=== PATIENT | female | born 1965 | race Caucasian/White ===

== ENCOUNTER 2019-06-14 17:39 | Emergency (ER) | payer MEDICARE ==
--- NOTE | 2019-06-14 17:49 | ERPHSYRPT ---
- History of Present Illness Time Seen by Provider: 06/14/19 17:48 Source: patient Exam Limitations: no limitations Physician History: The patient is a 54-year-old female with a past medical history significant for schizophrenia, irritable bowel syndrome, acid reflux/GERD, and a tremor as well as hypomagnesemia presents with a chief complaint of an abnormal lab value, specifically with a serum magnesium level of 1.0. She reportedly follows with Dr. Guerrero, her primary care provider, who has been monitoring her as an outpatient for her hypomagnesemia. She reported has been taking magnesium oxide for some time now. She has stopped her omeprazole which was thought to be contributing to her hypomagnesemia. She also endorsed taking 20 mg of Lasix but has not had an increase in her medication dose. She denies having diarrhea recently although she endorsed having episodes of this in the past but endorsed having constipation. Of note, since stopping her omeprazole she reportedly finished an entire bottle of Tums within less of the week. Otherwise, she denies seizure activity, generalized weakness, headaches palpitations, syncope and had no additional complaints at this time and reportedly is feeling well. Associated Symptoms: heartburn, other (Diarrhea), No nausea, No vomiting, No abdominal pain, No shortness of breath, No chest pain, No headaches, No loss of appetite, No syncope, No seizure, No weakness Allergies/Adverse Reactions: acetaminophen [From Vicodin] Allergy (Intermediate, Verified 06/14/19 17:55) Rash hydrocodone [From Vicodin] Allergy (Intermediate, Verified 06/14/19 17:55) Rash lurasidone [From Latuda] Allergy (Intermediate, Verified 06/14/19 17:55) Rash Home Medications: ARIPiprazole [Aripiprazole] 30 mg PO DAILY 06/14/19 [History] Albuterol Common Canister [Ventolin Common Canister] 1 puff IH DAILY 06/13 [History] Aripiprazole [Abilify] 30 mg PO DAILY 06/14/19 [History] Bupropion HCl 150 mg Sr [Wellbutrin SR 150 MG] 150 mg PO DAILY 06/14/19 [ History] Bupropion HCl [Wellbutrin Xl] 300 mg PO DAILY 06/14/19 [History] Deutetrabenazine [Austedo] 6 mg PO DAILY 06/14/19 [History] Escitalopram Oxalate [Lexapro] 20 mg PO DAILY 06/14/19 [History] Ferrous Sulfate [Iron] 325 mg PO DAILY 06/14/19 [History] Furosemide 20 mg [Lasix 20 mg] 20 mg PO DAILY 06/14/19 [History] Gabapentin 100 mg PO DAILY 06/14/19 [History] Insulin Degludec [Tresiba Flextouch U-200] 200 units IM DAILY 06/14/19 [History] Liraglutide [Victoza 2-Zachary] 1.8 mg SQ DAILY 06/14/19 [History] Magnesium Oxide 400 mg PO DAILY 06/14/19 [History] Omeprazole 20 mg PO DAILY 06/14/19 [History] - Review of Systems Constitutional: No Symptoms Eyes: No Symptoms Ears, Nose, & Throat: No Symptoms Respiratory: No Symptoms, No Cough Cardiac: No Chest Pain Abdominal/Gastrointestinal: Other (heart burn) Genitourinary Symptoms: No Symptoms Musculoskeletal: No Symptoms Skin: No Symptoms Neurological: No Symptoms Psychological: No Symptoms Endocrine: No Symptoms Hematologic/Lymphatic: No Symptoms Immunological/Allergic: No Symptoms All Other Systems: Reviewed and Negative - Nursing Vital Signs Nursing Vital Signs: Initial Vital Signs Temperature 98.0 F 06/14/19 17:46 Pulse Rate 106 H 06/14/19 17:46 Respiratory Rate 20 06/14/19 17:46 Blood Pressure 152/81 06/14/19 17:46 O2 Sat by Pulse Oximetry 98 06/14/19 17:46 Pain Scale Pain Intensity 0 - Physical Exam General Appearance: no apparent distress, alert, obese Eye Exam: PERRL/EOMI, eyes nml inspection, No scleral icterus, No pale conjunctivae, No EOM palsy/anisocoria Ears, Nose, Throat Exam: normal ENT inspection Neck Exam: normal inspection Respiratory Exam: normal breath sounds, lungs clear, airway intact, No chest tenderness, No respiratory distress Cardiovascular Exam: regular rate/rhythm, capillary refill <2 sec, No murmur, No friction rub, No gallop Gastrointestinal/Abdomen Exam: soft, No tenderness, No distention, No mass Pelvic Exam: not done Rectal Exam: deferred Back Exam: normal inspection Extremity Exam: normal inspection Neurologic Exam: alert, oriented x 3, cooperative Skin Exam: normal color, warm, dry, No rash, No petechiae, No jaundice SpO2 Interpretation: normal O2 Delivery: Room Air - Course Nursing assessment & vital signs reviewed: Yes EKG Interpreted by Me: RATE, NORMAL AXIS, NORMAL INTERVALS, NORMAL QRS, Non- specific ST Changes Ordered Tests: Active Orders 24 hr Category Date Time Status EKG-ER Only STAT Care 06/14/19 17:51 Active PHOSPHOROUS Stat Lab 06/14/19 Completed Medication Summary Discontinued Medications Generic Name Dose Route Start Last Admin Trade Name Homero PRN Reason Stop Dose Admin Sodium Chloride 1,000 mls @ 999 mls/hr 06/14/19 18:08 06/14/19 18:23 Sodium Chloride 0.9% 1000 Ml IV 06/14/19 19:08 999 mls/hr .Q1H1M STA Administration Sodium Chloride Confirm 06/14/19 18:22 Sodium Chloride 0.9% 1000 Ml Administered 06/14/19 18:23 Dose 1,000 mls @ ud .ROUTE .STK-MED ONE Magnesium Sulfate 2 gm 06/14/19 18:09 06/14/19 18:24 Magnesium Sulfate 1 Gm/2 Ml Vial IV 06/14/19 18:10 2 gm STAT ONE Administration Magnesium Sulfate Confirm 06/14/19 18:22 Magnesium Sulfate 1 Gm/2 Ml Vial Administered 06/14/19 18:23 Dose 2 gm .ROUTE .STK-MED ONE Lab/Rad Data: Laboratory Results 06/14/19 Range/Units Unknown Phosphorus 5.1 H (2.5-4.5) mg/dL - Progress Progress: unchanged Progress Note: 06/14/19 18:49 2 the patient and inquired about her use of Tums and calcium carbonate. She stated that she has consumed a lot of Tums, specifically over the last week. She states that she consumes Tums frequently but more so after she was taken off of her omeprazole for her acid reflux. 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 06/14/19 21:50 Nontoxic in appearance. The patient is relatively asymptomatic at this time. EKG was reviewed and showed no evidence of prolonged QT or any evidence of preexcitation or arrhythmia. A liter of normal saline in addition to 2g IV magnesium. I spoke to the on-call PCP for Dr. Guerrero and updated her with the patient's suspected diagnosis and need for follow-up ideally later this week. She stated she would have the patient contacted and schedule to be seen later this week. In the meantime, I will order outpatient labs to include BMP, magnesium in addition to serum phosphorus to be checked ideally this Thursday. In the meantime, I instructed the patient to refrain from consuming any additional Tums as this is likely the etiology of her abnormal lab results at this time. She was instructed to continue her low-dose Lasix in addition to magnesium oxide as well. The patient agreed with and verbally understood the discharge plan. Discussed with : Other (On-call physician for Dr. Guerrero) Counseled pt/family regarding: lab results, diagnosis, need for follow-up - Departure Departure Disposition: Home, Extended Care Facility Clinical Impression: Milk alkali syndrome, Hypomagnesemia Condition: Stable Critical Care Time: No Referrals: ROBY GUERRERO, ACCOUNTS RECEIVABLE PROCESSOR [Primary Care Provider] - Instructions: Low Magnesium Level (DC) Additional Instructions: Please continue to take your magnesium oxide as prescribed. You will need to call your primary care provider and schedule an appointment to be seen later this week to have your labs rechecked, ideally 06/17/19. In the meantime, please refrain from consuming Tums as this has contributed to a decrease in your magnesium level and has increased your serum calcium level. Please continue to take your furosemide also known as Lasix as prescribed. Outpatient Orders: BMP Location: LABORATORY MAGNESIUM Location: LABORATORY PHOSPHOROUS Location: LABORATORY
[2019-06-14] MEDS ORDERED: Sodium Chloride 0.9% 1000 ML 1,000 ML IV STA (18:08)
[2019-06-14] MEDS ORDERED: Magnesium Sulfate 1 GM/2 ML VIAL IV ONE (18:09)
[2019-06-14] MEDS ORDERED: Magnesium Sulfate 1 GM/2 ML VIAL ONE (18:22)
[2019-06-14] MEDS ORDERED: Sodium Chloride 0.9% 1000 ML 1,000 ML ONE (18:22)
[2019-06-14 19:09] VITALS: BP 133/68; PULSE 88; O2SAT 99
== END 2019-06-14 19:36 | disposition home or self-care (01) ==
LOC: ED 17:39
DX: E83.52 Hypercalcemia (principal)
CPT/HCPCS: 36000; 36415; 83970; 84100; 93005; 96360; 96374; 99284; J3475

== ENCOUNTER 2020-02-16 06:01 | Day surgery (SDC) | payer MEDICARE ==
--- NOTE | 2020-02-10 10:41 | HP ---
DATE OF SURGERY: 02/16/2020 HISTORY OF PRESENT ILLNESS: The patient presents with complaints of some diarrhea. She had been taking a couple of pills a day for this and it has not helped. She said she ate some taco soup and it gave her pain and diarrhea. She did not have rectal bleeding. She states that both of her grandparents had colon cancer. Last colonoscopy was more than five years ago. She states she was not cleaned out enough and did not get a good enough view. She is just now repeating her colonoscopy for that. Her abdominal pain bilateral and lower. She also states there is some pain in the epigastric area. PAST MEDICAL HISTORY: Arthritis. Acid reflux. Irritable bowel syndrome. Diabetes. Asthma. Schizophrenia. PAST SURGICAL HISTORY: Neck surgery. section. Appendectomy. Cholecystectomy. ALLERGIES: ACETAMINOPHEN. LATUDA. VICODIN. MEDICATIONS: Per chart. FAMILY HISTORY: Chronic obstructive pulmonary disease, congestive heart failure, diabetes, hypertension, liver cancer. SOCIAL HISTORY: None. REVIEW OF SYSTEMS: CONSTITUTIONAL: Denies fever or chills. CHEST: Denies shortness of breath. CVS: Denies chest pain. ABDOMEN: Reports abdominal pain, nausea, vomiting, diarrhea. Denies constipation or rectal bleeding. INTEGUMENTARY: Negative. PHYSICAL EXAMINATION: GENERAL: No acute distress. CHEST: Nonlabored. No shortness of breath. CVS: Regular rate and rhythm. ABDOMEN: Soft, tender in bilateral upper and right lower. EXTREMITIES: No edema. NEUROLOGIC: Alert. PSYCHIATRIC: Appropriate. IMPRESSION: Epigastric pain, abdominal pain and diarrhea. PLAN: EGD and colonoscopy with stool study by Dr. Sumit Varela. As dictated by Breanna Castañeda NP.
[2020-02-16] MEDS ORDERED: Lactated Ringers 1,000 ML IV SCH (06:30)
[2020-02-16] MEDS ORDERED: DIPRIVAN 200 MG/20 ML IV ONE ×2 (08:39→08:40)
[2020-02-16 10:00] VITALS: O2SAT 97
[2020-02-16 10:21] VITALS: BP 127/63; PULSE 93
[2020-02-16 11:26] LABS: 027 TOX PROD PRESUMPTIVE NEGATIVE (NEGATIVE); TOXIGENIC C. DIFF ORG NEGATIVE (NEGATIVE)
--- NOTE | 2020-02-16 11:44 | OP ---
SURGERY DATE/TIME: 02/16/2020 0840 PREOPERATIVE DIAGNOSIS: Screening with diarrhea. POSTOPERATIVE DIAGNOSIS: Two polyps, 1 cm cecal and 5 mm rectal. PROCEDURES: 1) Colonoscopy complete to cecum. 2) Hot polypectomy x2, sample for Clostridium difficile. 3) Stool sample for ova and parasite. SURGEON: Sumit Varela M.D. ANESTHESIA: MAC. COMPLICATIONS: None. CONDITION: Stable. INDICATION: A patient requiring evaluation. DESCRIPTION OF PROCEDURE: Taken to endoscopy. MAC sedation provided. Scope introduced. Anal digital examination satisfactory, tone satisfactory. Scope advanced to the cecum. Ileocecal valve was normal. Base of the cecum normal. Coming back 2 inches a 1 cm polyp was taken with hot biopsy forceps. The rest of withdrawal was normal until the rectum, upper rectum a 5 mm polyp was taken. The sigmoid is fairly redundant and heavy and it was rescoped and again was normal. The patient tolerated the procedure satisfactorily. She will return to the office for pathology report in two weeks. She will return for follow up colonoscopy in three years.
== END 2020-02-16 10:15 | disposition home or self-care (01) ==
LOC: SDC 06:01
PROVIDERS: ATTEND Surgery
DX: Z12.11 Encounter for screening for malignant neoplasm of colon (principal); R19.7 Diarrhea, unspecified; Z80.0 Family history of malignant neoplasm of digestive organs; E11.9 Type 2 diabetes mellitus without complications; R10.30 Lower abdominal pain, unspecified; D12.0 Benign neoplasm of cecum
CPT/HCPCS: 82947; 87045; 87046; 87328; 87329; 87493; J2704

== ENCOUNTER 2020-04-17 22:49 | Observation (INO) | payer MEDICARE ==
[2020-04-17 23:26] LABS: Absolute Neutrophil Ct (ANC) 8.94 (1.4-6.9); BASOPHIL % 0.1 % (0.0-0.4); Basophil (Absolute #) 0.01 (0-0.4); Eosinophil % 2.2 % (0.00-5.0); Eosinophil (Absolute #) 0.31 (0-0.5); Hematocrit 39.4 % (35-47); Hemoglobin 12.4 gm/dl (12.0-16.0); Lymphocyte (Absolute #) 3.62 (1.0-4.6); Lymphocytes % 25.8 % (24.0-44.0); Mean Cell Volume 87.8 fl (78-100); Mean Corpuscular Hemoglobin 27.6 pg (26-32); Mean Corpuscular Hgb Concent. 31.5 g/dl (32-36); Mean Platelet Volume 12.2 fl (7.5-11.0); Monocyte (Absolute #) 1.13 (0.0-1.3); Monocytes % 8.1 % (0.0-12.0); Neutrophil % 63.8 % (36.0-66.0); Platelet Count 254 K/mm3 (150-450); Red Blood Count 4.49 M/mm3 (4.1-5.4); Red Cell Distribution Width 15.1 % (11.5-14.0)
[2020-04-17 23:53] LABS: ALBUMIN 3.9 g/dL (3.5-5.0); ANION GAP 11.7 MEQ/L (5-15); BILIRUBIN,TOTAL 0.5 mg/dL (0.2-1.3); Calcium 9.7 mg/dL (8.4-10.2); Creatinine 1 1.11 mg/dL (0.52-1.04); EST GLOMERULAR FILTRATION RATE 53.8 ML/MIN; Potassium 4.1 mmol/L (3.5-5.1); Total Protein 7.5 g/dL (6.3-8.2)
--- NOTE | 2020-04-18 00:28 | ERPHSYRPT ---
- History of Present Illness Time Seen by Provider: 04/17/20 23:10 Historian: patient Exam Limitations: no limitations Patient Subjective Stated Complaint: Patient states " I was sitting on chair and I started having severe chest pain that went into my left arm. My Left arm started tingling and I got scared". Triage Nursing Assessment: Patient arrived per ambulance. Patient with complaints of chest pain that has been coming and going since [id number] tonight, Patient A/O times 4. Patient able to follow directions without difficulty. Lungs clear bilateral A/P throughout. Patient denies SOB. Patient denies N/V, dizziness, H/A, or diaphoresis. + BS times 4 quads. ABD soft, round, non- distended. + radial and pedal pulses noted bilateral. Cap refill < 3 seconds. No S/S of respiratory distress noted. Skin turgor < 3 seconds. No JVD. Patient st ated that her pain was going into left arm causing a numbness feeling and that her pain was going into her neck. Patient stated her neck pain is probably from where she had neck surgery and had to have plates placed. Physician History: Patient is a 55-year-old female morbidly obese history of hypertension, DM, hyperlipidemia presents to our ED via EMS for evaluation of intermittent chest pain that has been ongoing for the past several hours. Pain described as an ache that radiates into her left arm. No associated nausea vomiting or diaphoresis. Symptoms are mild to moderate in intensity. No specific worsening or improving factors. Patient's last cardiac stress test was "many years ago". Patient has a history of neck surgery. Patient states she has been experiencing neck pain related to her surgery for the past several months. No new acute findings or concerns regarding her neck. Patient voices no other complaints at this time. Timing/Duration: today Activities at Onset: none Quality: aching Location: substernal Chest Pain Radiation: arm Severity of Pain-Max: moderate Severity of Pain-Current: mild Modifying Factors: Improves With: nothing Associated Symptoms: denies symptoms Prior Chest Pain/Cardiac Workup: no prior chest pain Aspirin Treatment Today: 81 mg x 1 Allergies/Adverse Reactions: hydrocodone [From Vicodin] Allergy (Intermediate, Verified 04/17/20 22:56) Rash lurasidone [From Latuda] Allergy (Intermediate, Verified 04/17/20 22:56) Rash Home Medications: Albuterol Common Canister [Ventolin Common Canister] 1 puff IH DAILY 06/14/19 [History] Aripiprazole [Abilify] 30 mg PO DAILY 06/14/19 [History] Bupropion HCl 150 mg Sr [Wellbutrin SR 150 MG] 150 mg PO DAILY 06/14/19 [History] Bupropion HCl [Wellbutrin Xl] 300 mg PO DAILY 06/14/19 [History] Escitalopram Oxalate [Lexapro] 40 mg PO DAILY 06/14/19 [History] Ferrous Sulfate [Iron] 325 mg PO DAILY 06/14/19 [History] Furosemide 20 mg [Lasix 20 mg] 20 mg PO DAILY 06/14/19 [History] Gabapentin 200 mg PO BID 06/14/19 [History] Insulin Degludec [Tresiba Flextouch U-200] 60 units SQ DAILY 06/14/19 [History] Magnesium Oxide 800 mg PO TID 06/14/19 [History] Cetirizine HCl [All Day Allergy] 10 mg PO DAILY 02/08/20 [History] Colestipol HCl [Colestid] 1 gm PO DAILY 02/08/20 [History] Deutetrabenazine [Austedo] 9 mg PO DAILY 02/08/20 [History] Insulin Aspart Prot/Insuln Asp [Novolog Mix 70-30 Flexpen Syrn] 20 unit SQ TID 02/08/20 [History] Metoprolol Succinate 25 mg PO DAILY 02/08/20 [History] Montelukast Sodium 10 mg [Singulair 10 MG] 10 mg PO DAILY 02/08/20 [History] Propylene Glycol/Peg 400/Pf [Systane Ultra 0.4-0.3% Eye Drp] 1 each OP QID 02/08/20 [History] Rosuvastatin Calcium 10 mg PO DAILY 02/08/20 [History] Hx Tetanus, Diphtheria Vaccination/Date Given: No Hx Influenza Vaccination/Date Given: Yes Hx Pneumococcal Vaccination/Date Given: Yes Immunizations Up to Date: Yes Travel Risk - International Travel Have you traveled outside of the country in past 3 weeks: No - Coronavirus Screening Are you exhibiting any of the following symptoms?: No Close contact with a COVID-19 positive Pt in past 14-21 Days: No - Review of Systems Constitutional: No Symptoms, No Fever, No Chills Eyes: No Symptoms Ears, Nose, & Throat: No Symptoms Respiratory: No Symptoms, No Cough, No Dyspnea Cardiac: No Symptoms, No Chest Pain, No Edema, No Syncope Abdominal/Gastrointestinal: No Symptoms, No Abdominal Pain, No Nausea, No Vomi ting, No Diarrhea Genitourinary Symptoms: No Symptoms, No Dysuria Musculoskeletal: No Symptoms, No Back Pain, No Neck Pain Skin: No Symptoms, No Rash Neurological: No Symptoms, No Dizziness, No Focal Weakness, No Sensory Changes Psychological: No Symptoms Endocrine: No Symptoms Hematologic/Lymphatic: No Symptoms Immunological/Allergic: No Symptoms All Other Systems: Reviewed and Negative - Past Medical History Pertinent Past Medical History: Yes Neurological History: Other ENT History: No Pertinent History Cardiac History: Arrhythmia, High Cholesterol Respiratory History: Asthma Endocrine Medical History: Diabetes Type II, Liver Disease Musculoskeletal History: Arthritis GI Medical History: GERD History: Other Psycho-Social History: Anxiety, Depression Female Reproductive Disorders: No Pertinent History Other Medical History: Parkinsonian Disorder (Pt unsure what it is.) - Past Surgical History Past Surgical History: Yes Neuro Surgical History: No Pertinent History Cardiac: Cardiac Catheterization Respiratory: No Pertinent History Gastrointestinal: Appendectomy, Cholecystectomy Genitourinary: No Pertinent History Musculoskeletal: Other Female Surgical History: Section, Tubal Ligation Other Surgical History: NECK SURGERY WITH DISC REPAIR. C- Section x 2 - Social History Smoking Status: Never smoker Exposure to second hand smoke: No Drug Use: none Patient Lives Alone: Yes - Female History Hx Last Menstrual Period: POST - Nursing Vital Signs Nursing Vital Signs: Initial Vital Signs Temperature 98.3 F 04/17/20 23:06 Pulse Rate 100 H 04/17/20 23:06 Respiratory Rate 22 04/17/20 23:06 Blood Pressure 152/77 04/17/20 23:06 O2 Sat by Pulse Oximetry 100 04/17/20 23:06 Pain Scale Pain Intensity 2 - Physical Exam General Appearance: no apparent distress, alert Eye Exam: PERRL/EOMI, eyes nml inspection Ears, Nose, Throat Exam: normal ENT inspection, moist mucous membranes Neck Exam: normal inspection, non-tender, supple, full range of motion Respiratory Exam: normal breath sounds, lungs clear, No respiratory distress Cardiovascular Exam: regular rate/rhythm, normal heart sounds Gastrointestinal/Abdomen Exam: soft, No tenderness, No mass Back Exam: normal inspection, No CVA tenderness, No vertebral tenderness Extremity Exam: normal inspection, normal range of motion Neurologic Exam: alert, oriented x 3, cooperative, solo musician II-XII nml as tested, normal mood/affect, sensation nml, No motor deficits Skin Exam: normal color, warm, dry SpO2 Interpretation: normal SpO2: 96 O2 Delivery: Room Air - Course Nursing assessment & vital signs reviewed: Yes EKG Interpreted by Me: RATE (106), Sinus Tach, NORMAL AXIS, NORMAL INTERVALS - Radiology Exams Chest X-ray Interpretation: Interpreted by me (No infiltrate no consolidation. Normal bony thorax. Normal cardiac silhouette. Intact cervical spine hardware.) Ordered Tests: Active Orders 24 hr Category Date Time Status Rn L And D STAT Care 04/17/20 23:08 Active EKG-ER Only STAT Care 04/17/20 23:07 Active IV Insertion STAT Care 04/17/20 23:07 Active Pulse Oximetry (ED) STAT Care 04/17/20 23:07 Active CHEST 1 VIEW (PORTABLE) Stat Exams 04/17/20 23:08 Taken CBC W DIFF Stat Lab 04/17/20 23:20 Completed CMP Stat Lab 04/17/20 23:20 Completed NT PRO BNP Stat Lab 04/17/20 23:20 Completed TROPONIN Q3H Lab 04/17/20 23:20 Completed TROPONIN Q3H Lab 04/18/20 02:15 Ordered TROPONIN Q3H Lab 04/18/20 05:15 Ordered TROPONIN Q3H Lab 04/18/20 08:15 Ordered TROPONIN Q3H Lab 04/18/20 11:15 Ordered Transfer Order Routine Transfer 04/18/20 Ordered Medication Summary Discontinued Medications Generic Name Dose Route Start Last Admin Trade Name Freq PRN Reason Stop Dose Admin Aspirin 243 mg 04/18/20 01:35 Baby Aspirin 81 Mg Chew PO 04/18/20 01:36 STAT ONE Nitroglycerin 1 gm 04/18/20 01:36 Nitro-Bid 2% Ud Packets TOP 04/18/20 01:37 STAT ONE Lab/Rad Data: Laboratory Result Diagrams 04/17/20 23:20 04/17/20 23:20 Laboratory Results 04/17/20 04/17/20 04/17/20 Range/Units 23:20 23:20 23:20 WBC 14.0 H (4.0-10.5) K/mm3 RBC 4.49 (4.1-5.4) M/mm3 Hgb 12.4 (12.0-16.0) gm/dl Hct 39.4 (35-47) % MCV 87.8 (78-100) fl MCH 27.6 (26-32) pg MCHC 31.5 L (32-36) g/dl RDW 15.1 H (11.5-14.0) % Plt Count 254 (150-450) K/mm3 MPV 12.2 H (7.5-11.0) fl Gran % 63.8 (36.0-66.0) % Eos # (Auto) 0.31 (0-0.5) Absolute Lymphs (auto) 3.62 (1.0-4.6) Absolute Monos (auto) 1.13 (0.0-1.3) Lymphocytes % 25.8 (24.0-44.0) % Monocytes % 8.1 (0.0-12.0) % Eosinophils % 2.2 (0.00-5.0) % Basophils % 0.1 (0.0-0.4) % Absolute Granulocytes 8.94 H (1.4-6.9) Basophils # 0.01 (0-0.4) Sodium 136 L (137-145) mmol/L Potassium 4.1 (3.5-5.1) mmol/L Chloride 100 (98-107) mmol/L Carbon Dioxide 29 (22-30) mmol/L Anion Gap 11.7 (5-15) MEQ/L BUN 25 H (7-17) mg/dL Creatinine 1.11 H (0.52-1.04) mg/dL Estimated GFR 53.8 ML/MIN Glucose 83 (74-106) mg/dL Calcium 9.7 (8.4-10.2) mg/dL Total Bilirubin 0.50 (0.2-1.3) mg/dL AST 26 (14-36) U/L ALT 20 (0-35) U/L Alkaline Phosphatase 113 (38-126) U/L Troponin I < 0.012 (0.000-0.034) ng/mL NT-Pro-B Natriuret Pep 193 (0-900) pg/mL Serum Total Protein 7.5 (6.3-8.2) g/dL Albumin 3.9 (3.5-5.0) g/dL - Progress Progress: improved Progress Note: 04/18/20 01:43 Patient reassessed. No active chest pain. Patient took 1 aspirin. 3 more administered. Nitroglycerin paste applied the chest. Vital stable. Preliminary work-up in our ED negative. Chest x-ray negative. In light of patient's cardiac risk factors and characteristics of chest pain we will admit for cardiac rule out. Case discussed with who accepts admission to observation. Plan of care discussed with patient. She agrees to admission at [facility] for further evaluation and treatment. She voices no other complaints or concerns at this time. Blood Culture(s) Obtained: No Antibiotics given: No Discussed with .: Dash Will see patient in: hospital (observation) Counseled pt/family regarding: lab results, diagnosis, rad results - Departure Departure Disposition: Observation Clinical Impression: ACS (acute coronary syndrome), Chest pain Condition: Stable Critical Care Time: No Referrals: ROBY GUERRERO NP [Primary Care Provider] -
[2020-04-18] MEDS ORDERED: BABY ASPIRIN 81 MG CHEW PO ONE (01:35)
[2020-04-18] MEDS ORDERED: NITRO-BID 2% UD PACKETS TOP ONE (01:36)
[2020-04-18] MEDS ORDERED: NITRO-BID 2% UD PACKETS ONE (02:22)
[2020-04-18] MEDS ORDERED: BABY ASPIRIN 81 MG CHEW ONE (02:22)
[2020-04-18] MEDS ORDERED: Senokot-S Tablet PO PRN (03:02)
[2020-04-18] MEDS ORDERED: MILK OF MAGNESIA 30 ML PO PRN (03:02)
[2020-04-18] MEDS ORDERED: MAALOX ES 30 ML UNIT DOSE PO PRN (03:02)
[2020-04-18] MEDS ORDERED: TYLENOL 325 MG PO PRN (03:02)
[2020-04-18] MEDS ORDERED: VENTOLIN COMMON CANISTER IH PRN (05:58)
--- NOTE | 2020-04-18 09:16 | XRAY ---
Indication: Chest pain. Comparison: None Portable apical lordotic chest demonstrates normal heart and lungs. Bony thorax intact with incidental lower cervical fusion hardware.
[2020-04-18] MEDS ORDERED: Abilify 10 MG PO SCH (12:00)
[2020-04-18] MEDS ORDERED: Toprol-Xl 25MG Tablets PO SCH (12:00)
[2020-04-18] MEDS ORDERED: Novolin 70/30 SQ SCH (12:00)
[2020-04-18] MEDS ORDERED: ZOCOR 20MG PO SCH (12:00)
[2020-04-18] MEDS ORDERED: LASIX 20 MG PO SCH (12:00)
[2020-04-18] MEDS ORDERED: FEOSOL 325 MG PO SCH (12:00)
[2020-04-18] MEDS ORDERED: Lexapro 10 MG PO SCH (12:00)
[2020-04-18] MEDS ORDERED: CLARITIN 10 MG PO SCH (12:00)
[2020-04-18] MEDS ORDERED: Neurontin 100 MG PO SCH (12:00)
[2020-04-18] MEDS ORDERED: Singulair 10 MG PO SCH (12:00)
[2020-04-18] MEDS ORDERED: Protonix 40MG Tablet PO SCH (12:00)
[2020-04-18] MEDS ORDERED: MEDICATION INTERVENTION MC SCH ×4 (12:15→12:30)
[2020-04-18 12:16] VITALS: PULSE 76; O2SAT 94
[2020-04-18 12:17] VITALS: BP 109/56
[2020-04-18] MEDS ORDERED: Wellbutrin XL 150 MG PO SCH (12:30)
[2020-04-18] MEDS ORDERED: Lantus Insulin SQ SCH (12:30)
[2020-04-18] MEDS ORDERED: PROPYLENE GLYCOL OP SCH (13:00)
[2020-04-18] MEDS ORDERED: [UNRECOGNIZED DRUG - OTHER] OP SCH (13:00)
[2020-04-18] MEDS ORDERED: PEG OP SCH (13:00)
[2020-04-18] MEDS ORDERED: MAG-OX 400 PO SCH (15:00)
[2020-04-18] MEDS ORDERED: INSULIN ASPART PROT SQ SCH (15:00)
[2020-04-18] MEDS ORDERED: INSULN ASP SQ SCH (15:00)
--- NOTE | 2020-04-18 20:26 | PCM.SSS ---
History of Present Illness - Chief Complaint Chief Complaint: chest pain for 1 day History of Present Illness: is a 55 year old female. morbidly obese history of hypertension, DM, hyperlipidemia presents to our ED via EMS for evaluation of intermittent chest pain that has been ongoing for the past several hours. Pain described as an ache that radiates into her left arm. No associated nausea vomiting or diaphoresis. Symptoms are mild to moderate in intensity. No specific worsening or improving factors. Patient's last cardiac stress test was "many years ago". Patient has a history of neck surgery. Patient states she has been experiencing neck pain related to her surgery for the past several months. No new acute findings or concerns regarding her neck. Patient voices no other complaints at this time. - Review of Systems Constitutional: No Fever, No Chills Eyes: No Symptoms Ears, Nose, & Throat: No Symptoms Respiratory: No Cough, No Short Of Breath Cardiac: Chest Pain, No Edema, No Syncope Abdominal/Gastrointestinal: No Abdominal Pain, No Nausea, No Vomiting, No Diarrhea Genitourinary Symptoms: No Dysuria Musculoskeletal: No Back Pain, No Neck Pain Skin: No Rash Neurological: No Dizziness, No Focal Weakness, No Sensory Changes Psychological: No Symptoms Endocrine: No Symptoms Hematologic/Lymphatic: No Symptoms Immunological/Allergic: No Symptoms Medications & Allergies Home Medications: Home Medication List Albuterol Common Canister [Ventolin Common Canister] 1 puff IH DAILY 06/14/19 [History Confirmed 04/17/20] Aripiprazole [Abilify] 30 mg PO DAILY 06/14/19 [History Confirmed 04/17/20] Bupropion HCl 150 mg Sr [Wellbutrin SR 150 MG] 150 mg PO DAILY 06/14/19 [History Confirmed 04/17/20] Bupropion HCl [Wellbutrin Xl] 300 mg PO DAILY 06/14/19 [History Confirmed 04/17/20] Escitalopram Oxalate [Lexapro] 40 mg PO DAILY 06/14/19 [History Confirmed 04/17/20] Ferrous Sulfate [Iron] 325 mg PO DAILY 06/14/19 [History Confirmed 04/17/20] Furosemide 20 mg [Lasix 20 mg] 20 mg PO DAILY 06/14/19 [History Confirmed 04/17/20] Gabapentin 200 mg PO BID 06/14/19 [History Confirmed 04/17/20] Insulin Degludec [Tresiba Flextouch U-200] 60 units SQ DAILY 06/14/19 [History Confirmed 04/17/20] Magnesium Oxide 800 mg PO TID 06/14/19 [History Confirmed 04/17/20] Cetirizine HCl [All Day Allergy] 10 mg PO DAILY 02/08/20 [History Confirmed ] Colestipol HCl [Colestid] 1 gm PO DAILY 02/08/20 [History Confirmed 04/17/20] Deutetrabenazine [Austedo] 9 mg PO DAILY 02/08/20 [History Confirmed 04/17/20] Insulin Aspart Prot/Insuln Asp [Novolog Mix 70-30 Flexpen] 20 unit SQ TID 02/08/20 [History Confirmed 04/17/20] Metoprolol Succinate 25 mg PO DAILY 02/08/20 [History Confirmed 04/17/20] Montelukast Sodium 10 mg [Singulair 10 MG] 10 mg PO DAILY 02/08/20 [History Confirmed 04/17/20] Propylene Glycol/Peg 400/Pf [Systane Ultra 0.4-0.3% Eye Drp] 1 each OP QID 02/08/20 [History Confirmed 04/17/20] Rosuvastatin Calcium 10 mg PO DAILY 02/08/20 [History Confirmed 04/17/20] PANTOPRAZOLE 40 mg Tablet [Protonix 40MG Tablet] 40 mg PO DAILY #30 tab 02/16/20 [Rx Confirmed 04/17/20] Allergies/Adverse Reactions: Allergies Allergy/AdvReac Type Severity Reaction Status Date / Time hydrocodone [From Vicodin] Allergy Intermediate Rash Verified 04/17/20 22:56 lurasidone [From Latuda] Allergy Intermediate Rash Verified 04/17/20 22:56 - Past Medical History Past Medical History: Yes Neurological History: Other ENT History: No Pertinent History Cardiac History: Arrhythmia, High Cholesterol Respiratory History: Asthma Endocrine Medical History: Diabetes Type II, Liver Disease Musculoskelatal History: Arthritis GI Medical History: GERD History: Other Pyscho-Social History: Anxiety, Depression Reproductive Disorders: No Pertinent History Comment: Parkinsonian Disorder (Pt unsure what it is.) - Female History Hx Last Menstrual Period: POST - Past Surgical History Past Surgical History: Yes Neuro Surgical History: No Pertinent History Cardiac History: Cardiac Catheterization Respiratory Surgery: No Pertinent History GI Surgical History: Appendectomy, Cholecystectomy Genitourinary Surgical Hx: No Pertinent History Musculskeletal Surgical Hx: Other Female Surgical History: Section, Tubal Ligation Other Surgical History: NECK SURGERY WITH DISC REPAIR. C- Section x 2 - Social History Smoking Status: Never smoker Exposure to second hand smoke: No Alcohol: Occasionally Drug Use: none - Physical Exam Vital Signs: Vital Signs - 24 hr Temp Pulse Pulse Resp BP Pulse Ox 04/18/20 12:00 98.1 F 76 20 109/56 94 L 04/18/20 07:20 97.7 F 78 20 107/58 95 04/18/20 06:53 80 16 96 04/18/20 04:00 77 14 93 L 04/18/20 03:27 97.4 F 68 16 91/54 98 04/18/20 03:01 83 16 90/48 97 04/18/20 02:00 78 18 119/59 98 04/18/20 01:46 96 04/18/20 01:00 82 18 118/59 95 04/18/20 00:00 88 16 135/67 96 04/17/20 23:24 100 04/17/20 23:14 96 H 04/17/20 23:06 98.3 F 100 H 22 152/77 100 General Appearance: no apparent distress, alert Neurologic Exam: alert, oriented x 3, cooperative, normal mood/affect, nml cerebellar function, nml station & gait, sensation nml, No motor deficits Eye Exam: PERRL/EOMI, eyes nml inspection Ears, Nose, Throat Exam: normal ENT inspection, TMs normal, pharynx normal, moist mucous membranes Neck Exam: normal inspection, non-tender, supple, full range of motion Respiratory Exam: normal breath sounds, lungs clear, No respiratory distress Cardiovascular Exam: regular rate/rhythm, normal heart sounds, normal peripheral pulses Gastrointestinal/Abdomen Exam: soft, normal bowel sounds, No tenderness, No mass Back Exam: normal inspection, normal range of motion, No CVA tenderness, No vertebral tenderness Extremity Exam: normal inspection, normal range of motion, pelvis stable Skin Exam: normal color, warm, dry, No rash Lymphatic Exam: No adenopathy Results - Labs Lab/Micro Results: Lab Results-Last 24 Hours 04/17/20 04/17/20 04/17/20 Range/Units 23:20 23:20 23:20 WBC 14.0 H (4.0-10.5) K/mm3 RBC 4.49 (4.1-5.4) M/mm3 Hgb 12.4 (12.0-16.0) gm/dl Hct 39.4 (35-47) % MCV 87.8 (78-100) fl MCH 27.6 (26-32) pg MCHC 31.5 L (32-36) g/dl RDW 15.1 H (11.5-14.0) % Plt Count 254 (150-450) K/mm3 MPV 12.2 H (7.5-11.0) fl Gran % 63.8 (36.0-66.0) % Eos # (Auto) 0.31 (0-0.5) Absolute Lymphs (auto) 3.62 (1.0-4.6) Absolute Monos (auto) 1.13 (0.0-1.3) Lymphocytes % 25.8 (24.0-44.0) % Monocytes % 8.1 (0.0-12.0) % Eosinophils % 2.2 (0.00-5.0) % Basophils % 0.1 (0.0-0.4) % Absolute Granulocytes 8.94 H (1.4-6.9) Basophils # 0.01 (0-0.4) Sodium 136 L (137-145) mmol/L Potassium 4.1 (3.5-5.1) mmol/L Chloride 100 (98-107) mmol/L Carbon Dioxide 29 (22-30) mmol/L Anion Gap 11.7 (5-15) MEQ/L BUN 25 H (7-17) mg/dL Creatinine 1.11 H (0.52-1.04) mg/dL Estimated GFR 53.8 ML/MIN Glucose 83 (74-106) mg/dL POC Glucometer (74 to 106) mg/dL Hemoglobin A1c (4.5-6.0) % Calcium 9.7 (8.4-10.2) mg/dL Total Bilirubin 0.50 (0.2-1.3) mg/dL AST 26 (14-36) U/L ALT 20 (0-35) U/L Alkaline Phosphatase 113 (38-126) U/L Troponin I < 0.012 (0.000-0.034) ng/mL NT-Pro-B Natriuret Pep 193 (0-900) pg/mL Serum Total Protein 7.5 (6.3-8.2) g/dL Albumin 3.9 (3.5-5.0) g/dL Triglycerides (30-150) mg/dL Cholesterol (50-200) mg/dL LDL Cholesterol (30-100) mg/dL HDL Cholesterol (40-60) mg/dL Heart Disease Risk Ratio 04/18/20 04/18/20 04/18/20 Range/Units 02:30 03:03 05:00 WBC (4.0-10.5) K/mm3 RBC (4.1-5.4) M/mm3 Hgb (12.0-16.0) gm/dl Hct (35-47) % MCV (78-100) fl MCH (26-32) pg MCHC (32-36) g/dl RDW (11.5-14.0) % Plt Count (150-450) K/mm3 MPV (7.5-11.0) fl Gran % (36.0-66.0) % Eos # (Auto) (0-0.5) Absolute Lymphs (auto) (1.0-4.6) Absolute Monos (auto) (0.0-1.3) Lymphocytes % (24.0-44.0) % Monocytes % (0.0-12.0) % Eosinophils % (0.00-5.0) % Basophils % (0.0-0.4) % Absolute Granulocytes (1.4-6.9) Basophils # (0-0.4) Sodium (137-145) mmol/L Potassium (3.5-5.1) mmol/L Chloride (98-107) mmol/L Carbon Dioxide (22-30) mmol/L Anion Gap (5-15) MEQ/L BUN (7-17) mg/dL Creatinine (0.52-1.04) mg/dL Estimated GFR ML/MIN Glucose (74-106) mg/dL POC Glucometer 135 H (74 to 106) mg/dL Hemoglobin A1c 8.92 H (4.5-6.0) % Calcium (8.4-10.2) mg/dL Total Bilirubin (0.2-1.3) mg/dL AST (14-36) U/L ALT (0-35) U/L Alkaline Phosphatase (38-126) U/L Troponin I < 0.012 (0.000-0.034) ng/mL NT-Pro-B Natriuret Pep (0-900) pg/mL Serum Total Protein (6.3-8.2) g/dL Albumin (3.5-5.0) g/dL Triglycerides (30-150) mg/dL Cholesterol (50-200) mg/dL LDL Cholesterol (30-100) mg/dL HDL Cholesterol (40-60) mg/dL Heart Disease Risk Ratio 04/18/20 04/18/20 04/18/20 Range/Units 05:10 05:10 06:48 WBC (4.0-10.5) K/mm3 RBC (4.1-5.4) M/mm3 Hgb (12.0-16.0) gm/dl Hct (35-47) % MCV (78-100) fl MCH (26-32) pg MCHC (32-36) g/dl RDW (11.5-14.0) % Plt Count (150-450) K/mm3 MPV (7.5-11.0) fl Gran % (36.0-66.0) % Eos # (Auto) (0-0.5) Absolute Lymphs (auto) (1.0-4.6) Absolute Monos (auto) (0.0-1.3) Lymphocytes % (24.0-44.0) % Monocytes % (0.0-12.0) % Eosinophils % (0.00-5.0) % Basophils % (0.0-0.4) % Absolute Granulocytes (1.4-6.9) Basophils # (0-0.4) Sodium (137-145) mmol/L Potassium (3.5-5.1) mmol/L Chloride (98-107) mmol/L Carbon Dioxide (22-30) mmol/L Anion Gap (5-15) MEQ/L BUN (7-17) mg/dL Creatinine (0.52-1.04) mg/dL Estimated GFR ML/MIN Glucose (74-106) mg/dL POC Glucometer 195 H (74 to 106) mg/dL Hemoglobin A1c (4.5-6.0) % Calcium (8.4-10.2) mg/dL Total Bilirubin (0.2-1.3) mg/dL AST (14-36) U/L ALT (0-35) U/L Alkaline Phosphatase (38-126) U/L Troponin I < 0.012 (0.000-0.034) ng/mL NT-Pro-B Natriuret Pep (0-900) pg/mL Serum Total Protein (6.3-8.2) g/dL Albumin (3.5-5.0) g/dL Triglycerides 138 (30-150) mg/dL Cholesterol 155 (50-200) mg/dL LDL Cholesterol 79 (30-100) mg/dL HDL Cholesterol 52 (40-60) mg/dL Heart Disease Risk Ratio 3.0 04/18/20 04/18/20 04/18/20 Range/Units 08:15 11:10 11:31 WBC (4.0-10.5) K/mm3 RBC (4.1-5.4) M/mm3 Hgb (12.0-16.0) gm/dl Hct (35-47) % MCV (78-100) fl MCH (26-32) pg MCHC (32-36) g/dl RDW (11.5-14.0) % Plt Count (150-450) K/mm3 MPV (7.5-11.0) fl Gran % (36.0-66.0) % Eos # (Auto) (0-0.5) Absolute Lymphs (auto) (1.0-4.6) Absolute Monos (auto) (0.0-1.3) Lymphocytes % (24.0-44.0) % Monocytes % (0.0-12.0) % Eosinophils % (0.00-5.0) % Basophils % (0.0-0.4) % Absolute Granulocytes (1.4-6.9) Basophils # (0-0.4) Sodium (137-145) mmol/L Potassium (3.5-5.1) mmol/L Chloride (98-107) mmol/L Carbon Dioxide (22-30) mmol/L Anion Gap (5-15) MEQ/L BUN (7-17) mg/dL Creatinine (0.52-1.04) mg/dL Estimated GFR ML/MIN Glucose (74-106) mg/dL POC Glucometer 377 H (74 to 106) mg/dL Hemoglobin A1c (4.5-6.0) % Calcium (8.4-10.2) mg/dL Total Bilirubin (0.2-1.3) mg/dL AST (14-36) U/L ALT (0-35) U/L Alkaline Phosphatase (38-126) U/L Troponin I < 0.012 < 0.012 (0.000-0.034) ng/mL NT-Pro-B Natriuret Pep (0-900) pg/mL Serum Total Protein (6.3-8.2) g/dL Albumin (3.5-5.0) g/dL Triglycerides (30-150) mg/dL Cholesterol (50-200) mg/dL LDL Cholesterol (30-100) mg/dL HDL Cholesterol (40-60) mg/dL Heart Disease Risk Ratio Accuchecks Date 04/18/20 Date 04/18/20 Time 11:30 Time 07:00 - Radiology Impressions Radiology Exams & Impressions: Radiology Procedures Category Date Time Status CHEST 1 VIEW (PORTABLE) Stat Exams 04/17/20 23:08 Completed - Other Procedures and Tests Respiratory Therapy 04/18/20 04:00 Respiratory Therapy Assessment DAILY 04/19/20 05:00 EKG DAILY 04/20/20 05:00 EKG DAILY 04/21/20 05:00 EKG DAILY Assessment/Plan (1) Chest pain Status: Acute Qualifiers: Chest pain type: other chest pain Qualified Code(s): R07.89 - Other chest pain; R07.8 - Other chest pain Assessment & Plan: Chief Complaint Diagnosis ACS Allergies Allergy/AdvReac Type Severity Reaction Status Date / Time hydrocodone [From Vicodin] Allergy Intermediate Rash Verified 04/17/20 22:56 lurasidone [From Latuda] Allergy Intermediate Rash Verified 04/17/20 22:56 Vital Signs (Last 24 hours) Temp Pulse Pulse Resp BP Pulse Ox 04/18/20 12:00 98.1 F 76 20 109/56 94 L 04/18/20 07:20 97.7 F 78 20 107/58 95 04/18/20 06:53 80 16 96 04/18/20 04:00 77 14 93 L 04/18/20 03:27 97.4 F 68 16 91/54 98 04/18/20 03:01 83 16 90/48 97 04/18/20 02:00 78 18 119/59 98 04/18/20 01:46 96 04/18/20 01:00 82 18 118/59 95 04/18/20 00:00 88 16 135/67 96 04/17/20 23:24 100 04/17/20 23:14 96 H 04/17/20 23:06 98.3 F 100 H 22 152/77 100 Current Medications Discontinued Medications Generic Name Dose Route Start Last Admin Trade Name Freq PRN Reason Stop Dose Admin Acetaminophen 650 mg 04/18/20 03:02 Tylenol 325 Mg PO 05/18/20 03:01 Q4H PRN PRN PAIN AND/OR FEVER Al Hydrox/Mg Hydrox/Simethicone 30 ml 04/18/20 03:02 Maalox Es 30 Ml Unit Dose PO 05/18/20 03:01 Q4H PRN PRN INDIGESTION Albuterol Sulfate 2 puff 04/18/20 05:58 Ventolin Common Canister IH 05/18/20 05:57 Q4H PRN PRN SHORTNESS OF BREATH/WHEEZING Aripiprazole 30 mg 04/18/20 12:00 04/18/20 13:16 Abilify 10 Mg PO 05/18/20 11:59 Not Given DAILY [facility] Aspirin 243 mg 04/18/20 01:35 04/18/20 02:24 Baby Aspirin 81 Mg Chew PO 04/18/20 01:36 243 mg STAT ONE Administration Aspirin Confirm 04/18/20 02:22 Baby Aspirin 81 Mg Chew Administered 04/18/20 02:23 Dose 243 mg .ROUTE .STK-MED ONE Bupropion HCl 450 mg 04/18/20 12:30 04/18/20 13:18 Wellbutrin Xl 150 Mg PO 05/18/20 12:29 Not Given DAILY [facility] Escitalopram Oxalate 40 mg 04/18/20 12:00 04/18/20 13:17 Lexapro 10 Mg PO 05/18/20 11:59 Not Given DAILY [facility] Ferrous Sulfate 325 mg 04/18/20 12:00 04/18/20 13:17 Feosol 325 Mg PO 05/18/20 11:59 Not Given DAILY PIA Furosemide 20 mg 04/18/20 12:00 04/18/20 13:17 Lasix 20 Mg PO 05/18/20 11:59 Not Given DAILY PIA Gabapentin 200 mg 04/18/20 12:00 04/18/20 13:17 Neurontin 100 Mg PO 05/18/20 11:59 Not Given BID PIA Insulin Glargine 60 unit 04/18/20 12:30 04/18/20 13:20 Lantus Insulin SQ 05/18/20 12:29 60 unit DAILY PIA Administration Insulin Human Isoph/Insulin Regular 20 unit 04/18/20 12:00 04/18/20 13:20 Novolin 70/30 SQ 05/18/20 11:59 20 unit TIDAC PIA Administration Loratadine 10 mg 04/18/20 12:00 04/18/20 13:16 Claritin 10 Mg PO 05/18/20 11:59 Not Given DAILY [facility] Magnesium Hydroxide 30 - 60 ml 04/18/20 03:02 Milk Of Magnesia 30 Ml PO 05/18/20 03:01 QDP PRN CONSTIPATION Magnesium Oxide 800 mg 04/18/20 15:00 Mag-Ox 400 PO 05/18/20 14:59 TID PIA Metoprolol Succinate 25 mg 04/18/20 12:00 04/18/20 13:18 Toprol-Xl 25mg Tablets PO 05/18/20 11:59 Not Given DAILY PIA Miscellaneous Information 1 each 04/18/20 12:15 Medication Intervention 05/18/20 12:14 .RN TO CHECK WITH PT PIA Miscellaneous Information 1 each 04/18/20 12:15 Medication Intervention 05/18/20 12:14 .RN TO CHECK WITH PT PIA Miscellaneous Information 1 each 04/18/20 12:30 Medication Intervention 05/18/20 12:29 .RN TO CHECK WITH PT PIA Miscellaneous Information 1 each 04/18/20 12:30 Medication Intervention 05/18/20 12:29 .RN TO CHECK WITH PT PIA Montelukast Sodium 10 mg 04/18/20 12:00 04/18/20 13:18 Singulair 10 Mg PO 05/18/20 11:59 Not Given DAILY PIA Nitroglycerin 1 gm 04/18/20 01:36 04/18/20 02:24 Nitro-Bid 2% Ud Packets TOP 04/18/20 01:37 1 gm STAT ONE Administration Nitroglycerin Confirm 04/18/20 02:22 Nitro-Bid 2% Ud Packets Administered 04/18/20 02:23 Dose 1 gm .ROUTE .STK-MED ONE Pantoprazole Sodium 40 mg 04/18/20 12:00 04/18/20 13:18 Protonix 40mg Tablet PO 05/18/20 11:59 Not Given DAILY PIA Senna/Docusate Sodium 2 udtab 04/18/20 03:02 Senokot-S Tablet PO 05/18/20 03:01 BID PRN PRN CONSTIPATION Simvastatin 20 mg 04/18/20 12:00 04/18/20 13:18 Zocor 20mg PO 05/18/20 11:59 Not Given DAILY PIA Intake & Output (Last 24 hours) 04/16/20 04/17/20 04/18/20 04/19/20 11:59 11:59 11:59 11:59 Intake Total 400 Balance 400 Weight 148.5 kg Laboratory Results (Last 24 hours) 04/18/20 04/18/20 04/18/20 11:31 11:10 08:15 WBC RBC Hgb Hct MCV MCH MCHC RDW Plt Count MPV Gran % Eos # (Auto) Absolute Lymphs (auto) Absolute Monos (auto) Lymphocytes % Monocytes % Eosinophils % Basophils % Absolute Granulocytes Basophils # Sodium Potassium Chloride Carbon Dioxide Anion Gap BUN Creatinine Estimated GFR Glucose POC Glucometer 377 H Hemoglobin A1c Calcium Total Bilirubin AST ALT Alkaline Phosphatase Troponin I < 0.012 < 0.012 NT-Pro-B Natriuret Pep Serum Total Protein Albumin Triglycerides Cholesterol LDL Cholesterol HDL Cholesterol Heart Disease Risk Ratio 04/18/20 04/18/20 04/18/20 06:48 05:10 05:10 WBC RBC Hgb Hct MCV MCH MCHC RDW Plt Count MPV Gran % Eos # (Auto) Absolute Lymphs (auto) Absolute Monos (auto) Lymphocytes % Monocytes % Eosinophils % Basophils % Absolute Granulocytes Basophils # Sodium Potassium Chloride Carbon Dioxide Anion Gap BUN Creatinine Estimated GFR Glucose POC Glucometer 195 H Hemoglobin A1c Calcium Total Bilirubin AST ALT Alkaline Phosphatase Troponin I < 0.012 NT-Pro-B Natriuret Pep Serum Total Protein Albumin Triglycerides 138 Cholesterol 155 LDL Cholesterol 79 HDL Cholesterol 52 Heart Disease Risk Ratio 3.0 04/18/20 04/18/20 04/18/20 05:00 03:03 02:30 WBC RBC Hgb Hct MCV MCH MCHC RDW Plt Count MPV Gran % Eos # (Auto) Absolute Lymphs (auto) Absolute Monos (auto) Lymphocytes % Monocytes % Eosinophils % Basophils % Absolute Granulocytes Basophils # Sodium Potassium Chloride Carbon Dioxide Anion Gap BUN Creatinine Estimated GFR Glucose POC Glucometer 135 H Hemoglobin A1c 8.92 H Calcium Total Bilirubin AST ALT Alkaline Phosphatase Troponin I < 0.012 NT-Pro-B Natriuret Pep Serum Total Protein Albumin Triglycerides Cholesterol LDL Cholesterol HDL Cholesterol Heart Disease Risk Ratio 04/17/20 04/17/20 04/17/20 23:20 23:20 23:20 WBC 14.0 H RBC 4.49 Hgb 12.4 Hct 39.4 MCV 87.8 MCH 27.6 MCHC 31.5 L RDW 15.1 H Plt Count 254 MPV 12.2 H Gran % 63.8 Eos # (Auto) 0.31 Absolute Lymphs (auto) 3.62 Absolute Monos (auto) 1.13 Lymphocytes % 25.8 Monocytes % 8.1 Eosinophils % 2.2 Basophils % 0.1 Absolute Granulocytes 8.94 H Basophils # 0.01 Sodium 136 L Potassium 4.1 Chloride 100 Carbon Dioxide 29 Anion Gap 11.7 BUN 25 H Creatinine 1.11 H Estimated GFR 53.8 Glucose 83 POC Glucometer Hemoglobin A1c Calcium 9.7 Total Bilirubin 0.50 AST 26 ALT 20 Alkaline Phosphatase 113 Troponin I < 0.012 NT-Pro-B Natriuret Pep 193 Serum Total Protein 7.5 Albumin 3.9 Triglycerides Cholesterol LDL Cholesterol HDL Cholesterol Heart Disease Risk Ratio Orders (Last 24 hours) Category Date Time Status Bedrest with BRP/BSC ROUTINE Activity 04/18/20 03:02 Active Finisher Screwdown STAT Care 04/17/20 23:08 Completed Code Status Order ROUTINE Care 04/18/20 03:02 Active EKG-ER Only STAT Care 04/17/20 23:07 Completed IV Care Q6H Care 04/18/20 03:02 Active IV Insertion STAT Care 04/17/20 23:07 Completed Implement Chest Pain Pathway ROUTINE Care 04/18/20 03:02 Active POCT Glucose Check ACHS Care 04/18/20 05:[address] in Observation ROUTINE Care 04/18/20 03:02 Active Pulse Oximetry (ED) STAT Care 04/17/20 23:07 Completed Ifeanyi Earl ROUTINE Care 04/18/20 03:02 Active Telemetry q6h Care 04/18/20 03:02 Active Weight,Daily 0600 Care 04/18/20 03:02 Active Stack Clerk/Discharge Plan ROUTINE Cons 04/18/20 03:52 Active Consistent Carbohydrate Diet 2000 Calorie Diet 04/18/20 Breakfast Completed Nutritional Admission Screen ONCE Diet 04/18/20 03:52 Active Discharge Routine Discharge 04/18/20 Ordered CHEST 1 VIEW (PORTABLE) Stat Exams 04/17/20 23:08 Completed CBC W DIFF Stat Lab 04/17/20 23:20 Completed CMP Stat Lab 04/17/20 23:20 Completed HEMOGLOBIN A1C Urgent Lab 04/18/20 05:00 Completed LIPID PROFILE AM.LAB Lab 04/18/20 05:10 Completed NT PRO BNP Stat Lab 04/17/20 23:20 Completed POCT GLUCOSE Stat Lab 04/18/20 03:03 Completed POCT GLUCOSE Stat Lab 04/18/20 06:48 Completed POCT GLUCOSE Stat Lab 04/18/20 11:31 Completed TROPONIN Q3H Lab 04/17/20 23:20 Completed TROPONIN Q3H Lab 04/18/20 02:30 Completed TROPONIN Q3H Lab 04/18/20 05:10 Completed TROPONIN Q3H Lab 04/18/20 08:15 Completed TROPONIN Q3H Lab 04/18/20 11:10 Completed Acetaminophen 325 mg [Tylenol 325 mg] Med 04/18/20 03:02 Discontinued 650 mg PO Q4H PRN PRN Albuterol Common Canister [Ventolin Common Canister* Med 04/18/20 05:58 Discontinued ] 2 puff IH Q4H PRN PRN Aripiprazole 10 mg [Abilify 10 MG] Med 04/18/20 12:00 Discontinued 30 mg PO DAILY Aspirin 81 gm Chew [Baby Aspirin 81 mg Chew] Med 04/18/20 02:22 Discontinued 243 mg .ROUTE .STK-MED ONE Aspirin 81 gm Chew [Baby Aspirin 81 mg Chew] Med 04/18/20 01:35 Discontinued 243 mg PO STAT ONE Bupropion HCl Xl 150 mg [Wellbutrin XL 150 MG] Med 04/18/20 12:30 Discontinued 450 mg PO DAILY Escitalopram Oxalate 10 mg [Lexapro 10 MG] Med 04/18/20 12:00 Discontinued 40 mg PO DAILY Ferrous Sulfate 325 mg [Feosol 325 mg] Med 04/18/20 12:00 Discontinued 325 mg PO DAILY Furosemide 20 mg [Lasix 20 mg] Med 04/18/20 12:00 Discontinued 20 mg PO DAILY Gabapentin 100 mg [Neurontin 100 MG] Med 04/18/20 12:00 Discontinued 200 mg PO BID Insulin Glargine [Lantus Insulin] Med 04/18/20 12:30 Discontinued 60 unit SQ DAILY Insulin NPH/Reg 70/30 [Novolin 70/30] Med 04/18/20 12:00 Discontinued 20 unit SQ TIDAC Loratadine 10 mg [Claritin 10 mg] Med 04/18/20 12:00 Discontinued 10 mg PO DAILY Mag Hydrox/Al Hydrox/Simeth [Maalox Es 30 ml Unit Med 04/18/20 03:02 Discontinued Dose] 30 ml PO Q4H PRN PRN Magnesium Hydroxide 30 ml [Milk of Magnesia 30 ml Med 04/18/20 03:02 Discontinued ] 30 - 60 ml PO QDP PRN Magnesium Oxide 400 mg [Mag-Ox 400] Med 04/18/20 15:00 Discontinued 800 mg PO TID Medication Intervention Med 04/18/20 12:15 Discontinued 1 each MC .RN TO CHECK WITH PT Medication Intervention Med 04/18/20 12:15 Discontinued 1 each MC .RN TO CHECK WITH PT Medication Intervention Med 04/18/20 12:30 Discontinued 1 each MC .RN TO CHECK WITH PT Medication Intervention Med 04/18/20 12:30 Discontinued 1 each MC .RN TO CHECK WITH PT Metoprolol Succinate 25 mg Xl* [Toprol-Xl 25MG Tablets* Med 04/18/20 12:00 Discontinued ] 25 mg PO DAILY Montelukast Sodium 10 mg [Singulair 10 MG] Med 04/18/20 12:00 Discontinued 10 mg PO DAILY Nitroglycerin 2 %Ointment [Nitro-Bid 2% Ud Packets Med 04/18/20 02:22 Discontinued *] 1 gm .ROUTE .STK-MED ONE Nitroglycerin 2 %Ointment [Nitro-Bid 2% Ud Packets Med 04/18/20 01:36 Discontinued *] 1 gm TOP STAT ONE PANTOPRAZOLE 40 mg Tablet [Protonix 40MG Tablet] Med 04/18/20 12:00 Discontinued 40 mg PO DAILY Senna/Docusate Sodium Tab [Senokot-S Tablet] Med 04/18/20 03:02 Discontinued 2 udtab PO BID PRN PRN Simvastatin 20Mg [Zocor 20Mg] Med 04/18/20 12:00 Discontinued 20 mg PO DAILY EKG DAILY RT 04/19/20 05:00 Active EKG DAILY RT 04/20/20 05:00 Active EKG DAILY RT 04/21/20 05:00 Active EKG Q8HX2,QAMX3,PRN RT 04/18/20 03:02 Completed EKG ROUTINE RT 04/18/20 07:00 Completed Pulse Oximetry .spot check RT 04/18/20 04:00 Active RT Screen per Nursing Assess ONCE RT 04/18/20 03:52 Completed Respiratory Therapy Assessment DAILY RT 04/18/20 04:00 Active Transfer Order Routine Transfer 04/18/20 Completed Code(s): R07.9 - CHEST PAIN, UNSPECIFIED (2) Morbid obesity with BMI of 40.0-44.9, adult Status: Acute Code(s): E66.01 - MORBID (SEVERE) OBESITY DUE TO EXCESS CALORIES; Z68.41 - BODY MASS INDEX [BMI]40.0-44.9, ADULT Hospital Summary - Hospital Course Hospital Course: Last Vital Signs Temp 98.1 F 04/18/20 12:00 Pulse 76 04/18/20 12:00 Resp 20 04/18/20 12:00 BP 109/56 04/18/20 12:00 Pulse Ox 94 L 04/18/20 12:00 Allergies hydrocodone [From Vicodin] Allergy (Intermediate, Verified 04/17/20 22:56) Rash lurasidone [From Latuda] Allergy (Intermediate, Verified 04/17/20 22:56) Rash Intake & Output 04/18/20 04/19/20 11:59 11:59 Intake Total 400 Balance 400 Weight 148.5 kg Orders 04/18/20 Discharge Routine 04/18/20 03:52 Stack Clerk/Discharge Plan ROUTINE Nutritional Admission Screen ONCE 04/18/20 04:00 Pulse Oximetry .spot check Respiratory Therapy Assessment DAILY 04/18/20 05:38 POCT Glucose Check ACHS 04/19/20 05:00 EKG DAILY 04/20/20 05:00 EKG DAILY 04/21/20 05:00 EKG DAILY Lab Tests 04/17/20 04/17/20 04/17/20 23:20 23:20 23:20 WBC 14.0 H RBC 4.49 Hgb 12.4 Hct 39.4 MCV 87.8 MCH 27.6 MCHC 31.5 L RDW 15.1 H Plt Count 254 MPV 12.2 H Gran % 63.8 Eos # (Auto) 0.31 Absolute Lymphs (auto) 3.62 Absolute Monos (auto) 1.13 Lymphocytes % 25.8 Monocytes % 8.1 Eosinophils % 2.2 Basophils % 0.1 Absolute Granulocytes 8.94 H Basophils # 0.01 Sodium 136 L Potassium 4.1 Chloride 100 Carbon Dioxide 29 Anion Gap 11.7 BUN 25 H Creatinine 1.11 H Estimated GFR 53.8 Glucose 83 POC Glucometer Hemoglobin A1c Calcium 9.7 Total Bilirubin 0.50 AST 26 ALT 20 Alkaline Phosphatase 113 Troponin I < 0.012 NT-Pro-B Natriuret Pep 193 Serum Total Protein 7.5 Albumin 3.9 Triglycerides Cholesterol LDL Cholesterol HDL Cholesterol Heart Disease Risk Ratio 04/18/20 04/18/20 04/18/20 02:30 03:03 05:00 WBC RBC Hgb Hct MCV MCH MCHC RDW Plt Count MPV Gran % Eos # (Auto) Absolute Lymphs (auto) Absolute Monos (auto) Lymphocytes % Monocytes % Eosinophils % Basophils % Absolute Granulocytes Basophils # Sodium Potassium Chloride Carbon Dioxide Anion Gap BUN Creatinine Estimated GFR Glucose POC Glucometer 135 H Hemoglobin A1c 8.92 H Calcium Total Bilirubin AST ALT Alkaline Phosphatase Troponin I < 0.012 NT-Pro-B Natriuret Pep Serum Total Protein Albumin Triglycerides Cholesterol LDL Cholesterol HDL Cholesterol Heart Disease Risk Ratio 04/18/20 04/18/20 04/18/20 05:10 05:10 06:48 WBC RBC Hgb Hct MCV MCH MCHC RDW Plt Count MPV Gran % Eos # (Auto) Absolute Lymphs (auto) Absolute Monos (auto) Lymphocytes % Monocytes % Eosinophils % Basophils % Absolute Granulocytes Basophils # Sodium Potassium Chloride Carbon Dioxide Anion Gap BUN Creatinine Estimated GFR Glucose POC Glucometer 195 H Hemoglobin A1c Calcium Total Bilirubin AST ALT Alkaline Phosphatase Troponin I < 0.012 NT-Pro-B Natriuret Pep Serum Total Protein Albumin Triglycerides 138 Cholesterol 155 LDL Cholesterol 79 HDL Cholesterol 52 Heart Disease Risk Ratio 3.0 04/18/20 04/18/20 04/18/20 08:15 11:10 11:31 WBC RBC Hgb Hct MCV MCH MCHC RDW Plt Count MPV Gran % Eos # (Auto) Absolute Lymphs (auto) Absolute Monos (auto) Lymphocytes % Monocytes % Eosinophils % Basophils % Absolute Granulocytes Basophils # Sodium Potassium Chloride Carbon Dioxide Anion Gap BUN Creatinine Estimated GFR Glucose POC Glucometer 377 H Hemoglobin A1c Calcium Total Bilirubin AST ALT Alkaline Phosphatase Troponin I < 0.012 < 0.012 NT-Pro-B Natriuret Pep Serum Total Protein Albumin Triglycerides Cholesterol LDL Cholesterol HDL Cholesterol Heart Disease Risk Ratio - Vitals & Intake/Output Vital Signs: Vital Signs Temperature 98.1 F 04/18/20 12:00 Pulse Rate 76 04/18/20 12:00 Respiratory Rate 20 04/18/20 12:00 Blood Pressure 109/56 04/18/20 12:00 O2 Sat by Pulse Oximetry 94 L 04/18/20 12:00 Intake & Output: Intake & Output 04/16/20 04/17/20 04/18/20 04/19/20 11:59 11:59 11:59 11:59 Intake Total 400 Balance 400 Weight 148.5 kg - Lab Result Diagrams: 04/17/20 23:20 04/17/20 23:20 Lab Results-Last 24 Hrs: Lab Results-Last 24 Hours 04/17/20 04/17/20 04/17/20 Range/Units 23:20 23:20 23:20 WBC 14.0 H (4.0-10.5) K/mm3 RBC 4.49 (4.1-5.4) M/mm3 Hgb 12.4 (12.0-16.0) gm/dl Hct 39.4 (35-47) % MCV 87.8 (78-100) fl MCH 27.6 (26-32) pg MCHC 31.5 L (32-36) g/dl RDW 15.1 H (11.5-14.0) % Plt Count 254 (150-450) K/mm3 MPV 12.2 H (7.5-11.0) fl Gran % 63.8 (36.0-66.0) % Eos # (Auto) 0.31 (0-0.5) Absolute Lymphs (auto) 3.62 (1.0-4.6) Absolute Monos (auto) 1.13 (0.0-1.3) Lymphocytes % 25.8 (24.0-44.0) % Monocytes % 8.1 (0.0-12.0) % Eosinophils % 2.2 (0.00-5.0) % Basophils % 0.1 (0.0-0.4) % Absolute Granulocytes 8.94 H (1.4-6.9) Basophils # 0.01 (0-0.4) Sodium 136 L (137-145) mmol/L Potassium 4.1 (3.5-5.1) mmol/L Chloride 100 (98-107) mmol/L Carbon Dioxide 29 (22-30) mmol/L Anion Gap 11.7 (5-15) MEQ/L BUN 25 H (7-17) mg/dL Creatinine 1.11 H (0.52-1.04) mg/dL Estimated GFR 53.8 ML/MIN Glucose 83 (74-106) mg/dL POC Glucometer (74 to 106) mg/dL Hemoglobin A1c (4.5-6.0) % Calcium 9.7 (8.4-10.2) mg/dL Total Bilirubin 0.50 (0.2-1.3) mg/dL AST 26 (14-36) U/L ALT 20 (0-35) U/L Alkaline Phosphatase 113 (38-126) U/L Troponin I < 0.012 (0.000-0.034) ng/mL NT-Pro-B Natriuret Pep 193 (0-900) pg/mL Serum Total Protein 7.5 (6.3-8.2) g/dL Albumin 3.9 (3.5-5.0) g/dL Triglycerides (30-150) mg/dL Cholesterol (50-200) mg/dL LDL Cholesterol (30-100) mg/dL HDL Cholesterol (40-60) mg/dL Heart Disease Risk Ratio 04/18/20 04/18/20 04/18/20 Range/Units 02:30 03:03 05:00 WBC (4.0-10.5) K/mm3 RBC (4.1-5.4) M/mm3 Hgb (12.0-16.0) gm/dl Hct (35-47) % MCV (78-100) fl MCH (26-32) pg MCHC (32-36) g/dl RDW (11.5-14.0) % Plt Count (150-450) K/mm3 MPV (7.5-11.0) fl Gran % (36.0-66.0) % Eos # (Auto) (0-0.5) Absolute Lymphs (auto) (1.0-4.6) Absolute Monos (auto) (0.0-1.3) Lymphocytes % (24.0-44.0) % Monocytes % (0.0-12.0) % Eosinophils % (0.00-5.0) % Basophils % (0.0-0.4) % Absolute Granulocytes (1.4-6.9) Basophils # (0-0.4) Sodium (137-145) mmol/L Potassium (3.5-5.1) mmol/L Chloride (98-107) mmol/L Carbon Dioxide (22-30) mmol/L Anion Gap (5-15) MEQ/L BUN (7-17) mg/dL Creatinine (0.52-1.04) mg/dL Estimated GFR ML/MIN Glucose (74-106) mg/dL POC Glucometer 135 H (74 to 106) mg/dL Hemoglobin A1c 8.92 H (4.5-6.0) % Calcium (8.4-10.2) mg/dL Total Bilirubin (0.2-1.3) mg/dL AST (14-36) U/L ALT (0-35) U/L Alkaline Phosphatase (38-126) U/L Troponin I < 0.012 (0.000-0.034) ng/mL NT-Pro-B Natriuret Pep (0-900) pg/mL Serum Total Protein (6.3-8.2) g/dL Albumin (3.5-5.0) g/dL Triglycerides (30-150) mg/dL Cholesterol (50-200) mg/dL LDL Cholesterol (30-100) mg/dL HDL Cholesterol (40-60) mg/dL Heart Disease Risk Ratio 04/18/20 04/18/20 04/18/20 Range/Units 05:10 05:10 06:48 WBC (4.0-10.5) K/mm3 RBC (4.1-5.4) M/mm3 Hgb (12.0-16.0) gm/dl Hct (35-47) % MCV (78-100) fl MCH (26-32) pg MCHC (32-36) g/dl RDW (11.5-14.0) % Plt Count (150-450) K/mm3 MPV (7.5-11.0) fl Gran % (36.0-66.0) % Eos # (Auto) (0-0.5) Absolute Lymphs (auto) (1.0-4.6) Absolute Monos (auto) (0.0-1.3) Lymphocytes % (24.0-44.0) % Monocytes % (0.0-12.0) % Eosinophils % (0.00-5.0) % Basophils % (0.0-0.4) % Absolute Granulocytes (1.4-6.9) Basophils # (0-0.4) Sodium (137-145) mmol/L Potassium (3.5-5.1) mmol/L Chloride (98-107) mmol/L Carbon Dioxide (22-30) mmol/L Anion Gap (5-15) MEQ/L BUN (7-17) mg/dL Creatinine (0.52-1.04) mg/dL Estimated GFR ML/MIN Glucose (74-106) mg/dL POC Glucometer 195 H (74 to 106) mg/dL Hemoglobin A1c (4.5-6.0) % Calcium (8.4-10.2) mg/dL Total Bilirubin (0.2-1.3) mg/dL AST (14-36) U/L ALT (0-35) U/L Alkaline Phosphatase (38-126) U/L Troponin I < 0.012 (0.000-0.034) ng/mL NT-Pro-B Natriuret Pep (0-900) pg/mL Serum Total Protein (6.3-8.2) g/dL Albumin (3.5-5.0) g/dL Triglycerides 138 (30-150) mg/dL Cholesterol 155 (50-200) mg/dL LDL Cholesterol 79 (30-100) mg/dL HDL Cholesterol 52 (40-60) mg/dL Heart Disease Risk Ratio 3.0 04/18/20 04/18/20 04/18/20 Range/Units 08:15 11:10 11:31 WBC (4.0-10.5) K/mm3 RBC (4.1-5.4) M/mm3 Hgb (12.0-16.0) gm/dl Hct (35-47) % MCV (78-100) fl MCH (26-32) pg MCHC (32-36) g/dl RDW (11.5-14.0) % Plt Count (150-450) K/mm3 MPV (7.5-11.0) fl Gran % (36.0-66.0) % Eos # (Auto) (0-0.5) Absolute Lymphs (auto) (1.0-4.6) Absolute Monos (auto) (0.0-1.3) Lymphocytes % (24.0-44.0) % Monocytes % (0.0-12.0) % Eosinophils % (0.00-5.0) % Basophils % (0.0-0.4) % Absolute Granulocytes (1.4-6.9) Basophils # (0-0.4) Sodium (137-145) mmol/L Potassium (3.5-5.1) mmol/L Chloride (98-107) mmol/L Carbon Dioxide (22-30) mmol/L Anion Gap (5-15) MEQ/L BUN (7-17) mg/dL Creatinine (0.52-1.04) mg/dL Estimated GFR ML/MIN Glucose (74-106) mg/dL POC Glucometer 377 H (74 to 106) mg/dL Hemoglobin A1c (4.5-6.0) % Calcium (8.4-10.2) mg/dL Total Bilirubin (0.2-1.3) mg/dL AST (14-36) U/L ALT (0-35) U/L Alkaline Phosphatase (38-126) U/L Troponin I < 0.012 < 0.012 (0.000-0.034) ng/mL NT-Pro-B Natriuret Pep (0-900) pg/mL Serum Total Protein (6.3-8.2) g/dL Albumin (3.5-5.0) g/dL Triglycerides (30-150) mg/dL Cholesterol (50-200) mg/dL LDL Cholesterol (30-100) mg/dL HDL Cholesterol (40-60) mg/dL Heart Disease Risk Ratio Micro Results-Entire Visit: Accuchecks Date 04/18/20 Date 04/18/20 Time 11:30 Time 07:00 - Radiology Exams Ordered Rad Exams-Entire Visit: Radiology Procedures Category Date Time Status CHEST 1 VIEW (PORTABLE) Stat Exams 04/17/20 23:08 Completed - Procedures and Test Procedures and Tests throughout Hospitalization: Therapy Orders & Screens 04/18/20 03:02 EKG [id number],[id number],PRN Comment: 04/18/20 03:52 RT Screen per Nursing Assess ONCE Comment: Protocol Order Physician Instructions: Greater than 3 points order RT Admission Screen Reason For Exam: Triggered on Admission Diagnosis: ACS Diagnosis: ACS Home O2: No Asthma: Yes Home Nebs/MDI: Yes Total Points: 9 04/18/20 04:00 Respiratory Therapy Assessment DAILY Comment: Diagnosis: ACS 04/18/20 07:00 EKG ROUTINE Comment: Diagnosis: ACS 04/19/20 05:00 EKG DAILY Comment: Diagnosis: ACS 04/20/20 05:00 EKG DAILY Comment: Diagnosis: ACS 04/21/20 05:00 EKG DAILY Comment: Diagnosis: ACS - Discharge Discharge Date: 04/18/20 Disposition: Home, Self-Care Condition: Stable Prescriptions: Continue Ferrous Sulfate [Iron] 325 mg PO DAILY Escitalopram Oxalate [Lexapro] 40 mg PO DAILY Bupropion HCl [Wellbutrin Xl] 300 mg PO DAILY Albuterol Common Canister [Ventolin Common Canister] 1 puff IH DAILY Magnesium Oxide 800 mg PO TID Insulin Degludec [Tresiba Flextouch U-200] 60 units SQ DAILY Gabapentin 200 mg PO BID Bupropion HCl 150 mg Sr [Wellbutrin SR 150 MG] 150 mg PO DAILY Furosemide 20 mg [Lasix 20 mg] 20 mg PO DAILY Aripiprazole [Abilify] 30 mg PO DAILY Insulin Aspart Prot/Insuln Asp [Novolog Mix 70-30 Flexpen] 20 unit SQ TID Deutetrabenazine [Austedo] 9 mg PO DAILY Colestipol HCl [Colestid] 1 gm PO DAILY Metoprolol Succinate 25 mg PO DAILY Cetirizine HCl [All Day Allergy] 10 mg PO DAILY Rosuvastatin Calcium 10 mg PO DAILY Montelukast Sodium 10 mg [Singulair 10 MG] 10 mg PO DAILY Propylene Glycol/Peg 400/Pf [Systane Ultra 0.4-0.3% Eye Drp] 1 each OP QID PANTOPRAZOLE 40 mg Tablet [Protonix 40MG Tablet] 40 mg PO DAILY #30 tab Instructions: Chest Pain (DC) Follow up with: AILIN KEMP [Primary Care Provider] - 04/25/20 9:30 am Forms: Discharge Instructions
[2020-04-19] MEDS ORDERED: NON-FORMULARY ITEM (Rosuvastatin Calcium [Rosuvastatin Calcium] 10 MG) PO SCH (10:00)
[2020-04-19] MEDS ORDERED: NON-FORMULARY ITEM (Bupropion Hcl [Wellbutrin Xl] 300 MG) PO SCH (10:00)
[2020-04-19] MEDS ORDERED: ESCITALOPRAM OXALATE 40 MG PO SCH (10:00)
[2020-04-19] MEDS ORDERED: DEUTETRABENAZINE 9 MG PO SCH (10:00)
[2020-04-19] MEDS ORDERED: NON-FORMULARY ITEM (Cetirizine Hcl [All Day Allergy] 10 MG) PO SCH (10:00)
[2020-04-19] MEDS ORDERED: INSULIN DEGLUDEC 60 UNIT SQ SCH (10:00)
[2020-04-19] MEDS ORDERED: NON-FORMULARY ITEM (Colestipol Hcl [Colestid] 1 GM) PO SCH (10:00)
[2020-04-19] MEDS ORDERED: Wellbutrin SR 150 MG PO SCH (10:00)
[2020-04-19] MEDS ORDERED: ARIPIPRAZOLE 30 MG PO SCH (10:00)
== END 2020-04-18 13:31 | disposition home or self-care (01) ==
LOC: ED 22:49 → MED SURG 04-18 02:59
PROVIDERS: ADMIT General Practice; ATTEND General Practice
DX: R07.9 Chest pain, unspecified (principal); M54.2 Cervicalgia; I10 Essential (primary) hypertension; E11.9 Type 2 diabetes mellitus without complications; E78.5 Hyperlipidemia, unspecified; Z79.899 Other long term (current) drug therapy; E78.00 Pure hypercholesterolemia, unspecified; E66.01 Morbid (severe) obesity due to excess calories; Z68.41 Body mass index [BMI] 40.0-44.9, adult
CPT/HCPCS: 36000; 36415; 71045; 80053; 80061; 82947; 83036; 83721; 83880; 84484; 85025; 93005; 93041; 93268; 94760; 99284; G0378; J1815; A9270-GY

== ENCOUNTER 2021-11-22 23:49 | Emergency (ER) | payer MEDICARE ==
--- NOTE | 2021-11-22 23:52 | ERPHSYRPT ---
- History of Present Illness Time Seen by Provider: 11/22/21 23:52 Source: patient Exam Limitations: no limitations Physician History: This is an obese 56-year-old white female who is a patient of Dr. Navarro and presents to the emergency department because she was smelling "gas order" at her home. She says her home is all electric and not gas. She also states that she has some schizophrenia and she only intermittently hears voices but within the last 24 hours she states that the voices are becoming louder and are constant. She states that they are persecuting her telling her that she has bad and that she is doing things wrong and will soon be homeless. They are not telling her to harm herself or others. She is not suicidal and she is not homicidal. Patient has a history of anxiety issues, depression issues, arrhythmia, elevated cholesterol, type 2 diabetes and gastroesophageal reflux disease. Patient denies shortness of breath, denies abdominal pain, and denies chest pain. Severity of Symptoms-Max: moderate Severity of Symptoms-Current: mild (To moderate) Context related to: other (Voices and odors that she is smelling) Associated Symptoms: anxiety, hallucinating Previous symptoms: same symptoms as today (But more constant and more intense) Allergies/Adverse Reactions: hydrocodone [From Vicodin] Allergy (Intermediate, Verified 11/23/21 00:32) Rash lurasidone [From Latuda] Allergy (Intermediate, Verified 11/23/21 00:32) Rash Home Medications: ARIPiprazole [Abilify] 30 mg PO DAILY 06/14/19 [History] Albuterol Common Canister [Ventolin Common Canister] 1 puff IH DAILY 06/14/19 [History] Bupropion HCl 150 mg Sr [Wellbutrin SR 150 MG] 150 mg PO DAILY 06/14/19 [History] Bupropion HCl [Wellbutrin Xl] 300 mg PO DAILY 06/14/19 [History] Escitalopram Oxalate [Lexapro] 40 mg PO DAILY 06/14/19 [History] Ferrous Sulfate [Iron] 325 mg PO DAILY 06/14/19 [History] Furosemide 20 mg [Lasix 20 mg] 20 mg PO DAILY 06/14/19 [History] Gabapentin 200 mg PO BID 06/14/19 [History] Insulin Degludec [Tresiba Flextouch U-200] 60 units SQ DAILY 06/14/19 [History] Magnesium Oxide 800 mg PO TID 06/14/19 [History] Cetirizine HCl [All Day Allergy] 10 mg PO DAILY 02/08/20 [History] Colestipol HCl [Colestid] 1 gm PO DAILY 02/08/20 [History] Deutetrabenazine [Austedo] 9 mg PO DAILY 02/08/20 [History] Insulin Aspart Prot/Insuln Asp [Novolog Mix 70-30 Flexpen] 20 unit SQ TID 02/08/20 [History] Metoprolol Succinate 25 mg PO DAILY 02/08/20 [History] Montelukast Sodium 10 mg [Singulair 10 MG] 10 mg PO DAILY 02/08/20 [History] Propylene Glycol/Peg 400/Pf [Systane Ultra 0.4-0.3% Eye Drp] 1 each OP QID 02/08/20 [History] Rosuvastatin Calcium 10 mg PO DAILY 02/08/20 [History] Hx Tetanus, Diphtheria Vaccination/Date Given: No Hx Influenza Vaccination/Date Given: Yes Hx Pneumococcal Vaccination/Date Given: Yes Travel Risk - International Travel Have you traveled outside of the country in past 3 weeks: No - Coronavirus Screening Are you exhibiting any of the following symptoms?: No Close contact with a COVID-19 positive Pt in past 14-21 Days: No - Past Medical History Pertinent Past Medical History: Yes Neurological History: Other ENT History: No Pertinent History Cardiac History: Arrhythmia, High Cholesterol Respiratory History: Asthma Endocrine Medical History: Diabetes Type II, Liver Disease Musculoskeletal History: Arthritis GI Medical History: GERD History: Other Psycho-Social History: Anxiety, Depression Female Reproductive Disorders: No Pertinent History Other Medical History: Parkinsonian Disorder (Pt unsure what it is.) - Past Surgical History Past Surgical History: Yes Neuro Surgical History: No Pertinent History Cardiac: Cardiac Catheterization Respiratory: No Pertinent History Gastrointestinal: Appendectomy, Cholecystectomy Genitourinary: No Pertinent History Musculoskeletal: Other Female Surgical History: Section, Tubal Ligation Other Surgical History: NECK SURGERY WITH DISC REPAIR. C- Section x 2 - Social History Smoking Status: Never smoker Exposure to second hand smoke: No Drug Use: none Patient Lives Alone: Yes - Review of Systems Constitutional: No Symptoms Eyes: No Symptoms Ears, Nose, & Throat: No Symptoms Respiratory: No Symptoms Cardiac: No Symptoms Abdominal/Gastrointestinal: No Symptoms Genitourinary Symptoms: No Symptoms Musculoskeletal: No Symptoms Skin: No Symptoms Neurological: No Symptoms Psychological: Anxiety, Depression, Hallucinations (Auditory and olfactory) Endocrine: No Symptoms Hematologic/Lymphatic: No Symptoms Immunological/Allergic: No Symptoms All Other Systems: Reviewed and Negative - Nursing Vital Signs Nursing Vital Signs: Initial Vital Signs Temperature 97.4 F 11/23/21 00:12 Pulse Rate 104 H 11/23/21 00:12 Respiratory Rate 18 11/23/21 00:12 Blood Pressure 115/60 11/23/21 00:12 O2 Sat by Pulse Oximetry 95 11/23/21 00:12 Pain Scale Pain Intensity 5 - Physical Exam General Appearance: no apparent distress, alert, anxiety Eyes, Ears, Nose, Throat Exam: normal ENT inspection, moist mucous membranes Neck Exam: normal inspection, non-tender, supple, full range of motion Respiratory Exam: normal breath sounds, lungs clear, airway intact, No chest te nderness, No respiratory distress Cardiovascular Exam: regular rate/rhythm, normal heart sounds, normal peripheral pulses Gastrointestinal/Abdominal Exam: soft, normal bowel sounds, No tenderness Extremities Exam: normal inspection, normal range of motion, No evidence of injury Current Suicidality: denies suicide plan Neurological Exam: alert, calm, new media strategist II-XII nml as tested, anxious, depressed affect, flat Appearance: appropriate appearance, impaired insight Behavior/Eye Contact/Speech: alert & cooperative, good eye contact Thoughts/Hallucinations: auditory hallucinations, persecution Skin Exam: normal color, warm, dry SpO2 Interpretation: normal O2 Delivery: Room Air - Course Nursing assessment & vital signs reviewed: Yes EKG Interpreted by Me: RATE (101), Sinus Rhythm, NORMAL AXIS, NORMAL INTERVALS, NORMAL QRS, NORMAL ST-T, Other (No acute ischemic changes on today's EKG.) Ordered Tests: Active Orders 24 hr Category Date Time Status Shank Faker STAT Care 11/23/21 00:34 Active Clean Catch Urine Specimen STAT Care 11/23/21 00:34 Active EKG-ER Only STAT Care 11/23/21 00:34 Active ACETAMINOPHEN Stat Lab 11/23/21 01:03 Completed CBC W DIFF Stat Lab 11/23/21 01:03 Completed CMP Stat Lab 11/23/21 01:03 Completed ETHYL ALCOHOL Stat Lab 11/23/21 01:03 Completed POCT GLUCOSE Stat Lab 11/23/21 03:44 Completed POCT GLUCOSE Stat Lab 11/23/21 04:51 Completed UA W/RFX CULTURE Stat Lab 11/23/21 01:38 Completed Urine Triage Profile Stat Lab 11/23/21 01:25 Completed Lab/Rad Data: Laboratory Result Diagrams 11/23/21 01:03 11/23/21 01:03 Laboratory Results 11/23/21 11/23/21 11/23/21 Range/Units 04:51 03:44 01:38 WBC (4.0-10.5) x10^3/uL RBC (4.1-5.4) x10^6/uL Hgb (12.0-16.0) g/dL Hct (35-47) % MCV (78-100) fL MCH (26-32) pg MCHC (32-36) g/dL RDW (11.5-14.0) % Plt Count (150-450) x10^3/uL MPV (7.5-11.0) fL Gran % (36.0-66.0) % Immature Gran % (Auto) (0.00-0.4) % Nucleat RBC Rel Count (0.00-0.1) % Eos # (Auto) (0-0.5) x10^3/uL Immature Gran # (Auto) (0.00-0.03) x10^3u/L Absolute Lymphs (auto) (1.0-4.6) x10^3/uL Absolute Monos (auto) (0.0-1.3) x10^3/uL Absolute Nucleated RBC (0.00-0.01) x10^3u/L Lymphocytes % (24.0-44.0) % Monocytes % (0.0-12.0) % Eosinophils % (0.00-5.0) % Basophils % (0.0-0.4) % Absolute Granulocytes (1.4-6.9) x10^3/uL Basophils # (0-0.4) x10^3/uL Sodium (137-145) mmol/L Potassium (3.5-5.1) mmol/L Chloride (98-107) mmol/L Carbon Dioxide (22-30) mmol/L Anion Gap (5-15) MEQ/L BUN (7-17) mg/dL Creatinine (0.52-1.04) mg/dL Estimated GFR ML/MIN Glucose (74-106) mg/dL POC Glucometer 136 H 58 L (74 to 106) mg/dL Calcium (8.4-10.2) mg/dL Total Bilirubin (0.2-1.3) mg/dL AST (14-36) U/L ALT (0-35) U/L Alkaline Phosphatase (38-126) U/L Serum Total Protein (6.3-8.2) g/dL Albumin (3.5-5.0) g/dL Urinalys Dipstick Clnc MAIN LAB Urine Color YELLOW (YELLOW) Urine Appearance CLEAR (CLEAR) Urine pH 6.0 (5-6) Ur Specific Clio 1.015 (1.005-1.025) POC Urine Protein Conf NEGATIVE (Negative) Urine Ketones NEGATIVE (NEGATIVE) Urine Nitrite NEGATIVE (NEGATIVE) Urine Bilirubin NEGATIVE (NEGATIVE) Urine Urobilinogen 0.2 (0-1) mg/dL Urine Leukocytes NEGATIVE (NEGATIVE) Urine WBC (Auto) 0-2 (0-5) /HPF Urine RBC (Auto) NONE (0-2) /HPF U Hyaline Cast (Auto) 3-5 (0-2) /LPF U Epithel Cells (Auto) NONE (FEW) /HPF Urine Bacteria (Auto) NONE (NEGATIVE) /HPF Urine RBC NEGATIVE (0-5) Kamaljit/ul Ur Culture Indicated? NO Urine Glucose NEGATIVE (NEGATIVE) mg/dL Urine Opiates Level (NEGATIVE) Ur Methadone (NEGATIVE) Acetaminophen (10-30) ug/ml Urine Barbiturates (NEGATIVE) Ur Phencyclidine (PCP) (NEGATIVE) Urine Amphetamine (NEGATIVE) U Benzodiazepine Level (NEGATIVE) Urine Cocaine (NEGATIVE) Urine Marijuana (THC) (NEGATIVE) Ethyl Alcohol (0-10) mg/dL Influenza Type A Ag (NEGATIVE) Influenza Type B Ag (NEGATIVE) RSV (PCR) (Negative) SARS-CoV-2 (PCR) (NEGATIVE) 11/23/21 11/23/21 11/23/21 Range/Units 01:25 01:03 01:03 WBC (4.0-10.5) x10^3/uL RBC (4.1-5.4) x10^6/uL Hgb (12.0-16.0) g/dL Hct (35-47) % MCV (78-100) fL MCH (26-32) pg MCHC (32-36) g/dL RDW (11.5-14.0) % Plt Count (150-450) x10^3/uL MPV (7.5-11.0) fL Gran % (36.0-66.0) % Immature Gran % (Auto) (0.00-0.4) % Nucleat RBC Rel Count (0.00-0.1) % Eos # (Auto) (0-0.5) x10^3/uL Immature Gran # (Auto) (0.00-0.03) x10^3u/L Absolute Lymphs (auto) (1.0-4.6) x10^3/uL Absolute Monos (auto) (0.0-1.3) x10^3/uL Absolute Nucleated RBC (0.00-0.01) x10^3u/L Lymphocytes % (24.0-44.0) % Monocytes % (0.0-12.0) % Eosinophils % (0.00-5.0) % Basophils % (0.0-0.4) % Absolute Granulocytes (1.4-6.9) x10^3/uL Basophils # (0-0.4) x10^3/uL Sodium 135 L (137-145) mmol/L Potassium 4.1 (3.5-5.1) mmol/L Chloride 94 L (98-107) mmol/L Carbon Dioxide 39 H (22-30) mmol/L Anion Gap 6.9 (5-15) MEQ/L BUN 37 H (7-17) mg/dL Creatinine 1.97 H (0.52-1.04) mg/dL Estimated GFR 27.7 ML/MIN Glucose 46 L* (74-106) mg/dL POC Glucometer (74 to 106) mg/dL Calcium 9.5 (8.4-10.2) mg/dL Total Bilirubin 0.60 (0.2-1.3) mg/dL AST 36 (14-36) U/L ALT 21 (0-35) U/L Alkaline Phosphatase 117 (38-126) U/L Serum Total Protein 7.6 (6.3-8.2) g/dL Albumin 4.2 (3.5-5.0) g/dL Urinalys Dipstick Clnc Urine Color (YELLOW) Urine Appearance (CLEAR) Urine pH (5-6) Ur Specific Clio (1.005-1.025) POC Urine Protein Conf (Negative) Urine Ketones (NEGATIVE) Urine Nitrite (NEGATIVE) Urine Bilirubin (NEGATIVE) Urine Urobilinogen (0-1) mg/dL Urine Leukocytes (NEGATIVE) Urine WBC (Auto) (0-5) /HPF Urine RBC (Auto) (0-2) /HPF U Hyaline Cast (Auto) (0-2) /LPF U Epithel Cells (Auto) (FEW) /HPF Urine Bacteria (Auto) (NEGATIVE) /HPF Urine RBC (0-5) Kamaljit/ul Ur Culture Indicated? Urine Glucose (NEGATIVE) mg/dL Urine Opiates Level NEGATIVE (NEGATIVE) Ur Methadone NEGATIVE (NEGATIVE) Acetaminophen < 10 L (10-30) ug/ml Urine Barbiturates NEGATIVE (NEGATIVE) Ur Phencyclidine (PCP) NEGATIVE (NEGATIVE) Urine Amphetamine NEGATIVE (NEGATIVE) U Benzodiazepine Level NEGATIVE (NEGATIVE) Urine Cocaine NEGATIVE (NEGATIVE) Urine Marijuana (THC) NEGATIVE (NEGATIVE) Ethyl Alcohol < 10 (0-10) mg/dL Influenza Type A Ag NEGATIVE (NEGATIVE) Influenza Type B Ag NEGATIVE (NEGATIVE) RSV (PCR) NEGATIVE (Negative) SARS-CoV-2 (PCR) NEGATIVE (NEGATIVE) 11/23/21 Range/Units 01:03 WBC 14.2 H (4.0-10.5) x10^3/uL RBC 3.48 L (4.1-5.4) x10^6/uL Hgb 9.9 L (12.0-16.0) g/dL Hct 30.8 L (35-47) % MCV 88.5 (78-100) fL MCH 28.4 (26-32) pg MCHC 32.1 (32-36) g/dL RDW 15.9 H (11.5-14.0) % Plt Count 224 (150-450) x10^3/uL MPV 11.0 (7.5-11.0) fL Gran % 76.7 H (36.0-66.0) % Immature Gran % (Auto) 0.4 (0.00-0.4) % Nucleat RBC Rel Count 0.0 (0.00-0.1) % Eos # (Auto) 0.12 (0-0.5) x10^3/uL Immature Gran # (Auto) 0.05 H (0.00-0.03) x10^3u/L Absolute Lymphs (auto) 2.11 (1.0-4.6) x10^3/uL Absolute Monos (auto) 0.99 (0.0-1.3) x10^3/uL Absolute Nucleated RBC 0.00 (0.00-0.01) x10^3u/L Lymphocytes % 14.8 L (24.0-44.0) % Monocytes % 7.0 (0.0-12.0) % Eosinophils % 0.8 (0.00-5.0) % Basophils % 0.3 (0.0-0.4) % Absolute Granulocytes 10.91 H (1.4-6.9) x10^3/uL Basophils # 0.04 (0-0.4) x10^3/uL Sodium (137-145) mmol/L Potassium (3.5-5.1) mmol/L Chloride (98-107) mmol/L Carbon Dioxide (22-30) mmol/L Anion Gap (5-15) MEQ/L BUN (7-17) mg/dL Creatinine (0.52-1.04) mg/dL Estimated GFR ML/MIN Glucose (74-106) mg/dL POC Glucometer (74 to 106) mg/dL Calcium (8.4-10.2) mg/dL Total Bilirubin (0.2-1.3) mg/dL AST (14-36) U/L ALT (0-35) U/L Alkaline Phosphatase (38-126) U/L Serum Total Protein (6.3-8.2) g/dL Albumin (3.5-5.0) g/dL Urinalys Dipstick Clnc Urine Color (YELLOW) Urine Appearance (CLEAR) Urine pH (5-6) Ur Specific Clio (1.005-1.025) POC Urine Protein Conf (Negative) Urine Ketones (NEGATIVE) Urine Nitrite (NEGATIVE) Urine Bilirubin (NEGATIVE) Urine Urobilinogen (0-1) mg/dL Urine Leukocytes (NEGATIVE) Urine WBC (Auto) (0-5) /HPF Urine RBC (Auto) (0-2) /HPF U Hyaline Cast (Auto) (0-2) /LPF U Epithel Cells (Auto) (FEW) /HPF Urine Bacteria (Auto) (NEGATIVE) /HPF Urine RBC (0-5) Kamaljit/ul Ur Culture Indicated? Urine Glucose (NEGATIVE) mg/dL Urine Opiates Level (NEGATIVE) Ur Methadone (NEGATIVE) Acetaminophen (10-30) ug/ml Urine Barbiturates (NEGATIVE) Ur Phencyclidine (PCP) (NEGATIVE) Urine Amphetamine (NEGATIVE) U Benzodiazepine Level (NEGATIVE) Urine Cocaine (NEGATIVE) Urine Marijuana (THC) (NEGATIVE) Ethyl Alcohol (0-10) mg/dL Influenza Type A Ag (NEGATIVE) Influenza Type B Ag (NEGATIVE) RSV (PCR) (Negative) SARS-CoV-2 (PCR) (NEGATIVE) - Progress Progress: improved, re-examined Progress Note: 11/23/21 06:08 Patient was evaluated by [facility]. Patient is medically cleared for transfer or discharge to home. [facility] is nurse practitioner Pushpa Luis Fernando is providing a diagnosis of schizophrenia and recommends from the psychiatric standpoint that she can be evaluated and managed as an outpatient. Patient's blood sugar is now corrected and she does not need admission into the hospital. Counseled pt/family regarding: lab results, diagnosis, need for follow-up - Departure Departure Disposition: Home Clinical Impression: Hypoglycemia, Schizophrenia Condition: Stable Critical Care Time: No Referrals: RODOLFO NAVARRO MD [Primary Care Provider] - Follow up/PCP as directed Additional Instructions: Continue medication as prescribed. Monitor your blood sugar closely. Follow-up with your primary care physician for further evaluation management.
[2021-11-23 01:05] LABS: Absolute Neutrophil Ct (ANC) 10.91 x10^3/uL (1.4-6.9); Basophil (Absolute #) 0.04 x10^3/uL (0-0.4); Eosinophil % 0.8 % (0.00-5.0); Eosinophil (Absolute #) 0.12 x10^3/uL (0-0.5); Hematocrit 30.8 % (35-47); Hemoglobin 9.9 g/dL (12.0-16.0); Lymphocyte (Absolute #) 2.11 x10^3/uL (1.0-4.6); Lymphocytes % 14.8 % (24.0-44.0); Mean Cell Volume 88.5 fL (78-100); Mean Corpuscular Hemoglobin 28.4 pg (26-32); Mean Corpuscular Hgb Concent. 32.1 g/dL (32-36); Monocyte (Absolute #) 0.99 x10^3/uL (0.0-1.3); Neutrophil % 76.7 % (36.0-66.0); Platelet Count 224 x10^3/uL (150-450); Red Blood Count 3.48 x10^6/uL (4.1-5.4); Red Cell Distribution Width 15.9 % (11.5-14.0); White Blood Count 14.2 x10^3/uL (4.0-10.5)
[2021-11-23 01:24] LABS: ACETAMINOPHEN < 10 ug/ml (10-30); ALBUMIN 4.2 g/dL (3.5-5.0); ALKALINE PHOSPHATASE 117 U/L (38-126); ANION GAP 6.9 MEQ/L (5-15); BLOOD UREA NITROGEN 37 mg/dL (7-17); CHLORIDE 94 mmol/L (98-107); Calcium 9.5 mg/dL (8.4-10.2); Carbon Dioxide 39 mmol/L (22-30); Creatinine 1 1.97 mg/dL (0.52-1.04); EST GLOMERULAR FILTRATION RATE 27.7 ML/MIN; ETHYL ALCOHOL < 10 mg/dL (0-10); Potassium 4.1 mmol/L (3.5-5.1); SGOT/AST 36 U/L (14-36); SGPT/ALT 21 U/L (0-35); SODIUM 135 mmol/L (137-145); Total Protein 7.6 g/dL (6.3-8.2)
[2021-11-23 01:44] LABS: INFLUENZA A NEGATIVE (NEGATIVE); INFLUENZA B NEGATIVE (NEGATIVE); RESPIRATORY SYNCTIAL VIRUS NEGATIVE (Negative); SARS-CoV-2 Xpert Express NEGATIVE (NEGATIVE)
[2021-11-23 01:47] LABS: Appearance CLEAR (CLEAR); Bilirubin NEGATIVE (NEGATIVE); Dipstick done @ ? MAIN LAB; Glucose NEGATIVE (NEGATIVE); Ketones NEGATIVE (NEGATIVE); Nitrite NEGATIVE (NEGATIVE); Protein,Urine Dip NEGATIVE (Negative); RBC NEGATIVE Ery/ul (0-5); Specific Gravity 1.015 (1.005-1.025); Urobilinogen 0.2 mg/dL (0-1)
[2021-11-23 01:48] LABS: WBC 0-2 /HPF (0-5)
[2021-11-23 01:50] LABS: Glucose 46 mg/dL (74-106)
[2021-11-23 01:50] LABS: Urine Cultured Indicated? NO
[2021-11-23 01:58] LABS: Amphetamine,Urine NEGATIVE (NEGATIVE); Barbiturate,Urine NEGATIVE (NEGATIVE); Benzodiazepine,Urine NEGATIVE (NEGATIVE); Cocaine,Urine NEGATIVE (NEGATIVE); Methadone,Urine NEGATIVE (NEGATIVE); Opiate,Urine NEGATIVE (NEGATIVE); PCP,Urine NEGATIVE (NEGATIVE); THC,Urine NEGATIVE (NEGATIVE)
[2021-11-23 06:03] VITALS: BP 100/82; PULSE 73; O2SAT 96
== END 2021-11-23 06:45 | disposition home or self-care (01) ==
LOC: ED 23:49
DX: E11.649 Type 2 diabetes mellitus with hypoglycemia without coma (principal); F20.9 Schizophrenia, unspecified; R44.2 Other hallucinations; E78.5 Hyperlipidemia, unspecified; Z79.4 Long term (current) use of insulin; Z79.899 Other long term (current) drug therapy; Z20.828 Contact with and (suspected) exposure to other viral communicable diseases
CPT/HCPCS: 0241U; 36415; 80053; 80307; 81015; 82947; 85025; 93005; 93041; 99284; G0480; 90791; Q3014

== ENCOUNTER 2021-11-25 14:09 | Emergency (ER) | payer MEDICARE ==
--- NOTE | 2021-11-25 14:13 | ERPHSYRPT ---
- History of Present Illness Time Seen by Provider: 11/25/21 14:13 Source: patient Exam Limitations: no limitations Physician History: This is a 56-year-old white female has schizophrenia and is in this emergency department approximately 48 hours ago. Patient states that she has new onset numbness and tingling in both her hands and feet that this started within the last 24 hours. She has not had any injury present. From 48 hours ago, the patient's electrolytes are within normal limits. She has not had any fevers. She has no chest pain. She has no nausea vomiting or diarrhea symptoms. There is been no change in her medications. Patient is very anxious. Timing/Duration: today Severity: mild Modifying Factors: Improves With: nothing Associated Symptoms: denies symptoms Allergies/Adverse Reactions: hydrocodone [From Vicodin] Allergy (Intermediate, Verified 11/25/21 14:34) Rash lurasidone [From Latuda] Allergy (Intermediate, Verified 11/25/21 14:34) Rash Home Medications: ARIPiprazole [Abilify] 30 mg PO DAILY 06/14/19 [History] Albuterol Common Canister [Ventolin Common Canister] 1 puff IH DAILY 06/14/19 [History] Bupropion HCl 150 mg Sr [Wellbutrin SR 150 MG] 150 mg PO DAILY 06/14/19 [History] Bupropion HCl [Wellbutrin Xl] 300 mg PO DAILY 06/14/19 [History] Escitalopram Oxalate [Lexapro] 40 mg PO DAILY 06/14/19 [History] Ferrous Sulfate [Iron] 325 mg PO DAILY 06/14/19 [History] Furosemide 20 mg [Lasix 20 mg] 20 mg PO DAILY 06/14/19 [History] Gabapentin 200 mg PO BID 06/14/19 [History] Insulin Degludec [Tresiba Flextouch U-200] 60 units SQ DAILY 06/14/19 [History] Magnesium Oxide 800 mg PO TID 06/14/19 [History] Cetirizine HCl [All Day Allergy] 10 mg PO DAILY 02/08/20 [History] Colestipol HCl [Colestid] 1 gm PO DAILY 02/08/20 [History] Deutetrabenazine [Austedo] 9 mg PO DAILY 02/08/20 [History] Insulin Aspart Prot/Insuln Asp [Novolog Mix 70-30 Flexpen] 20 unit SQ TID 02/08/20 [History] Metoprolol Succinate 25 mg PO DAILY 02/08/20 [History] Montelukast Sodium 10 mg [Singulair 10 MG] 10 mg PO DAILY 02/08/20 [History] Propylene Glycol/Peg 400/Pf [Systane Ultra 0.4-0.3% Eye Drp] 1 each OP QID 02/08/20 [History] Rosuvastatin Calcium 10 mg PO DAILY 02/08/20 [History] Hx Tetanus, Diphtheria Vaccination/Date Given: No (unsure) Hx Influenza Vaccination/Date Given: Yes Hx Pneumococcal Vaccination/Date Given: Yes Travel Risk - International Travel Have you traveled outside of the country in past 3 weeks: No - Coronavirus Screening Are you exhibiting any of the following symptoms?: No Close contact with a COVID-19 positive Pt in past 14-21 Days: No - Vaccine Status Have you recieved a Covid-19 vaccination: Yes 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: [employer] - Vaccination Dates Date of 2cond Vaccination (if applicable): unsure - Review of Systems Constitutional: No Symptoms Eyes: No Symptoms Ears, Nose, & Throat: No Symptoms Respiratory: No Symptoms Cardiac: No Symptoms Abdominal/Gastrointestinal: No Symptoms Genitourinary Symptoms: No Symptoms Musculoskeletal: No Symptoms Skin: No Symptoms Neurological: Other (Mild numbness to both hands and feet) Psychological: No Symptoms Endocrine: No Symptoms Hematologic/Lymphatic: No Symptoms Immunological/Allergic: No Symptoms All Other Systems: Reviewed and Negative - Past Medical History Pertinent Past Medical History: Yes Neurological History: Other ENT History: No Pertinent History Cardiac History: Arrhythmia, High Cholesterol Respiratory History: Asthma Endocrine Medical History: Diabetes Type II, Liver Disease Musculoskeletal History: Arthritis GI Medical History: GERD History: Other Psycho-Social History: Anxiety, Depression Female Reproductive Disorders: No Pertinent History Other Medical History: Parkinsonian Disorder (Pt unsure what it is.) - Past Surgical History Past Surgical History: Yes Neuro Surgical History: No Pertinent History Cardiac: Cardiac Catheterization Respiratory: No Pertinent History Gastrointestinal: Appendectomy, Cholecystectomy Genitourinary: No Pertinent History Musculoskeletal: Other Female Surgical History: Section, Tubal Ligation Other Surgical History: NECK SURGERY WITH DISC REPAIR. C- Section x 2 - Social History Smoking Status: Never smoker Exposure to second hand smoke: No Drug Use: none Patient Lives Alone: Yes - Nursing Vital Signs Nursing Vital Signs: Initial Vital Signs Temperature 98.6 F 11/25/21 14:10 Pulse Rate 91 H 11/25/21 14:10 Respiratory Rate 18 11/25/21 14:10 Blood Pressure 105/53 11/25/21 14:10 O2 Sat by Pulse Oximetry 97 11/25/21 14:10 Pain Scale Pain Intensity 0 - Physical Exam General Appearance: no apparent distress, alert, anxiety, obese Eye Exam: PERRL/EOMI, eyes nml inspection Ears, Nose, Throat Exam: normal ENT inspection, moist mucous membranes Neck Exam: normal inspection, non-tender, supple, full range of motion Respiratory Exam: normal breath sounds, lungs clear, airway intact, No chest tenderness, No respiratory distress Cardiovascular Exam: regular rate/rhythm, normal heart sounds, normal peripheral pulses Gastrointestinal/Abdomen Exam: soft, normal bowel sounds, No tenderness Pelvic Exam: not done Rectal Exam: not done Back Exam: normal inspection, normal range of motion, No CVA tenderness, No vertebral tenderness Extremity Exam: normal inspection, normal range of motion, pelvis stable Neurologic Exam: alert, oriented x 3, cooperative, 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 Approximately 48 hours ago patient was seen in this emergency department and her electrolyte panel is within normal limits. She is diabetic and I will check a blood sugar. She has strong palpable radial and pedal pulses. There is no evidence of any infection of the skin. There is no history of any injury to the extremities. I do not feel that this patient needs an emergency room work-up. Her symptoms can be dealt with as an outpatient. I will have her keep her legs elevated when not ambulating and use warm compresses to both her hands and both her feet on an as-needed basis. She will follow-up with her primary care physician for further evaluation and management. 11/25/21 15:22 Counseled pt/family regarding: lab results, diagnosis, need for follow-up - Departure Departure Disposition: Home Clinical Impression: Numbness and tingling Condition: Stable Critical Care Time: No Referrals: RODOLFO NAVARRO MD [Primary Care Provider] - Follow up/PCP as directed Additional Instructions: Take your medication as prescribed. Follow-up with your primary care provider for further evaluation and management. Call them today to make an appointment.
[2021-11-25 14:34] VITALS: PULSE 91; O2SAT 97
[2021-11-25 15:45] VITALS: BP 125/66
== END 2021-11-25 15:45 | disposition home or self-care (01) ==
LOC: ED 14:09
DX: R20.2 Paresthesia of skin (principal); E78.5 Hyperlipidemia, unspecified; E11.9 Type 2 diabetes mellitus without complications; Z79.4 Long term (current) use of insulin; Z79.899 Other long term (current) drug therapy
CPT/HCPCS: 99281

== ENCOUNTER 2021-12-19 15:04 | Emergency (ER) | payer MEDICARE ==
--- NOTE | 2021-12-19 15:45 | ERPHSYRPT ---
- History of Present Illness Time Seen by Provider: 12/19/21 15:25 Source: patient Exam Limitations: no limitations Patient Subjective Stated Complaint: PT states "I was standing up and my right knee popped and now it really hurts and I can barely put weight on it." Triage Nursing Assessment: Pt presented alert and oriented X3, skin wpd Pt ambulates with an upright steady gait, able to speak in clear full sentences pt in no apparent respiratory Physician History: This is a morbidly obese 56-year-old white female patient of Dr. Navarro. Patient has multiple medical issues including insulin-dependent diabetes, peripheral neuropathy, hyperlipidemia, hypertension, arthritis, gastroesophageal reflux disease and parkinsonian disorder. Earlier today, the patient stood up from a sitting position and felt a pop in her right knee. After this pop sensation the patient states that she has had pain in the right knee and can barely walk because of the pain. Patient has just been using Tylenol. She does have medication that she uses for peripheral neuropathy symptoms. Method of Injury: other (Patient stood up from a sitting position) Occurred: this afternoon Quality: constant, aching Severity of Pain-Max: moderate Severity of Pain-Current: moderate Lower Extremities Pain: knee: right Modifying Factors: Improves With: movement Associated Symptoms: popping sensation, other (Can bear weight but it hurts to do so.) Allergies/Adverse Reactions: hydrocodone [From Vicodin] Allergy (Intermediate, Verified 11/25/21 14:34) Rash lurasidone [From Latuda] Allergy (Intermediate, Verified 11/25/21 14:34) Rash Home Medications: ARIPiprazole [Abilify] 30 mg PO DAILY 06/14/19 [History] Albuterol Common Canister [Ventolin Common Canister] 1 puff IH DAILY 0 06/14/19 [History] Bupropion HCl 150 mg Sr [Wellbutrin SR 150 MG] 150 mg PO DAILY 06/14/19 [History] Bupropion HCl [Wellbutrin Xl] 300 mg PO DAILY 06/14/19 [History] Escitalopram Oxalate [Lexapro] 40 mg PO DAILY 06/14/19 [History] Ferrous Sulfate [Iron] 325 mg PO DAILY 06/14/19 [History] Furosemide 20 mg [Lasix 20 mg] 20 mg PO DAILY 06/14/19 [History] Gabapentin 200 mg PO BID 06/14/19 [History] Insulin Degludec [Tresiba Flextouch U-200] 60 units SQ DAILY 06/14/19 [History] Magnesium Oxide 800 mg PO TID 06/14/19 [History] Cetirizine HCl [All Day Allergy] 10 mg PO DAILY 02/08/20 [History] Colestipol HCl [Colestid] 1 gm PO DAILY 02/08/20 [History] Deutetrabenazine [Austedo] 9 mg PO DAILY 02/08/20 [History] Insulin Aspart Prot/Insuln Asp [Novolog Mix 70-30 Flexpen] 20 unit SQ TID [History] Metoprolol Succinate 25 mg PO DAILY 02/08/20 [History] Montelukast Sodium 10 mg [Singulair 10 MG] 10 mg PO DAILY 02/08/20 [History] Propylene Glycol/Peg 400/Pf [Systane Ultra 0.4-0.3% Eye Drp] 1 each OP QID 02/08/20 [History] Rosuvastatin Calcium 10 mg PO DAILY 02/08/20 [History] Hx Tetanus, Diphtheria Vaccination/Date Given: No (unsure) Hx Influenza Vaccination/Date Given: Yes Hx Pneumococcal Vaccination/Date Given: Yes Travel Risk - International Travel Have you traveled outside of the country in past 3 weeks: No - Coronavirus Screening Are you exhibiting any of the following symptoms?: No Close contact with a COVID-19 positive Pt in past 14-21 Days: No - Vaccine Status Have you recieved a Covid-19 vaccination: Yes On Awake 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: Moderna - Vaccination Dates Date of 2cond Vaccination (if applicable): unsure - Review of Systems Constitutional: No Symptoms Eyes: No Symptoms Ears, Nose, & Throat: No Symptoms Respiratory: No Symptoms Cardiac: No Symptoms Abdominal/Gastrointestinal: No Symptoms Genitourinary Symptoms: No Symptoms Musculoskeletal: Injury (Right knee), No Fall Skin: No Symptoms Neurological: No Symptoms Psychological: No Symptoms Endocrine: No Symptoms Hematologic/Lymphatic: No Symptoms Immunological/Allergic: No Symptoms All Other Systems: Reviewed and Negative - Past Medical History Pertinent Past Medical History: Yes Neurological History: Other ENT History: No Pertinent History Cardiac History: Arrhythmia, High Cholesterol Respiratory History: Asthma Endocrine Medical History: Diabetes Type II, Liver Disease Musculoskeletal History: Arthritis GI Medical History: GERD History: Other Psycho-Social History: Anxiety, Depression Female Reproductive Disorders: No Pertinent History Other Medical History: Parkinsonian Disorder (Pt unsure what it is.) - Past Surgical History Past Surgical History: Yes Neuro Surgical History: No Pertinent History Cardiac: Cardiac Catheterization Respiratory: No Pertinent History Gastrointestinal: Appendectomy, Cholecystectomy Genitourinary: No Pertinent History Musculoskeletal: Other Female Surgical History: Section, Tubal Ligation Other Surgical History: NECK SURGERY WITH DISC REPAIR. C- Section x 2 - Social History Smoking Status: Never smoker Exposure to second hand smoke: No Drug Use: none Patient Lives Alone: Yes - Nursing Vital Signs Nursing Vital Signs: Initial Vital Signs Temperature 97.3 F 12/19/21 15:05 Pulse Rate 86 12/19/21 15:05 Respiratory Rate 20 12/19/21 15:05 Blood Pressure 149/50 12/19/21 15:05 O2 Sat by Pulse Oximetry 94 L 12/19/21 15:05 Pain Scale Pain Intensity 8 - Physical Exam General Appearance: no apparent distress, alert, anxiety, obese Eyes, Ears, Nose, Throat Exam: normal ENT inspection, moist mucous membranes Neck Exam: normal inspection, non-tender, supple, full range of motion Cardiovascular/Respiratory Exam: chest non-tender, no respiratory distress Gastrointestinal/Abdominal Exam: non-tender Back Exam: normal inspection, normal range of motion, No CVA tenderness, No vertebral tenderness Hips Exam: bilateral: non-tender, normal inspection, normal range of motion, no evidence of injury Legs Exam: bilateral leg: non-tender, normal inspection, normal range of motion, no evidence of injury Knees Exam: right knee: pain (With movement of right knee), soft tissue tenderness, left knee: non-tender, bilateral knee: normal inspection, normal range of motion, no evidence of injury Ankle Exam: bilateral ankle: non-tender, normal inspection, normal range of motion, no evidence of injury Foot Exam: bilateral foot: non-tender, normal inspection, normal range of motion, no evidence of injury Neuro/Tendon Exam: normal sensation, normal motor functions, normal tendon functions, responds to pain, no evidence tendon injury Mental Status Exam: alert, oriented x 3, cooperative Skin Exam: normal color, warm, dry SpO2 Interpretation: borderline oxygenation SpO2: 94 O2 Delivery: Room Air - Course Nursing assessment & vital signs reviewed: Yes Ordered Tests: Active Orders 24 hr Category Date Time Status KNEE (3 VIEWS) Stat Exams 12/19/21 15:27 Completed - Progress Progress: pain not gone completely Progress Note: 12/19/21 17:04 X-ray of right knee shows no acute fracture or dislocation. 12/19/21 17:10 Patient was asked which oral narcotic pain medication can she take, the patient stated anything other than hydrocodone. Counseled pt/family regarding: diagnosis, need for follow-up, rad results - Departure Departure Disposition: Home Clinical Impression: Right anterior knee pain Condition: Stable Critical Care Time: No Referrals: RODOLFO NAVARRO MD [Primary Care Provider] - Follow up/PCP as directed Additional Instructions: Ice pack to right knee 3 times a day for the next 48 hours. Follow-up in the [facility] orthopedic clinic Thursday through Thursday 8 AM to 10 AM. It is a walk-in clinic. You do not need an appointment. Prescriptions: Oxycodone HCl/Acetaminophen [Percocet 5-325 mg Tablet] 1 each PO Q8H PRN PRN #6 tablet MDD 3 PRN Reason: Moderate To Severe Pain
[2021-12-19 16:22] VITALS: PULSE 80
--- NOTE | 2021-12-19 16:49 | XRAY ---
Indication: Pain and "popping." No known injury. Comparison: None 3 portable views right knee demonstrates osteopenia, moderate/advanced tricompartmental degenerative changes greatest patellofemoral compartment, lower leg vascular calcifications, and small posterior fabella. No other bony, articular, or soft tissue abnormalities.
[2021-12-19] MEDS ORDERED: PERCOCET TABLET 5/325MG PO STA (17:09)
[2021-12-19] MEDS ORDERED: PERCOCET TABLET 5/325MG ONE (17:21)
[2021-12-19 18:01] VITALS: BP 124/66; O2SAT 97
== END 2021-12-19 18:02 | disposition home or self-care (01) ==
LOC: ED 15:04
DX: M25.561 Pain in right knee (principal); E11.42 Type 2 diabetes mellitus with diabetic polyneuropathy; E78.5 Hyperlipidemia, unspecified; I10 Essential (primary) hypertension; Z79.4 Long term (current) use of insulin; Z79.891 Long term (current) use of opiate analgesic; Z79.899 Other long term (current) drug therapy
CPT/HCPCS: 73562; 99283; A9270-GY

== ENCOUNTER 2022-11-06 11:21 | Observation (INO) | payer MEDICARE ==
--- NOTE | 2022-11-06 11:26 | ERPHSYRPT ---
- History of Present Illness Time Seen by Provider: 11/06/22 11:26 Source: patient, EMS Exam Limitations: no limitations Physician History: This is a morbidly obese 57-year-old white female patient who was brought to the emergency department by ambulance service. She is a patient of Dr. Bearden. This patient has been seen by the ambulance service several times this week for falls and lift assist. Today, the patient states that she was weak and she fell and again, there was no injuries but could not get up on her own. Patient was brought by the ambulance to the emergency department because of weakness. Patient also states that she is being evicted from her home and wants to be placed in a snf if possible. Patient states that she did hit her head earlier in the week and has pain and bruising of her left shoulder. She is an insulin-dependent diabetic with history of hypertension, hyperlipidemia, gastroesophageal reflux disease, anxiety, schizophrenia, asthma and irritable bowel syndrome. She also has a history of a left buttock decubitus ulcer. Patient denies chest pain. Patient denies shortness of breath. Patient denies abdominal pain. Occurred: just prior to arrival Injuries/Pain Location: head (Headache from an earlier fall this week), upper extremity (Left shoulder bruising with full range of motion) Loss of Consciousness: no loss of consciousness Quality: aching Severity of Pain-Max: mild Severity of Pain-Current: mild Modifying Factors: Improves With: movement Associated Symptoms (Fall): extremity injury (Left shoulder discomfort with movement), headache (Mild), other (Weakness) Allergies/Adverse Reactions: hydrocodone [From Vicodin] Allergy (Intermediate, Verified 11/06/22 11:31) Rash lurasidone [From Latuda] Allergy (Intermediate, Verified 11/06/22 11:31) Rash Home Medications: ARIPiprazole [Abilify] 30 mg PO DAILY 06/14/19 [History] Albuterol Common Canister [Ventolin Common Canister] 1 puff IH DAILY 06/14/19 [History] Bupropion HCl 150 mg Sr [Wellbutrin SR 150 MG] 150 mg PO DAILY 06/14/19 [History] Escitalopram Oxalate [Lexapro] 40 mg PO DAILY 06/14/19 [History] Ferrous Sulfate [Iron] 325 mg PO DAILY 06/14/19 [History] Furosemide 20 mg [Lasix 20 mg] 20 mg PO DAILY 06/14/19 [History] Gabapentin 200 mg PO BID 06/14/19 [History] Insulin Degludec [Tresiba Flextouch U-200] 60 units SQ DAILY 06/14/19 [History] Magnesium Oxide 800 mg PO TID 06/14/19 [History] buPROPion HCL [Wellbutrin Xl] 300 mg PO DAILY 06/14/19 [History] Cetirizine HCl [All Day Allergy] 10 mg PO DAILY 02/08/20 [History] Colestipol HCl [Colestid] 1 gm PO DAILY 02/08/20 [History] Deutetrabenazine [Austedo] 9 mg PO DAILY 02/08/20 [History] Insulin Aspart Prot/Insuln Asp [Novolog Mix 70-30 Flexpen] 20 unit SQ TID 02/08/20 [History] Metoprolol Succinate 25 mg PO DAILY 02/08/20 [History] Montelukast Sodium 10 mg [Singulair 10 MG] 10 mg PO DAILY 02/08/20 [History] Propylene Glycol/Peg 400/Pf [Systane Ultra 0.4-0.3% Eye Drp] 1 each OP QID 02/08/20 [History] Rosuvastatin Calcium 10 mg PO DAILY 02/08/20 [History] Hx Tetanus, Diphtheria Vaccination/Date Given: Yes Hx Influenza Vaccination/Date Given: Yes Hx Pneumococcal Vaccination/Date Given: Yes Travel Risk - International Travel Have you traveled outside of the country in past 3 weeks: No - Coronavirus Screening Are you exhibiting any of the following symptoms?: No Close contact with a COVID-19 positive Pt in past 14-21 Days: No - Vaccine Status Have you recieved a Covid-19 vaccination: Yes Coroner/Medical Examiner: Moderna - Vaccination Dates Date of 2cond Vaccination (if applicable): unsure - Review of Systems Constitutional: Weakness Eyes: No Symptoms Ears, Nose, & Throat: No Symptoms Respiratory: No Symptoms Cardiac: Orthopnea Abdominal/Gastrointestinal: No Symptoms Genitourinary Symptoms: No Symptoms Musculoskeletal: No Symptoms Skin: Other (Left buttock) Neurological: No Symptoms Psychological: No Symptoms Endocrine: No Symptoms Hematologic/Lymphatic: No Symptoms Immunological/Allergic: No Symptoms All Other Systems: Reviewed and Negative - Past Medical History Pertinent Past Medical History: Yes Neurological History: Other ENT History: No Pertinent History Cardiac History: High Cholesterol, Hypertension, Other Respiratory History: Asthma Endocrine Medical History: Diabetes Type II Musculoskeletal History: Arthritis GI Medical History: GERD History: Other Psycho-Social History: Anxiety, Depression Female Reproductive Disorders: No Pertinent History Other Medical History: SCHIZOPHRENIA, MITRAL VALVE REGURGITATION, TACHYCARDIA, OBESITY, HYPOMAGNESIUM, ACID REFLUX, IRRITABLE BOWEL SYNDROME, RESTING TREMORS (PER PATIENT RELATED TO PSYCHIATRIC MEDS - -CHANGED MEDS BUT NO CHANGE IN TREMORS). SX HX: CERVICAL FUSION 2 LEVELS, CHOLECYSTECTOMY, APPENDECTOMY, C- SECTION - Past Surgical History Past Surgical History: Yes Neuro Surgical History: No Pertinent History Cardiac: Cardiac Catheterization Respiratory: No Pertinent History Gastrointestinal: Appendectomy, Cholecystectomy Genitourinary: No Pertinent History Musculoskeletal: Other Female Surgical History: Section, Tubal Ligation Other Surgical History: NECK SURGERY WITH DISC REPAIR. C- Section x 2 - Social History Smoking Status: Never smoker Exposure to second hand smoke: No Drug Use: none Patient Lives Alone: Yes - Nursing Vital Signs Nursing Vital Signs: Initial Vital Signs Temperature 97.6 F 11/06/22 11:23 Pulse Rate 78 11/06/22 11:23 Respiratory Rate 22 11/06/22 11:23 Blood Pressure 123/58 11/06/22 11:23 O2 Sat by Pulse Oximetry 98 11/06/22 11:23 Pain Scale Pain Intensity 7 - Stanley Coma Score Best Eye Response (Leida): (4) open spontaneously Best Verbal Response (Leida): (4) confused conversation Best Motor Response (Leida): (6) obeys commands Stanley Total: 14 - Physical Exam General Appearance: no apparent distress, alert, anxiety, obese Head Injury: no evidence of injury Eye Exam: PERRL/EOMI, eyes nml inspection ENT Exam: airway nml, nml ext.inspection, No evidence of ENT injury Neck Exam: supple, trachea midline, full range of motion, normal alignment Respiratory/Chest Exam: normal breath sounds, No chest tenderness, No respiratory distress, No ecchymosis, No crepitus Cardiovascular Exam: normal heart sounds, regular rate/rhythm Gastrointestinal Exam: soft, normal bowel sounds, No tenderness Rectal Exam: not done Back Exam: normal inspection, normal range of motion, No CVA tenderness, No ve rtebral tenderness Extremity Exam: normal inspection, normal range of motion, pelvis stable Neurologic Exam: alert, oriented x 3, cooperative, news operations manager II-XII nml as tested, other (Tearful) Skin Exam: other (Left buttock decubitus ulcer) SpO2 Interpretation: normal O2 Delivery: Room Air - Course Nursing assessment & vital signs reviewed: Yes EKG Interpreted by Me: RATE (73), Sinus Rhythm, NORMAL AXIS, NORMAL INTERVALS, NORMAL QRS, NORMAL ST-T, Other (No acute ischemic changes on today's twelve-lead EKG.) Ordered Tests: Active Orders 24 hr Category Date Time Status Catheter-[place] Espinoza STAT Care 11/06/22 11:52 Active EKG-ER Only STAT Care 11/06/22 11:52 Active IV Insertion STAT Care 11/06/22 11:52 Active Nursing [Miscellaneous Nursing Order] ROUTINE Care 11/06/22 15:15 Ordered HEAD WITHOUT CONTRAST [CT] Stat Exams 11/06/22 11:54 Completed SHOULDER Stat Exams 11/06/22 11:55 Completed CBC W DIFF Stat Lab 11/06/22 12:05 Completed CMP Stat Lab 11/06/22 12:05 Completed CULTURE,URINE Stat Lab 11/06/22 12:38 Ordered UA W/RFX UR CULTURE Stat Lab 11/06/22 12:38 Completed Transfer Order Routine Transfer 11/06/22 Ordered Medication Summary Generic Name Dose Route Start Last Admin Trade Name Freq PRN Reason Stop Dose Admin Sodium Chloride 1,000 mls @ 50 mls/hr 11/06/22 12:00 11/06/22 12:02 Sodium Chloride 0.9% 1000 Ml IV 12/06/22 11:59 50 mls/hr .Q20H PIA Administration Discontinued Medications Generic Name Dose Route Start Last Admin Trade Name Freq PRN Reason Stop Dose Admin Morphine Sulfate 4 mg 11/06/22 12:51 11/06/22 12:57 Morphine Sulfate 4 Mg/Ml Injection IV 11/06/22 12:52 4 mg STAT ONE Administration Morphine Sulfate Confirm 11/06/22 12:56 Morphine Sulfate 4 Mg/Ml Injection Administered 11/06/22 12:57 Dose 4 mg .ROUTE .STK-MED ONE Ondansetron HCl 4 mg 11/06/22 11:52 11/06/22 12:03 Ondansetron Hcl 4 Mg/2 Ml Vial IV 11/06/22 11:53 4 mg STAT ONE Administration Ondansetron HCl Confirm 11/06/22 12:00 Ondansetron Hcl 4 Mg/2 Ml Vial Administered 11/06/22 12:01 Dose 4 mg .ROUTE .STK-MED ONE Lab/Rad Data: Laboratory Result Diagrams 11/06/22 12:05 11/06/22 12:05 Laboratory Results 11/06/22 11/06/22 11/06/22 Range/Units 12:38 12:05 12:05 WBC 10.3 (4.0-10.5) x10^3/uL RBC 3.87 L (4.1-5.4) x10^6/uL Hgb 11.1 L (12.0-16.0) g/dL Hct 35.1 (35-47) % MCV 90.7 (78-100) fL MCH 28.7 (26-32) pg MCHC 31.6 L (32-36) g/dL RDW 15.3 H (11.5-14.0) % Plt Count 262 (150-450) x10^3/uL MPV 12.1 H (7.5-11.0) fL Gran % 73.9 H (36.0-66.0) % Immature Gran % (Auto) 0.5 H (0.00-0.4) % Nucleat RBC Rel Count 0.0 (0.00-0.1) % Eos # (Auto) 0.44 (0-0.5) x10^3/uL Immature Gran # (Auto) 0.05 H (0.00-0.03) x10^3u/L Absolute Lymphs (auto) 1.40 (1.0-4.6) x10^3/uL Absolute Monos (auto) 0.76 (0.0-1.3) x10^3/uL Absolute Nucleated RBC 0.00 (0.00-0.01) x10^3u/L Lymphocytes % 13.6 L (24.0-44.0) % Monocytes % 7.4 (0.0-12.0) % Eosinophils % 4.3 (0.00-5.0) % Basophils % 0.3 (0.0-0.4) % Absolute Granulocytes 7.59 H (1.4-6.9) x10^3/uL Basophils # 0.03 (0-0.4) x10^3/uL Sodium 132 L (137-145) mmol/L Potassium 4.0 (3.5-5.1) mmol/L Chloride 92 L (98-107) mmol/L Carbon Dioxide 31 H (22-30) mmol/L Anion Gap 12.7 (5-15) MEQ/L BUN 23 H (7-17) mg/dL Creatinine 1.64 H (0.52-1.04) mg/dL Estimated GFR 34.1 ML/MIN Glucose 253 H (74-106) mg/dL Calcium 8.8 (8.4-10.2) mg/dL Total Bilirubin 0.50 (0.2-1.3) mg/dL AST 29 (14-36) U/L ALT 22 (0-35) U/L Alkaline Phosphatase 122 (38-126) U/L Serum Total Protein 6.7 (6.3-8.2) g/dL Albumin 3.5 (3.5-5.0) g/dL Urine Color Yellow (Yellow) Urine Appearance Clear (Clear) Urine pH 5.5 (4.6-8.0) Ur Specific [place] 1.010 (1.005-1.030) Urine Protein Trace A (Negative) Urine Glucose (UA) Negative (Negative) mg/dL Urine Ketones Trace A (Negative) Urine Blood Negative (Negative) Urine Nitrite Negative (Negative) Urine Bilirubin Negative (Negative) Urine Urobilinogen 0.2 (0.2) mg/dL Ur Leukocyte Esterase Negative (Negative) U Hyaline Cast (Auto) 3-5 A (0-2) /LPF Urine Microscopic RBC 0-2 (0-5) /HPF Urine Microscopic WBC 0-2 (0-5) /HPF Ur Epithelial Cells None Seen (None Seen) /HPF Urine Bacteria None Seen (None Seen) /HPF Urine Culture Reflexed NO (NO) - Progress Progress: improved, re-examined Progress Note: 11/06/22 15:17 This patient's medical issue is 1 of high complexity. Level complexity in the workup performed is based on review of the patient's past medical history, r eview the patient's medication list, review the patient's drug allergy list, history of present illness and physical findings on examination. This patient's workup includes twelve-lead EKG, CT scan of the head, urinalysis, placement of Espinoza catheter, intravenous line and intravenous fluid normal saline infusion, CBC, CMP, x-ray of the left shoulder. I reviewed the results. The patient is also being evicted from her home. She has been falling frequently having syncopal episodes. She is weak. We will place her in observation and obtain snf placement consultation as well as physical therapy evaluation and management. I discussed this patient, the history, physical findings and workup results with Dr. Howe our telehospitalist. He agrees. We will place this patient in observation. Counseled pt/family regarding: lab results, diagnosis, need for follow-up, rad results Medical Desision Making - Independent Historian Additional History obtained from: Night Baker/EMT - Discussion of managment Care discussed with:: hospitalist () Reviewed:: Test results, Need for additional workup Agreed on:: place in obs - Social Determinants of Health Pt's dx & treatment plan are significantly limited by SDOH: Unemployed, financial hardships, housing insecurity Limited access to: transportation - Diagnostic Testing Diagnostic test were ordered, analyzed, and reviewed by me: Yes Radiological Interpretation: Reviewed by me, Teleradiologist Report - Risk of complications The pt has a high risk of morbidity or mortality based on: Decision regarding hospitilization or escalation of hosp level of care - Departure Departure Disposition: Observation Clinical Impression: Syncope, Weakness, Frequent falls, Hyperglycemia Condition: Stable Critical Care Time: No Referrals: DAVIAN PETERSON DO [Primary Care Provider] - Follow up/PCP as directed
[2022-11-06] MEDS ORDERED: Zofran 4 MG/2 ML VIAL IV ONE (11:52)
[2022-11-06] MEDS ORDERED: Sodium Chloride 0.9% 1000 ML 1,000 ML ONE (12:00)
[2022-11-06] MEDS ORDERED: Sodium Chloride 0.9% 1000 ML 1,000 ML IV SCH (12:00)
[2022-11-06] MEDS ORDERED: Zofran 4 MG/2 ML VIAL ONE (12:00)
[2022-11-06 12:11] LABS: Absolute Neutrophil Ct (ANC) 7.59 x10^3/uL (1.4-6.9); BASOPHIL % 0.3 % (0.0-0.4); Basophil (Absolute #) 0.03 x10^3/uL (0-0.4); Eosinophil % 4.3 % (0.00-5.0); Eosinophil (Absolute #) 0.44 x10^3/uL (0-0.5); Hematocrit 35.1 % (35-47); Hemoglobin 11.1 g/dL (12.0-16.0); IMMATURE GRAN # 0.05 x10^3u/L (0.00-0.03); IMMATURE GRAN % 0.5 % (0.00-0.4); Lymphocytes % 13.6 % (24.0-44.0); Mean Cell Volume 90.7 fL (78-100); Mean Corpuscular Hemoglobin 28.7 pg (26-32); Mean Corpuscular Hgb Concent. 31.6 g/dL (32-36); Mean Platelet Volume 12.1 fL (7.5-11.0); Monocyte (Absolute #) 0.76 x10^3/uL (0.0-1.3); Monocytes % 7.4 % (0.0-12.0); Neutrophil % 73.9 % (36.0-66.0); Platelet Count 262 x10^3/uL (150-450); Red Blood Count 3.87 x10^6/uL (4.1-5.4); Red Cell Distribution Width 15.3 % (11.5-14.0); White Blood Count 10.3 x10^3/uL (4.0-10.5)
[2022-11-06 12:24] LABS: ALBUMIN 3.5 g/dL (3.5-5.0); ANION GAP 12.7 MEQ/L (5-15); BILIRUBIN,TOTAL 0.5 mg/dL (0.2-1.3); Calcium 8.8 mg/dL (8.4-10.2); Creatinine 1 1.64 mg/dL (0.52-1.04); EST GLOMERULAR FILTRATION RATE 34.1 ML/MIN; Total Protein 6.7 g/dL (6.3-8.2)
--- NOTE | 2022-11-06 12:37 | XRAY ---
Indication: Head injury following fall. Multiple contiguous axial images obtained through the head without contrast. Comparison: None Normal appearing brain parenchyma, ventricles, and bony calvarium for patient's age. Visualized paranasal sinuses and mastoid air cells are clear. Impression: Normal CT head without contrast exam.
[2022-11-06] MEDS ORDERED: MORPHINE SULFATE 4 MG INJ IV ONE (12:51)
[2022-11-06] MEDS ORDERED: MORPHINE SULFATE 4 MG INJ ONE (12:56)
[2022-11-06 12:58] LABS: Appearance Clear (Clear); Bacteria None Seen /HPF (None Seen); Bilirubin Negative (Negative); Blood Negative (Negative); Epithelial Cells None Seen /HPF (None Seen); Glucose, Urine Negative (Negative); Ketones Trace (Negative); Leukocyte Esterase Negative (Negative); Nitrite Negative (Negative); Ph 5.5 (4.6-8.0); Protein,Urine Dip Trace (Negative); RBC 0-2 /HPF (0-5); Urobilinogen 0.2 mg/dL (0.2); WBC 0-2 /HPF (0-5)
[2022-11-06 12:59] LABS: ADD URINE CULTURE? NO (NO)
--- NOTE | 2022-11-06 13:33 | XRAY ---
Indication: Injury following fall. Comparison: None 3 view left shoulder demonstrates osteopenia, moderate AC degenerative arthropathy, and incompletely visualized lower cervical fusion hardware. No other bony, articular, or soft tissue abnormalities.
[2022-11-06 15:04] LABS: 027 TOX PROD PRESUMPTIVE NEGATIVE (NEGATIVE); TOXIGENIC C. DIFF ORG NEGATIVE (NEGATIVE)
[2022-11-06] MEDS ORDERED: Zofran 4 MG/2 ML VIAL IV PRN (16:46)
[2022-11-06] MEDS ORDERED: MORPHINE SULFATE 4 MG INJ IV PRN (16:46)
[2022-11-06] MEDS: TYLENOL 325 MG PO PRN (17:57)
--- NOTE | 2022-11-06 19:33 | PCM.HP ---
History of Present Illness - Chief Complaint Chief Complaint: Frequent falls Date: 11/06/22 History of Present Illness: is a 57 year old female with pmhx of HLD, HTN, Asthma, DM type II, anxiety, depression, IBS, GERD, and schizophrenia that presented to ER 11/06/22 via EMS following a ground level fall at home during which she hit her head, no LOC. Patient reports that for some time now she has been having great difficulty with ambulation due to bilateral knee pain and weakness. She uses a rollator to get around for the most part but fell when she tried ambulate across the room to get to it. Patient states that she was supposed to have knee surgery but was told she is not a candidate due to her obesity. She further reports that she has become incontinent of bladder and bowel because she is unable to reach the bathroom in time and may have to be soiled for hours. She feels she has a UTI due to vaginal discomfort. Patient has been evicted from her home. In ER vitals were unremarkable. Laboratory findings showed hgb of 11.1, hyponatremia with sodium levels at 132, hyperglycemia at 253, BUN 23, and creat level at 1.64 (baseline around 1.2). U/A unremarkable. CT imaging head and shoulder xray negative for acute etiology. Patient was given Morphine for pain in the ER and started on IVF. - Review of Systems Constitutional: Fatigue, Weakness Eyes: No Symptoms Ears, Nose, & Throat: No Symptoms Respiratory: No Symptoms Cardiac: No Symptoms Abdominal/Gastrointestinal: No Symptoms Genitourinary Symptoms: Dysuria Musculoskeletal: Joint Pain (Bilateral knees) Skin: Skin Lesions (skin tear to right elbow) Neurological: No Symptoms Psychological: Depression (h/o schizophrenia, very tearful during interview) Endocrine: No Symptoms Hematologic/Lymphatic: No Symptoms Medications & Allergies Home Medications: Home Medication List Escitalopram Oxalate [Lexapro] 40 mg PO BID 06/14/19 [History Confirmed 11/06/22] Ferrous Sulfate [Iron] 325 mg PO DAILY 06/14/19 [History Confirmed 11/06/22] Gabapentin 300 mg PO TID 06/14/19 [History Confirmed 11/06/22] Insulin Degludec [Tresiba Flextouch U-200] 50 units SQ DAILY 06/14/19 [History Confirmed 11/06/22] Magnesium Oxide 800 mg PO TID 06/14/19 [History Confirmed 11/06/22] Cetirizine HCl [All Day Allergy] 10 mg PO DAILY 02/08/20 [History Confirmed 11/06/22] Metoprolol Succinate 25 mg PO DAILY 02/08/20 [History Confirmed 11/06/22] Montelukast Sodium 10 mg [Singulair 10 MG] 10 mg PO DAILY 02/08/20 [History Confirmed 11/06/22] Rosuvastatin Calcium 10 mg PO DAILY 02/08/20 [History Confirmed 11/06/22] PANTOPRAZOLE 40 mg Tablet [Protonix 40MG Tablet] 40 mg PO DAILY #30 tab 02/16/20 [Rx Confirmed 11/06/22] Bumetanide 2 mg PO DAILY 11/06/22 [History Confirmed 11/06/22] Colestipol HCl [Colestid] 1 gm PO BID 11/06/22 [History Confirmed 11/06/22] Divalproex Sodium [Divalproex Sodium ER] 500 mg PO DAILY 11/06/22 [History Confirmed 11/06/22] Ergocalciferol (Vitamin D2) [Vitamin D2] 50,000 unit PO WEEKLY 11/06/22 [History Confirmed 11/06/22] Famotidine 40 mg PO DAILY 11/06/22 [History Confirmed 11/06/22] Insulin Aspart [Novolog] 24 unit SQ TIDWMEALS 11/06/22 [History Confirmed 11/06/22] Levothyroxine Sodium 25 Mcg [Synthroid 25 Mcg] 25 mcg PO DAILY 11/06/22 [History Confirmed 11/06/22] Lumateperone Tosylate [Caplyta] 42 mg PO DAILY 11/06/22 [History Confirmed 11/06/22] Oxybutynin Chloride [Oxybutynin Chloride ER] 15 mg PO DAILY 11/06/22 [History Confirmed 11/06/22] Primidone [Mysoline] 250 mg PO TID 11/06/22 [History Confirmed 11/06/22] Propranolol HCl [Propranolol HCl ER] 60 mg PO BID 11/06/22 [History Confirmed 11/06/22] Semaglutide [Ozempic] 2 mg SQ WEEKLY 11/06/22 [History Confirmed 11/06/22] Venlafaxine HCl ER 75 mg [Effexor XR 75 MG] 75 mg PO DAILY 11/06/22 [History Confirmed 11/06/22] Vibegron [Gemtesa] 75 mg PO DAILY 11/06/22 [History Confirmed 11/06/22] hydrOXYzine HCL [Hydroxyzine HCl] 10 mg PO TID 11/06/22 [History Confirmed 11/06/22] Allergies/Adverse Reactions: Allergies Allergy/AdvReac Type Severity Reaction Status Date / Time hydrocodone [From Vicodin] Allergy Intermediate Rash Verified 11/06/22 11:31 lurasidone [From Latuda] Allergy Intermediate Rash Verified 11/06/22 11:31 - Past Medical History Past Medical History: Yes Neurological History: Other ENT History: No Pertinent History Cardiac History: High Cholesterol, Hypertension, Other Respiratory History: Asthma Endocrine Medical History: Diabetes Type II Musculoskelatal History: Arthritis GI Medical History: GERD History: Other Pyscho-Social History: Anxiety, Depression Reproductive Disorders: No Pertinent History Comment: SCHIZOPHRENIA, MITRAL VALVE REGURGITATION, TACHYCARDIA, OBESITY, HYPOMAGNESIUM, ACID REFLUX, IRRITABLE BOWEL SYNDROME, RESTING TREMORS (PER PATIENT RELATED TO PSYCHIATRIC MEDS - -CHANGED MEDS BUT NO CHANGE IN TREMORS). SX HX: CERVICAL FUSION 2 LEVELS, CHOLECYSTECTOMY, APPENDECTOMY, - Female History Are you now?: No - Past Surgical History Past Surgical History: Yes Neuro Surgical History: No Pertinent History Cardiac History: Cardiac Catheterization Respiratory Surgery: No Pertinent History GI Surgical History: Appendectomy, Cholecystectomy Genitourinary Surgical Hx: No Pertinent History Musculskeletal Surgical Hx: Other Female Surgical History: Section, Tubal Ligation Other Surgical History: NECK SURGERY WITH DISC REPAIR. C- Section x 2 - Social History Smoking Status: Never smoker Exposure to second hand smoke: No Alcohol: None Drug Use: none - Physical Exam Vital Signs: Vital Signs - 24 hr Temp Pulse Resp BP BP Pulse Ox 11/06/22 16:46 97.8 F 67 17 106/51 91 L 11/06/22 16:01 72 103/66 94 L 11/06/22 15:30 128/77 91 L 11/06/22 15:00 70 109/82 94 L 11/06/22 14:33 70 124/56 96 11/06/22 14:31 86/66 92 L 11/06/22 14:00 110/68 95 11/06/22 13:30 80 L 11/06/22 13:01 76 97/62 96 11/06/22 12:38 97 11/06/22 12:00 93/72 11/06/22 11:46 116/67 97 11/06/22 11:30 123/58 98 11/06/22 11:23 97.6 F 78 22 123/58 98 General Appearance: moderate distress, anxiety Neurologic Exam: alert, oriented x 3, depressed mood/affect Eye Exam: other (glasses) Ears, Nose, Throat Exam: normal ENT inspection Respiratory Exam: normal breath sounds Cardiovascular Exam: regular rate/rhythm, normal heart sounds Gastrointestinal/Abdomen Exam: soft, normal bowel sounds Pelvic Exam: not done Rectal Exam: not done Extremity Exam: other (skin tear to right elbow) Skin Exam: normal color Results - Labs Lab/Micro Results: Lab Results-Last 24 Hours 11/06/22 11/06/22 11/06/22 Range/Units 12:05 12:05 12:38 WBC 10.3 (4.0-10.5) x10^3/uL RBC 3.87 L (4.1-5.4) x10^6/uL Hgb 11.1 L (12.0-16.0) g/dL Hct 35.1 (35-47) % MCV 90.7 (78-100) fL MCH 28.7 (26-32) pg MCHC 31.6 L (32-36) g/dL RDW 15.3 H (11.5-14.0) % Plt Count 262 (150-450) x10^3/uL MPV 12.1 H (7.5-11.0) fL Gran % 73.9 H (36.0-66.0) % Immature Gran % (Auto) 0.5 H (0.00-0.4) % Nucleat RBC Rel Count 0.0 (0.00-0.1) % Eos # (Auto) 0.44 (0-0.5) x10^3/uL Immature Gran # (Auto) 0.05 H (0.00-0.03) x10^3u/L Absolute Lymphs (auto) 1.40 (1.0-4.6) x10^3/uL Absolute Monos (auto) 0.76 (0.0-1.3) x10^3/uL Absolute Nucleated RBC 0.00 (0.00-0.01) x10^3u/L Lymphocytes % 13.6 L (24.0-44.0) % Monocytes % 7.4 (0.0-12.0) % Eosinophils % 4.3 (0.00-5.0) % Basophils % 0.3 (0.0-0.4) % Absolute Granulocytes 7.59 H (1.4-6.9) x10^3/uL Basophils # 0.03 (0-0.4) x10^3/uL Sodium 132 L (137-145) mmol/L Potassium 4.0 (3.5-5.1) mmol/L Chloride 92 L (98-107) mmol/L Carbon Dioxide 31 H (22-30) mmol/L Anion Gap 12.7 (5-15) MEQ/L BUN 23 H (7-17) mg/dL Creatinine 1.64 H (0.52-1.04) mg/dL Estimated GFR 34.1 ML/MIN Glucose 253 H (74-106) mg/dL Calcium 8.8 (8.4-10.2) mg/dL Total Bilirubin 0.50 (0.2-1.3) mg/dL AST 29 (14-36) U/L ALT 22 (0-35) U/L Alkaline Phosphatase 122 (38-126) U/L Serum Total Protein 6.7 (6.3-8.2) g/dL Albumin 3.5 (3.5-5.0) g/dL Urine Color Yellow (Yellow) Urine Appearance Clear (Clear) Urine pH 5.5 (4.6-8.0) Ur Specific [place] 1.010 (1.005-1.030) Urine Protein Trace A (Negative) Urine Glucose (UA) Negative (Negative) mg/dL Urine Ketones Trace A (Negative) Urine Blood Negative (Negative) Urine Nitrite Negative (Negative) Urine Bilirubin Negative (Negative) Urine Urobilinogen 0.2 (0.2) mg/dL Ur Leukocyte Esterase Negative (Negative) U Hyaline Cast (Auto) 3-5 A (0-2) /LPF Urine Microscopic RBC 0-2 (0-5) /HPF Urine Microscopic WBC 0-2 (0-5) /HPF Ur Epithelial Cells None Seen (None Seen) /HPF Urine Bacteria None Seen (None Seen) /HPF Urine Culture Reflexed NO (NO) C. difficile Screen (NEGATIVE) C.difficile [id number] (NEGATIVE) 11/06/22 Range/Units 13:30 WBC (4.0-10.5) x10^3/uL RBC (4.1-5.4) x10^6/uL Hgb (12.0-16.0) g/dL Hct (35-47) % MCV (78-100) fL MCH (26-32) pg MCHC (32-36) g/dL RDW (11.5-14.0) % Plt Count (150-450) x10^3/uL MPV (7.5-11.0) fL Gran % (36.0-66.0) % Immature Gran % (Auto) (0.00-0.4) % Nucleat RBC Rel Count (0.00-0.1) % Eos # (Auto) (0-0.5) x10^3/uL Immature Gran # (Auto) (0.00-0.03) x10^3u/L Absolute Lymphs (auto) (1.0-4.6) x10^3/uL Absolute Monos (auto) (0.0-1.3) x10^3/uL Absolute Nucleated RBC (0.00-0.01) x10^3u/L Lymphocytes % (24.0-44.0) % Monocytes % (0.0-12.0) % Eosinophils % (0.00-5.0) % Basophils % (0.0-0.4) % Absolute Granulocytes (1.4-6.9) x10^3/uL Basophils # (0-0.4) x10^3/uL Sodium (137-145) mmol/L Potassium (3.5-5.1) mmol/L Chloride (98-107) mmol/L Carbon Dioxide (22-30) mmol/L Anion Gap (5-15) MEQ/L BUN (7-17) mg/dL Creatinine (0.52-1.04) mg/dL Estimated GFR ML/MIN Glucose (74-106) mg/dL Calcium (8.4-10.2) mg/dL Total Bilirubin (0.2-1.3) mg/dL AST (14-36) U/L ALT (0-35) U/L Alkaline Phosphatase (38-126) U/L Serum Total Protein (6.3-8.2) g/dL Albumin (3.5-5.0) g/dL Urine Color (Yellow) Urine Appearance (Clear) Urine pH (4.6-8.0) Ur Specific [place] (1.005-1.030) Urine Protein (Negative) Urine Glucose (UA) (Negative) mg/dL Urine Ketones (Negative) Urine Blood (Negative) Urine Nitrite (Negative) Urine Bilirubin (Negative) Urine Urobilinogen (0.2) mg/dL Ur Leukocyte Esterase (Negative) U Hyaline Cast (Auto) (0-2) /LPF Urine Microscopic RBC (0-5) /HPF Urine Microscopic WBC (0-5) /HPF Ur Epithelial Cells (None Seen) /HPF Urine Bacteria (None Seen) /HPF Urine Culture Reflexed (NO) C. difficile Screen NEGATIVE (NEGATIVE) C.difficile [id number] PRESUMPTIVE NEGATIVE (NEGATIVE) - Radiology Impressions Radiology Exams & Impressions: Radiology Procedures Category Date Time Status HEAD WITHOUT CONTRAST [CT] Stat Exams 11/06/22 11:54 Completed SHOULDER Stat Exams 11/06/22 11:55 Completed Assessment/Plan (1) Frequent falls Current Visit: Yes Status: Acute Assessment & Plan: Patient with frequent falls and limited mobility due to bilateral knee pain and weakness. PT/OT evaluation and treat during LOS, CM to discuss facility options with patient for discharge as she has been unable to care for herself -CT head negative -XR shoulder negative Code(s): R29.6 - REPEATED FALLS (2) Hyperglycemia Current Visit: Yes Status: Acute Assessment & Plan: -Most recent a1c in July at 6.2 indicating good glycemic control -Moderate dose SSI/ Accuchecks -Low carb diet Code(s): R73.9 - HYPERGLYCEMIA, UNSPECIFIED (3) Weakness Current Visit: Yes Status: Acute Assessment & Plan: -see frequent falls Code(s): R53.1 - WEAKNESS (4) Acute adjustment disorder with depressed mood Current Visit: No Status: Acute Assessment & Plan: -Continue home meds Code(s): F43.21 - ADJUSTMENT DISORDER WITH DEPRESSED MOOD Telemedicine Encounter - Telemedicine Encounter Telemedicine Encounter: The entirety of this encounter was performed via Telemedicine"
[2022-11-06] MEDS ORDERED: VITAMIN D2 PO PRN (19:45)
[2022-11-06] MEDS ORDERED: NEURONTIN ONE (20:05)
[2022-11-06] MEDS ORDERED: Inderal ONE (20:05)
[2022-11-06] MEDS ORDERED: Lexapro ONE (20:06)
[2022-11-06] MEDS ORDERED: ATARAX 25 MG ONE (20:10)
[2022-11-06] MEDS ORDERED: MYSOLINE 50MG ONE (21:56)
[2022-11-06] MEDS ORDERED: NON-FORMULARY ITEM (Hydroxyzine Hcl [Hydroxyzine Hcl] 10 MG Tablet) PO SCH (22:00)
[2022-11-06] MEDS ORDERED: NON-FORMULARY ITEM (Escitalopram Oxalate [Lexapro] 20 MG Tablet) PO SCH (22:00)
[2022-11-06] MEDS ORDERED: NON-FORMULARY ITEM (Propranolol Hcl [Propranolol Hcl Er] 60 MG Cap.Sa.24h) PO SCH (22:00)
[2022-11-06] MEDS ORDERED: Neurontin PO SCH (22:00)
[2022-11-06] MEDS ORDERED: NON-FORMULARY ITEM (Colestipol Hcl [Colestid] 1 GM Tablet) PO SCH (22:00)
[2022-11-06] MEDS ORDERED: NON-FORMULARY ITEM (Primidone [Mysoline] 250 MG Tablet) PO SCH (22:00)
[2022-11-06] MEDS: MAG-OX 400 PO SCH (22:17)
[2022-11-07 05:26] LABS: ALBUMIN 3.1 g/dL (3.5-5.0); ANION GAP 10.1 MEQ/L (5-15); BILIRUBIN,TOTAL 0.4 mg/dL (0.2-1.3); Calcium 8.2 mg/dL (8.4-10.2); Creatinine 1 1.18 mg/dL (0.52-1.04); EST GLOMERULAR FILTRATION RATE 49.8 ML/MIN; Potassium 3.5 mmol/L (3.5-5.1); Total Protein 6.1 g/dL (6.3-8.2)
[2022-11-07 05:45] LABS: Absolute Neutrophil Ct (ANC) 3.41 x10^3/uL (1.4-6.9); BASOPHIL % 0.7 % (0.0-0.4); Basophil (Absolute #) 0.04 x10^3/uL (0-0.4); Eosinophil % 7.4 % (0.00-5.0); Eosinophil (Absolute #) 0.45 x10^3/uL (0-0.5); Hematocrit 32.6 % (35-47); Hemoglobin 10.6 g/dL (12.0-16.0); IMMATURE GRAN # 0.03 x10^3u/L (0.00-0.03); IMMATURE GRAN % 0.5 % (0.00-0.4); Lymphocyte (Absolute #) 1.63 x10^3/uL (1.0-4.6); Lymphocytes % 26.7 % (24.0-44.0); Mean Cell Volume 91.3 fL (78-100); Mean Corpuscular Hemoglobin 29.7 pg (26-32); Mean Corpuscular Hgb Concent. 32.5 g/dL (32-36); Mean Platelet Volume 12.7 fL (7.5-11.0); Monocyte (Absolute #) 0.55 x10^3/uL (0.0-1.3); Neutrophil % 55.7 % (36.0-66.0); Platelet Count 257 x10^3/uL (150-450); Red Blood Count 3.57 x10^6/uL (4.1-5.4); Red Cell Distribution Width 15.5 % (11.5-14.0); White Blood Count 6.1 x10^3/uL (4.0-10.5)
[2022-11-07] MEDS: Sodium Chloride 0.9% 1000 ML 1,000 ML IV SCH (05:52)
[2022-11-07] MEDS ORDERED: MEDICATION INTERVENTION MC SCH ×4 (07:45)
[2022-11-07] MEDS ORDERED: NON-FORMULARY ITEM (Divalproex Sodium [Divalproex Sodium Er] 500 MG Tab.Er.24h) PO SCH (10:00)
[2022-11-07] MEDS ORDERED: NON-FORMULARY ITEM (Vibegron [Gemtesa] 75 MG Tablet) PO SCH (10:00)
[2022-11-07] MEDS ORDERED: Lexapro PO SCH (10:00)
[2022-11-07] MEDS ORDERED: NON-FORMULARY ITEM (Famotidine [Famotidine] 40 MG Tablet) PO SCH (10:00)
[2022-11-07] MEDS ORDERED: Toprol-Xl 25MG Tablets PO SCH (10:00)
[2022-11-07] MEDS ORDERED: NON-FORMULARY ITEM (Lumateperone Tosylate [Caplyta] 42 MG Capsule) PO SCH (10:00)
[2022-11-07] MEDS ORDERED: NON-FORMULARY ITEM (Rosuvastatin Calcium [Rosuvastatin Calcium] 10 MG Tablet) PO SCH (10:00)
[2022-11-07] MEDS ORDERED: NON-FORMULARY ITEM (Bumetanide [Bumetanide] 2 MG Tablet) PO SCH (10:00)
[2022-11-07] MEDS ORDERED: [UNRECOGNIZED DRUG - REMARK] PO SCH (10:00)
[2022-11-07] MEDS: MYSOLINE 50MG PO SCH ×3 (11:42→22:15)
[2022-11-07] MEDS: Protonix 40MG Tablet PO SCH (11:43)
[2022-11-07] MEDS: MAG-OX 400 PO SCH ×3 (11:44→22:14)
[2022-11-07] MEDS: Lexapro PO SCH (11:44)
[2022-11-07] MEDS: ATARAX 25 MG PO SCH ×3 (11:45→22:16)
[2022-11-07] MEDS: Toprol-Xl 25MG Tablets PO SCH (11:45)
[2022-11-07] MEDS: BUMEX 1 MG PO SCH (11:46)
[2022-11-07] MEDS: FEOSOL 325 MG PO SCH (11:47)
[2022-11-07] MEDS: ZOCOR 20MG PO SCH (11:47)
[2022-11-07] MEDS: Effexor XR 75 MG PO SCH (11:47)
[2022-11-07] MEDS: Singulair 10 MG PO SCH (11:48)
[2022-11-07] MEDS: Pepcid 20 MG PO SCH (11:48)
[2022-11-07] MEDS: NEURONTIN PO SCH ×3 (11:48→22:16)
[2022-11-07] MEDS: Depakote EXTENDED RELEASE 250 MG PO SCH (11:49)
[2022-11-07] MEDS: SYNTHROID 25 MCG PO SCH (11:49)
[2022-11-07] MEDS: CLARITIN 10 MG PO SCH (11:49)
--- NOTE | 2022-11-07 15:45 | PCM.NOTE ---
Date and Time: 11/07/22 1533 Subjective Assessment: MS. Dixon is a 57-year-old woman with a history of CKD and schizophrenia, who presents with frequent falls, diffuse weakness, and acute kidney injury. Creatinine up to 1.6. Blood sugar poorly controlled as well. Labs with noted improvement overnight, creat now at 1.18, blood sugar level at 158. It is unkn own if patient has been taking medications properly at home as it has been reported that multiple pills and pill packs were noted unopened During today's interview patient less tearful and now agreeable to SNF placement due to her inability to care for herself because of limited mobility. She endorses that she tolerated PT well and was able to ambulate with assistance. Additionally she mentions vaginal irritation and itching which could be due to incontinence dermatitis, but will treat with diflucan. Patient states incontinence is mostly due to difficulty ambulating to the bathroom. Patient also noted to be 84% on RA at rest, she was placed on 2L and now at 94%, will have RT evaluate patient. Discharge is pending SNF placement. - Review of Systems Constitutional: No Symptoms Eyes: No Symptoms Ears, Nose, & Throat: No Symptoms Respiratory: Short Of Breath Cardiac: No Symptoms Abdominal/Gastrointestinal: No Symptoms Genitourinary Symptoms: Vaginal Itching, Other (vaginal irritation) Musculoskeletal: No Symptoms Skin: Other (skin tear to right elbow) Endocrine: No Symptoms Hematologic/Lymphatic: No Symptoms Immunological/Allergic: No Symptoms Objective Exam General Appearance: mild distress Neurologic Exam: alert, oriented x 3 Skin Exam: other (right elbow skin tear) Wound Assessment: Skin/Wound Assessment Wound/Incision Assessment Start: 11/06/22 17:20 Text: Status: Active Freq: Q6H Protocol: Document 11/07/22 14:00 (Rec: 11/07/22 14:31 [id number]) Wound Photo Comment: photo taken prev shift Eye Exam: PERRL, other (glasses) Respiratory Exam: normal breath sounds, lungs clear Cardiovascular Exam: regular rate/rhythm, normal heart sounds Gastrointestinal/Abdomen Exam: soft, normal bowel sounds Extremity Exam: normal inspection, other (right elbow skin tear) OBJECTIVE DATA Vital Signs: Vital Signs - 24 hr Temp Pulse Resp BP BP Pulse Ox 11/07/22 11:56 97.9 F 82 18 93/70 96 11/07/22 08:00 17 11/07/22 07:23 97.8 F 82 17 102/50 88 L 11/07/22 03:54 98.8 F 76 17 99/48 94 L 11/07/22 00:00 20 11/06/22 23:55 97.8 F 73 20 90/50 97 11/06/22 20:00 97.9 F 67 18 111/51 100 11/06/22 16:46 97.8 F 67 17 106/51 91 L 11/06/22 16:01 72 103/66 94 L Pain Assessment - Last Documented Pain Intensity 10 Pain Scale Used 0-10 Pain Scale Intake and Output: Intake & Output 11/05/22 11/06/22 11/07/22 11/08/22 11:59 11:59 11:59 11:59 Intake Total 1459 240 Output Total 700 Balance 759 240 Weight 128.9 kg 128 kg Lab Results: Lab Results-Last 24 Hours 11/06/22 11/07/22 11/07/22 Range/Units 21:03 04:38 04:38 WBC 6.1 (4.0-10.5) x10^3/uL RBC 3.57 L (4.1-5.4) x10^6/uL Hgb 10.6 L (12.0-16.0) g/dL Hct 32.6 L (35-47) % MCV 91.3 (78-100) fL MCH 29.7 (26-32) pg MCHC 32.5 (32-36) g/dL RDW 15.5 H (11.5-14.0) % Plt Count 257 (150-450) x10^3/uL MPV 12.7 H (7.5-11.0) fL Gran % 55.7 (36.0-66.0) % Immature Gran % (Auto) 0.5 H (0.00-0.4) % Nucleat RBC Rel Count 0.0 (0.00-0.1) % Eos # (Auto) 0.45 (0-0.5) x10^3/uL Immature Gran # (Auto) 0.03 (0.00-0.03) x10^3u/L Absolute Lymphs (auto) 1.63 (1.0-4.6) x10^3/uL Absolute Monos (auto) 0.55 (0.0-1.3) x10^3/uL Absolute Nucleated RBC 0.00 (0.00-0.01) x10^3u/L Lymphocytes % 26.7 (24.0-44.0) % Monocytes % 9.0 (0.0-12.0) % Eosinophils % 7.4 H (0.00-5.0) % Basophils % 0.7 (0.0-0.4) % Absolute Granulocytes 3.41 (1.4-6.9) x10^3/uL Basophils # 0.04 (0-0.4) x10^3/uL Sodium 132 L (137-145) mmol/L Potassium 3.5 (3.5-5.1) mmol/L Chloride 95 L (98-107) mmol/L Carbon Dioxide 30 (22-30) mmol/L Anion Gap 10.1 (5-15) MEQ/L BUN 19 H (7-17) mg/dL Creatinine 1.18 H (0.52-1.04) mg/dL Estimated GFR 49.8 ML/MIN Glucose 158 H (74-106) mg/dL POC Glucometer 180 H (74 to 106) mg/dL Calcium 8.2 L (8.4-10.2) mg/dL Total Bilirubin 0.40 (0.2-1.3) mg/dL AST 33 (14-36) U/L ALT 25 (0-35) U/L Alkaline Phosphatase 109 (38-126) U/L Serum Total Protein 6.1 L (6.3-8.2) g/dL Albumin 3.1 L (3.5-5.0) g/dL 11/07/22 11/07/22 Range/Units 07:18 11:51 WBC (4.0-10.5) x10^3/uL RBC (4.1-5.4) x10^6/uL Hgb (12.0-16.0) g/dL Hct (35-47) % MCV (78-100) fL MCH (26-32) pg MCHC (32-36) g/dL RDW (11.5-14.0) % Plt Count (150-450) x10^3/uL MPV (7.5-11.0) fL Gran % (36.0-66.0) % Immature Gran % (Auto) (0.00-0.4) % Nucleat RBC Rel Count (0.00-0.1) % Eos # (Auto) (0-0.5) x10^3/uL Immature Gran # (Auto) (0.00-0.03) x10^3u/L Absolute Lymphs (auto) (1.0-4.6) x10^3/uL Absolute Monos (auto) (0.0-1.3) x10^3/uL Absolute Nucleated RBC (0.00-0.01) x10^3u/L Lymphocytes % (24.0-44.0) % Monocytes % (0.0-12.0) % Eosinophils % (0.00-5.0) % Basophils % (0.0-0.4) % Absolute Granulocytes (1.4-6.9) x10^3/uL Basophils # (0-0.4) x10^3/uL Sodium (137-145) mmol/L Potassium (3.5-5.1) mmol/L Chloride (98-107) mmol/L Carbon Dioxide (22-30) mmol/L Anion Gap (5-15) MEQ/L BUN (7-17) mg/dL Creatinine (0.52-1.04) mg/dL Estimated GFR ML/MIN Glucose (74-106) mg/dL POC Glucometer 161 H 195 H (74 to 106) mg/dL Calcium (8.4-10.2) mg/dL Total Bilirubin (0.2-1.3) mg/dL AST (14-36) U/L ALT (0-35) U/L Alkaline Phosphatase (38-126) U/L Serum Total Protein (6.3-8.2) g/dL Albumin (3.5-5.0) g/dL Radiology Exams: Radiology Procedures Category Date Time Status CHEST 1 VIEW (PORTABLE) Routine Exams 11/08/22 07:00 Ordered HEAD WITHOUT CONTRAST [CT] Stat Exams 11/06/22 11:54 Completed SHOULDER Stat Exams 11/06/22 11:55 Completed Multi-Disciplinary Progress Notes: Multi-Disciplinary Progress Notes 11/07/22 14:32 Case Management Note by Mary Galaviz FROM [facility] CAME AND SEEN PATIENT AND GIVEN CURRENT AND HOME MEDS LIST FOR REVIEW Initialized on 11/07/22 14:32 - END OF NOTE 11/07/22 14:30 Case Management Note by Mary Galaviz S/W DR. ROPER ABOUT POSSIBILITY OF PATIENT NOT HAVING HER [facility] HERE. HE SAID HE COULD CONSIDER SWITCHING THAT MED BUT WOULD LIKE TO KNOW WHY [facility] WAS CHOSE FOR HER OVER A MORE COST EFFECTIVE MED. HE WOULD LIKE HER RECORDS FROM [facility] THIS IS WHERE THIS MEDICATION WAS STARTED. WARDCLERK NOTIFIED OF REQUEST Initialized on 11/07/22 14:30 - END OF NOTE 11/07/22 14:21 Case Management Note by Mary Galaviz FROM [facility] HERE- THEY WILL ACCEPT PATIENT WHEN INSURANCE APPROVES AND LEVEL II IS COMPLETE. [facility] AND [facility] HAS TRIGGERED LEVEL II-THIS WILL REQUIRE ONSITE REVIEW-PATIENT WILL NEED TO STAY THRU THE WEEKEND UNTIL THIS EVAL CAN BE COMPLETE NEXT WEEK Initialized on 11/07/22 14:21 - END OF NOTE 11/07/22 13:47 Case Management Note by Mary Galaviz DR. AND NET TRAINER PRADEEP ROUNDED- NO NEED FOR INPT PSYCH STAY OR TELEMENTAL ASSESSMENT. CASE MANAGEMENT TO PROCEED WITH FINDING [facility] PLACEMENT FOR PATIENT. Initialized on 11/07/22 13:47 - END OF NOTE 11/07/22 13:42 Case Management Note by Mary Galaviz PATIENT NOTIFIED WE NEED SOME OF HER MEDICATIONS FROM HOME. SHE STATED SHE HAS A FRIEND THAT CAN GET THEM FOR HER. SHE TRIED TO CALL FRIEND NATHALIA- NO ANSWER BUT LEFT MESSAGE. PHARMACY NOTIFIED OF THE ABOVE AND THAT PATIENT COULD BE WAITING FOR PLACEMENT FOR SEVERAL DAYS AND THERE IS CONCERN OF HER NOT GETTING HER PSYCH MEDS IF THEY ARE UNABLE TO BE BROUGHT IN. HE STATED HE WOULD CHECK WITH [facility] ON ORDERING HER MEDS BUT THIS WAS UNLIKELY. Initialized on 11/07/22 13:42 - END OF NOTE 11/07/22 13:40 Case Management Note by Mary Galaviz LOVELL ALSO DECLINED PATIENT Initialized on 11/07/22 13:40 - END OF NOTE 11/07/22 13:20 Case Management Note by Mary Galaviz ASSURANCE HAS DECLINED D/T HIGH MEDICAL NEEDS Initialized on 11/07/22 13:20 - END OF NOTE 11/07/22 12:55 Case Management Note by Mary Galaviz THIS MANAGER R D WENT TO SEE PATIENT THIS AM FOR CASE MANAGEMENT/DC ASSESSMENT TO IDENTIFY NEEDS AND WISHES. PATIENT'S MANAGER R D GABE SANCHEZ, TUCKER, PRESENT AT BEDSIDE ON ARRIVAL. PATIENT LIVES ALONE IN AN APARTMENT. PATIENT REPORTS SHE HAS BEEN USING A COMPUTER CHAIR TO GET AROUND HER APARTMENT [facility]. SHE HAS A WALKER AND TRANSFERS HERSELF TO AND FROM THAT CHAIR PRIOR TO ARRIVAL. PER REPORTS- SHE IS GETTING EVICTED AND HAS TO BE OUT OF HER APARTMENT BY 11/27. PATIENT REPORTS SHE IS GETTING EVICTED D/T SPILLING RED HAIR DYE AND IT STAINING THE AREA. SHE REPORTS SHE SPILLED IT BY ACCIDENT AND DIDN'T FEEL LIKE CLEANING IT AT THIS TIME. PATIENT VERY TEARFUL ABOUT THIS. PATIENT RELIES ON [facility] FOR TRANSPORTATION TO DOCTOR VISITS. SHE REPORTS SHE HAS COMFORT KEEPERS FOR HOUSEKEEPING BUT THAT HAVE NOT BEEN THERE RECENTLY. SHE REPORTS THEY SOMETIMES DO HER SHOPPING FOR HER. PATIENT VERY TEARFUL THROUGHOUT CONVERSATION. PATIENT REPORTS HER FATHER INDICATED TO HER THAT SHE NEEDS TO LOSE WEIGHT SO PATIENT HAS LOST WEIGHT RECENTLY BUT WHEN LUNCH WAS MENTIONED SHE DID NOT WANT TO EAT D/T IT MAKING HER "FAT". PATIENT ENCOURAGED THAT GETTING TO HEALTHY WEIGHT IS GREAT BUT THAT IT NEEDS TO BE DONE PROPERLY, NOT BY STARVING HERSELF. PATIENT INITIALLY VERY ADAMENT AGAINST GOING TO A NURSING FACILITY FOR CARE. SHE REPORTS HER WAS IN ONE AND HE WAS TREATED VERY BADLY. PATIENT ALSO STATED " I DONT' WANT TO ". PATIENT ENCOURAGED [facility] PLACEMENT WOULD BE IN ORDER TO HELP HER. THEY COULD CARE FOR HER AND DO THERAPY TO HOPEFULLY TRANSITION TO ASSISTED LIVING SHE WISHES. WITH MUCH ENCOURAGEMENT PATIENT THEN STATED- SHE WANTS TO GO TO [place] AND "STAY THERE". PATIENT NOTIFIED SIMÓN HAS A NEW NAME- DAVID (PATIENT DID NOT SEEM TO UNDERSTAND THIS THO). CALLED AND S/W PRADEEP AT [facility] NOTIFIED OF POSSIBLE REFERRAL. PER FLORENCIO- PATIENT HAS FULL MEDICAID ALREADY. PRADEEP AWARE PATIENT WILL LIKELY TRIGGER A LEVEL 2 D/T PSYCH DIAGNOSIS AND MEDS. PRADEEP STATED THIS WAS FINE. H&P AND FACESHEET SENT TO [facility] SO THEY CAN CHECK BENEFITS. [facility] PAPERWORK STARTED AT THIS TIME- PENDING REVIEW. Initialized on 11/07/22 12:55 - END OF NOTE 11/07/22 11:00 (created 11/07/22 14:01) Case Management Note by Mary Galaviz PATIENT WAS NOTED TO BE 84-87% ON ROOM AIR AT REST- PLACED ON 2L- SATS UP TO 94% Initialized on 11/07/22 14:01 - END OF NOTE 11/07/22 10:27 Case Management Note by Mary Galaviz REFERRALS SENT TO [facility] AND [facility] CALLED BACK- PATIENT DOES NOT MEET REQUIREMENTS Initialized on 11/07/22 10:27 - END OF NOTE 11/07/22 09:26 Case Management Note by Mary Galaviz S/W KEMI- DR. PETERSON'S NURSE REPORTS PATIENT HAS BEEN EVICTED FROM HER APARTMENT AND MUST BE OUT BY 11/27. SHE REPORTS THEY HAVE CONTACTED [facility] TO SEE IF THEY CAN HELP ASSIST PATIENT BY MEDICAID WAIVER PATIENT IS INTERESTED IN ASSISTED LIVING. SHE REPORTS [facility] CASE MANAGE , SIMONE, WENT TO HOME AND STATED SHE WAS NOT SURE IF PATIENT IS TAKING HERE MEDS OR NOT. THEY ARE PREPACKAGED AND MANAGER R D STATED THERE WERE MEDS PACKETS THERE STILL FROM SEPTEMBER AND THERE WERE PILLS ALL OVER THE FLOOR. NURSE PRACTIONER, PRADEEP, REPORTS PATIENT VERY DIFFICULT TO TALK TO D/T CRYING CONSTANTLY. PER NET TRAINER- WILL SEND REFERRAL INPT PSYCH D/T THESE CONCERNS Initialized on 11/07/22 09:26 - END OF NOTE Assessment/Plan (1) Frequent falls Current Visit: Yes Status: Acute Assessment & Plan: Patient with frequent falls and limited mobility due to bilateral knee pain and weakness. PT/OT evaluation and treat during LOS, CM to discuss facility options with patient for discharge as she has been unable to care for herself -CT head negative -XR shoulder negative Code(s): R29.6 - REPEATED FALLS (2) Vaginal pruritus Current Visit: Yes Status: Acute Assessment & Plan: -Diflucan 150mg x 1 dose Code(s): N89.8 - OTHER SPECIFIED NONINFLAMMATORY DISORDERS OF VAGINA (3) Shortness of breath Current Visit: Yes Status: Acute Assessment & Plan: -RT evaluation -CXR Code(s): R06.02 - SHORTNESS OF BREATH (4) Hyperglycemia Current Visit: Yes Status: Acute Assessment & Plan: -Most recent a1c in July at 6.2 indicating good glycemic control -Moderate dose SSI/ Accuchecks -Low carb diet Code(s): R73.9 - HYPERGLYCEMIA, UNSPECIFIED (5) Weakness Current Visit: No Status: Acute Assessment & Plan: -see frequent falls Code(s): R53.1 - WEAKNESS (6) Acute adjustment disorder with depressed mood Current Visit: No Status: Acute Assessment & Plan: -Continue home meds Code(s): F43.21 - ADJUSTMENT DISORDER WITH DEPRESSED MOOD Telemedicine Encounter - Telemedicine Encounter Telemedicine Encounter: The entirety of this encounter was performed via Telemedicine"
[2022-11-07] MEDS ORDERED: DIFLUCAN PO ONE (16:00)
[2022-11-08] MEDS: Sodium Chloride 0.9% 1000 ML 1,000 ML IV SCH (04:55)
--- NOTE | 2022-11-08 05:48 | PCM.NOTE ---
Date and Time: 11/08/22 0544 Subjective Assessment: MS. Dixon is a 57-year-old woman with a history of CKD and schizophrenia, who presents with frequent falls, diffuse weakness, and acute kidney injury. Creat and glucose levels improving during hospital course. She was recently started on Caplyta, which is unavailable. However, it appears she is never actually taking this medication. We are pending records from her outside provider, and may be able to change to a different second-generation antipsychotic such as Abilify. customer engagement manager is working on skilled facilities for continued rehabilitation. - Review of Systems Constitutional: No Symptoms Eyes: No Symptoms Respiratory: Short Of Breath Cardiac: No Symptoms Abdominal/Gastrointestinal: No Symptoms Genitourinary Symptoms: Vaginal Itching, Other (hays cath) Skin: Skin Lesions (stage 2 to right upper buttoxk, left upper buttock with abrasion, non open) Neurological: No Symptoms Psychological: Anxiety, Depression, Other (Tearful) Objective Exam General Appearance: mild distress Neurologic Exam: alert, oriented x 3 Skin Exam: normal color, other (stage 2 to right upper buttoxk, left upper buttock with abrasion, non open) Wound Assessment: Skin/Wound Assessment Wound/Incision Assessment Start: 11/06/22 17:20 Text: Status: Active Freq: Q6H Protocol: Document 11/08/22 02:00 (Rec: 11/08/22 02:14 [id number]) Wound Photo Comment: photo taken prev shift Eye Exam: PERRL Respiratory Exam: normal breath sounds, lungs clear Cardiovascular Exam: regular rate/rhythm, normal heart sounds Gastrointestinal/Abdomen Exam: soft, normal bowel sounds Extremity Exam: normal inspection OBJECTIVE DATA Vital Signs: Vital Signs - 24 hr Temp Pulse Resp BP Pulse Ox 11/08/22 04:00 20 11/08/22 03:46 98.7 F 83 20 116/56 94 L 11/07/22 23:45 98.9 F 80 16 110/56 93 L 11/07/22 20:00 98.7 F 80 18 105/50 93 L 11/07/22 16:12 77 10 L 91 L 11/07/22 16:00 97.7 F 77 17 109/55 89 L 11/07/22 11:56 97.9 F 82 18 93/70 96 11/07/22 08:00 17 11/07/22 07:23 97.8 F 82 17 102/50 88 L Pain Assessment - Last Documented Pain Intensity 5 Pain Scale Used 0-10 Pain Scale Intake and Output: Intake & Output 11/05/22 11/06/22 11/07/22 11/08/22 11:59 11:59 11:59 11:59 Intake Total 1459 1435 Output Total 700 2000 Balance 759 -565 Weight 128.9 kg 128 kg Lab Results: Lab Results-Last 24 Hours 11/07/22 11/07/22 11/07/22 Range/Units 04:38 07:18 11:51 WBC 6.1 (4.0-10.5) x10^3/uL RBC 3.57 L (4.1-5.4) x10^6/uL Hgb 10.6 L (12.0-16.0) g/dL Hct 32.6 L (35-47) % MCV 91.3 (78-100) fL MCH 29.7 (26-32) pg MCHC 32.5 (32-36) g/dL RDW 15.5 H (11.5-14.0) % Plt Count 257 (150-450) x10^3/uL MPV 12.7 H (7.5-11.0) fL Gran % 55.7 (36.0-66.0) % Immature Gran % (Auto) 0.5 H (0.00-0.4) % Nucleat RBC Rel Count 0.0 (0.00-0.1) % Eos # (Auto) 0.45 (0-0.5) x10^3/uL Immature Gran # (Auto) 0.03 (0.00-0.03) x10^3u/L Absolute Lymphs (auto) 1.63 (1.0-4.6) x10^3/uL Absolute Monos (auto) 0.55 (0.0-1.3) x10^3/uL Absolute Nucleated RBC 0.00 (0.00-0.01) x10^3u/L Lymphocytes % 26.7 (24.0-44.0) % Monocytes % 9.0 (0.0-12.0) % Eosinophils % 7.4 H (0.00-5.0) % Basophils % 0.7 (0.0-0.4) % Absolute Granulocytes 3.41 (1.4-6.9) x10^3/uL Basophils # 0.04 (0-0.4) x10^3/uL POC Glucometer 161 H 195 H (74 to 106) mg/dL 11/07/22 11/07/22 Range/Units 16:28 21:13 WBC (4.0-10.5) x10^3/uL RBC (4.1-5.4) x10^6/uL Hgb (12.0-16.0) g/dL Hct (35-47) % MCV (78-100) fL MCH (26-32) pg MCHC (32-36) g/dL RDW (11.5-14.0) % Plt Count (150-450) x10^3/uL MPV (7.5-11.0) fL Gran % (36.0-66.0) % Immature Gran % (Auto) (0.00-0.4) % Nucleat RBC Rel Count (0.00-0.1) % Eos # (Auto) (0-0.5) x10^3/uL Immature Gran # (Auto) (0.00-0.03) x10^3u/L Absolute Lymphs (auto) (1.0-4.6) x10^3/uL Absolute Monos (auto) (0.0-1.3) x10^3/uL Absolute Nucleated RBC (0.00-0.01) x10^3u/L Lymphocytes % (24.0-44.0) % Monocytes % (0.0-12.0) % Eosinophils % (0.00-5.0) % Basophils % (0.0-0.4) % Absolute Granulocytes (1.4-6.9) x10^3/uL Basophils # (0-0.4) x10^3/uL POC Glucometer 205 H 156 H (74 to 106) mg/dL Radiology Exams: Radiology Procedures Category Date Time Status CHEST 1 VIEW (PORTABLE) Routine Exams 11/08/22 07:00 Ordered HEAD WITHOUT CONTRAST [CT] Stat Exams 11/06/22 11:54 Completed SHOULDER Stat Exams 11/06/22 11:55 Completed Multi-Disciplinary Progress Notes: Multi-Disciplinary Progress Notes 11/07/22 16:17 Respiratory Note by Maine Russell pt very sleepy and hard to answer any questions. no sob noted. b/s clear and diminished. The best I could get her to answer is she doesn't take any resp meds at home Initialized on 11/07/22 16:17 - END OF NOTE 11/07/22 14:32 Case Management Note by Mary Galaviz FROM [facility] CAME AND SEEN PATIENT AND GIVEN CURRENT AND HOME MEDS LIST FOR REVIEW Initialized on 11/07/22 14:32 - END OF NOTE 11/07/22 14:30 Case Management Note by Mary Galaviz S/W DR. ROPER ABOUT POSSIBILITY OF PATIENT NOT HAVING HER CAPLYTA HERE. HE SAID HE COULD CONSIDER SWITCHING THAT MED BUT WOULD LIKE TO KNOW WHY CAPLYTA WAS CHOSE FOR HER OVER A MORE COST EFFECTIVE MED. HE WOULD LIKE HER RECORDS FROM [facility] THIS IS WHERE THIS MEDICATION WAS STARTED. WARDCLERK NOTIFIED OF REQUEST Initialized on 11/07/22 14:30 - END OF NOTE 11/07/22 14:21 Case Management Note by Mary Galaviz FROM [facility] HERE- THEY WILL ACCEPT PATIENT WHEN INSURANCE APPROVES AND LEVEL II IS COMPLETE. PAS HAS TRIGGERED LEVEL II-THIS WILL REQUIRE ONSITE REVIEW-PATIENT WILL NEED TO STAY THRU THE WEEKEND UNTIL THIS EVAL CAN BE COMPLETE NEXT WEEK Initialized on 11/07/22 14:21 - END OF NOTE 11/07/22 13:47 Case Management Note by Mary Galaviz DR. AND DIAMOND BROKER PRADEEP ROUNDED- NO NEED FOR INPT PSYCH STAY OR TELEMENTAL ASSESSMENT. CASE MANAGEMENT TO PROCEED WITH FINDING [facility] PLACEMENT FOR PATIENT. Initialized on 11/07/22 13:47 - END OF NOTE 11/07/22 13:42 Case Management Note by Mary Galaviz PATIENT NOTIFIED WE NEED SOME OF HER MEDICATIONS FROM HOME. SHE STATED SHE HAS A FRIEND THAT CAN GET THEM FOR HER. SHE TRIED TO CALL FRIEND NATHALIA- NO ANSWER BUT LEFT MESSAGE. PHARMACY NOTIFIED OF THE ABOVE AND THAT PATIENT COULD BE WAITING FOR PLACEMENT FOR SEVERAL DAYS AND THERE IS CONCERN OF HER NOT GETTING HER PSYCH MEDS IF THEY ARE UNABLE TO BE BROUGHT IN. HE STATED HE WOULD CHECK WITH [facility] ON ORDERING HER MEDS BUT THIS WAS UNLIKELY. Initialized on 11/07/22 13:42 - END OF NOTE 11/07/22 13:40 Case Management Note by Mary Galaviz LOVELL ALSO DECLINED PATIENT Initialized on 11/07/22 13:40 - END OF NOTE 11/07/22 13:20 Case Management Note by Mary Galaviz ASSURANCE HAS DECLINED D/T HIGH MEDICAL NEEDS Initialized on 11/07/22 13:20 - END OF NOTE 11/07/22 12:55 Case Management Note by Mary Galaviz THIS MEDICAID SPECIALIST WENT TO SEE PATIENT THIS AM FOR CASE MANAGEMENT/DC ASSESSMENT TO IDENTIFY NEEDS AND WISHES. PATIENT'S MEDICAID SPECIALIST THRTUCKER NAVARRO, PRESENT AT BEDSIDE ON ARRIVAL. PATIENT LIVES ALONE IN AN APARTMENT. PATIENT REPORTS SHE HAS BEEN USING A COMPUTER CHAIR TO GET AROUND HER APARTMENT RECENTLY. SHE HAS A WALKER AND TRANSFERS HERSELF TO AND FROM THAT CHAIR PRIOR TO ARRIVAL. PER REPORTS- SHE IS GETTING EVICTED AND HAS TO BE OUT OF HER APARTMENT BY 11/27. PATIENT REPORTS SHE IS GETTING EVICTED D/T SPILLING RED HAIR DYE AND IT STAINING THE AREA. SHE REPORTS SHE SPILLED IT BY ACCIDENT AND DIDN'T FEEL LIKE CLEANING IT AT THIS TIME. PATIENT VERY TEARFUL ABOUT THIS. PATIENT RELIES ON [facility] FOR TRANSPORTATION TO DOCTOR VISITS. SHE REPORTS SHE HAS COMFORT KEEPERS FOR HOUSEKEEPING BUT THAT HAVE NOT BEEN THERE RECENTLY. SHE REPORTS THEY SOMETIMES DO HER SHOPPING FOR HER. PATIENT VERY TEARFUL THROUGHOUT CONVERSATION. PATIENT REPORTS HER FATHER INDICATED TO HER THAT SHE NEEDS TO LOSE WEIGHT SO PATIENT HAS LOST WEIGHT RECENTLY BUT WHEN LUNCH WAS MENTIONED SHE DID NOT WANT TO EAT D/T IT MAKING HER "FAT". PATIENT ENCOURAGED THAT GETTING TO HEALTHY WEIGHT IS GREAT BUT THAT IT NEEDS TO BE DONE PROPERLY, NOT BY STARVING HERSELF. PATIENT INITIALLY VERY ADAMENT AGAINST GOING TO A NURSING FACILITY FOR CARE. SHE REPORTS HER WAS IN ONE AND HE WAS TREATED VERY BADLY. PATIENT ALSO STATED " I DONT' WANT TO ". PATIENT ENCOURAGED [facility] PLACEMENT WOULD BE IN ORDER TO HELP HER. THEY COULD CARE FOR HER AND DO THERAPY TO HOPEFULLY TRANSITION TO ASSISTED LIVING SHE WISHES. WITH MUCH ENCOURAGEMENT PATIENT THEN STATED- SHE WANTS TO GO TO [place] AND "STAY THERE". PATIENT NOTIFIED [facility] HAS A NEW NAME- [facility] (PATIENT DID NOT SEEM TO UNDERSTAND THIS THO). CALLED AND S/W PRADEEP AT [facility] NOTIFIED OF POSSIBLE REFERRAL. PER FLORENCIO- PATIENT HAS FULL MEDICAID ALREADY. PRADEEP AWARE PATIENT WILL LIKELY TRIGGER A LEVEL 2 D/T PSYCH DIAGNOSIS AND MEDS. PRADEEP STATED THIS WAS FINE. H&P AND FACESHEET SENT TO [facility] SO THEY CAN CHECK BENEFITS. [facility] PAPERWORK STARTED AT THIS TIME- PENDING REVIEW. Initialized on 11/07/22 12:55 - END OF NOTE 11/07/22 11:00 (created 11/07/22 14:01) Case Management Note by Mary Galaviz PATIENT WAS NOTED TO BE 84-87% ON ROOM AIR AT REST- PLACED ON 2L- SATS UP TO 94% Initialized on 11/07/22 14:01 - END OF NOTE 11/07/22 10:27 Case Management Note by Mary Galaviz REFERRALS SENT TO [facility], AND [facility] CALLED BACK- PATIENT DOES NOT MEET REQUIREMENTS Initialized on 11/07/22 10:27 - END OF NOTE 11/07/22 09:26 Case Management Note by Mary Galaviz S/W KEMI- DR. PETERSON'S NURSE REPORTS PATIENT HAS BEEN EVICTED FROM HER APARTMENT AND MUST BE OUT BY 11/27. SHE REPORTS THEY HAVE CONTACTED [facility] TO SEE IF THEY CAN HELP ASSIST PATIENT BY MEDICAID WAIVER PATIENT IS INTERESTED IN ASSISTED LIVING. SHE REPORTS [facility] CASE MANAGE , SIMONE, WENT TO HOME AND STATED SHE WAS NOT SURE IF PATIENT IS TAKING HERE MEDS OR NOT. THEY ARE PREPACKAGED AND MEDICAID SPECIALIST STATED THERE WERE MEDS PACKETS THERE STILL FROM SEPTEMBER AND THERE WERE PILLS ALL OVER THE FLOOR. NURSE PRACTIONER, PRADEEP, REPORTS PATIENT VERY DIFFICULT TO TALK TO D/T CRYING CONSTANTLY. PER DIAMOND BROKER- WILL SEND REFERRAL INPT PSYCH D/T THESE CONCERNS Initialized on 11/07/22 09:26 - END OF NOTE Assessment/Plan (1) Frequent falls Current Visit: Yes Status: Acute Assessment & Plan: Patient with frequent falls and limited mobility due to bilateral knee pain and weakness. PT/OT evaluation and treat during LOS, CM to discuss facility options with patient for discharge as she has been unable to care for herself -CT head negative -XR shoulder negative Code(s): R29.6 - REPEATED FALLS (2) Vaginal pruritus Current Visit: Yes Status: Acute Assessment & Plan: -Diflucan 150mg x 1 dose 11/07/22 Code(s): N89.8 - OTHER SPECIFIED NONINFLAMMATORY DISORDERS OF VAGINA (3) Shortness of breath Current Visit: Yes Status: Acute Assessment & Plan: -RT evaluation -CXR pending Code(s): R06.02 - SHORTNESS OF BREATH (4) Hyperglycemia Current Visit: Yes Status: Acute Assessment & Plan: -Most recent a1c in July at 6.2 indicating good glycemic control -Moderate dose SSI/ Accuchecks -Low carb diet Code(s): R73.9 - HYPERGLYCEMIA, UNSPECIFIED (5) Weakness Current Visit: No Status: Acute Assessment & Plan: -see frequent falls Code(s): R53.1 - WEAKNESS (6) Acute adjustment disorder with depressed mood Current Visit: No Status: Acute Assessment & Plan: -Continue home meds. Of note she was recently started on Caplyta, which is unavailable. However, it appears she is never actually taking this medication. We are pending records from her outside provider, and may be able to change to a different second-generation antipsychotic such as Abilify. Code(s): F43.21 - ADJUSTMENT DISORDER WITH DEPRESSED MOOD Telemedicine Encounter - Telemedicine Encounter Telemedicine Encounter: The entirety of this encounter was performed via Telemedicine"
[2022-11-08 06:28] LABS: Absolute Neutrophil Ct (ANC) 4.97 x10^3/uL (1.4-6.9); BASOPHIL % 0.4 % (0.0-0.4); Basophil (Absolute #) 0.03 x10^3/uL (0-0.4); Eosinophil % 4.2 % (0.00-5.0); Eosinophil (Absolute #) 0.35 x10^3/uL (0-0.5); Hemoglobin 10.8 g/dL (12.0-16.0); IMMATURE GRAN # 0.03 x10^3u/L (0.00-0.03); IMMATURE GRAN % 0.4 % (0.00-0.4); Lymphocytes % 26.3 % (24.0-44.0); Mean Cell Volume 88.9 fL (78-100); Mean Corpuscular Hemoglobin 29.1 pg (26-32); Mean Corpuscular Hgb Concent. 32.7 g/dL (32-36); Mean Platelet Volume 12.7 fL (7.5-11.0); Monocytes % 9.5 % (0.0-12.0); Neutrophil % 59.2 % (36.0-66.0); Platelet Count 258 x10^3/uL (150-450); Red Blood Count 3.71 x10^6/uL (4.1-5.4); White Blood Count 8.4 x10^3/uL (4.0-10.5)
[2022-11-08] MEDS: Pepcid 20 MG PO SCH (10:50)
[2022-11-08] MEDS: ZOCOR 20MG PO SCH (10:50)
[2022-11-08] MEDS: BUMEX 1 MG PO SCH (10:51)
[2022-11-08] MEDS: MYSOLINE 50MG PO SCH ×3 (10:51→21:36)
[2022-11-08] MEDS: Effexor XR 75 MG PO SCH (10:51)
[2022-11-08] MEDS: NEURONTIN PO SCH ×3 (10:51→21:36)
[2022-11-08] MEDS: MAG-OX 400 PO SCH ×3 (10:51→21:36)
[2022-11-08] MEDS: Lexapro PO SCH (10:51)
[2022-11-08] MEDS: FEOSOL 325 MG PO SCH (10:51)
[2022-11-08] MEDS: Toprol-Xl 25MG Tablets PO SCH (10:52)
[2022-11-08] MEDS: ATARAX 25 MG PO SCH ×3 (10:52→21:36)
[2022-11-08] MEDS: SYNTHROID 25 MCG PO SCH (10:53)
[2022-11-08] MEDS: Protonix 40MG Tablet PO SCH (10:53)
[2022-11-08] MEDS: Singulair 10 MG PO SCH (10:53)
[2022-11-08] MEDS: CLARITIN 10 MG PO SCH (10:53)
[2022-11-08] MEDS: Depakote EXTENDED RELEASE 250 MG PO SCH (10:54)
[2022-11-08 12:31] LABS: ALBUMIN 3.1 g/dL (3.5-5.0); ANION GAP 8.3 MEQ/L (5-15); BILIRUBIN,TOTAL 0.4 mg/dL (0.2-1.3); Calcium 8.1 mg/dL (8.4-10.2); Creatinine 1 1.04 mg/dL (0.52-1.04); EST GLOMERULAR FILTRATION RATE 57.6 ML/MIN; Potassium 3.5 mmol/L (3.5-5.1); Total Protein 6.3 g/dL (6.3-8.2)
[2022-11-08] MEDS: PATIENT OWN MEDICATION PO SCH (12:50)
[2022-11-08] MEDS: HUMULIN R SQ PRN ×2 (12:51→18:36)
[2022-11-08] MEDS: Ditropan XL 5 MG PO SCH (15:12)
--- NOTE | 2022-11-08 20:27 | XRAY ---
Indication: MCFP placement. Comparison: April 04, 2021 Portable apical lordotic chest less inflated and remains clear. Heart is now borderline enlarged. Bony thorax intact again with mild degenerative changes in lower cervical fusion hardware. Impression: Borderline cardiomegaly. No acute cardiopulmonary abnormalities.
[2022-11-09] MEDS: Sodium Chloride 0.9% 1000 ML 1,000 ML IV SCH (00:47)
[2022-11-09 06:32] LABS: ANION GAP 9.3 MEQ/L (5-15); BILIRUBIN,TOTAL 0.3 mg/dL (0.2-1.3); Calcium 8.1 mg/dL (8.4-10.2); Creatinine 1 1.01 mg/dL (0.52-1.04); EST GLOMERULAR FILTRATION RATE 59.6 ML/MIN; Potassium 3.6 mmol/L (3.5-5.1); Total Protein 6.1 g/dL (6.3-8.2)
[2022-11-09 06:38] LABS: Adenovirus F40/41 Not Detected (Not Detected); Astrovirus Not Detected (Not Detected); Campylobacter Not Detected (Not Detected); Cryptosporidium Not Detected (Not Detected); Cyclospora cayetanensis Not Detected (Not Detected); Entamoeba histolytica Not Detected (Not Detected); Enteroaggregative E coli Not Detected (Not Detected); Enterpathogenic E coli Not Detected (Not Detected); Entertoxigenic E coli Not Detected (Not Detected); Giardia lamblia Not Detected (Not Detected); Norovirus GI/GII Not Detected (Not Detected); Plesiomonas shigelloides Not Detected (Not Detected); Rotavirus A Not Detected (Not Detected); Salmonella Not Detected (Not Detected); Shig-toxin-producing E coli Not Detected (Not Detected); Shigella/Enterinvasive E coli Not Detected (Not Detected); Vibrio Not Detected (Not Detected); Vibrio cholerae Not Detected (Not Detected); Yersinia enterocolitica Not Detected (Not Detected)
[2022-11-09] MEDS: HUMULIN R SQ PRN ×3 (08:57→17:46)
[2022-11-09] MEDS ORDERED: ATARAX 25 MG PO PRN (09:10)
[2022-11-09] MEDS ORDERED: NON-FORMULARY ITEM (Oxybutynin Chloride [Oxybutynin Chloride Er] 15 MG Tab.Er.24) PO SCH (10:00)
[2022-11-09] MEDS: Singulair 10 MG PO SCH (10:25)
[2022-11-09] MEDS: Protonix 40MG Tablet PO SCH (10:25)
[2022-11-09] MEDS: BUMEX 1 MG PO SCH (10:25)
[2022-11-09] MEDS: ZOCOR 20MG PO SCH (10:25)
[2022-11-09] MEDS: Pepcid 20 MG PO SCH (10:25)
[2022-11-09] MEDS: Lexapro PO SCH (10:25)
[2022-11-09] MEDS: FEOSOL 325 MG PO SCH (10:25)
[2022-11-09] MEDS: MYSOLINE 50MG PO SCH ×4 (10:25→23:00)
[2022-11-09] MEDS: SYNTHROID 25 MCG PO SCH (10:25)
[2022-11-09] MEDS: MAG-OX 400 PO SCH ×3 (10:25→22:35)
[2022-11-09] MEDS: CLARITIN 10 MG PO SCH (10:26)
[2022-11-09] MEDS: Ditropan XL 5 MG PO SCH (10:26)
[2022-11-09] MEDS: Toprol-Xl 25MG Tablets PO SCH (10:26)
[2022-11-09] MEDS: TORAdol 30 mg Injection IV PRN ×2 (10:26→17:49)
[2022-11-09] MEDS: NEURONTIN PO SCH ×3 (10:26→22:30)
[2022-11-09] MEDS: Effexor XR 75 MG PO SCH (10:26)
[2022-11-09] MEDS: Depakote EXTENDED RELEASE 250 MG PO SCH (10:27)
[2022-11-09] MEDS: PATIENT OWN MEDICATION PO SCH (10:27)
--- NOTE | 2022-11-09 12:00 | PCM.NOTE ---
Date and Time: 11/09/22 1154 Subjective Assessment: MS. Dixon is a 57-year-old woman with a history of CKD and schizophrenia, who presents with frequent falls, diffuse weakness, and acute kidney injury. Creat and glucose levels improving during hospital course. There is concern that she had not been taking her medications as prescribed when at home. She was recently started on Caplyta, which was restarted 11/08/22. entry level manager is working on skilled facilities for continued rehabilitation. Patient endorses that she is feeling much improved today although she does rate her bilateral knee pain 03/08. Of note per RN report she has been experiencing lethargy, most likely secondary to restarting her home meds, will try Toradol for pain relief to reduce sedative effects. She also mentions some recent visual issues including dry eyes and difficulty seeing small writing. - Review of Systems Constitutional: No Symptoms Eyes: Itchy, Vision Changes (difficulty reading small writing), Other (dry) Ears, Nose, & Throat: No Symptoms Respiratory: Short Of Breath Cardiac: No Symptoms Abdominal/Gastrointestinal: No Symptoms Genitourinary Symptoms: Vaginal Itching Musculoskeletal: Joint Pain Skin: Skin Lesions (to right and left buttocks) Neurological: Lethargy Psychological: Anxiety, Depression, Mood Changes Endocrine: No Symptoms Hematologic/Lymphatic: No Symptoms Immunological/Allergic: No Symptoms Objective Exam General Appearance: no apparent distress Neurologic Exam: alert, oriented x 3, cooperative, depressed mood/affect (less tearful on today's interview) Skin Exam: normal color, other (stage 2 to right upper buttoxk, left upper buttock with abrasion, non open) Wound Assessment: Skin/Wound Assessment Wound/Incision Assessment Start: 11/06/22 17:20 Text: Status: Active Freq: Q6H Protocol: Document 11/09/22 07:55 CHARISSE (Rec: 11/09/22 07:57 RDNE [id number]) Wound/Incision Assessment coccyx Wound Assessment Shift Assessment Wound Type Pressure Ulcer Wound Stage Stage II Comment right upper buttock stage 2; left upper buttock has scratch that is not open; barrier cream applied to both sites; see photos in chart--remains true, continue to apply barrier cream prn Wound Photo Photo Taken Yes Comment: photo taken prev shift Eye Exam: PERRL, other (glasses) Respiratory Exam: normal breath sounds, lungs clear Cardiovascular Exam: regular rate/rhythm, normal heart sounds Gastrointestinal/Abdomen Exam: soft, normal bowel sounds Extremity Exam: other (right elbow skin tear) OBJECTIVE DATA Vital Signs: Vital Signs - 24 hr Temp Pulse Resp BP Pulse Ox 11/09/22 07:43 98 F 84 19 121/58 93 L 11/09/22 05:00 92 L 11/09/22 04:20 92 L 11/09/22 04:15 99.5 F 81 22 94/44 85 L 11/08/22 23:34 97.1 F 72 20 94/46 92 L 11/08/22 19:40 98.2 F 77 20 113/54 92 L 11/08/22 16:00 97.8 F 79 16 109/55 91 L 11/08/22 12:00 98.0 F 78 16 120/57 93 L Pain Assessment - Last Documented Pain Intensity 10 Pain Scale Used 0-10 Pain Scale Intake and Output: Intake & Output 11/06/22 11/07/22 11/08/22 11/09/22 11:59 11:59 11:59 11:59 Intake Total 1459 1675 2598 Output Total 700 1999 2024 Balance 759 -325 573 Weight 128.9 kg 128 kg Lab Results: Lab Results-Last 24 Hours 11/08/22 11/08/22 11/08/22 Range/Units 05:00 15:13 21:34 Sodium 136 L (137-145) mmol/L Potassium 3.5 (3.5-5.1) mmol/L Chloride 97 L (98-107) mmol/L Carbon Dioxide 34 H (22-30) mmol/L Anion Gap 8.3 (5-15) MEQ/L BUN 18 H (7-17) mg/dL Creatinine 1.04 (0.52-1.04) mg/dL Estimated GFR 57.6 ML/MIN Glucose 170 H (74-106) mg/dL POC Glucometer 227 H 150 H (74 to 106) mg/dL Calcium 8.1 L (8.4-10.2) mg/dL Total Bilirubin 0.40 (0.2-1.3) mg/dL AST 82 H (14-36) U/L ALT 26 (0-35) U/L Alkaline Phosphatase 103 (38-126) U/L Serum Total Protein 6.3 (6.3-8.2) g/dL Albumin 3.1 L (3.5-5.0) g/dL 11/09/22 11/09/22 Range/Units 05:33 07:25 Sodium 136 L (137-145) mmol/L Potassium 3.6 (3.5-5.1) mmol/L Chloride 96 L (98-107) mmol/L Carbon Dioxide 34 H (22-30) mmol/L Anion Gap 9.3 (5-15) MEQ/L BUN 15 (7-17) mg/dL Creatinine 1.01 (0.52-1.04) mg/dL Estimated GFR 59.6 ML/MIN Glucose 147 H (74-106) mg/dL POC Glucometer 183 H (74 to 106) mg/dL Calcium 8.1 L (8.4-10.2) mg/dL Total Bilirubin 0.30 (0.2-1.3) mg/dL AST 29 (14-36) U/L ALT 22 (0-35) U/L Alkaline Phosphatase 102 (38-126) U/L Serum Total Protein 6.1 L (6.3-8.2) g/dL Albumin 3.0 L (3.5-5.0) g/dL Radiology Exams: Radiology Procedures Category Date Time Status CHEST 1 VIEW (PORTABLE) Routine Exams 11/08/22 07:00 Completed Assessment/Plan (1) Frequent falls Current Visit: Yes Status: Acute Assessment & Plan: Patient with frequent falls and limited mobility due to bilateral knee pain and weakness. PT/OT evaluation and treat during LOS, CM to discuss facility options with patient for discharge as she has been unable to care for herself. -CT head negative -XR shoulder negative Code(s): R29.6 - REPEATED FALLS (2) Vaginal pruritus Current Visit: Yes Status: Acute Assessment & Plan: -Diflucan 150mg x 1 dose 11/07/22 Code(s): N89.8 - OTHER SPECIFIED NONINFLAMMATORY DISORDERS OF VAGINA (3) Shortness of breath Current Visit: Yes Status: Acute Assessment & Plan: CXR negative for acute cardiopulmonary processes Code(s): R06.02 - SHORTNESS OF BREATH (4) Hyperglycemia Current Visit: Yes Status: Acute Assessment & Plan: -Most recent a1c in July at 6.2 indicating good glycemic control -Moderate dose SSI/ Accuchecks -Low carb diet Code(s): R73.9 - HYPERGLYCEMIA, UNSPECIFIED (5) Weakness Current Visit: No Status: Acute Assessment & Plan: see frequent falls Code(s): R53.1 - WEAKNESS (6) Acute adjustment disorder with depressed mood Current Visit: No Status: Acute Assessment & Plan: -Continue home meds, of note Caplyta has now been resumed, will change scheduled atarax to prn Code(s): F43.21 - ADJUSTMENT DISORDER WITH DEPRESSED MOOD Telemedicine Encounter - Telemedicine Encounter Telemedicine Encounter: The entirety of this encounter was performed via Telemedicine"
[2022-11-10] MEDS: Sodium Chloride 0.9% 1000 ML 1,000 ML IV SCH ×3 (03:15→23:34)
[2022-11-10 05:15] LABS: Hematocrit 31.3 % (35-47); Hemoglobin 10.1 g/dL (12.0-16.0); Mean Cell Volume 91.3 fL (78-100); Mean Corpuscular Hemoglobin 29.4 pg (26-32); Mean Corpuscular Hgb Concent. 32.3 g/dL (32-36); Mean Platelet Volume 12.5 fL (7.5-11.0); Platelet Count 228 x10^3/uL (150-450); Red Blood Count 3.43 x10^6/uL (4.1-5.4)
[2022-11-10 05:51] LABS: Sapovirus Not Detected (Not Detected)
[2022-11-10 06:16] LABS: ANION GAP 8.1 MEQ/L (5-15); BILIRUBIN,TOTAL 0.3 mg/dL (0.2-1.3); Calcium 8.1 mg/dL (8.4-10.2); Creatinine 1 1.15 mg/dL (0.52-1.04); EST GLOMERULAR FILTRATION RATE 51.3 ML/MIN; Potassium 3.6 mmol/L (3.5-5.1); Total Protein 6.1 g/dL (6.3-8.2)
[2022-11-10] MEDS: MAG-OX 400 PO SCH ×3 (10:30→15:24)
[2022-11-10] MEDS: CLARITIN 10 MG PO SCH (11:01)
[2022-11-10] MEDS: BUMEX 1 MG PO SCH (11:01)
[2022-11-10] MEDS: Depakote EXTENDED RELEASE 250 MG PO SCH (11:02)
[2022-11-10] MEDS: Effexor XR 75 MG PO SCH (11:04)
[2022-11-10] MEDS: Ditropan XL 5 MG PO SCH (11:04)
[2022-11-10] MEDS: FEOSOL 325 MG PO SCH (11:05)
[2022-11-10] MEDS: MYSOLINE 50MG PO SCH ×3 (11:05→22:32)
[2022-11-10] MEDS: Lexapro PO SCH (11:05)
[2022-11-10] MEDS: Protonix 40MG Tablet PO SCH (11:06)
[2022-11-10] MEDS: Toprol-Xl 25MG Tablets PO SCH (11:06)
[2022-11-10] MEDS: SYNTHROID 25 MCG PO SCH (11:06)
[2022-11-10] MEDS: ZOCOR 20MG PO SCH (11:06)
[2022-11-10] MEDS: Singulair 10 MG PO SCH (11:06)
[2022-11-10] MEDS: NEURONTIN PO SCH ×3 (11:06→22:32)
[2022-11-10] MEDS: Pepcid 20 MG PO SCH (11:06)
[2022-11-10] MEDS: PATIENT OWN MEDICATION PO SCH (13:29)
[2022-11-10] MEDS: HUMULIN R SQ PRN ×2 (14:05→18:00)
--- NOTE | 2022-11-10 14:50 | PCM.NOTE ---
Date and Time: 11/10/22 1445 Subjective Assessment: Ms. Dixon is a 57-year-old woman with a history of CKD and schizophrenia, who was admitted with frequent falls, diffuse weakness, and acute kidney injury. Labs are improving daily. There is concern that she had not been taking her medications as prescribed when at home. She was recently started on Caplyta, which was restarted 11/08/22. manager [facility]vn is working on skilled facilities for continued rehabilitation. Patient explained her coccyx pain is bothering her the most and requesting frequent turning. She is tearful today and explains she has does this often and wanting something for it. Explained her medications were restarted but it does take time to work properly. She did have a fall today out of her chair and reports no new injury at this time. She denies any further concerns at this time. - Review of Systems Constitutional: No Fever, No Chills Eyes: No Symptoms Ears, Nose, & Throat: No Symptoms Respiratory: No Cough, No Short Of Breath Cardiac: No Chest Pain, No Edema, No Syncope Abdominal/Gastrointestinal: No Abdominal Pain, No Nausea, No Vomiting, No Diarrhea Genitourinary Symptoms: No Dysuria Musculoskeletal: No Back Pain, No Neck Pain Skin: Decubiti (ulcer of coccyx), No Rash Neurological: No Dizziness, No Focal Weakness, No Sensory Changes Psychological: No Symptoms, Emotional Lability, Mood Changes, Other (tearful) Endocrine: No Symptoms Hematologic/Lymphatic: No Symptoms Immunological/Allergic: No Symptoms Objective Exam General Appearance: no apparent distress, alert, obese Neurologic Exam: alert, oriented x 3, cooperative, normal mood/affect, nml cerebellar function, sensation nml, No motor deficits Skin Exam: normal color, warm, dry, decubitus (Stage 3 ulcer coccyx) Wound Assessment: Skin/Wound Assessment Wound/Incision Assessment Start: 11/06/22 17:20 Text: Status: Active Freq: Q6H Protocol: Document 11/10/22 08:00 AW (Rec: 11/10/22 09:31 AW [id number]) Wound/Incision Assessment coccyx Wound Assessment Shift Assessment Wound Type Pressure Ulcer Wound Stage Stage II Comment right upper buttock stage 2; left upper buttock has scratch that is not open; barrier cream applied to both sites; see photos in chart--remains true, continue to apply barrier cream prn Wound Photo Photo Taken Yes Eye Exam: PERRL, EOMI, eyes nml inspection Ears, Nose, Throat Exam: normal ENT inspection, pharynx normal, moist mucous membranes Neck Exam: normal inspection, non-tender, supple, full range of motion Respiratory Exam: normal breath sounds, lungs clear, No respiratory distress Cardiovascular Exam: regular rate/rhythm, normal heart sounds Gastrointestinal/Abdomen Exam: soft, No tenderness, No mass Extremity Exam: normal inspection, normal range of motion Back Exam: normal inspection, normal range of motion, No CVA tenderness, No vertebral tenderness Pelvic Exam: deferred Rectal Exam: deferred Comments: 11/10/22 14:52 tearful, liable mood OBJECTIVE DATA Vital Signs: Vital Signs - 24 hr Temp Pulse Resp BP Pulse Ox 11/10/22 11:59 97.6 F 76 16 125/73 94 L 11/10/22 08:19 94 L 11/10/22 08:00 16 11/10/22 07:38 97.5 F 76 16 112/52 94 L 11/10/22 04:00 97.9 F 71 20 99/48 92 L 11/10/22 00:00 97.9 F 71 20 99/48 92 L 11/09/22 20:00 97.7 F 73 20 91/48 92 L 11/09/22 19:34 94 L 11/09/22 16:57 94 L 11/09/22 16:00 97.3 F 76 19 118/58 93 L Pain Assessment - Last Documented Pain Intensity 0 Pain Scale Used 0-10 Pain Scale Intake and Output: Intake & Output 11/08/22 11/09/22 11/10/22 11/11/22 11:59 11:59 11:59 11:59 Intake Total 9365 6588 1620 120 Output Total 1999 2024 Balance -935 322 2757 120 Lab Results: Lab Results-Last 24 Hours 11/06/22 11/09/22 11/09/22 Range/Units 13:30 17:39 20:51 WBC (4.0-10.5) x10^3/uL RBC (4.1-5.4) x10^6/uL Hgb (12.0-16.0) g/dL Hct (35-47) % MCV (78-100) fL MCH (26-32) pg MCHC (32-36) g/dL RDW (11.5-14.0) % Plt Count (150-450) x10^3/uL MPV (7.5-11.0) fL Sodium (137-145) mmol/L Potassium (3.5-5.1) mmol/L Chloride (98-107) mmol/L Carbon Dioxide (22-30) mmol/L Anion Gap (5-15) MEQ/L BUN (7-17) mg/dL Creatinine (0.52-1.04) mg/dL Estimated GFR ML/MIN Glucose (74-106) mg/dL POC Glucometer 166 H TNP (74 to 106) mg/dL Calcium (8.4-10.2) mg/dL Total Bilirubin (0.2-1.3) mg/dL AST (14-36) U/L ALT (0-35) U/L Alkaline Phosphatase (38-126) U/L Serum Total Protein (6.3-8.2) g/dL Albumin (3.5-5.0) g/dL Stl C. cayetanensis PCR Not Detected (Not Detected) Stool Rotavirus (PCR) Not Detected (Not Detected) Stl Adenov F 40/41 PCR Not Detected (Not Detected) Stool Astrovirus (PCR) Not Detected (Not Detected) Stool Campylobacter PCR Not Detected (Not Detected) C. difficile (TARAS) Not Detected (Not Detected) Stool Cryptosporidium PCR Not Detected (Not Detected) Stl E.coli Shiga Tox PCR Not Detected (Not Detected) St Sh/Enteroin Ecoli PCR Not Detected (Not Detected) Stool E coli O157 PCR Not applicable (Not Detected) Stl Enterotoxigenic E PCR Not Detected (Not Detected) Stool EPEC (PCR) Not Detected (Not Detected) Stl E. histolytica PCR Not Detected (Not Detected) Stool Giardia Lamblia PCR Not Detected (Not Detected) Stool Salmonella PCR Not Detected (Not Detected) Stool Sapovirus (PCR) Not Detected (Not Detected) Stl P. shigelloides PCR Not Detected (Not Detected) St Y.enterocolitica PCR Not Detected (Not Detected) Stool Vibrio (PCR) Not Detected (Not Detected) Stl Vibrio cholerae PCR Not Detected (Not Detected) Stl Enteroaggr Ecoli PCR Not Detected (Not Detected) Stl Norovirus GI/GII PCR Not Detected (Not Detected) 11/10/22 11/10/22 11/10/22 Range/Units 04:52 04:52 07:31 WBC 6.0 (4.0-10.5) x10^3/uL RBC 3.43 L (4.1-5.4) x10^6/uL Hgb 10.1 L (12.0-16.0) g/dL Hct 31.3 L (35-47) % MCV 91.3 (78-100) fL MCH 29.4 (26-32) pg MCHC 32.3 (32-36) g/dL RDW 16.0 H (11.5-14.0) % Plt Count 228 (150-450) x10^3/uL MPV 12.5 H (7.5-11.0) fL Sodium 133 L (137-145) mmol/L Potassium 3.6 (3.5-5.1) mmol/L Chloride 93 L (98-107) mmol/L Carbon Dioxide 35 H (22-30) mmol/L Anion Gap 8.1 (5-15) MEQ/L BUN 15 (7-17) mg/dL Creatinine 1.15 H (0.52-1.04) mg/dL Estimated GFR 51.3 ML/MIN Glucose 141 H (74-106) mg/dL POC Glucometer 138 H (74 to 106) mg/dL Calcium 8.1 L (8.4-10.2) mg/dL Total Bilirubin 0.30 (0.2-1.3) mg/dL AST 25 (14-36) U/L ALT 19 (0-35) U/L Alkaline Phosphatase 98 (38-126) U/L Serum Total Protein 6.1 L (6.3-8.2) g/dL Albumin 3.0 L (3.5-5.0) g/dL Stl C. cayetanensis PCR (Not Detected) Stool Rotavirus (PCR) (Not Detected) Stl Adenov F 40/41 PCR (Not Detected) Stool Astrovirus (PCR) (Not Detected) Stool Campylobacter PCR (Not Detected) C. difficile (TARAS) (Not Detected) Stool Cryptosporidium PCR (Not Detected) Stl E.coli Shiga Tox PCR (Not Detected) St Sh/Enteroin Ecoli PCR (Not Detected) Stool E coli O157 PCR (Not Detected) Stl Enterotoxigenic E PCR (Not Detected) Stool EPEC (PCR) (Not Detected) Stl E. histolytica PCR (Not Detected) Stool Giardia Lamblia PCR (Not Detected) Stool Salmonella PCR (Not Detected) Stool Sapovirus (PCR) (Not Detected) Stl P. shigelloides PCR (Not Detected) St Y.enterocolitica PCR (Not Detected) Stool Vibrio (PCR) (Not Detected) Stl Vibrio cholerae PCR (Not Detected) Stl Enteroaggr Ecoli PCR (Not Detected) Stl Norovirus GI/GII PCR (Not Detected) 11/10/22 Range/Units 11:29 WBC (4.0-10.5) x10^3/uL RBC (4.1-5.4) x10^6/uL Hgb (12.0-16.0) g/dL Hct (35-47) % MCV (78-100) fL MCH (26-32) pg MCHC (32-36) g/dL RDW (11.5-14.0) % Plt Count (150-450) x10^3/uL MPV (7.5-11.0) fL Sodium (137-145) mmol/L Potassium (3.5-5.1) mmol/L Chloride (98-107) mmol/L Carbon Dioxide (22-30) mmol/L Anion Gap (5-15) MEQ/L BUN (7-17) mg/dL Creatinine (0.52-1.04) mg/dL Estimated GFR ML/MIN Glucose (74-106) mg/dL POC Glucometer 219 H (74 to 106) mg/dL Calcium (8.4-10.2) mg/dL Total Bilirubin (0.2-1.3) mg/dL AST (14-36) U/L ALT (0-35) U/L Alkaline Phosphatase (38-126) U/L Serum Total Protein (6.3-8.2) g/dL Albumin (3.5-5.0) g/dL Stl C. cayetanensis PCR (Not Detected) Stool Rotavirus (PCR) (Not Detected) Stl Adenov F 40/41 PCR (Not Detected) Stool Astrovirus (PCR) (Not Detected) Stool Campylobacter PCR (Not Detected) C. difficile (TARAS) (Not Detected) Stool Cryptosporidium PCR (Not Detected) Stl E.coli Shiga Tox PCR (Not Detected) St Sh/Enteroin Ecoli PCR (Not Detected) Stool E coli O157 PCR (Not Detected) Stl Enterotoxigenic E PCR (Not Detected) Stool EPEC (PCR) (Not Detected) Stl E. histolytica PCR (Not Detected) Stool Giardia Lamblia PCR (Not Detected) Stool Salmonella PCR (Not Detected) Stool Sapovirus (PCR) (Not Detected) Stl P. shigelloides PCR (Not Detected) St Y.enterocolitica PCR (Not Detected) Stool Vibrio (PCR) (Not Detected) Stl Vibrio cholerae PCR (Not Detected) Stl Enteroaggr Ecoli PCR (Not Detected) Stl Norovirus GI/GII PCR (Not Detected) Multi-Disciplinary Progress Notes: Multi-Disciplinary Progress Notes 11/10/22 12:55 Case Management Note by Mary Galaviz ( [facility]) WOULD LIKE UPDATED AT TIME OF DC AT [phone] EXT 241 Initialized on 11/10/22 12:55 - END OF NOTE 11/10/22 11:30 (created 11/10/22 12:54) Case Management Note by Mary Galaviz S/W PATIENT- SHE CONTINUES TO WANT TO GO TO [facility] FOR REHAB AT TIME OF DC. UPDATED CLINICAL TO START PA SENT TO [facility] AT THIS TIME Initialized on 11/10/22 12:54 - END OF NOTE 11/10/22 10:43 Physical Therapy Note by Ahsan(L#[id number])Jacey PT. WAS SEEN BY P.T. THIS A.M. C/O BILATERAL KNEE PN AND HEEL PN. PT. AGREEABLE TO P.T. O2 SATS 98% AT REST ON RA. PT. ALERT AND ORIENTED. TEARFUL AT TIMES WHEN SHE TALKS ABOUT FAMILY. IN BEDSIDE RECLINER UPON P.T. ARRIVAL TO ROOM. PERFORMED SIT TO STAND W/ CGA-MIN ASSIST W/ RW IN FRONT OF HER. AMBULATED ~ 60' W/ BARIATRIC RW AND CGA. NOTED SLOW PACE AND NEEDED V.C. TO IMPROVE TRUNK POSTURE. SHORT STRIDE LENGTH WELL DECREASED FOOT CLEARANCE AND MINIMAL KNEE MOBILITY NOTED W/ GAIT. PT. C/O INCREASED KNEE PN W/ NEGOTIATING TURN TO CHANGE DIRECTION. PT. WALKED TO BATHROOM AND PERFORMED TOILET TRANSFER W/ MIN ASSIST W/ USE OF GRAB BARS. PT. ABLE TO PERFORM HYGIENE AFTER TOILETING W/ CGA. SIT TO STAND FROM TOILET PERFORMED W/ MIN ASSIST. PT. RETURNED BACK TO RECLINER AFTER WALK. O2 SATS 90-91% AFTER ACTIVITY. PT. PERFORMED SEATED LE EX'S OF ANKLE PUMPS, QUAD SETS, HEEL SLIDES, AND ABD SLIDES X 5-10 REPS. PT. NOTED DECREASED KNEE PN AFTER WALKING. PT. HAS MADE PROGRESS W/ FUNCTIONAL MOBILITY AND FOLLOWING CUES TO ASSIST W/ SAFETY SINCE SOC. PT. REDIRECTED WELL WHEN BECOMING EMOTIONAL. WILL CONT. P.T. 5X/WK TO ADDRESS WEAKNESS AND DECREASED ACTIVITY TOLERANCE TO PREP FOR REHAB STAY. AWAITING PA FOR SNF STAY FOR REHAB. Initialized on 11/10/22 10:43 - END OF NOTE 11/10/22 09:37 Case Management Note by Mary Galaviz PAPERWORK STILL PENDING LEVEL II ASSESSMENT ON SITE Initialized on 11/10/22 09:37 - END OF NOTE Assessment/Plan (1) Frequent falls Current Visit: Yes Status: Acute Code(s): R29.6 - REPEATED FALLS (2) Hyperglycemia Current Visit: Yes Status: Acute Code(s): R73.9 - HYPERGLYCEMIA, UNSPECIFIED (3) Shortness of breath Current Visit: Yes Status: Acute Code(s): R06.02 - SHORTNESS OF BREATH (4) Syncope Current Visit: Yes Status: Acute Code(s): R55 - SYNCOPE AND COLLAPSE (5) Acute adjustment disorder with depressed mood Current Visit: No Status: Chronic Code(s): F43.21 - ADJUSTMENT DISORDER WITH DEPRESSED MOOD Telemedicine Encounter - Telemedicine Encounter Telemedicine Encounter: Assessment/Plan (1) Frequent falls Current Visit: Yes Status: Acute Assessment & Plan: Patient with frequent falls and limited mobility due to bilateral knee pain and weakness. PT/OT evaluation and treat during LOS, CM to discuss facility options with patient for discharge as she has been unable to care for herself. -CT head negative -XR shoulder negative 11/10 - fall today- no injury or c/o pain. Code(s): R29.6 - REPEATED FALLS (2) Vaginal pruritus Current Visit: Yes Status: Acute Assessment & Plan: -Diflucan 150mg x 1 dose 11/07/22- completed Code(s): N89.8 - OTHER SPECIFIED NONINFLAMMATORY DISORDERS OF VAGINA (3) Shortness of breath Current Visit: Yes Status: Acute Assessment & Plan: CXR negative for acute cardiopulmonary processes Code(s): R06.02 - SHORTNESS OF BREATH (4) Hyperglycemia Current Visit: Yes Status: Acute Assessment & Plan: -Most recent a1c in July at 6.2 indicating good glycemic control -Moderate dose SSI/ Accuchecks -Low carb diet Code(s): R73.9 - HYPERGLYCEMIA, UNSPECIFIED (5) Weakness Current Visit: No Status: Acute Assessment & Plan: see frequent falls Code(s): R53.1 - WEAKNESS (6) Acute adjustment disorder with depressed mood Current Visit: No Status: Acute Assessment & Plan: -Continue home meds, of note Caplyta has now been resumed, will change scheduled atarax to prn Code(s): F43.21 - ADJUSTMENT DISORDER WITH DEPRESSED MOOD D/C plan- pending placement 1-2 days Code status: Full PPI: Protonix Next of kin: Eliana Snyder [phone]
--- NOTE | 2022-11-11 07:37 | PCM.NOTE ---
Date and Time: 11/11/22 0733 Subjective Assessment: Ms. Dixon is a 57-year-old woman with a history of CKD and schizophrenia, who was admitted with frequent falls, diffuse weakness, and acute kidney injury. Labs are improving daily. There is concern that she had not been taking her medications as prescribed when at home. She was recently started on Caplyta, which was restarted 11/08/22. 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 Plan is for pt to d/c to [facility] tomorrow if possible. She has no further complaints at this time. - Review of Systems Constitutional: No Fever, No Chills Eyes: No Symptoms Ears, Nose, & Throat: No Symptoms Respiratory: No Cough, No Short Of Breath Cardiac: No Chest Pain, No Edema, No Syncope Abdominal/Gastrointestinal: No Abdominal Pain, No Nausea, No Vomiting, No Diarrhea Genitourinary Symptoms: No Dysuria Musculoskeletal: No Back Pain, No Neck Pain Skin: No Rash Neurological: No Dizziness, No Focal Weakness, No Sensory Changes Psychological: No Symptoms Endocrine: No Symptoms Hematologic/Lymphatic: No Symptoms Immunological/Allergic: No Symptoms Objective Exam General Appearance: no apparent distress, alert Neurologic Exam: alert, oriented x 3, cooperative, normal mood/affect, nml cerebellar function, sensation nml, No motor deficits Skin Exam: normal color, warm, dry Wound Assessment: Skin/Wound Assessment Wound/Incision Assessment Start: 11/06/22 17:20 Text: Status: Active Freq: Q6H Protocol: Document 11/11/22 02:00 RS (Rec: 11/11/22 02:43 [id number]) Wound/Incision Assessment coccyx Wound Assessment Shift Assessment Wound Type Pressure Ulcer Wound Stage Stage II Dressing Status Dry & Intact Drainage Odor None/Absent Wound Bed Greatest Portion Pale [place] Surrounding Tissue [place] Comment right upper buttock stage 2; left upper buttock has scratch that is not open; barrier cream applied to both sites; see photos in chart--remains true, continue to apply barrier cream prn Eye Exam: PERRL, EOMI, eyes nml inspection Ears, Nose, Throat Exam: normal ENT inspection, pharynx normal, moist mucous membranes Neck Exam: normal inspection, non-tender, supple, full range of motion Respiratory Exam: normal breath sounds, lungs clear, No respiratory distress Cardiovascular Exam: regular rate/rhythm, normal heart sounds Gastrointestinal/Abdomen Exam: soft, No tenderness, No mass Extremity Exam: normal inspection, normal range of motion Back Exam: normal inspection, normal range of motion, No CVA tenderness, No vertebral tenderness Pelvic Exam: deferred Rectal Exam: deferred OBJECTIVE DATA Vital Signs: Vital Signs - 24 hr Temp Pulse Resp BP Pulse Ox 11/11/22 07:20 93 L 11/11/22 06:57 98.7 F 70 18 106/55 93 L 11/11/22 05:00 97.3 F 71 16 98/63 92 L 11/10/22 23:55 16 11/10/22 23:23 97.1 F 69 16 105/53 98 11/10/22 21:39 98 11/10/22 19:17 97.5 F 70 17 104/53 99 11/10/22 16:23 97.6 F 72 16 98/47 96 11/10/22 16:00 16 11/10/22 13:00 78 16 127/66 11/10/22 12:00 16 11/10/22 11:59 97.6 F 76 16 125/73 94 L 11/10/22 08:19 94 L 11/10/22 08:00 16 11/10/22 07:38 97.5 F 76 16 112/52 94 L Pain Assessment - Last Documented Pain Intensity 0 Pain Scale Used 0-10 Pain Scale Intake and Output: Intake & Output 11/08/22 11/09/22 11/10/22 11/11/22 11:59 11:59 11:59 11:59 Intake Total 1675 2598 1620 1241 Output Total 1999 2024 Balance -170 489 4187 1241 Lab Results: Lab Results-Last 24 Hours 11/10/22 11/10/22 11/10/22 Range/Units 11:29 16:20 21:35 POC Glucometer 219 H 173 H 124 H (74 to 106) mg/dL 11/11/22 Range/Units 06:19 POC Glucometer 138 H (74 to 106) mg/dL Multi-Disciplinary Progress Notes: Multi-Disciplinary Progress Notes 11/10/22 15:11 Case Management Note by Mary Galaviz HAS RECEIVED AUTH FOR PATIENT TO COME WHEN LEVEL II IS COMPLETE. PATIENT HAS UNTIL 11/13/22 TO ADMIT OR PRECERT WILL NEED UPDATED Initialized on 11/10/22 15:11 - END OF NOTE 11/10/22 12:55 Case Management Note by Mary Galaviz ( [facility] CARDIOLOGY TECHNICIAN) WOULD LIKE UPDATED AT TIME OF DC AT [phone] EXT 241 Initialized on 11/10/22 12:55 - END OF NOTE 11/10/22 11:30 (created 11/10/22 12:54) Case Management Note by Mary Galaviz S/W PATIENT- SHE CONTINUES TO WANT TO GO TO [facility] FOR REHAB AT TIME OF DC. UPDATED CLINICAL TO START PA SENT TO [facility] AT THIS TIME Initialized on 11/10/22 12:54 - END OF NOTE 11/10/22 10:43 Physical Therapy Note by Ahsan(L#[id number])Jacey PT. WAS SEEN BY P.T. THIS A.M. C/O BILATERAL KNEE PN AND HEEL PN. PT. AGREEABLE TO P.T. O2 SATS 98% AT REST ON RA. PT. ALERT AND ORIENTED. TEARFUL AT TIMES WHEN SHE TALKS ABOUT FAMILY. IN BEDSIDE RECLINER UPON P.T. ARRIVAL TO ROOM. PERFORMED SIT TO STAND W/ CGA-MIN ASSIST W/ RW IN FRONT OF HER. AMBULATED ~ 60' W/ BARIATRIC RW AND CGA. NOTED SLOW PACE AND NEEDED V.C. TO IMPROVE TRUNK POSTURE. SHORT STRIDE LENGTH WELL DECREASED FOOT CLEARANCE AND MINIMAL KNEE MOBILITY NOTED W/ GAIT. PT. C/O INCREASED KNEE PN W/ NEGOTIATING TURN TO CHANGE DIRECTION. PT. WALKED TO BATHROOM AND PERFORMED TOILET TRANSFER W/ MIN ASSIST W/ USE OF GRAB BARS. PT. ABLE TO PERFORM HYGIENE AFTER TOILETING W/ CGA. SIT TO STAND FROM TOILET PERFORMED W/ MIN ASSIST. PT. RETURNED BACK TO RECLINER AFTER WALK. O2 SATS 90-91% AFTER ACTIVITY. PT. PERFORMED SEATED LE EX'S OF ANKLE PUMPS, QUAD SETS, HEEL SLIDES, AND ABD SLIDES X 5-10 REPS. PT. NOTED DECREASED KNEE PN AFTER WALKING. PT. HAS MADE PROGRESS W/ FUNCTIONAL MOBILITY AND FOLLOWING CUES TO ASSIST W/ SAFETY SINCE SOC. PT. REDIRECTED WELL WHEN BECOMING EMOTIONAL. WILL CONT. P.T. 5X/WK TO ADDRESS WEAKNESS AND DECREASED ACTIVITY TOLERANCE TO PREP FOR REHAB STAY. AWAITING PA FOR SNF STAY FOR REHAB. Initialized on 11/10/22 10:43 - END OF NOTE 11/10/22 09:37 Case Management Note by Mary Galaviz PAPERWORK STILL PENDING LEVEL II ASSESSMENT ON SITE Initialized on 11/10/22 09:37 - END OF NOTE Assessment/Plan (1) Frequent falls Current Visit: Yes Status: Acute Code(s): R29.6 - REPEATED FALLS (2) Hyperglycemia Current Visit: Yes Status: Acute Code(s): R73.9 - HYPERGLYCEMIA, UNSPECIFIED (3) Shortness of breath Current Visit: Yes Status: Acute Code(s): R06.02 - SHORTNESS OF BREATH (4) Syncope Current Visit: Yes Status: Acute Code(s): R55 - SYNCOPE AND COLLAPSE (5) Acute adjustment disorder with depressed mood Current Visit: No Status: Chronic Code(s): F43.21 - ADJUSTMENT DISORDER WITH DEPRESSED MOOD Telemedicine Encounter - Telemedicine Encounter Telemedicine Encounter: (1) Frequent falls Current Visit: Yes Status: Acute Assessment & Plan: Patient with frequent falls and limited mobility due to bilateral knee pain and weakness. PT/OT evaluation and treat during LOS, CM to discuss facility options with patient for discharge as she has been unable to care for herself. -CT head negative -XR shoulder negative 11/10 - fall - no injury or c/o pain. - bed alarm/ chair alarm Code(s): R29.6 - REPEATED FALLS (2) Vaginal pruritus Current Visit: Yes Status: Acute Assessment & Plan: -Diflucan 150mg x 1 dose 11/07/22- completed Code(s): N89.8 - OTHER SPECIFIED NONINFLAMMATORY DISORDERS OF VAGINA (3) Shortness of breath Current Visit: Yes Status: Acute Assessment & Plan: -CXR negative for acute cardiopulmonary processes Code(s): R06.02 - SHORTNESS OF BREATH (4) Hyperglycemia Current Visit: Yes Status: Acute Assessment & Plan: -Most recent a1c in July at 6.2 indicating good glycemic control -Moderate dose SSI/ Accuchecks -Low carb diet Code(s): R73.9 - HYPERGLYCEMIA, UNSPECIFIED (5) Weakness Current Visit: No Status: Acute Assessment & Plan: see frequent falls Code(s): R53.1 - WEAKNESS (6) Acute adjustment disorder with depressed mood Current Visit: No Status: Acute Assessment & Plan: -Continue home meds, of note Caplyta has now been resumed, will change scheduled atarax to prn Code(s): F43.21 - ADJUSTMENT DISORDER WITH DEPRESSED MOOD D/C plan- pending placement possibly tomorrow Code status: Full PPI: Protonix Next of kin: Eliana Snyder [phone]
[2022-11-11 09:14] LABS: Hematocrit 32.9 % (35-47); Hemoglobin 10.7 g/dL (12.0-16.0); Mean Cell Volume 89.9 fL (78-100); Mean Corpuscular Hemoglobin 29.2 pg (26-32); Mean Corpuscular Hgb Concent. 32.5 g/dL (32-36); Mean Platelet Volume 12.1 fL (7.5-11.0); Platelet Count 244 x10^3/uL (150-450); Red Blood Count 3.66 x10^6/uL (4.1-5.4); Red Cell Distribution Width 16.2 % (11.5-14.0)
[2022-11-11 09:44] LABS: ALBUMIN 3.6 g/dL (3.5-5.0); ANION GAP 12.1 MEQ/L (5-15); BILIRUBIN,TOTAL 0.4 mg/dL (0.2-1.3); Calcium 8.5 mg/dL (8.4-10.2); Creatinine 1 1.03 mg/dL (0.52-1.04); EST GLOMERULAR FILTRATION RATE 58.3 ML/MIN; Potassium 3.9 mmol/L (3.5-5.1); Total Protein 6.7 g/dL (6.3-8.2)
[2022-11-11] MEDS: TYLENOL 325 MG PO PRN (11:23)
[2022-11-11] MEDS: MAG-OX 400 PO SCH ×3 (11:24→22:15)
[2022-11-11] MEDS: BUMEX 1 MG PO SCH (11:24)
[2022-11-11] MEDS: Pepcid 20 MG PO SCH (11:24)
[2022-11-11] MEDS: NEURONTIN PO SCH ×3 (11:24→22:15)
[2022-11-11] MEDS: Ditropan XL 5 MG PO SCH (11:24)
[2022-11-11] MEDS: CLARITIN 10 MG PO SCH (11:25)
[2022-11-11] MEDS: Effexor XR 75 MG PO SCH (11:25)
[2022-11-11] MEDS: SYNTHROID 25 MCG PO SCH (11:25)
[2022-11-11] MEDS: Protonix 40MG Tablet PO SCH (11:25)
[2022-11-11] MEDS: FEOSOL 325 MG PO SCH (11:25)
[2022-11-11] MEDS: ZOCOR 20MG PO SCH (11:25)
[2022-11-11] MEDS: MYSOLINE 50MG PO SCH ×3 (11:25→22:15)
[2022-11-11] MEDS: Toprol-Xl 25MG Tablets PO SCH (11:25)
[2022-11-11] MEDS: Lexapro PO SCH (11:26)
[2022-11-11] MEDS: Depakote EXTENDED RELEASE 250 MG PO SCH (11:26)
[2022-11-11] MEDS: Singulair 10 MG PO SCH (11:26)
[2022-11-11] MEDS: PATIENT OWN MEDICATION PO SCH (11:27)
[2022-11-12 05:21] LABS: Hematocrit 29.7 % (35-47); Hemoglobin 9.8 g/dL (12.0-16.0); Mean Cell Volume 88.4 fL (78-100); Mean Corpuscular Hemoglobin 29.2 pg (26-32); Mean Platelet Volume 13.1 fL (7.5-11.0); Platelet Count 226 x10^3/uL (150-450); Red Blood Count 3.36 x10^6/uL (4.1-5.4); White Blood Count 6.1 x10^3/uL (4.0-10.5)
[2022-11-12 05:28] LABS: ALKALINE PHOSPHATASE 94 U/L (38-126); ANION GAP 7.8 MEQ/L (5-15); BLOOD UREA NITROGEN 13 mg/dL (7-17); CHLORIDE 88 mmol/L (98-107); Calcium 8.1 mg/dL (8.4-10.2); Carbon Dioxide 35 mmol/L (22-30); EST GLOMERULAR FILTRATION RATE > 60.0 ML/MIN; Glucose 175 mg/dL (74-106); Potassium 3.9 mmol/L (3.5-5.1); SGOT/AST 31 U/L (14-36); SGPT/ALT 20 U/L (0-35); SODIUM 127 mmol/L (137-145); Total Protein 5.8 g/dL (6.3-8.2)
[2022-11-12] MEDS: HUMULIN R SQ PRN ×3 (08:21→17:19)
[2022-11-12] MEDS ORDERED: Dextrose 5%-NS IV Solution 1000 ML 1,000 ML IV SCH (08:30)
[2022-11-12] MEDS: BUMEX 1 MG PO SCH (09:28)
[2022-11-12] MEDS: FEOSOL 325 MG PO SCH (09:29)
[2022-11-12] MEDS: Singulair 10 MG PO SCH (09:29)
[2022-11-12] MEDS: Pepcid 20 MG PO SCH (09:29)
[2022-11-12] MEDS: Ditropan XL 5 MG PO SCH (09:29)
[2022-11-12] MEDS: SYNTHROID 25 MCG PO SCH (09:29)
[2022-11-12] MEDS: MYSOLINE 50MG PO SCH ×2 (09:29→16:34)
[2022-11-12] MEDS: ZOCOR 20MG PO SCH (09:29)
[2022-11-12] MEDS: Effexor XR 75 MG PO SCH (09:29)
[2022-11-12] MEDS: CLARITIN 10 MG PO SCH (09:29)
[2022-11-12] MEDS: Depakote EXTENDED RELEASE 250 MG PO SCH (09:30)
[2022-11-12] MEDS: Lexapro PO SCH (09:30)
[2022-11-12] MEDS: MAG-OX 400 PO SCH ×3 (09:30→21:38)
[2022-11-12] MEDS: NEURONTIN PO SCH ×3 (09:30→21:38)
[2022-11-12] MEDS: Toprol-Xl 25MG Tablets PO SCH (09:30)
[2022-11-12] MEDS: Protonix 40MG Tablet PO SCH (09:30)
[2022-11-12] MEDS: PATIENT OWN MEDICATION PO SCH (09:31)
[2022-11-12] MEDS: TORAdol 30 mg Injection IV PRN (10:39)
--- NOTE | 2022-11-12 16:38 | PCM.NOTE ---
Date and Time: 11/12/22 1632 Subjective Assessment: Ms. Dixon is a 57-year-old woman with a history of CKD and schizophrenia, who was admitted with frequent falls, diffuse weakness, and acute kidney injury. Labs are improving daily. There is concern that she had not been taking her medications as prescribed when at home. She was recently started on Caplyta, which was restarted 11/08/22. 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 Plan is for pt to d/c to [facility] when accepted. She has been rather sleepy today and explains she is just ready to leave. She has no further complaints at this time. - Review of Systems Constitutional: Weakness, No Fever, No Chills Eyes: No Symptoms Ears, Nose, & Throat: No Symptoms Respiratory: No Cough, No Short Of Breath Cardiac: No Chest Pain, No Edema, No Syncope Abdominal/Gastrointestinal: No Abdominal Pain, No Nausea, No Vomiting, No Diarrhea Genitourinary Symptoms: No Dysuria Musculoskeletal: No Back Pain, No Neck Pain Skin: Decubiti (coccyx), No Rash Neurological: No Dizziness, No Focal Weakness, No Sensory Changes Psychological: No Symptoms, Emotional Lability Endocrine: No Symptoms Hematologic/Lymphatic: No Symptoms Immunological/Allergic: No Symptoms Objective Exam General Appearance: obese Neurologic Exam: alert, oriented x 3, cooperative, normal mood/affect, nml cerebellar function, sensation nml, No motor deficits Skin Exam: normal color, warm, dry, decubitus (coccyx see nurse charting) Wound Assessment: Skin/Wound Assessment Wound/Incision Assessment Start: 11/06/22 17:20 Text: Status: Active Freq: Q6H Protocol: Document 11/12/22 14:00 ESSIE (Rec: 11/12/22 14:10 ESSIE [id number]) Wound/Incision Assessment coccyx Wound Assessment Shift Assessment Wound Type DECUBITUS ULCER Wound Stage Non Pressure Wound Drainage Amount None Wound Bed Greatest Portion Red (Granulation) Wound Bed Lesser Portion Red (Granulation) Surrounding Tissue [place] Comment BARRIER CREAM APPLIED Eye Exam: PERRL, EOMI, eyes nml inspection Ears, Nose, Throat Exam: normal ENT inspection, pharynx normal, moist mucous membranes Neck Exam: normal inspection, non-tender, supple, full range of motion Respiratory Exam: normal breath sounds, lungs clear, No respiratory distress Cardiovascular Exam: regular rate/rhythm, normal heart sounds Gastrointestinal/Abdomen Exam: soft, No tenderness, No mass Extremity Exam: normal inspection, normal range of motion Back Exam: normal inspection, normal range of motion, No CVA tenderness, No vertebral tenderness Pelvic Exam: deferred Rectal Exam: deferred OBJECTIVE DATA Vital Signs: Vital Signs - 24 hr Temp Pulse Resp BP Pulse Ox 11/12/22 15:00 97.1 F 62 16 130/53 96 11/12/22 11:31 97.3 F 67 16 92/52 95 11/12/22 07:55 93 L 11/12/22 07:38 97.1 F 72 16 113/53 92 L 11/12/22 04:00 97.5 F 73 20 110/52 92 L 11/11/22 23:48 97.3 F 68 22 111/62 92 L 11/11/22 19:52 97.1 F 69 20 127/61 92 L 11/11/22 18:51 93 L Pain Assessment - Last Documented Pain Intensity 0 Pain Scale Used 0-10 Pain Scale Intake and Output: Intake & Output 11/10/22 11/11/22 11/12/22 11/13/22 11:59 11:59 11:59 11:59 Intake Total 1620 1481 1140 120 Balance 1620 1481 1140 120 Lab Results: Lab Results-Last 24 Hours 11/11/22 11/12/22 11/12/22 Range/Units 21:34 04:47 04:47 WBC 6.1 (4.0-10.5) x10^3/uL RBC 3.36 L (4.1-5.4) x10^6/uL Hgb 9.8 L (12.0-16.0) g/dL Hct 29.7 L (35-47) % MCV 88.4 (78-100) fL MCH 29.2 (26-32) pg MCHC 33.0 (32-36) g/dL RDW 16.0 H (11.5-14.0) % Plt Count 226 (150-450) x10^3/uL MPV 13.1 H (7.5-11.0) fL Sodium 127 L (137-145) mmol/L Potassium 3.9 (3.5-5.1) mmol/L Chloride 88 L (98-107) mmol/L Carbon Dioxide 35 H (22-30) mmol/L Anion Gap 7.8 (5-15) MEQ/L BUN 13 (7-17) mg/dL Creatinine 1.00 (0.52-1.04) mg/dL Estimated GFR > 60.0 ML/MIN Glucose 175 H (74-106) mg/dL POC Glucometer 177 H (74 to 106) mg/dL Calcium 8.1 L (8.4-10.2) mg/dL Total Bilirubin 0.30 (0.2-1.3) mg/dL AST 31 (14-36) U/L ALT 20 (0-35) U/L Alkaline Phosphatase 94 (38-126) U/L Serum Total Protein 5.8 L (6.3-8.2) g/dL Albumin 3.0 L (3.5-5.0) g/dL 11/12/22 11/12/22 Range/Units 07:34 11:28 WBC (4.0-10.5) x10^3/uL RBC (4.1-5.4) x10^6/uL Hgb (12.0-16.0) g/dL Hct (35-47) % MCV (78-100) fL MCH (26-32) pg MCHC (32-36) g/dL RDW (11.5-14.0) % Plt Count (150-450) x10^3/uL MPV (7.5-11.0) fL Sodium (137-145) mmol/L Potassium (3.5-5.1) mmol/L Chloride (98-107) mmol/L Carbon Dioxide (22-30) mmol/L Anion Gap (5-15) MEQ/L BUN (7-17) mg/dL Creatinine (0.52-1.04) mg/dL Estimated GFR ML/MIN Glucose (74-106) mg/dL POC Glucometer 170 H 212 H (74 to 106) mg/dL Calcium (8.4-10.2) mg/dL Total Bilirubin (0.2-1.3) mg/dL AST (14-36) U/L ALT (0-35) U/L Alkaline Phosphatase (38-126) U/L Serum Total Protein (6.3-8.2) g/dL Albumin (3.5-5.0) g/dL Multi-Disciplinary Progress Notes: Multi-Disciplinary Progress Notes 11/12/22 09:49 Case Management Note by Mary Galaviz LEVEL II STILL PENDING FOR REVIEW AT THIS TIME Initialized on 11/12/22 09:49 - END OF NOTE Assessment/Plan (1) Frequent falls Current Visit: Yes Status: Acute Code(s): R29.6 - REPEATED FALLS (2) Hyperglycemia Current Visit: Yes Status: Acute Code(s): R73.9 - HYPERGLYCEMIA, UNSPECIFIED (3) Shortness of breath Current Visit: Yes Status: Acute Code(s): R06.02 - SHORTNESS OF BREATH (4) Syncope Current Visit: Yes Status: Acute Code(s): R55 - SYNCOPE AND COLLAPSE (5) Acute adjustment disorder with depressed mood Current Visit: No Status: Chronic Assessment & Plan: (1) Frequent falls Current Visit: Yes Status: Acute Assessment & Plan: Patient with frequent falls and limited mobility due to bilateral knee pain and weakness. PT/OT evaluation and treat during LOS, CM to discuss facility options with patient for discharge as she has been unable to care for herself. -CT head negative -XR shoulder negative 11/10 - fall - no injury or c/o pain. - bed alarm/ chair alarm Code(s): R29.6 - REPEATED FALLS (2) Vaginal pruritus Current Visit: Yes Status: Acute Assessment & Plan: -Diflucan 150mg x 1 dose 11/07/22- completed Code(s): N89.8 - OTHER SPECIFIED NONINFLAMMATORY DISORDERS OF VAGINA (3) Shortness of breath Current Visit: Yes Status: Acute Assessment & Plan: -CXR negative for acute cardiopulmonary processes Code(s): R06.02 - SHORTNESS OF BREATH (4) Hyperglycemia Current Visit: Yes Status: Acute Assessment & Plan: -Most recent a1c in July at 6.2 indicating good glycemic control -Moderate dose SSI/ Accuchecks -Low carb diet Code(s): R73.9 - HYPERGLYCEMIA, UNSPECIFIED (5) Weakness Current Visit: No Status: Acute Assessment & Plan: see frequent falls Code(s): R53.1 - WEAKNESS (6) Acute adjustment disorder with depressed mood Current Visit: No Status: Acute Assessment & Plan: -Continue home meds, of note Caplyta has now been resumed, will change scheduled atarax to prn Code(s): F43.21 - ADJUSTMENT DISORDER WITH DEPRESSED MOOD Code(s): F43.21 - ADJUSTMENT DISORDER WITH DEPRESSED MOOD (6) Hyponatremia Current Visit: Yes Status: Acute Assessment & Plan: -oral Fluid restriction - pt was drinking excessive amount of fluids - D5NS @ 125 ml/hr - 11/12/22 Na+ 127 - trend D/C plan- pending placement possibly tomorrow Code status: Full PPI: Protonix Next of kin: Eliana Snyder [phone] Code(s): E87.1 - HYPO-OSMOLALITY AND HYPONATREMIA
[2022-11-13] MEDS: MYSOLINE 50MG PO SCH ×2 (07:46→09:49)
[2022-11-13 08:03] VITALS: RESP 18
[2022-11-13] MEDS: BUMEX 1 MG PO SCH (09:44)
[2022-11-13] MEDS: CLARITIN 10 MG PO SCH (09:45)
[2022-11-13] MEDS: Ditropan XL 5 MG PO SCH (09:46)
[2022-11-13] MEDS: Depakote EXTENDED RELEASE 250 MG PO SCH (09:46)
[2022-11-13] MEDS: Effexor XR 75 MG PO SCH (09:47)
[2022-11-13] MEDS: Lexapro PO SCH (09:47)
[2022-11-13] MEDS: FEOSOL 325 MG PO SCH (09:47)
[2022-11-13 09:48] LABS: Hematocrit 33.4 % (35-47); Hemoglobin 10.7 g/dL (12.0-16.0); Mean Corpuscular Hemoglobin 28.8 pg (26-32); Mean Platelet Volume 13.1 fL (7.5-11.0); Platelet Count 247 x10^3/uL (150-450); Red Blood Count 3.71 x10^6/uL (4.1-5.4); Red Cell Distribution Width 16.3 % (11.5-14.0); White Blood Count 9.7 x10^3/uL (4.0-10.5)
[2022-11-13] MEDS: MAG-OX 400 PO SCH (09:48)
[2022-11-13] MEDS: NEURONTIN PO SCH (09:49)
[2022-11-13] MEDS: Pepcid 20 MG PO SCH (09:50)
[2022-11-13] MEDS: Protonix 40MG Tablet PO SCH (09:50)
[2022-11-13] MEDS: Singulair 10 MG PO SCH (09:50)
[2022-11-13] MEDS: PATIENT OWN MEDICATION PO SCH (09:50)
[2022-11-13] MEDS: SYNTHROID 25 MCG PO SCH (09:51)
[2022-11-13] MEDS: ZOCOR 20MG PO SCH (09:51)
[2022-11-13] MEDS: Toprol-Xl 25MG Tablets PO SCH (09:51)
[2022-11-13] MEDS: TYLENOL 325 MG PO PRN (10:00)
[2022-11-13 10:25] LABS: Slide Review YES
[2022-11-13 10:28] LABS: ALBUMIN 3.5 g/dL (3.5-5.0); ANION GAP 11.3 MEQ/L (5-15); BILIRUBIN,TOTAL 0.4 mg/dL (0.2-1.3); Calcium 8.5 mg/dL (8.4-10.2); Creatinine 1 1.19 mg/dL (0.52-1.04); EST GLOMERULAR FILTRATION RATE 49.3 ML/MIN; Total Protein 6.7 g/dL (6.3-8.2)
[2022-11-13 12:00] VITALS: BP 113/50; PULSE 73; TEMP 97.5; O2SAT 93
--- NOTE | 2022-11-13 12:01 | PCM.DS ---
Discharge Summary Date of Admission: 11/06/22 16:36 Date of Discharge: 11/13/22 Admitting Physician: MOHAN ROPER MD Primary Care Provider: DAVIAN PETERSON DO Allergies Allergies hydrocodone [From Vicodin] Allergy (Intermediate, Verified 11/06/22 11:31) Rash lurasidone [From Latuda] Allergy (Intermediate, Verified 11/06/22 11:31) Rash Hospital Summary - Hospital Course Hospital Course: Ms. Dixon is a 57-year-old woman with a history of CKD and schizophrenia, who was admitted with frequent falls, diffuse weakness, and acute kidney injury. Labs are improving daily. There is concern that she had not been taking her medications as prescribed when at home. She was recently started on Caplyta, which was restarted 11/08/22. 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 She has been accepted today to [facility] with plan to go this afternoon. She has no further complaints at this time. - Vitals & Intake/Output Vital Signs: Vital Signs Temperature 98.1 F 11/13/22 07:58 Pulse Rate 78 11/13/22 07:58 Respiratory Rate 18 11/13/22 10:00 Blood Pressure 107/53 11/13/22 07:58 O2 Sat by Pulse Oximetry 95 11/13/22 07:58 Intake & Output: Intake & Output 11/10/22 11/11/22 11/12/22 11/13/22 11:59 11:59 11:59 11:59 Intake Total 1620 1481 1140 780 Balance 1620 1481 1140 780 - Lab Result Diagrams: 11/13/22 09:38 11/13/22 09:38 Lab Results-Last 24 Hrs: Lab Results-Last 24 Hours 11/12/22 11/12/22 11/13/22 Range/Units 16:36 21:40 07:21 WBC (4.0-10.5) x10^3/uL RBC (4.1-5.4) x10^6/uL Hgb (12.0-16.0) g/dL Hct (35-47) % MCV (78-100) fL MCH (26-32) pg MCHC (32-36) g/dL RDW (11.5-14.0) % Plt Count (150-450) x10^3/uL MPV (7.5-11.0) fL Sodium (137-145) mmol/L Potassium (3.5-5.1) mmol/L Chloride (98-107) mmol/L Carbon Dioxide (22-30) mmol/L Anion Gap (5-15) MEQ/L BUN (7-17) mg/dL Creatinine (0.52-1.04) mg/dL Estimated GFR ML/MIN Glucose (74-106) mg/dL POC Glucometer 192 H 143 H 141 H (74 to 106) mg/dL Calcium (8.4-10.2) mg/dL Total Bilirubin (0.2-1.3) mg/dL AST (14-36) U/L ALT (0-35) U/L Alkaline Phosphatase (38-126) U/L Serum Total Protein (6.3-8.2) g/dL Albumin (3.5-5.0) g/dL Slides for Path Review 11/13/22 11/13/22 11/13/22 Range/Units 09:38 09:38 11:51 WBC 9.7 (4.0-10.5) x10^3/uL RBC 3.71 L (4.1-5.4) x10^6/uL Hgb 10.7 L (12.0-16.0) g/dL Hct 33.4 L (35-47) % MCV 90.0 (78-100) fL MCH 28.8 (26-32) pg MCHC 32.0 (32-36) g/dL RDW 16.3 H (11.5-14.0) % Plt Count 247 (150-450) x10^3/uL MPV 13.1 H (7.5-11.0) fL Sodium 130 L (137-145) mmol/L Potassium 4.0 (3.5-5.1) mmol/L Chloride 90 L (98-107) mmol/L Carbon Dioxide 33 H (22-30) mmol/L Anion Gap 11.3 (5-15) MEQ/L BUN 12 (7-17) mg/dL Creatinine 1.19 H (0.52-1.04) mg/dL Estimated GFR 49.3 ML/MIN Glucose 179 H (74-106) mg/dL POC Glucometer 166 H (74 to 106) mg/dL Calcium 8.5 (8.4-10.2) mg/dL Total Bilirubin 0.40 (0.2-1.3) mg/dL AST 38 H (14-36) U/L ALT 22 (0-35) U/L Alkaline Phosphatase 109 (38-126) U/L Serum Total Protein 6.7 (6.3-8.2) g/dL Albumin 3.5 (3.5-5.0) g/dL Slides for Path Review YES Micro Results-Entire Visit: Microbiology 11/06/22 12:38 Urine Culture - Final Catherized NO GROWTH Accuchecks Date 11/13/22 Date 11/12/22 Time 07:57 - Procedures and Test Procedures and Tests throughout Hospitalization: Therapy Orders & Screens 11/06/22 16:46 PT Eval & Treat ( Order) ONCE Reason for Eval:: Strengthening, range of motion, balance Diagnosis: Frequent falls 11/07/22 15:49 Respiratory Therapy Assessment DAILY Comment: Diagnosis: Frequent falls 11/09/22 05:04 Oxygen Nasal Cannula 2 lpm Comment: Diagnosis: Frequent falls Discharge Exam General Appearance: no apparent distress, alert Neurologic Exam: alert, oriented x 3, cooperative, normal mood/affect, nml cerebellar function, sensation nml, No motor deficits Eye Exam: PERRL, EOMI, eyes nml inspection Ears, Nose, Throat Exam: normal ENT inspection, pharynx normal, moist mucous membranes Neck Exam: normal inspection, non-tender, supple, full range of motion Respiratory Exam: normal breath sounds, lungs clear, No respiratory distress Cardiovascular Exam: regular rate/rhythm, normal heart sounds Gastrointestinal/Abdomen Exam: soft, No tenderness, No mass Pelvic Exam: deferred Rectal Exam: deferred Back Exam: normal inspection, normal range of motion, No CVA tenderness, No vertebral tenderness Extremity Exam: normal inspection, normal range of motion Skin Exam: normal color, warm, dry, decubitus (coccyx) Wound Assessment: Skin/Wound Assessment Wound/Incision Assessment Start: 11/06/22 17:20 Text: Status: Active Freq: Q6H Protocol: Document 11/13/22 10:00 YANETH (Rec: 11/13/22 10:56 YANETH [id number]) Wound/Incision Assessment coccyx Wound Assessment Shift Assessment Wound Type DECUBITUS ULCER Wound Stage Non Pressure Wound Drainage Amount None Drainage Odor None/Absent Wound Bed Greatest Portion Red (Granulation) Wound Bed Lesser Portion Red (Granulation) Surrounding Tissue [place] Comment BARRIER CREAM APPLIED Wound Photo Photo Taken Yes Date: 11/06/22 Final Diagnosis/Problem List - Final Discharge Diagnosis/Problem (1) Frequent falls Current Visit: Yes Status: Acute Assessment & Plan: Patient with frequent falls and limited mobility due to bilateral knee pain and weakness. PT/OT evaluation and treat during LOS, CM to discuss facility options with patient for discharge as she has been unable to care for herself. -CT head negative -XR shoulder negative 11/10 - fall - no injury or c/o pain. - bed alarm/ chair alarm - Pt eval and tx Code(s): R29.6 - REPEATED FALLS (2) Hyperglycemia Current Visit: Yes Status: Acute Assessment & Plan: -Most recent a1c in July at 6.2 indicating good glycemic control -Moderate dose SSI/ Accuchecks -Low carb diet Code(s): R73.9 - HYPERGLYCEMIA, UNSPECIFIED (3) Shortness of breath Current Visit: Yes Status: Acute Assessment & Plan: -CXR negative for acute cardiopulmonary processes Code(s): R06.02 - SHORTNESS OF BREATH (4) Syncope Current Visit: Yes Status: Acute Assessment & Plan: - resolved Code(s): R55 - SYNCOPE AND COLLAPSE (5) Acute adjustment disorder with depressed mood Current Visit: No Status: Chronic Assessment & Plan: -Continue home meds, of note Caplyta has now been resumed, will change scheduled atarax to prn Code(s): F43.21 - ADJUSTMENT DISORDER WITH DEPRESSED MOOD (6) Hyponatremia Current Visit: Yes Status: Acute Assessment & Plan: -oral Fluid restriction - pt was drinking excessive amount of fluids - D5NS @ 125 ml/hr - 11/12/22 Na+ 127 - trend Code(s): E87.1 - HYPO-OSMOLALITY AND HYPONATREMIA (7) Vaginal pruritus Current Visit: Yes Status: Acute Assessment & Plan: -Diflucan 150mg x 1 dose 11/07/22- completed Code(s): N89.8 - OTHER SPECIFIED NONINFLAMMATORY DISORDERS OF VAGINA (8) Weakness Current Visit: Yes Status: Acute Assessment & Plan: -see frequent falls Code(s): R53.1 - WEAKNESS (9) Coccyx pain Current Visit: Yes Status: Acute Assessment & Plan: - chronic wound with pain - nursing turning often - pain medication - wound care Code(s): M53.3 - SACROCOCCYGEAL DISORDERS, NOT ELSEWHERE CLASSIFIED - Discharge Discharge Date: 11/13/22 Disposition: XFER OTHER Condition: Stable Prescriptions: Continue Ferrous Sulfate [Iron] 325 mg PO BID Escitalopram Oxalate [Lexapro] 40 mg PO DAILY Magnesium Oxide 800 mg PO TID Insulin Degludec [Tresiba Flextouch U-200] 50 units SQ DAILY Gabapentin 300 mg PO TID Metoprolol Succinate 12.5 mg PO DAILY Cetirizine HCl [All Day Allergy] 10 mg PO DAILY Rosuvastatin Calcium 10 mg PO DAILY Montelukast Sodium 10 mg [Singulair 10 MG] 10 mg PO DAILY PANTOPRAZOLE 40 mg Tablet [Protonix 40MG Tablet] 40 mg PO DAILY #30 tab Bumetanide 2 mg PO DAILY Colestipol HCl [Colestid] 1 gm PO BID Divalproex Sodium [Divalproex Sodium ER] 500 mg PO DAILY Ergocalciferol (Vitamin D2) [Vitamin D2] 50,000 unit PO WEEKLY Famotidine 40 mg PO DAILY hydrOXYzine HCL [Hydroxyzine HCl] 10 mg PO TID Insulin Aspart [Novolog] 24 unit SQ TIDWMEALS Levothyroxine Sodium 25 Mcg [Synthroid 25 Mcg] 25 mcg PO DAILY Lumateperone Tosylate [Caplyta] 42 mg PO DAILY Oxybutynin Chloride [Oxybutynin Chloride ER] 15 mg PO DAILY Primidone [Mysoline] 250 mg PO TID Propranolol HCl [Propranolol HCl ER] 60 mg PO BID Semaglutide [Ozempic] 2 mg SQ WEEKLY Venlafaxine HCl ER 75 mg [Effexor XR 75 MG] 75 mg PO DAILY Vibegron [Gemtesa] 75 mg PO DAILY Additional Instructions: SENIOR CARE ORDERS: ADMIT TO [facility] [address]S ACCU CHECKS PT/OT EVAL AND TREAT SEE LEARNING TECHNOLOGIST MED LIST Follow up with: DAVIAN PETERSON DO [Primary Care Provider] -
[2022-11-13] MEDS ORDERED: Klor Con PO ONE (12:15)
[2022-11-14] MEDS ORDERED: VITAMIN D2 PO SCH (10:00)
== END 2022-11-13 13:13 ==
LOC: ED 11:21 → EEVIPCON 16:36 → MED SURG 16:36
PROVIDERS: ADMIT Internal Medicine; ATTEND Internal Medicine
DX: R29.6 Repeated falls (principal); E11.65 Type 2 diabetes mellitus with hyperglycemia; R06.02 Shortness of breath; R55 Syncope and collapse; F43.21 Adjustment disorder with depressed mood; E87.1 Hypo-osmolality and hyponatremia; N89.8 Other specified noninflammatory disorders of vagina; R53.1 Weakness; M53.3 Sacrococcygeal disorders, not elsewhere classified; F20.9 Schizophrenia, unspecified; E78.5 Hyperlipidemia, unspecified; I10 Essential (primary) hypertension; M25.562 Pain in left knee; M25.561 Pain in right knee; E66.9 Obesity, unspecified; N17.9 Acute kidney failure, unspecified; L89.152 Pressure ulcer of sacral region, stage 2; Z59.9 Problem related to housing and economic circumstances, unspecified; Z79.899 Other long term (current) drug therapy; Z20.828 Contact with and (suspected) exposure to other viral communicable diseases
CPT/HCPCS: 36000; 36415; 51702; 70450; 71045; 73030; 80053; 81001; 82947; 85025; 85027; 87086; 87493; 87507; 93005; 94760; 96374; 96375; 97110; 97161; 97530; 99285; G0378; Q3014; J1815; J1885; J2270; J2405; A9270-GY

== ENCOUNTER 2023-01-03 08:36 | Inpatient (IN) | payer MEDICARE ==
[2023-01-03] MEDS ORDERED: Merrem 1 GM in Sodium Chloride 100ML MINI-BAG PLUS 100 ML IV ONE (08:55)
[2023-01-03] MEDS ORDERED: Sodium Chloride 0.9% 1000 ML 2,000 ML ONE (08:55)
[2023-01-03] MEDS: Sodium Chloride 0.9% 1000 ML 1,000 ML IV SCH ×3 (08:56→10:40)
[2023-01-03] MEDS ORDERED: Merrem IV ONE (09:06)
[2023-01-03] MEDS ORDERED: Sodium Chloride 100ML MINI-BAG PLUS 100 ML IV ONE (09:07)
[2023-01-03 09:20] LABS: Absolute Neutrophil Ct (ANC) 15.91 x10^3/uL (1.4-6.9); BASOPHIL % 0.2 % (0.0-0.4); Basophil (Absolute #) 0.04 x10^3/uL (0-0.4); Eosinophil % 2.1 % (0.00-5.0); Eosinophil (Absolute #) 0.41 x10^3/uL (0-0.5); Hematocrit 33.4 % (35-47); Hemoglobin 10.9 g/dL (12.0-16.0); IMMATURE GRAN # 0.15 x10^3u/L (0.00-0.03); IMMATURE GRAN % 0.8 % (0.00-0.4); Lymphocyte (Absolute #) 2.13 x10^3/uL (1.0-4.6); Mean Cell Volume 91.5 fL (78-100); Mean Corpuscular Hemoglobin 29.9 pg (26-32); Mean Corpuscular Hgb Concent. 32.6 g/dL (32-36); Mean Platelet Volume 11.5 fL (7.5-11.0); Monocyte (Absolute #) 0.72 x10^3/uL (0.0-1.3); Monocytes % 3.7 % (0.0-12.0); Neutrophil % 82.2 % (36.0-66.0); Platelet Count 152 x10^3/uL (150-450); Red Blood Count 3.65 x10^6/uL (4.1-5.4); Red Cell Distribution Width 18.6 % (11.5-14.0); White Blood Count 19.4 x10^3/uL (4.0-10.5)
[2023-01-03 09:22] LABS: Appearance Turbid (Clear); Bilirubin Negative (Negative); Blood Moderate (Negative); Glucose, Urine Negative (Negative); Ketones Trace (Negative); Leukocyte Esterase Large (Negative); Nitrite Positive (Negative); Ph 5.5 (4.6-8.0); Protein,Urine Dip 100 (Negative); Specific Gravity 1.015 (1.005-1.030); Urobilinogen 0.2 mg/dL (0.2)
[2023-01-03 09:26] LABS: ALBUMIN 3.5 g/dL (3.5-5.0); ANION GAP 19.4 MEQ/L (5-15); BILIRUBIN,TOTAL 0.5 mg/dL (0.2-1.3); Calcium 9.3 mg/dL (8.4-10.2); Creatinine 1 3.36 mg/dL (0.52-1.04); EST GLOMERULAR FILTRATION RATE 14.9 ML/MIN; Potassium 4.2 mmol/L (3.5-5.1); Total Protein 7.3 g/dL (6.3-8.2)
--- NOTE | 2023-01-03 09:34 | ERPHSYRPT ---
- History of Present Illness Time Seen by Provider: 01/03/23 09:29 Source: EMS, half-way records Exam Limitations: clinical condition Patient Subjective Stated Complaint: Altered LOC Triage Nursing Assessment: Patient brought into ED per EMS and transferred to bed with assist of 4. Patient resides at [facility] and has had increased confusion over the past week. Patient Alert to self only. Patient moans when touched. Poor Historian. Mid line noted to left AC placed prior at [facility] this am. Physician History: Patient resides at [facility] and has had increased confusion over the past week. Patient Alert to self only. Patient moans when touched. Poor Historian. Timing/Duration: day(s) Severity: severe Associated Symptoms: other (confusion, moaning) Allergies/Adverse Reactions: hydrocodone [From Vicodin] Allergy (Intermediate, Verified 01/03/23 09:42) Rash lurasidone [From Latuda] Allergy (Intermediate, Verified 01/03/23 09:42) Rash Home Medications: Gabapentin 300 mg PO TID 06/14/19 [History] Metoprolol Succinate 12.5 mg PO DAILY 02/08/20 [History] Divalproex Sodium [Divalproex Sodium ER] 500 mg PO DAILY 11/06/22 [History] Ergocalciferol (Vitamin D2) [Vitamin D2] 50,000 unit PO WEEKLY 11/06/22 [History] Famotidine 40 mg PO DAILY 11/06/22 [History] Levothyroxine Sodium 25 Mcg [Synthroid 25 Mcg] 25 mcg PO DAILY 11/06/22 [History] Oxybutynin Chloride [Oxybutynin Chloride ER] 15 mg PO DAILY 11/06/22 [History] Primidone [Mysoline] 250 mg PO TID 11/06/22 [History] Venlafaxine HCl ER 75 mg [Effexor XR 75 MG] 75 mg PO DAILY 11/06/22 [History] Alogliptin Benzoate [Alogliptin] 25 mg PO DAILY 01/03/23 [History] Atorvastatin Calcium 20 mg PO HS 01/03/23 [History] Cholecalciferol (Vitamin D3) [Vitamin D] 1,000 unit PO DAILY 01/03/23 [History] Escitalopram Oxalate [Lexapro] 10 mg PO DAILY 01/03/23 [History] Ibuprofen [IBUPROFEN 400 MG TABLET] 400 mg PO TID 01/03/23 [History] Montelukast Sodium 10 mg [Singulair 10 MG] 10 mg PO DAILY 01/03/23 [History] Paliperidone Palmitate [Invega Sustenna] 117 mg IM UD 01/03/23 [History] risperiDONE [Risperdal] 0.5 mg PO BID 01/03/23 [History] Hx Tetanus, Diphtheria Vaccination/Date Given: Yes Hx Influenza Vaccination/Date Given: No Hx Pneumococcal Vaccination/Date Given: No Immunizations Up to Date: Yes Travel Risk - International Travel Have you traveled outside of the country in past 3 weeks: No - Coronavirus Screening Are you exhibiting any of the following symptoms?: No Close contact with a COVID-19 positive Pt in past 14-21 Days: No - Vaccine Status Have you recieved a Covid-19 vaccination: Yes 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: [employer] - Vaccination Dates Date of 2cond Vaccination (if applicable): unsure - Review of Systems Constitutional: Lethargy All Other Systems: Unable due to condition - Past Medical History Pertinent Past Medical History: Yes Neurological History: Other ENT History: No Pertinent History Cardiac History: High Cholesterol, Hypertension, Other Respiratory History: Asthma Endocrine Medical History: Diabetes Type II Musculoskeletal History: Arthritis GI Medical History: GERD History: Other Psycho-Social History: Anxiety, Depression Female Reproductive Disorders: No Pertinent History Other Medical History: SCHIZOPHRENIA, MITRAL VALVE REGURGITATION, TACHYCARDIA, OBESITY, HYPOMAGNESIUM, ACID REFLUX, IRRITABLE BOWEL SYNDROME, RESTING TREMORS (PER PATIENT RELATED TO PSYCHIATRIC MEDS - -CHANGED MEDS BUT NO CHANGE IN TREMORS). SX HX: CERVICAL FUSION 2 LEVELS, CHOLECYSTECTOMY, APPENDECTOMY, C- SECTION - Past Surgical History Past Surgical History: Yes Neuro Surgical History: No Pertinent History Cardiac: Cardiac Catheterization Respiratory: No Pertinent History Gastrointestinal: Appendectomy, Cholecystectomy Genitourinary: No Pertinent History Musculoskeletal: Other Female Surgical History: Section, Tubal Ligation Other Surgical History: NECK SURGERY WITH DISC REPAIR. C- Section x 2 - Social History Smoking Status: Never smoker Exposure to second hand smoke: No Drug Use: none Patient Lives Alone: No (ECF) - Nursing Vital Signs Nursing Vital Signs: Initial Vital Signs Pulse Rate 91 H 01/03/23 08:45 Respiratory Rate 18 01/03/23 08:45 Blood Pressure 136/67 01/03/23 08:45 Pain Scale Pain Intensity 0 - Physical Exam General Appearance: severe distress, lethargy Eye Exam: scleral icterus, pale conjunctivae Ears, Nose, Throat Exam: dry mucous membranes Neck Exam: non-tender Respiratory Exam: diminished breath sounds Cardiovascular Exam: regular rate/rhythm Gastrointestinal/Abdomen Exam: soft, normal bowel sounds Pelvic Exam: not done Rectal Exam: deferred Back Exam: normal inspection Extremity Exam: normal inspection Neurologic Exam: other (confused) Skin Exam: dry SpO2 Interpretation: normal SpO2: 94 O2 Delivery: Room Air - Course Nursing assessment & vital signs reviewed: Yes EKG Interpreted by Me: Sinus Rhythm - Radiology Exams Chest X-ray Interpretation: Reviewed by me Ordered Tests: Active Orders 24 hr Category Date Time Status EKG-ER Only STAT Care 01/03/23 08:48 Active ABDOMEN AND PELVIS W/0 CONTRAS [CT] Stat Exams 01/03/23 10:27 Completed AMYLASE Stat Lab 01/03/23 08:52 Completed BLOOD CULTURE Stat Lab 01/03/23 09:07 Received CBC W DIFF Stat Lab 01/03/23 09:00 Completed CMP Stat Lab 01/03/23 08:52 Completed CULTURE,URINE Stat Lab 01/03/23 08:52 Received LIPASE Stat Lab 01/03/23 08:52 Completed Lactic Acid Urgent Lab 01/03/23 09:15 Completed MAGNESIUM Stat Lab 01/03/23 08:52 Completed UA W/RFX UR CULTURE Stat Lab 01/03/23 08:52 Completed Urine Triage Profile Stat Lab 01/03/23 08:52 Completed Transfer Order Routine Transfer 01/03/23 Ordered Medication Summary Generic Name Dose Route Start Last Admin Trade Name Freq PRN Reason Stop Dose Admin Sodium Chloride 1,000 mls @ 999 mls/hr 01/03/23 08:45 01/03/23 10:40 Sodium Chloride 0.9% 1000 Ml IV 01/03/23 11:45 0 mls/hr .Q1H1M PIA Infusion Discontinued Medications Generic Name Dose Route Start Last Admin Trade Name Freq PRN Reason Stop Dose Admin Meropenem 1 gm/ Sodium 100 mls @ 200 mls/hr 01/03/23 08:55 01/03/23 09:15 Chloride IV 01/03/23 09:24 200 mls/hr STAT ONE Administration Sodium Chloride Confirm 01/03/23 09:07 Sodium Chloride 100ml Mini-Bag Plus Administered 01/03/23 09:08 Dose 100 mls @ ud IV .STK-MED ONE Meropenem Confirm 01/03/23 09:06 Meropenem 1 Gm Vial Administered 01/03/23 09:07 Dose 1 gm IV .STK-MED ONE Lab/Rad Data: Laboratory Result Diagrams 01/03/23 09:00 01/03/23 08:52 Laboratory Results 01/03/23 01/03/23 01/03/23 Range/Units 09:15 09:00 08:52 WBC 19.4 H (4.0-10.5) x10^3/uL RBC 3.65 L (4.1-5.4) x10^6/uL Hgb 10.9 L (12.0-16.0) g/dL Hct 33.4 L (35-47) % MCV 91.5 (78-100) fL MCH 29.9 (26-32) pg MCHC 32.6 (32-36) g/dL RDW 18.6 H (11.5-14.0) % Plt Count 152 (150-450) x10^3/uL MPV 11.5 H (7.5-11.0) fL Gran % 82.2 H (36.0-66.0) % Immature Gran % (Auto) 0.8 H (0.00-0.4) % Nucleat RBC Rel Count 0.0 (0.00-0.1) % Eos # (Auto) 0.41 (0-0.5) x10^3/uL Immature Gran # (Auto) 0.15 H (0.00-0.03) x10^3u/L Absolute Lymphs (auto) 2.13 (1.0-4.6) x10^3/uL Absolute Monos (auto) 0.72 (0.0-1.3) x10^3/uL Absolute Nucleated RBC 0.00 (0.00-0.01) x10^3u/L Lymphocytes % 11.0 L (24.0-44.0) % Monocytes % 3.7 (0.0-12.0) % Eosinophils % 2.1 (0.00-5.0) % Basophils % 0.2 (0.0-0.4) % Absolute Granulocytes 15.91 H (1.4-6.9) x10^3/uL Basophils # 0.04 (0-0.4) x10^3/uL Sodium 141 (137-145) mmol/L Potassium 4.2 (3.5-5.1) mmol/L Chloride 101 (98-107) mmol/L Carbon Dioxide 25 (22-30) mmol/L Anion Gap 19.4 H (5-15) MEQ/L BUN 92 H (7-17) mg/dL Creatinine 3.36 H (0.52-1.04) mg/dL Estimated GFR 14.9 ML/MIN Glucose 205 H (74-106) mg/dL Lactic Acid 1.4 (0.4-2.0) Calcium 9.3 (8.4-10.2) mg/dL Magnesium 2.0 (1.6-2.3) mg/dL Total Bilirubin 0.50 (0.2-1.3) mg/dL AST 25 (14-36) U/L ALT 15 (0-35) U/L Alkaline Phosphatase 126 (38-126) U/L Serum Total Protein 7.3 (6.3-8.2) g/dL Albumin 3.5 (3.5-5.0) g/dL Amylase 42 (30-110) U/L Lipase 42 (23-300) U/L Urine Color (Yellow) Urine Appearance (Clear) Urine pH (4.6-8.0) Ur Specific [place] (1.005-1.030) Urine Protein (Negative) Urine Glucose (UA) (Negative) mg/dL Urine Ketones (Negative) Urine Blood (Negative) Urine Nitrite (Negative) Urine Bilirubin (Negative) Urine Urobilinogen (0.2) mg/dL Ur Leukocyte Esterase (Negative) Urine Microscopic RBC (0-5) /HPF Urine Microscopic WBC (0-5) /HPF Ur Epithelial Cells (None Seen) /HPF Urine Bacteria (None Seen) /HPF Urine Culture Reflexed (NO) Urine Opiates Level (NEGATIVE) Ur Methadone (NEGATIVE) Urine Barbiturates (NEGATIVE) Ur Phencyclidine (PCP) (NEGATIVE) Urine Amphetamine (NEGATIVE) U Benzodiazepine Level (NEGATIVE) Urine Cocaine (NEGATIVE) Urine Marijuana (THC) (NEGATIVE) 01/03/23 01/03/23 Range/Units 08:52 08:52 WBC (4.0-10.5) x10^3/uL RBC (4.1-5.4) x10^6/uL Hgb (12.0-16.0) g/dL Hct (35-47) % MCV (78-100) fL MCH (26-32) pg MCHC (32-36) g/dL RDW (11.5-14.0) % Plt Count (150-450) x10^3/uL MPV (7.5-11.0) fL Gran % (36.0-66.0) % Immature Gran % (Auto) (0.00-0.4) % Nucleat RBC Rel Count (0.00-0.1) % Eos # (Auto) (0-0.5) x10^3/uL Immature Gran # (Auto) (0.00-0.03) x10^3u/L Absolute Lymphs (auto) (1.0-4.6) x10^3/uL Absolute Monos (auto) (0.0-1.3) x10^3/uL Absolute Nucleated RBC (0.00-0.01) x10^3u/L Lymphocytes % (24.0-44.0) % Monocytes % (0.0-12.0) % Eosinophils % (0.00-5.0) % Basophils % (0.0-0.4) % Absolute Granulocytes (1.4-6.9) x10^3/uL Basophils # (0-0.4) x10^3/uL Sodium (137-145) mmol/L Potassium (3.5-5.1) mmol/L Chloride (98-107) mmol/L Carbon Dioxide (22-30) mmol/L Anion Gap (5-15) MEQ/L BUN (7-17) mg/dL Creatinine (0.52-1.04) mg/dL Estimated GFR ML/MIN Glucose (74-106) mg/dL Lactic Acid (0.4-2.0) Calcium (8.4-10.2) mg/dL Magnesium (1.6-2.3) mg/dL Total Bilirubin (0.2-1.3) mg/dL AST (14-36) U/L ALT (0-35) U/L Alkaline Phosphatase (38-126) U/L Serum Total Protein (6.3-8.2) g/dL Albumin (3.5-5.0) g/dL Amylase (30-110) U/L Lipase (23-300) U/L Urine Color Other A (Yellow) Urine Appearance Turbid A (Clear) Urine pH 5.5 (4.6-8.0) Ur Specific [place] 1.015 (1.005-1.030) Urine Protein 100 A (Negative) Urine Glucose (UA) Negative (Negative) mg/dL Urine Ketones Trace A (Negative) Urine Blood Moderate A (Negative) Urine Nitrite Positive A (Negative) Urine Bilirubin Negative (Negative) Urine Urobilinogen 0.2 (0.2) mg/dL Ur Leukocyte Esterase Large A (Negative) Urine Microscopic RBC 6-10 A (0-5) /HPF Urine Microscopic WBC >100 A (0-5) /HPF Ur Epithelial Cells Moderate A (None Seen) /HPF Urine Bacteria Many A (None Seen) /HPF Urine Culture Reflexed ORDERED SEPARATELY (NO) Urine Opiates Level NEGATIVE (NEGATIVE) Ur Methadone NEGATIVE (NEGATIVE) Urine Barbiturates POSITIVE (NEGATIVE) Ur Phencyclidine (PCP) NEGATIVE (NEGATIVE) Urine Amphetamine NEGATIVE (NEGATIVE) U Benzodiazepine Level NEGATIVE (NEGATIVE) Urine Cocaine NEGATIVE (NEGATIVE) Urine Marijuana (THC) NEGATIVE (NEGATIVE) CT/ABDOMEN AND PELVIS W/0 CONTRAS CLINICAL HISTORY:pyurea, abdominal pain COMPARISON:CT dated 01/25/2019. TECHNIQUE:CT scan of the abdomen and pelvis without intravenous contrast administration was performed. Coronal and sagittal reconstructions were also obtained. FINDINGS: Mild enlarged liver measuring about 18.3 cm in craniocaudal axis, shows regular contour and homogeneous texture with no focal lesion could be detected on non-contrast basis. No intra hepatic biliary radical dilatation. The GB is surgically removed. The spleen is of average size and shape with homogeneous parenchyma and no focal lesion could be noted on non-contrast basis. Both kidneys are of normal size, shape and parenchymal thickness with no stones, back pressure changes on non-contrast basis. There is a focal bulge at the lower pole of the left kidney which measures 4.2 x 3.5 cm and average density of 30 HU. There is a cyst superior to this lesion measuring 1.5 cm in diameter. A smaller focal bulge at the medial aspect of the right kidney measuring 1.5 x 1 cm. Mild perinephric fat stranding around both kidneys probably physiological changes. The other retroperitoneal structures including the pancreas and adrenal glands are grossly within normal limits. No significant lymph lisa enlargement or ascitic fluid collection. The uterus, both adnexa and ischiorectal fossae show normal CT appearance. Inadequate filling of the urinary bladder with no stones, masses, or diverticula. A hays catheter is seen inside. Intraluminal air locules likely post intervention. A calcified lesion is noted within the pelvic cavity could be calcified lymph node. Small fat-containing umbilical hernia Bone window settings showed no evidence of fractures or destructive lesions. Degenerative changes seen in the visualized spine. Lung window settings showed mild right pleural effusion/thickening and peribronchial thickening. IMPRESSION: 1. Limited organ parenchymal evaluation within the limitations of non-contrast study. 2. No evidence of renal stones or hydronephrosis. 3. Right renal focal bulge which could be a cyst. A new finding. 4. Left renal focal bulge which has increased since the last study could be complex cyst versus mass and requires further evaluation by post contrast CT. 5. Left renal cyst. 6. The previously seen right hepatic focal lesion is not visualized in this study likely due to lack of intravenous contrast administration. - Progress Progress: unchanged Discussed with DrFlorian: Sharita Counseled pt/family regarding: lab results, diagnosis, need for follow-up, rad results Medical Desision Making - Discussion of managment Care discussed with:: hospitalist Reviewed:: Test results, Need for additional workup Agreed on:: Treatment plan, decision to admit, place in obs - Diagnostic Testing Diagnostic test were ordered, analyzed, and reviewed by me: Yes Radiological Interpretation: Teleradiologist Report - Risk of complications The pt has a high risk of morbidity or mortality based on: Drug therapy requiring intensive monitoring for toxicity, Decision regarding hospitilization or escalation of hosp level of care - Departure Departure Disposition: Observation Clinical Impression: Pyelonephritis Condition: Fair Critical Care Time: Yes Critical Care Time(excluding separately billable procedures): Critical 30-74 mins Referrals: CARRIE ALVARADO [Primary Care Provider] - Follow up/PCP as directed Additional Instructions: Discharge/Care Plan CHRIS BOONE was seen on 01/03/23 in the Emergency Room. The patient was counseled regarding Diagnosis,Lab results, Imaging studies, need for follow up and when to return to the Emergency Room. Prescriptions given: Discharge Note I have spoken with the patient and/or caregivers. I have explained the patient's condition, diagnosis and treatment plan based on the information available to me at this time. I have answered the patient's and/or caregiver's questions and addressed any concerns. The patient and/or caregivers have as good understanding of the patient's diagnosis, condition and treatment plan as can be expected at this point. The vital signs have been stable. The patient's condition is stable and appropriate for discharge from the emergency department. The patient will pursue further outpatient evaluation with the primary care physician or other designated or consulting physician as outlined in the discharge instructions. The patient and/or caregivers are agreeable to this plan of care and follow-up instructions have been explained in detail. The patient and/or caregivers have received these instruction. The patient/and or caregivers are aware that any significant change in condition or worsening of symptoms should prompt an immediate return to this or the closest emergency department or call 911. CHRIS BOONE was seen on 01/03/23 n the Emergency Room. At that time you were treated for an emergent condition, during your visit Laboratory, Radiology and/or other procedures may have been ordered. It is very important that you follow-up with your Primary Care Physician DILLON within the next 24-48 hours to review your Emergency Room visit and the final results of testing that was ordered. Some test results such as Urine Cultures, Blood Cultures, and other cultures if ordered will not be finalized for 24-48 hours. If you do not have a Primary Care Provider please call the medical records department at [phone] ext [phone] to obtain a copy of your results or you may sign into our patient portal to obtain these results by visiting us @ [email or web address] and completing the following steps: 1. Click on the Patient Portal link 2. Click the Patient Self Enrollment Link to complete the enrollment form and entering your 3. Once the enrollment form is completed you will receive an email with a temporary ID and password at the email address you provided. 4. Next choose a user name and password. Your user name must be at least 4 characters long and your password must be at least 4 characters long. 5. Choose a security question from the list and provide your answer to the qu estion. If you already have signed into the Health Portal you may access your Health C are Information 20/10 by the following steps: 1. Login to our website @ [email or web address] 2. Enter your original user name and password. FAQS The [facility] Health Portal is an online tool that contains your Lab Results, Radiology Reports, Visit History, Discharge Instructions and Health Summary Lab and Radiology Results will not be available for 72 hours on the portal. The Portal is a secure site, passwords are encryted and URLs are re-written so they cannot be copied and pasted. You and authorized family members are the only ones who can access your Portal. Also there is a timeout feature that protects your information if you leave the Portal page open. If you have technical difficulty please use the Contact Us link on the page this will allow you to submit any questions you have regarding the Portal or you may contact the Medical Record Department at [phone] ext [phone].
[2023-01-03] MEDS ORDERED: Sodium Chloride 0.9% 1000 ML 1,000 ML ONE (09:36)
[2023-01-03 09:54] LABS: WBC >100 /HPF (0-5)
[2023-01-03 09:55] LABS: ADD URINE CULTURE? ORDERED SEPARATELY (NO); Bacteria Many /HPF (None Seen); Epithelial Cells Moderate /HPF (None Seen)
[2023-01-03 10:15] LABS: Amphetamine,Urine NEGATIVE (NEGATIVE); Barbiturate,Urine POSITIVE (NEGATIVE); Benzodiazepine,Urine NEGATIVE (NEGATIVE); Cocaine,Urine NEGATIVE (NEGATIVE); Methadone,Urine NEGATIVE (NEGATIVE); Opiate,Urine NEGATIVE (NEGATIVE); PCP,Urine NEGATIVE (NEGATIVE); THC,Urine NEGATIVE (NEGATIVE)
--- NOTE | 2023-01-03 12:08 | XRAY ---
CLINICAL HISTORY:pyurea, abdominal pain COMPARISON:CT dated 01/25/2019. TECHNIQUE:CT scan of the abdomen and pelvis without intravenous contrast administration was performed. Coronal and sagittal reconstructions were also obtained. FINDINGS: Mild enlarged liver measuring about 18.3 cm in craniocaudal axis, shows regular contour and homogeneous texture with no focal lesion could be detected on non-contrast basis. No intra hepatic biliary radical dilatation. The GB is surgically removed. The spleen is of average size and shape with homogeneous parenchyma and no focal lesion could be noted on non-contrast basis. Both kidneys are of normal size, shape and parenchymal thickness with no stones, back pressure changes on non-contrast basis. There is a focal bulge at the lower pole of the left kidney which measures 4.2 x 3.5 cm and average density of 30 HU. There is a cyst superior to this lesion measuring 1.5 cm in diameter. A smaller focal bulge at the medial aspect of the right kidney measuring 1.5 x 1 cm. Mild perinephric fat stranding around both kidneys probably physiological changes. The other retroperitoneal structures including the pancreas and adrenal glands are grossly within normal limits. No significant lymph lisa enlargement or ascitic fluid collection. The uterus, both adnexa and ischiorectal fossae show normal CT appearance. Inadequate filling of the urinary bladder with no stones, masses, or diverticula. A hays catheter is seen inside. Intraluminal air locules likely post intervention. A calcified lesion is noted within the pelvic cavity could be calcified lymph node. Small fat-containing umbilical hernia Bone window settings showed no evidence of fractures or destructive lesions. Degenerative changes seen in the visualized spine. Lung window settings showed mild right pleural effusion/thickening and peribronchial thickening. IMPRESSION: 1. Limited organ parenchymal evaluation within the limitations of non-contrast study. 2. No evidence of renal stones or hydronephrosis. 3. Right renal focal bulge which could be a cyst. A new finding. 4. Left renal focal bulge which has increased since the last study could be complex cyst versus mass and requires further evaluation by post contrast CT. 5. Left renal cyst. 6. The previously seen right hepatic focal lesion is not visualized in this study likely due to lack of intravenous contrast administration. Electronically Signed by: Pepper Humphrey MD. (01/03/2023 11:06:08 COMMODITY DIRECTOR)
[2023-01-03] MEDS ORDERED: VANCOMYCIN 1 GRAM/200 ML BAG 1 GM/200 ML PIGGYBACK IV SCH (12:14)
--- NOTE | 2023-01-03 12:23 | PCM.HP ---
History of Present Illness - Chief Complaint Chief Complaint: pyelonephritis Date: 01/03/23 History of Present Illness: is a 57 year old female with pmhx of HLD, HTN, Asthma, DM type II, anxiety, depression, IBS, GERD, and schizophrenia that presented to ER 01/03/23 via EMS from the [facility] with altered mentation for the past week. Poor historian. Patient is able to state her name and where she is. She also endorses back pain but unable to elaborate. Being admitted for sepsis secondary to pyeolonephrilitis, and acute on chronic kidney failure. In ER, patient mildly tachycardic, abfebrile, normotensive, and spo2 @ 93% on RA. CT findings limited due to non-contrast imaging in the setting of JEFFREY, noting no evidence of renal stones or hydronephrosis, right renal focal bulge which could be a cyst. A new finding.Left renal focal bulge which has increased since the last study could be complex cyst versus mass and requires further evaluation by post contrast CT. Left renal cyst. The previously seen right hepatic focal lesion is not visualized in this study likely due to lack of intravenous contrast administration Lab findings notable for leukocytosis with WBC at 19.4, Hgb at 10.9 (near baseline of 11.0), GAP at 19.4, JEFFREY with creat of 3.36 (baseline around 1.1-1.2), urinalysis suspicious for infection. Respiratory panel negative. Lactic acid WNL. Patient given Merropenem/vanc and fluid bolus of 2.8L. - Review of Systems Musculoskeletal: Back Pain All Other Systems: Unable due to condition Medications & Allergies Home Medications: Home Medication List Gabapentin 300 mg PO TID 06/14/19 [History Confirmed 01/03/23] Metoprolol Succinate 12.5 mg PO DAILY 02/08/20 [History Confirmed 01/03/23] Divalproex Sodium [Divalproex Sodium ER] 500 mg PO DAILY 11/06/22 [History Confirmed 01/03/23] Ergocalciferol (Vitamin D2) [Vitamin D2] 50,000 unit PO WEEKLY 11/06/22 [History Confirmed 01/03/23] Famotidine 40 mg PO DAILY 11/06/22 [History Confirmed 01/03/23] Levothyroxine Sodium 25 Mcg [Synthroid 25 Mcg] 25 mcg PO DAILY 11/06/22 [History Confirmed 01/03/23] Oxybutynin Chloride [Oxybutynin Chloride ER] 15 mg PO DAILY 11/06/22 [History Confirmed 01/03/23] Primidone [Mysoline] 250 mg PO TID 11/06/22 [History Confirmed 01/03/23] Venlafaxine HCl ER 75 mg [Effexor XR 75 MG] 75 mg PO DAILY 11/06/22 [History Confirmed 01/03/23] Alogliptin Benzoate [Alogliptin] 25 mg PO DAILY 01/03/23 [History Confirmed 01/03/23] Atorvastatin Calcium 20 mg PO HS 01/03/23 [History Confirmed 01/03/23] Carboxymethylcellulose Sodium [Refresh Plus] 1 each OP TID 01/03/23 [History Confirmed 01/03/23] Cholecalciferol (Vitamin D3) [Vitamin D] 1,000 unit PO DAILY 01/03/23 [History Confirmed 01/03/23] Escitalopram Oxalate [Lexapro] 10 mg PO DAILY 01/03/23 [History Confirmed 01/03/23] Ibuprofen [IBUPROFEN 400 MG TABLET] 400 mg PO TID 01/03/23 [History Confirmed 01/03/23] Montelukast Sodium 10 mg [Singulair 10 MG] 10 mg PO DAILY 01/03/23 [History Confirmed 01/03/23] Paliperidone Palmitate [Invega Sustenna] 117 mg IM UD 01/03/23 [History Confirmed 01/03/23] Petrolatum,White [Aquaphor] 1 applic TOP DAILY 01/03/23 [History Confirmed 01/03/23] risperiDONE [Risperdal] 0.5 mg PO BID 01/03/23 [History Confirmed 01/03/23] Allergies/Adverse Reactions: Allergies Allergy/AdvReac Type Severity Reaction Status Date / Time hydrocodone [From Vicodin] Allergy Intermediate Rash Verified 01/03/23 09:42 lurasidone [From Latuda] Allergy Intermediate Rash Verified 01/03/23 09:42 - Past Medical History Past Medical History: Yes Neurological History: Other ENT History: No Pertinent History Cardiac History: High Cholesterol, Hypertension, Other Respiratory History: Asthma Endocrine Medical History: Diabetes Type II Musculoskelatal History: Arthritis GI Medical History: GERD History: Other Pyscho-Social History: Anxiety, Depression Reproductive Disorders: No Pertinent History Comment: SCHIZOPHRENIA, MITRAL VALVE REGURGITATION, TACHYCARDIA, OBESITY, HYPOMAGNESIUM, ACID REFLUX, IRRITABLE BOWEL SYNDROME, RESTING TREMORS (PER PATIENT RELATED TO PSYCHIATRIC MEDS - -CHANGED MEDS BUT NO CHANGE IN TREMORS). SX HX: CERVICAL FUSION 2 LEVELS, CHOLECYSTECTOMY, APPENDECTOMY, - Past Surgical History Past Surgical History: Yes Neuro Surgical History: No Pertinent History Cardiac History: Cardiac Catheterization Respiratory Surgery: No Pertinent History GI Surgical History: Appendectomy, Cholecystectomy Genitourinary Surgical Hx: No Pertinent History Musculskeletal Surgical Hx: Other Female Surgical History: Section, Tubal Ligation Other Surgical History: NECK SURGERY WITH DISC REPAIR. C- Section x 2 - Social History Smoking Status: Never smoker Exposure to second hand smoke: No Alcohol: None Drug Use: none - Physical Exam Vital Signs: Vital Signs - 24 hr Temp Pulse Resp BP BP Pulse Ox 01/03/23 12:13 94 L 01/03/23 11:30 88 12 124/88 96 01/03/23 11:14 88 15 128/97 94 L 01/03/23 10:30 85 14 96/77 93 L 01/03/23 10:00 83 21 111/55 93 L 01/03/23 09:36 97.0 F 85 14 99/70 99/7 91 L 01/03/23 09:35 88 16 01/03/23 09:32 91 H 15 01/03/23 08:53 94 H 16 136/67 94 L 01/03/23 08:45 91 H 18 136/67 General Appearance: mild distress Neurologic Exam: confusion, other (Orientated to Self and place. Slow to respond.) Eye Exam: PERRL/EOMI Ears, Nose, Throat Exam: normal ENT inspection Neck Exam: normal inspection Respiratory Exam: crackles/rales Cardiovascular Exam: regular rate/rhythm, normal heart sounds Gastrointestinal/Abdomen Exam: soft, normal bowel sounds Back Exam: normal inspection Extremity Exam: normal inspection Skin Exam: pale Additional Findings: 01/03/23 12:31 Patient with F/C with milky-brown urine noted in bag Results - Labs Lab/Micro Results: Lab Results-Last 24 Hours 01/03/23 01/03/2301/03/23 Range/Units 08:52 08:52 08:52 WBC (4.0-10.5) x10^3/uL RBC (4.1-5.4) x10^6/uL Hgb (12.0-16.0) g/dL Hct (35-47) % MCV (78-100) fL MCH (26-32) pg MCHC (32-36) g/dL RDW (11.5-14.0) % Plt Count (150-450) x10^3/uL MPV (7.5-11.0) fL Gran % (36.0-66.0) % Immature Gran % (Auto) (0.00-0.4) % Nucleat RBC Rel Count (0.00-0.1) % Eos # (Auto) (0-0.5) x10^3/uL Immature Gran # (Auto) (0.00-0.03) x10^3u/L Absolute Lymphs (auto) (1.0-4.6) x10^3/uL Absolute Monos (auto) (0.0-1.3) x10^3/uL Absolute Nucleated RBC (0.00-0.01) x10^3u/L Lymphocytes % (24.0-44.0) % Monocytes % (0.0-12.0) % Eosinophils % (0.00-5.0) % Basophils % (0.0-0.4) % Absolute Granulocytes (1.4-6.9) x10^3/uL Basophils # (0-0.4) x10^3/uL Sodium 141 (137-145) mmol/L Potassium 4.2 (3.5-5.1) mmol/L Chloride 101 (98-107) mmol/L Carbon Dioxide 25 (22-30) mmol/L Anion Gap 19.4 H (5-15) MEQ/L BUN 92 H (7-17) mg/dL Creatinine 3.36 H (0.52-1.04) mg/dL Estimated GFR 14.9 ML/MIN Glucose 205 H (74-106) mg/dL Lactic Acid (0.4-2.0) Calcium 9.3 (8.4-10.2) mg/dL Magnesium 2.0 (1.6-2.3) mg/dL Total Bilirubin 0.50 (0.2-1.3) mg/dL AST 25 (14-36) U/L ALT 15 (0-35) U/L Alkaline Phosphatase 126 (38-126) U/L Serum Total Protein 7.3 (6.3-8.2) g/dL Albumin 3.5 (3.5-5.0) g/dL Amylase 42 (30-110) U/L Lipase 42 (23-300) U/L Urine Color Other A (Yellow) Urine Appearance Turbid A (Clear) Urine pH 5.5 (4.6-8.0) Ur Specific [place] 1.015 (1.005-1.030) Urine Protein 100 A (Negative) Urine Glucose (UA) Negative (Negative) mg/dL Urine Ketones Trace A (Negative) Urine Blood Moderate A (Negative) Urine Nitrite Positive A (Negative) Urine Bilirubin Negative (Negative) Urine Urobilinogen 0.2 (0.2) mg/dL Ur Leukocyte Esterase Large A (Negative) Urine Microscopic RBC 6-10 A (0-5) /HPF Urine Microscopic WBC >100 A (0-5) /HPF Ur Epithelial Cells Moderate A (None Seen) /HPF Urine Bacteria Many A (None Seen) /HPF Urine Culture Reflexed ORDERED SEPARATELY (NO) Urine Opiates Level NEGATIVE (NEGATIVE) Ur Methadone NEGATIVE (NEGATIVE) Urine Barbiturates POSITIVE (NEGATIVE) Ur Phencyclidine (PCP) NEGATIVE (NEGATIVE) Urine Amphetamine NEGATIVE (NEGATIVE) U Benzodiazepine Level NEGATIVE (NEGATIVE) Urine Cocaine NEGATIVE (NEGATIVE) Urine Marijuana (THC) NEGATIVE (NEGATIVE) 01/03/23 01/03/23 Range/Units 09:00 09:15 WBC 19.4 H (4.0-10.5) x10^3/uL RBC 3.65 L (4.1-5.4) x10^6/uL Hgb 10.9 L (12.0-16.0) g/dL Hct 33.4 L (35-47) % MCV 91.5 (78-100) fL MCH 29.9 (26-32) pg MCHC 32.6 (32-36) g/dL RDW 18.6 H (11.5-14.0) % Plt Count 152 (150-450) x10^3/uL MPV 11.5 H (7.5-11.0) fL Gran % 82.2 H (36.0-66.0) % Immature Gran % (Auto) 0.8 H (0.00-0.4) % Nucleat RBC Rel Count 0.0 (0.00-0.1) % Eos # (Auto) 0.41 (0-0.5) x10^3/uL Immature Gran # (Auto) 0.15 H (0.00-0.03) x10^3u/L Absolute Lymphs (auto) 2.13 (1.0-4.6) x10^3/uL Absolute Monos (auto) 0.72 (0.0-1.3) x10^3/uL Absolute Nucleated RBC 0.00 (0.00-0.01) x10^3u/L Lymphocytes % 11.0 L (24.0-44.0) % Monocytes % 3.7 (0.0-12.0) % Eosinophils % 2.1 (0.00-5.0) % Basophils % 0.2 (0.0-0.4) % Absolute Granulocytes 15.91 H (1.4-6.9) x10^3/uL Basophils # 0.04 (0-0.4) x10^3/uL Sodium (137-145) mmol/L Potassium (3.5-5.1) mmol/L Chloride (98-107) mmol/L Carbon Dioxide (22-30) mmol/L Anion Gap (5-15) MEQ/L BUN (7-17) mg/dL Creatinine (0.52-1.04) mg/dL Estimated GFR ML/MIN Glucose (74-106) mg/dL Lactic Acid 1.4 (0.4-2.0) Calcium (8.4-10.2) mg/dL Magnesium (1.6-2.3) mg/dL Total Bilirubin (0.2-1.3) mg/dL AST (14-36) U/L ALT (0-35) U/L Alkaline Phosphatase (38-126) U/L Serum Total Protein (6.3-8.2) g/dL Albumin (3.5-5.0) g/dL Amylase (30-110) U/L Lipase (23-300) U/L Urine Color (Yellow) Urine Appearance (Clear) Urine pH (4.6-8.0) Ur Specific [place] (1.005-1.030) Urine Protein (Negative) Urine Glucose (UA) (Negative) mg/dL Urine Ketones (Negative) Urine Blood (Negative) Urine Nitrite (Negative) Urine Bilirubin (Negative) Urine Urobilinogen (0.2) mg/dL Ur Leukocyte Esterase (Negative) Urine Microscopic RBC (0-5) /HPF Urine Microscopic WBC (0-5) /HPF Ur Epithelial Cells (None Seen) /HPF Urine Bacteria (None Seen) /HPF Urine Culture Reflexed (NO) Urine Opiates Level (NEGATIVE) Ur Methadone (NEGATIVE) Urine Barbiturates (NEGATIVE) Ur Phencyclidine (PCP) (NEGATIVE) Urine Amphetamine (NEGATIVE) U Benzodiazepine Level (NEGATIVE) Urine Cocaine (NEGATIVE) Urine Marijuana (THC) (NEGATIVE) - Radiology Impressions Radiology Exams & Impressions: Radiology Procedures Category Date Time Status ABDOMEN AND PELVIS W/0 CONTRAS [CT] Stat Exams 01/03/23 10:27 Completed Assessment/Plan (1) Sepsis Current Visit: Yes Status: Acute Assessment & Plan: -Most likely secondary to UTI vs pyelonephritis -Sepsis criteria identified 01/03/23 -Patient has received 3L for fluid resuscitation -IVF at 100ml/hr, monitor for fluid overload -Blood cultures x2 ordered -CXR -Procal -Antibiotics started: Merrem/vanc in ER, will continue with merrem/zosyn -Lactate drawn and wnl -Will admin vasopressors is hypotensive after IV admin (MAP <65 or SBP <90). -Supplemental oxyen as needed to maintain SpO2 -Consider CT head if AMS does not improve -CT ab/pelvis as stated in HPI (2) UTI (urinary tract infection) Current Visit: Yes Status: Acute Assessment & Plan: -NS at 100ml/hr -Continue Merrem/zosyn -Blood and urine cultures pending, will follow and adjust abx as appropriate Code(s): N39.0 - URINARY TRACT INFECTION, SITE NOT SPECIFIED (3) Acute on chronic renal failure Current Visit: Yes Status: Acute Assessment & Plan: - Cr: compared to baseline 3.3; BUN 92, baseline creat at 1.1-1.2 - Pre-renal most likely secondary to hypovolemia - IVF -D/c nephrotoxic agents ACEI's/ARBs/NSAIDS/Diurectics -Monitor renal/lytes daily with strict I&O, renal dosing medications Code(s): N17.9 - ACUTE KIDNEY FAILURE, UNSPECIFIED; N18.9 - CHRONIC KIDNEY DISEASE, UNSPECIFIED (4) Diabetes mellitus type 2 in obese Current Visit: Yes Status: Acute Assessment & Plan: -Most recent a1c on 12/17 at 7.16 -Moderate dose SSI/ Accuchecks -Low carb diet Code(s): E11.69 - TYPE 2 DIABETES MELLITUS WITH OTHER SPECIFIED COMPLICATION; E66.9 - OBESITY, UNSPECIFIED (5) Pyelonephritis Current Visit: Yes Status: Acute Assessment & Plan: -see uti/sepsis Code(s): N12 - TUBULO-INTERSTITIAL NEPHRITIS, NOT SPCF ACUTE OR CHRONIC (6) Schizophrenia Current Visit: No Status: Acute Qualifiers: Schizophrenia type: unspecified Qualified Code(s): F20.9 - Schizophrenia, unspecified Assessment & Plan: -Continue home meds, pharm consult for renal dosing Code(s): F20.9 - SCHIZOPHRENIA, UNSPECIFIED (7) Weakness Current Visit: No Status: Acute Assessment & Plan: -PT/OT eval Code(s): R53.1 - WEAKNESS (8) Acute adjustment disorder with depressed mood Current Visit: No Status: Chronic Assessment & Plan: -Continue home meds, pharm consulted for renal dosing all medications Code(s): F43.21 - ADJUSTMENT DISORDER WITH DEPRESSED MOOD
[2023-01-03] MEDS ORDERED: Zofran 4 MG/2 ML VIAL IV PRN (12:42)
[2023-01-03] MEDS ORDERED: TYLENOL 325 MG PO PRN (12:42)
[2023-01-03] MEDS ORDERED: DUONEB 0.5-3 MG/3 ml Neb IH PRN (12:42)
[2023-01-03] MEDS ORDERED: PALIPERIDONE PALMITATE 117 MG/0.75 ML IM SCH (13:00)
[2023-01-03] MEDS: Lactated Ringers 1,000 ML IV SCH (13:08)
[2023-01-03] MEDS: VANCOCIN 500 MG VIAL*** 500 MG in Sodium Chloride 100ML MINI-BAG PLUS 100 ML IV SCH (13:08)
[2023-01-03] MEDS ORDERED: PHARMACY RENAL DOSING MC ONE (13:30)
--- NOTE | 2023-01-03 13:38 | XRAY ---
CLINICAL HISTORY:sob COMPARISON:X-ray dated 11/08/2022. TECHNIQUE:X-ray of the chest showing 1 view: AP upright view. FINDINGS: Probable infiltrates in the right lower lobe. Faint nodular opacity is seen in right mid zone. Right costophrenic angle is not clearly delineated. Normal configuration of the mediastinum. The glendy are normal in size and position. The cardiac size is normal. Bony thorax is unremarkable. Metallic densities are seen projected over the lower cervical spine likely due to prior intervention. Degenerative changes seen in both shoulder joints. IMPRESSION: 1. Probable infiltrates in the right lower lobe. Clinical correlation and follow-up are suggested. 2. Blurred right costophrenic angle probably representing mild pleural effusion. 3. Faint nodular opacity in the right mid zone. CT chest may be recommended for further evaluation. Electronically Signed by: Pepper Humphrey MD. (01/03/2023 12:36:31 [employer])
[2023-01-03] MEDS: Neurontin PO SCH ×2 (13:53→21:40)
[2023-01-03] MEDS ORDERED: MEDICATION INTERVENTION MC SCH ×2 (14:00)
[2023-01-03] MEDS ORDERED: CARBOXYMETHYLCELLULOSE SODIUM OP SCH (15:00)
[2023-01-03] MEDS ORDERED: DROPERETTE OP SCH (15:00)
[2023-01-03] MEDS ORDERED: NON-FORMULARY ITEM (Primidone [Mysoline] 250 MG Tablet) PO SCH (15:00)
[2023-01-03 16:15] LABS: ANION GAP 12.3 MEQ/L (5-15); Calcium 8.6 mg/dL (8.4-10.2); Creatinine 1 2.5 mg/dL (0.52-1.04); Potassium 3.9 mmol/L (3.5-5.1)
[2023-01-03] MEDS: ZOCOR 20MG PO SCH (21:40)
[2023-01-03] MEDS: Risperdal 1 MG PO SCH (21:40)
[2023-01-03] MEDS: MYSOLINE 50MG PO SCH (21:40)
[2023-01-03] MEDS: Merrem 1 GM in Sodium Chloride 100ML MINI-BAG PLUS 100 ML IV SCH (21:40)
[2023-01-03] MEDS ORDERED: NON-FORMULARY ITEM (Risperidone [Risperdal] 0.5 MG Tablet) PO SCH (22:00)
[2023-01-03] MEDS ORDERED: NON-FORMULARY ITEM (Atorvastatin Calcium [Atorvastatin Calcium] 20 MG Tablet) PO SCH (22:00)
[2023-01-04] MEDS: Lactated Ringers 1,000 ML IV SCH (03:19)
[2023-01-04] MEDS ORDERED: Hydromorphone 1 mg/ml Injection IV ONE (03:25)
[2023-01-04 05:18] LABS: Hematocrit 31.7 % (35-47); Hemoglobin 10.1 g/dL (12.0-16.0); Mean Cell Volume 92.7 fL (78-100); Mean Corpuscular Hemoglobin 29.5 pg (26-32); Mean Corpuscular Hgb Concent. 31.9 g/dL (32-36); Mean Platelet Volume 10.4 fL (7.5-11.0); Platelet Count 122 x10^3/uL (150-450); Red Blood Count 3.42 x10^6/uL (4.1-5.4); Red Cell Distribution Width 19.1 % (11.5-14.0); White Blood Count 11.8 x10^3/uL (4.0-10.5)
[2023-01-04 05:49] LABS: ALBUMIN 3.1 g/dL (3.5-5.0); ANION GAP 17.9 MEQ/L (5-15); BILIRUBIN,TOTAL 0.4 mg/dL (0.2-1.3); Calcium 8.9 mg/dL (8.4-10.2); Creatinine 1 1.84 mg/dL (0.52-1.04); EST GLOMERULAR FILTRATION RATE 29.8 ML/MIN; Potassium 4.2 mmol/L (3.5-5.1); Total Protein 6.5 g/dL (6.3-8.2)
[2023-01-04] MEDS: VANCOCIN 500 MG VIAL*** 500 MG in Sodium Chloride 100ML MINI-BAG PLUS 100 ML IV SCH ×2 (06:11→23:51)
--- NOTE | 2023-01-04 08:13 | PCM.NOTE ---
Date and Time: 01/04/23804 Subjective Assessment: is a 57 year old female with pmhx of HLD, HTN, Asthma, DM type II, anxiety, depression, IBS, GERD, and schizophrenia that presented to ER 01/03/23 via EMS from the [facility] with altered mentation for the past week. Poor historian. On admission patient was very lethargic and only able state her name and where she is. She also endorsed back pain but unable to elaborate.CT findings limited due to non-contrast imaging in the setting of JEFFREY, noting no evidence of renal stones or hydronephrosis, right renal focal bulge which could be a cyst. A new finding.Left renal focal bulge which has increased since the last study could be complex cyst versus mass and requires further evaluation by post contrast CT. Left renal cyst. The previously seen right hepatic focal lesion is not visualized in this study likely due to lack of intravenous contrast administration. Viral respiratory panel negative. Admitted for sepsis secondary to pyeolonephrilitis, and acute on chronic kidney failure. Currently being treated with vancomycin/merrem. Ucult with gram negative organism. No overnight events noted. patient still lethargic but more alert this morning. She does endorse all over pain this morning. Lab with noted improvement, wbc 11.8<19.8, creat 1.84<3.36. This is concern of aspiration with CXR findings with infiltrates to right middle/lower lobe.On auscultation there are exp crackles to bilateral bases. Patient is currently NPO with swallow eval pending. F/C is placed and urine is noted to be raymond and clear in bag. No longer with milky consistency. - Review of Systems All Other Systems: Unable due to condition Objective Exam General Appearance: no apparent distress, lethargy Neurologic Exam: alert, confusion Skin Exam: pale Eye Exam: PERRL Respiratory Exam: crackles/rales Cardiovascular Exam: normal heart sounds, tachycardia, capillary refill 2-3 sec, edema (BUE) Gastrointestinal/Abdomen Exam: soft, other (hypoactive BS x 4 quads) Extremity Exam: swelling (BUE) Pelvic Exam: deferred OBJECTIVE DATA Vital Signs: Vital Signs - 24 hr Temp Pulse Resp BP BP Pulse Ox 01/04/23 08:00 99.6 F 91 H 18 118/55 94 L 01/04/23 04:00 99.7 F 97 H 16 109/55 93 L 01/03/23 23:45 99.5 F 93 H 17 116/54 95 01/03/23 19:35 93 H 20 91 L 01/03/23 19:25 98.6 F 95 H 21 131/62 92 L 01/03/23 17:21 92 L 01/03/23 16:00 97.7 F 89 16 118/59 92 L 01/03/23 13:24 97.3 F 89 16 133/63 98 01/03/23 12:42 91 H 18 92 L 01/03/23 12:13 94 L 01/03/23 11:30 88 12 124/88 96 01/03/23 11:14 88 15 128/97 94 L 01/03/23 10:30 85 14 96/77 93 L 01/03/23 10:00 83 21 111/55 93 L 01/03/23 09:36 97.0 F 85 14 99/70 99/7 91 L 01/03/23 09:35 88 16 01/03/23 09:32 91 H 15 01/03/23 08:53 94 H 16 136/67 94 L 01/03/23 08:45 91 H 18 136/67 Pain Assessment - Last Documented Pain Intensity 7 Pain Scale Used [facility] Intake and Output: Intake & Output 01/01/23 01/02/23 01/03/23 01/04/23 11:59 11:59 11:59 11:59 Intake Total 815 Output Total 100 1250 Balance -100 -435 Weight 117.5 kg 116.9 kg Lab Results: Lab Results-Last 24 Hours 01/03/23 01/03/23 01/03/23 Range/Units 08:52 08:52 08:52 WBC (4.0-10.5) x10^3/uL RBC (4.1-5.4) x10^6/uL Hgb (12.0-16.0) g/dL Hct (35-47) % MCV (78-100) fL MCH (26-32) pg MCHC (32-36) g/dL RDW (11.5-14.0) % Plt Count (150-450) x10^3/uL MPV (7.5-11.0) fL Gran % (36.0-66.0) % Immature Gran % (Auto) (0.00-0.4) % Nucleat RBC Rel Count (0.00-0.1) % Eos # (Auto) (0-0.5) x10^3/uL Immature Gran # (Auto) (0.00-0.03) x10^3u/L Absolute Lymphs (auto) (1.0-4.6) x10^3/uL Absolute Monos (auto) (0.0-1.3) x10^3/uL Absolute Nucleated RBC (0.00-0.01) x10^3u/L Lymphocytes % (24.0-44.0) % Monocytes % (0.0-12.0) % Eosinophils % (0.00-5.0) % Basophils % (0.0-0.4) % Absolute Granulocytes (1.4-6.9) x10^3/uL Basophils # (0-0.4) x10^3/uL Sodium 141 (137-145) mmol/L Potassium 4.2 (3.5-5.1) mmol/L Chloride 101 (98-107) mmol/L Carbon Dioxide 25 (22-30) mmol/L Anion Gap 19.4 H (5-15) MEQ/L BUN 92 H (7-17) mg/dL Creatinine 3.36 H (0.52-1.04) mg/dL Estimated GFR 14.9 ML/MIN Glucose 205 H (74-106) mg/dL POC Glucometer (74 to 106) mg/dL Lactic Acid (0.4-2.0) Calcium 9.3 (8.4-10.2) mg/dL Magnesium 2.0 (1.6-2.3) mg/dL Total Bilirubin 0.50 (0.2-1.3) mg/dL AST 25 (14-36) U/L ALT 15 (0-35) U/L Alkaline Phosphatase 126 (38-126) U/L Serum Total Protein 7.3 (6.3-8.2) g/dL Albumin 3.5 (3.5-5.0) g/dL Prealbumin (17.6-36.0) mg/dL Amylase 42 (30-110) U/L Lipase 42 (23-300) U/L Urine Color Other A (Yellow) Urine Appearance Turbid A (Clear) Urine pH 5.5 (4.6-8.0) Ur Specific [place] 1.015 (1.005-1.030) Urine Protein 100 A (Negative) Urine Glucose (UA) Negative (Negative) mg/dL Urine Ketones Trace A (Negative) Urine Blood Moderate A (Negative) Urine Nitrite Positive A (Negative) Urine Bilirubin Negative (Negative) Urine Urobilinogen 0.2 (0.2) mg/dL Ur Leukocyte Esterase Large A (Negative) Urine Microscopic RBC 6-10 A (0-5) /HPF Urine Microscopic WBC >100 A (0-5) /HPF Ur Epithelial Cells Moderate A (None Seen) /HPF Urine Bacteria Many A (None Seen) /HPF Urine Culture Reflexed ORDERED SEPARATELY (NO) Urine Opiates Level NEGATIVE (NEGATIVE) Ur Methadone NEGATIVE (NEGATIVE) Urine Barbiturates POSITIVE (NEGATIVE) Ur Phencyclidine (PCP) NEGATIVE (NEGATIVE) Urine Amphetamine NEGATIVE (NEGATIVE) U Benzodiazepine Level NEGATIVE (NEGATIVE) Urine Cocaine NEGATIVE (NEGATIVE) Urine Marijuana (THC) NEGATIVE (NEGATIVE) 01/03/23 01/03/23 01/03/23 Range/Units 09:00 09:15 15:57 WBC 19.4 H (4.0-10.5) x10^3/uL RBC 3.65 L (4.1-5.4) x10^6/uL Hgb 10.9 L (12.0-16.0) g/dL Hct 33.4 L (35-47) % MCV 91.5 (78-100) fL MCH 29.9 (26-32) pg MCHC 32.6 (32-36) g/dL RDW 18.6 H (11.5-14.0) % Plt Count 152 (150-450) x10^3/uL MPV 11.5 H (7.5-11.0) fL Gran % 82.2 H (36.0-66.0) % Immature Gran % (Auto) 0.8 H (0.00-0.4) % Nucleat RBC Rel Count 0.0 (0.00-0.1) % Eos # (Auto) 0.41 (0-0.5) x10^3/uL Immature Gran # (Auto) 0.15 H (0.00-0.03) x10^3u/L Absolute Lymphs (auto) 2.13 (1.0-4.6) x10^3/uL Absolute Monos (auto) 0.72 (0.0-1.3) x10^3/uL Absolute Nucleated RBC 0.00 (0.00-0.01) x10^3u/L Lymphocytes % 11.0 L (24.0-44.0) % Monocytes % 3.7 (0.0-12.0) % Eosinophils % 2.1 (0.00-5.0) % Basophils % 0.2 (0.0-0.4) % Absolute Granulocytes 15.91 H (1.4-6.9) x10^3/uL Basophils # 0.04 (0-0.4) x10^3/uL Sodium 142 (137-145) mmol/L Potassium 3.9 (3.5-5.1) mmol/L Chloride 107 (98-107) mmol/L Carbon Dioxide 27 (22-30) mmol/L Anion Gap 12.3 (5-15) MEQ/L BUN 83 H (7-17) mg/dL Creatinine 2.50 H (0.52-1.04) mg/dL Estimated GFR 21.0 ML/MIN Glucose 175 H (74-106) mg/dL POC Glucometer (74 to 106) mg/dL Lactic Acid 1.4 (0.4-2.0) Calcium 8.6 (8.4-10.2) mg/dL Magnesium (1.6-2.3) mg/dL Total Bilirubin (0.2-1.3) mg/dL AST (14-36) U/L ALT (0-35) U/L Alkaline Phosphatase (38-126) U/L Serum Total Protein (6.3-8.2) g/dL Albumin (3.5-5.0) g/dL Prealbumin (17.6-36.0) mg/dL Amylase (30-110) U/L Lipase (23-300) U/L Urine Color (Yellow) Urine Appearance (Clear) Urine pH (4.6-8.0) Ur Specific [place] (1.005-1.030) Urine Protein (Negative) Urine Glucose (UA) (Negative) mg/dL Urine Ketones (Negative) Urine Blood (Negative) Urine Nitrite (Negative) Urine Bilirubin (Negative) Urine Urobilinogen (0.2) mg/dL Ur Leukocyte Esterase (Negative) Urine Microscopic RBC (0-5) /HPF Urine Microscopic WBC (0-5) /HPF Ur Epithelial Cells (None Seen) /HPF Urine Bacteria (None Seen) /HPF Urine Culture Reflexed (NO) Urine Opiates Level (NEGATIVE) Ur Methadone (NEGATIVE) Urine Barbiturates (NEGATIVE) Ur Phencyclidine (PCP) (NEGATIVE) Urine Amphetamine (NEGATIVE) U Benzodiazepine Level (NEGATIVE) Urine Cocaine (NEGATIVE) Urine Marijuana (THC) (NEGATIVE) 01/03/23 01/03/23 01/03/23 Range/Units 15:57 17:40 21:35 WBC (4.0-10.5) x10^3/uL RBC (4.1-5.4) x10^6/uL Hgb (12.0-16.0) g/dL Hct (35-47) % MCV (78-100) fL MCH (26-32) pg MCHC (32-36) g/dL RDW (11.5-14.0) % Plt Count (150-450) x10^3/uL MPV (7.5-11.0) fL Gran % (36.0-66.0) % Immature Gran % (Auto) (0.00-0.4) % Nucleat RBC Rel Count (0.00-0.1) % Eos # (Auto) (0-0.5) x10^3/uL Immature Gran # (Auto) (0.00-0.03) x10^3u/L Absolute Lymphs (auto) (1.0-4.6) x10^3/uL Absolute Monos (auto) (0.0-1.3) x10^3/uL Absolute Nucleated RBC (0.00-0.01) x10^3u/L Lymphocytes % (24.0-44.0) % Monocytes % (0.0-12.0) % Eosinophils % (0.00-5.0) % Basophils % (0.0-0.4) % Absolute Granulocytes (1.4-6.9) x10^3/uL Basophils # (0-0.4) x10^3/uL Sodium (137-145) mmol/L Potassium (3.5-5.1) mmol/L Chloride (98-107) mmol/L Carbon Dioxide (22-30) mmol/L Anion Gap (5-15) MEQ/L BUN (7-17) mg/dL Creatinine (0.52-1.04) mg/dL Estimated GFR ML/MIN Glucose (74-106) mg/dL POC Glucometer 161 H 159 H (74 to 106) mg/dL Lactic Acid (0.4-2.0) Calcium (8.4-10.2) mg/dL Magnesium (1.6-2.3) mg/dL Total Bilirubin (0.2-1.3) mg/dL AST (14-36) U/L ALT (0-35) U/L Alkaline Phosphatase (38-126) U/L Serum Total Protein (6.3-8.2) g/dL Albumin (3.5-5.0) g/dL Prealbumin 14.02 L (17.6-36.0) mg/dL Amylase (30-110) U/L Lipase (23-300) U/L Urine Color (Yellow) Urine Appearance (Clear) Urine pH (4.6-8.0) Ur Specific [place] (1.005-1.030) Urine Protein (Negative) Urine Glucose (UA) (Negative) mg/dL Urine Ketones (Negative) Urine Blood (Negative) Urine Nitrite (Negative) Urine Bilirubin (Negative) Urine Urobilinogen (0.2) mg/dL Ur Leukocyte Esterase (Negative) Urine Microscopic RBC (0-5) /HPF Urine Microscopic WBC (0-5) /HPF Ur Epithelial Cells (None Seen) /HPF Urine Bacteria (None Seen) /HPF Urine Culture Reflexed (NO) Urine Opiates Level (NEGATIVE) Ur Methadone (NEGATIVE) Urine Barbiturates (NEGATIVE) Ur Phencyclidine (PCP) (NEGATIVE) Urine Amphetamine (NEGATIVE) U Benzodiazepine Level (NEGATIVE) Urine Cocaine (NEGATIVE) Urine Marijuana (THC) (NEGATIVE) 01/04/23 01/04/23 01/04/23 Range/Units 05:02 05:02 07:56 WBC 11.8 H (4.0-10.5) x10^3/uL RBC 3.42 L (4.1-5.4) x10^6/uL Hgb 10.1 L (12.0-16.0) g/dL Hct 31.7 L (35-47) % MCV 92.7 (78-100) fL MCH 29.5 (26-32) pg MCHC 31.9 L (32-36) g/dL RDW 19.1 H (11.5-14.0) % Plt Count 122 L (150-450) x10^3/uL MPV 10.4 (7.5-11.0) fL Gran % (36.0-66.0) % Immature Gran % (Auto) (0.00-0.4) % Nucleat RBC Rel Count (0.00-0.1) % Eos # (Auto) (0-0.5) x10^3/uL Immature Gran # (Auto) (0.00-0.03) x10^3u/L Absolute Lymphs (auto) (1.0-4.6) x10^3/uL Absolute Monos (auto) (0.0-1.3) x10^3/uL Absolute Nucleated RBC (0.00-0.01) x10^3u/L Lymphocytes % (24.0-44.0) % Monocytes % (0.0-12.0) % Eosinophils % (0.00-5.0) % Basophils % (0.0-0.4) % Absolute Granulocytes (1.4-6.9) x10^3/uL Basophils # (0-0.4) x10^3/uL Sodium 145 (137-145) mmol/L Potassium 4.2 (3.5-5.1) mmol/L Chloride 109 H (98-107) mmol/L Carbon Dioxide 22 (22-30) mmol/L Anion Gap 17.9 H (5-15) MEQ/L BUN 76 H (7-17) mg/dL Creatinine 1.84 H (0.52-1.04) mg/dL Estimated GFR 29.8 ML/MIN Glucose 188 H (74-106) mg/dL POC Glucometer 188 H (74 to 106) mg/dL Lactic Acid (0.4-2.0) Calcium 8.9 (8.4-10.2) mg/dL Magnesium (1.6-2.3) mg/dL Total Bilirubin 0.40 (0.2-1.3) mg/dL AST 24 (14-36) U/L ALT 13 (0-35) U/L Alkaline Phosphatase 103 (38-126) U/L Serum Total Protein 6.5 (6.3-8.2) g/dL Albumin 3.1 L (3.5-5.0) g/dL Prealbumin (17.6-36.0) mg/dL Amylase (30-110) U/L Lipase (23-300) U/L Urine Color (Yellow) Urine Appearance (Clear) Urine pH (4.6-8.0) Ur Specific [place] (1.005-1.030) Urine Protein (Negative) Urine Glucose (UA) (Negative) mg/dL Urine Ketones (Negative) Urine Blood (Negative) Urine Nitrite (Negative) Urine Bilirubin (Negative) Urine Urobilinogen (0.2) mg/dL Ur Leukocyte Esterase (Negative) Urine Microscopic RBC (0-5) /HPF Urine Microscopic WBC (0-5) /HPF Ur Epithelial Cells (None Seen) /HPF Urine Bacteria (None Seen) /HPF Urine Culture Reflexed (NO) Urine Opiates Level (NEGATIVE) Ur Methadone (NEGATIVE) Urine Barbiturates (NEGATIVE) Ur Phencyclidine (PCP) (NEGATIVE) Urine Amphetamine (NEGATIVE) U Benzodiazepine Level (NEGATIVE) Urine Cocaine (NEGATIVE) Urine Marijuana (THC) (NEGATIVE) Radiology Exams: Radiology Procedures Category Date Time Status ABDOMEN AND PELVIS W/0 CONTRAS [CT] Stat Exams 01/03/23 10:27 Completed CHEST 1 VIEW (PORTABLE) Stat Exams 01/03/23 12:42 Completed Assessment/Plan (1) Sepsis Current Visit: Yes Status: Acute Assessment & Plan: -Most likely secondary to UTI vs pyelonephritis -Sepsis criteria identified 01/03/23 -Patient has received 3L for fluid resuscitation -IVF at 100ml/hr, monitor for fluid overload -Blood cultures x2 ordered -CXR -Procal -Antibiotics started: Merrem/vanc in ER, will continue with merrem/zosyn -Lactate drawn and wnl -Will admin vasopressors is hypotensive after IV admin (MAP <65 or SBP <90). -Supplemental oxyen as needed to maintain SpO2 -Consider CT head if AMS does not improve -CT ab/pelvis as stated in HPI 01/04: -may be multifocal secondary to UTI vs pyelonephritis/ pneumonia -on 2L oxygen -Continue Merrem and Vanc for now, U-cult with gram - rods, follow culture -AMS improving, patient still lethargic but is more alert today (2) UTI (urinary tract infection) Current Visit: Yes Status: Acute Assessment & Plan: -NS at 100ml/hr -Continue Merrem/zosyn -Blood and urine cultures pending, will follow and adjust abx as appropriate 04/06/22: -IVF at 50ml/hr -Bcult pending, u-cult with gram - rods will follow and adjust abx as appro priate Code(s): N39.0 - URINARY TRACT INFECTION, SITE NOT SPECIFIED (3) Acute on chronic renal failure Current Visit: Yes Status: Acute Assessment & Plan: - Cr: compared to baseline 3.3; BUN 92, baseline creat at 1.1-1.2 - Pre-renal most likely secondary to hypovolemia - IVF -D/c nephrotoxic agents ACEI's/ARBs/NSAIDS/Diurectics -Monitor renal/lytes daily with strict I&O, renal dosing medications 01/04/23: -Creat improving 1.84<2.5<3.36, will continue gentle hydration Code(s): N17.9 - ACUTE KIDNEY FAILURE, UNSPECIFIED; N18.9 - CHRONIC KIDNEY DISEASE, UNSPECIFIED (4) Diabetes mellitus type 2 in obese Current Visit: Yes Status: Acute Assessment & Plan: -Most recent a1c on 12/17 at 7.16 -Moderate dose SSI/ Accuchecks -Low carb diet Code(s): E11.69 - TYPE 2 DIABETES MELLITUS WITH OTHER SPECIFIED COMPLICATION; E66.9 - OBESITY, UNSPECIFIED (5) Pyelonephritis Current Visit: Yes Status: Acute Assessment & Plan: -see uti/sepsis Code(s): N12 - TUBULO-INTERSTITIAL NEPHRITIS, NOT SPCF ACUTE OR CHRONIC (6) AMS (altered mental status) Current Visit: Yes Status: Acute Assessment & Plan: -most likely metabolic encephalopathy secondary to infection, will continue to monitor, mentation has improved overnight, will consider CT head if improvement does not continue Code(s): R41.82 - ALTERED MENTAL STATUS, UNSPECIFIED (7) Schizophrenia Current Visit: No Status: Acute Qualifiers: Schizophrenia type: unspecified Qualified Code(s): F20.9 - Schizophrenia, unspecified Assessment & Plan: -Continue home meds, pharm consult for renal dosing 01/04: -Pharmacy has renal dosed all medications, however patient currently NPO due to concern for aspiration, swallow eval pending Code(s): F20.9 - SCHIZOPHRENIA, UNSPECIFIED (8) Weakness Current Visit: No Status: Acute Assessment & Plan: -PT/OT, patient resides at the [facility] Code(s): R53.1 - WEAKNESS (9) Acute adjustment disorder with depressed mood Current Visit: No Status: Chronic Assessment & Plan: Pharmacy has renal dosed all medications, however patient currently NPO due to concern for aspiration, swallow eval pending Code(s): F43.21 - ADJUSTMENT DISORDER WITH DEPRESSED MOOD
[2023-01-04] MEDS: Effexor XR 75 MG PO SCH (09:33)
[2023-01-04] MEDS: Depakote EXTENDED RELEASE 250 MG PO SCH (09:33)
[2023-01-04] MEDS: Ditropan XL 5 MG PO SCH (09:33)
[2023-01-04] MEDS: Lexapro PO SCH (09:33)
[2023-01-04] MEDS: Toprol-Xl 25MG Tablets PO SCH (09:34)
[2023-01-04] MEDS: Singulair 10 MG PO SCH (09:34)
[2023-01-04] MEDS: Risperdal 1 MG PO SCH ×2 (09:34→23:48)
[2023-01-04] MEDS: SYNTHROID 25 MCG PO SCH (09:34)
[2023-01-04] MEDS: Neurontin PO SCH ×2 (09:34→23:48)
[2023-01-04] MEDS: MYSOLINE 50MG PO SCH ×2 (09:34→23:47)
[2023-01-04] MEDS: VITAMIN D PO SCH (09:35)
[2023-01-04] MEDS: Dextrose 5%/Water IV Soln. 1000 ML 1,000 ML IV SCH (09:50)
[2023-01-04] MEDS: Merrem 1 GM in Sodium Chloride 100ML MINI-BAG PLUS 100 ML IV SCH ×2 (09:55→21:53)
[2023-01-04] MEDS ORDERED: NON-FORMULARY ITEM (Oxybutynin Chloride [Oxybutynin Chloride Er] 15 MG Tab.Er.24) PO SCH (10:00)
[2023-01-04] MEDS ORDERED: NON-FORMULARY ITEM (Divalproex Sodium [Divalproex Sodium Er] 500 MG Tab.Er.24h) PO SCH (10:00)
[2023-01-04] MEDS ORDERED: NON-FORMULARY ITEM (Famotidine [Famotidine] 40 MG Tablet) PO SCH (10:00)
[2023-01-04] MEDS ORDERED: Pepcid 20 MG PO SCH (10:00)
[2023-01-04] MEDS: HUMALOG SQ PRN ×2 (17:35→21:54)
[2023-01-04] MEDS: ZOCOR 20MG PO SCH (23:48)
[2023-01-05 04:14] LABS: Hemoglobin 10.1 g/dL (12.0-16.0); Mean Cell Volume 92.3 fL (78-100); Mean Corpuscular Hemoglobin 30.1 pg (26-32); Mean Corpuscular Hgb Concent. 32.6 g/dL (32-36); Platelet Count 123 x10^3/uL (150-450); Red Blood Count 3.36 x10^6/uL (4.1-5.4); Red Cell Distribution Width 19.2 % (11.5-14.0); White Blood Count 8.6 x10^3/uL (4.0-10.5)
[2023-01-05 04:27] LABS: ANION GAP 13.8 MEQ/L (5-15); BILIRUBIN,TOTAL 0.3 mg/dL (0.2-1.3); Calcium 9.2 mg/dL (8.4-10.2); Creatinine 1 1.12 mg/dL (0.52-1.04); EST GLOMERULAR FILTRATION RATE 52.9 ML/MIN; Potassium 3.9 mmol/L (3.5-5.1); Total Protein 6.4 g/dL (6.3-8.2)
[2023-01-05] MEDS: Dextrose 5%/Water IV Soln. 1000 ML 1,000 ML IV SCH ×2 (07:55→17:54)
[2023-01-05] MEDS: Merrem 1 GM in Sodium Chloride 100ML MINI-BAG PLUS 100 ML IV SCH ×3 (07:58→21:00)
[2023-01-05] MEDS: HUMALOG SQ PRN ×4 (08:10→22:01)
[2023-01-05] MEDS: Toprol-Xl 25MG Tablets PO SCH (08:49)
[2023-01-05] MEDS: Ditropan XL 5 MG PO SCH ×2 (08:54→11:33)
[2023-01-05] MEDS: Effexor XR 75 MG PO SCH ×2 (08:55→11:34)
[2023-01-05] MEDS: Risperdal 1 MG PO SCH ×2 (08:55→21:00)
[2023-01-05] MEDS: Singulair 10 MG PO SCH ×2 (08:56→11:34)
[2023-01-05] MEDS: MYSOLINE 50MG PO SCH ×3 (08:56→21:00)
[2023-01-05] MEDS: SYNTHROID 25 MCG PO SCH ×2 (08:57→11:35)
[2023-01-05] MEDS: Neurontin PO SCH ×3 (08:57→21:00)
[2023-01-05] MEDS: VITAMIN D PO SCH ×2 (08:57→11:35)
[2023-01-05] MEDS: Depakote EXTENDED RELEASE 250 MG PO SCH ×2 (08:58→11:33)
[2023-01-05] MEDS: Lexapro PO SCH ×2 (08:58→11:34)
[2023-01-05] MEDS ORDERED: CARDIZEM DRIP 100 MG/100 ML D5W 100 ML IV PRN (09:01)
[2023-01-05] MEDS ORDERED: Cardizem IV 50 MG/10 ML IV ONE (09:01)
[2023-01-05] MEDS: Pepcid 20 MG PO SCH ×2 (09:02→11:34)
--- NOTE | 2023-01-05 10:11 | PCM.NOTE ---
Date and Time: 01/05/23 1002 Subjective Assessment: is a 57 year old female with pmhx of HLD, HTN, Asthma, DM type II, anxiety, depression, IBS, GERD, and schizophrenia that presented to ER 01/03/23 via EMS from the [facility] with altered mentation for the past week. Poor historian. On admission patient was very lethargic and only able state her name and where she is. She also endorsed back pain but unable to elaborate.CT findings limited due to non-contrast imaging in the setting of JEFFREY, noting no evidence of renal stones or hydronephrosis, right renal focal bulge which could be a cyst. A new finding.Left renal focal bulge which has increased since the last study could be complex cyst versus mass and requires further evaluation by post contrast CT. Left renal cyst. The previously seen right hepatic focal lesion is not visualized in this study likely due to lack of intravenous contrast administration. Viral respiratory panel negative. Admitted for sepsis secondary to pyeolonephrilitis, and acute on chronic kidney failure. Currently being treated with vancomycin/merrem. Ucult with gram negative organism, + for e-coli. Sensitive to Merrem. There is concern of aspiration with CXR findings with infiltrates to right middle/lower lobe. Lungs are clear today until she tried to take her meds. Asked nurse to hold remainder of meds. Patient is currently NPO with swallow eval pending. ST wants Barium swallow completed prior to their evaluation. Pt does have a temp of 102 today. F/C in place, urine clear now. WBC WNL. BC x2 negative. This morning HR elevated, EKG completed. Pt in new a-fib RVR. Cardizem bolus and gtt started. Cardiology consulted. Pt is emotionally liable. This is normal for her as seen on previous visits. OBJECTIVE DATA Vital Signs: Vital Signs - 24 hr Temp Pulse Resp BP BP Pulse Ox 01/05/23 09:46 139 H 14 106/49 01/05/23 08:14 92 H 18 95 01/05/23 07:19 98.6 F 92 H 11 L 132/62 96 01/05/23 03:58 98.4 F 91 H 18 114/51 94 L 01/04/23 23:31 97.8 F 91 H 16 100/53 98 01/04/23 19:46 98.0 F 85 18 119/57 95 10/08/23 19:10 86 20 97 01/04/23 17:53 91 H 18 94 L 01/04/23 16:00 98.7 F 90 18 119/65 98 01/04/23 12:00 98.7 F 94 H 18 118/57 93 L Pain Assessment - Last Documented Pain Intensity 0 Pain Scale Used [facility] Intake and Output: Intake & Output 01/02/23 01/03/23 01/04/23 01/05/23 11:59 11:59 11:59 11:59 Intake Total 815 1468 Output Total 100 1725 1725 Balance -100 -500 -257 Weight 117.5 kg 116.9 kg Lab Results: Lab Results-Last 24 Hours 01/03/23 01/04/23 01/04/23 Range/Units 08:52 12:01 16:25 WBC (4.0-10.5) x10^3/uL RBC (4.1-5.4) x10^6/uL Hgb (12.0-16.0) g/dL Hct (35-47) % MCV (78-100) fL MCH (26-32) pg MCHC (32-36) g/dL RDW (11.5-14.0) % Plt Count (150-450) x10^3/uL MPV (7.5-11.0) fL Sodium (137-145) mmol/L Potassium (3.5-5.1) mmol/L Chloride (98-107) mmol/L Carbon Dioxide (22-30) mmol/L Anion Gap (5-15) MEQ/L BUN (7-17) mg/dL Creatinine (0.52-1.04) mg/dL Estimated GFR ML/MIN Glucose (74-106) mg/dL POC Glucometer 198 H 219 H (74 to 106) mg/dL Calcium (8.4-10.2) mg/dL Total Bilirubin (0.2-1.3) mg/dL AST (14-36) U/L ALT (0-35) U/L Alkaline Phosphatase (38-126) U/L Serum Total Protein (6.3-8.2) g/dL Albumin (3.5-5.0) g/dL Urine Opiates Level NEGATIVE (NEGATIVE) Ur Methadone NEGATIVE (NEGATIVE) Urine Barbiturates POSITIVE (NEGATIVE) Ur Phencyclidine (PCP) NEGATIVE (NEGATIVE) Urine Amphetamine NEGATIVE (NEGATIVE) U Benzodiazepine Level NEGATIVE (NEGATIVE) Urine Cocaine NEGATIVE (NEGATIVE) Urine Marijuana (THC) NEGATIVE (NEGATIVE) 01/04/23 01/05/23 01/05/23 Range/Units 21:42 04:03 04:03 WBC 8.6 (4.0-10.5) x10^3/uL RBC 3.36 L (4.1-5.4) x10^6/uL Hgb 10.1 L (12.0-16.0) g/dL Hct 31.0 L (35-47) % MCV 92.3 (78-100) fL MCH 30.1 (26-32) pg MCHC 32.6 (32-36) g/dL RDW 19.2 H (11.5-14.0) % Plt Count 123 L (150-450) x10^3/uL MPV 11.0 (7.5-11.0) fL Sodium 147 H (137-145) mmol/L Potassium 3.9 (3.5-5.1) mmol/L Chloride 111 H (98-107) mmol/L Carbon Dioxide 26 (22-30) mmol/L Anion Gap 13.8 (5-15) MEQ/L BUN 59 H (7-17) mg/dL Creatinine 1.12 H (0.52-1.04) mg/dL Estimated GFR 52.9 ML/MIN Glucose 235 H (74-106) mg/dL POC Glucometer 222 H (74 to 106) mg/dL Calcium 9.2 (8.4-10.2) mg/dL Total Bilirubin 0.30 (0.2-1.3) mg/dL AST 23 (14-36) U/L ALT 13 (0-35) U/L Alkaline Phosphatase 99 (38-126) U/L Serum Total Protein 6.4 (6.3-8.2) g/dL Albumin 3.0 L (3.5-5.0) g/dL Urine Opiates Level (NEGATIVE) Ur Methadone (NEGATIVE) Urine Barbiturates (NEGATIVE) Ur Phencyclidine (PCP) (NEGATIVE) Urine Amphetamine (NEGATIVE) U Benzodiazepine Level (NEGATIVE) Urine Cocaine (NEGATIVE) Urine Marijuana (THC) (NEGATIVE) 01/05/23 Range/Units 07:08 WBC (4.0-10.5) x10^3/uL RBC (4.1-5.4) x10^6/uL Hgb (12.0-16.0) g/dL Hct (35-47) % MCV (78-100) fL MCH (26-32) pg MCHC (32-36) g/dL RDW (11.5-14.0) % Plt Count (150-450) x10^3/uL MPV (7.5-11.0) fL Sodium (137-145) mmol/L Potassium (3.5-5.1) mmol/L Chloride (98-107) mmol/L Carbon Dioxide (22-30) mmol/L Anion Gap (5-15) MEQ/L BUN (7-17) mg/dL Creatinine (0.52-1.04) mg/dL Estimated GFR ML/MIN Glucose (74-106) mg/dL POC Glucometer 246 H (74 to 106) mg/dL Calcium (8.4-10.2) mg/dL Total Bilirubin (0.2-1.3) mg/dL AST (14-36) U/L ALT (0-35) U/L Alkaline Phosphatase (38-126) U/L Serum Total Protein (6.3-8.2) g/dL Albumin (3.5-5.0) g/dL Urine Opiates Level (NEGATIVE) Ur Methadone (NEGATIVE) Urine Barbiturates (NEGATIVE) Ur Phencyclidine (PCP) (NEGATIVE) Urine Amphetamine (NEGATIVE) U Benzodiazepine Level (NEGATIVE) Urine Cocaine (NEGATIVE) Urine Marijuana (THC) (NEGATIVE) Radiology Exams: Radiology Procedures Category Date Time Status ABDOMEN AND PELVIS W/0 CONTRAS [CT] Stat Exams 01/03/23 10:27 Completed BARIUM SWALLOW ESOPHOGRAM Routine Exams 01/05/23 09:58 Ordered CHEST 1 VIEW (PORTABLE) Stat Exams 01/03/23 12:42 Completed ECHO W/2D AND DOPPLER [US] Routine Exams 01/05/23 09:40 Ordered
--- NOTE | 2023-01-05 10:18 | PCM.NOTE ---
Date and Time: 01/05/23 1017 Subjective Assessment: is a 57 year old female with pmhx of HLD, HTN, Asthma, DM type II, anxiety, depression, IBS, GERD, and schizophrenia that presented to ER 01/03/23 via EMS from the [facility] with altered mentation for the past week. Poor historian. On admission patient was very lethargic and only able state her name and where she is. She also endorsed back pain but unable to elaborate.CT findings limited due to non-contrast imaging in the setting of JEFFREY, noting no evidence of renal stones or hydronephrosis, right renal focal bulge which could be a cyst. A new finding.Left renal focal bulge which has increased since the last study could be complex cyst versus mass and requires further evaluation by post contrast CT. Left renal cyst. The previously seen right hepatic focal lesion is not visualized in this study likely due to lack of intravenous contrast administration. Viral respiratory panel negative. Admitted for sepsis secondary to pyeolonephrilitis, and acute on chronic kidney failure. Currently being treated with vancomycin/merrem. Urine culture positive for e-coli. Sensitive to Merrem. BC x2 negative. This is concern of aspiration with CXR findings with infiltrates to right middle/lower lobe. Patient is currently NPO with swallow eval and barium swallow pending. F/C is placed and urine is clear. This morning pt's HR became elevated, EKG obtained and pt in new on set A-fib RVR. Cardiology consulted, additional labs and echo ordered. Cardizem bolus gave then gtt started. Pt has a temp of 102 today. She is emotionally liable, this is her norm per previous visits. She denies CP or SOB. - Review of Systems Constitutional: No Fever, No Chills Eyes: No Symptoms Ears, Nose, & Throat: No Symptoms Respiratory: No Cough, No Short Of Breath Cardiac: No Chest Pain, No Edema, No Syncope Abdominal/Gastrointestinal: Abdominal Pain, No Nausea, No Vomiting, No Diarrhea Genitourinary Symptoms: No Dysuria Musculoskeletal: No Back Pain, No Neck Pain Skin: No Rash Neurological: No Dizziness, No Focal Weakness, No Sensory Changes Psychological: No Symptoms, Emotional Lability, Mood Changes Endocrine: No Symptoms Hematologic/Lymphatic: No Symptoms Immunological/Allergic: No Symptoms Objective Exam General Appearance: no apparent distress, alert Neurologic Exam: alert, oriented x 3, cooperative, normal mood/affect, nml cerebellar function, sensation nml, depressed mood/affect, No motor deficits Skin Exam: normal color, warm, dry Eye Exam: PERRL, EOMI, eyes nml inspection Ears, Nose, Throat Exam: normal ENT inspection, pharynx normal, moist mucous membranes Neck Exam: normal inspection, non-tender, supple, full range of motion Respiratory Exam: normal breath sounds, lungs clear, No respiratory distress Cardiovascular Exam: normal heart sounds, irregular (new on set a-fib RVR) Gastrointestinal/Abdomen Exam: soft, No tenderness, No mass Extremity Exam: normal inspection, normal range of motion Back Exam: normal inspection, normal range of motion, No CVA tenderness, No vertebral tenderness Pelvic Exam: deferred Rectal Exam: deferred OBJECTIVE DATA Vital Signs: Vital Signs - 24 hr Temp Pulse Resp BP BP Pulse Ox 01/05/23 09:46 139 H 14 106/49 01/05/23 08:14 92 H 18 95 01/05/23 07:19 98.6 F 92 H 11 L 132/62 96 01/05/23 03:58 98.4 F 91 H 18 114/51 94 L 01/04/23 23:31 97.8 F 91 H 16 100/53 98 01/04/23 19:46 98.0 F 85 18 119/57 95 01/04/23 19:10 86 20 97 01/04/23 17:53 91 H 18 94 L 01/04/23 16:00 98.7 F 90 18 119/65 98 01/04/23 12:00 98.7 F 94 H 18 118/57 93 L Pain Assessment - Last Documented Pain Intensity 0 Pain Scale Used [facility] Intake and Output: Intake & Output 01/02/23 01/03/23 01/04/23 01/05/23 11:59 11:59 11:59 11:59 Intake Total 815 1468 Output Total 100 9515 1725 Balance -100 -680 -180 Weight 117.5 kg 116.9 kg Lab Results: Lab Results-Last 24 Hours 01/03/23 01/04/23 01/04/23 Range/Units 08:52 12:01 16:25 WBC (4.0-10.5) x10^3/uL RBC (4.1-5.4) x10^6/uL Hgb (12.0-16.0) g/dL Hct (35-47) % MCV (78-100) fL MCH (26-32) pg MCHC (32-36) g/dL RDW (11.5-14.0) % Plt Count (150-450) x10^3/uL MPV (7.5-11.0) fL Sodium (137-145) mmol/L Potassium (3.5-5.1) mmol/L Chloride (98-107) mmol/L Carbon Dioxide (22-30) mmol/L Anion Gap (5-15) MEQ/L BUN (7-17) mg/dL Creatinine (0.52-1.04) mg/dL Estimated GFR ML/MIN Glucose (74-106) mg/dL POC Glucometer 198 H 219 H (74 to 106) mg/dL Calcium (8.4-10.2) mg/dL Total Bilirubin (0.2-1.3) mg/dL AST (14-36) U/L ALT (0-35) U/L Alkaline Phosphatase (38-126) U/L Serum Total Protein (6.3-8.2) g/dL Albumin (3.5-5.0) g/dL Urine Opiates Level NEGATIVE (NEGATIVE) Ur Methadone NEGATIVE (NEGATIVE) Urine Barbiturates POSITIVE (NEGATIVE) Ur Phencyclidine (PCP) NEGATIVE (NEGATIVE) Urine Amphetamine NEGATIVE (NEGATIVE) U Benzodiazepine Level NEGATIVE (NEGATIVE) Urine Cocaine NEGATIVE (NEGATIVE) Urine Marijuana (THC) NEGATIVE (NEGATIVE) 01/04/23 01/05/23 01/05/23 Range/Units 21:42 04:03 04:03 WBC 8.6 (4.0-10.5) x10^3/uL RBC 3.36 L (4.1-5.4) x10^6/uL Hgb 10.1 L (12.0-16.0) g/dL Hct 31.0 L (35-47) % MCV 92.3 (78-100) fL MCH 30.1 (26-32) pg MCHC 32.6 (32-36) g/dL RDW 19.2 H (11.5-14.0) % Plt Count 123 L (150-450) x10^3/uL MPV 11.0 (7.5-11.0) fL Sodium 147 H (137-145) mmol/L Potassium 3.9 (3.5-5.1) mmol/L Chloride 111 H (98-107) mmol/L Carbon Dioxide 26 (22-30) mmol/L Anion Gap 13.8 (5-15) MEQ/L BUN 59 H (7-17) mg/dL Creatinine 1.12 H (0.52-1.04) mg/dL Estimated GFR 52.9 ML/MIN Glucose 235 H (74-106) mg/dL POC Glucometer 222 H (74 to 106) mg/dL Calcium 9.2 (8.4-10.2) mg/dL Total Bilirubin 0.30 (0.2-1.3) mg/dL AST 23 (14-36) U/L ALT 13 (0-35) U/L Alkaline Phosphatase 99 (38-126) U/L Serum Total Protein 6.4 (6.3-8.2) g/dL Albumin 3.0 L (3.5-5.0) g/dL Urine Opiates Level (NEGATIVE) Ur Methadone (NEGATIVE) Urine Barbiturates (NEGATIVE) Ur Phencyclidine (PCP) (NEGATIVE) Urine Amphetamine (NEGATIVE) U Benzodiazepine Level (NEGATIVE) Urine Cocaine (NEGATIVE) Urine Marijuana (THC) (NEGATIVE) 01/05/23 Range/Units 07:08 WBC (4.0-10.5) x10^3/uL RBC (4.1-5.4) x10^6/uL Hgb (12.0-16.0) g/dL Hct (35-47) % MCV (78-100) fL MCH (26-32) pg MCHC (32-36) g/dL RDW (11.5-14.0) % Plt Count (150-450) x10^3/uL MPV (7.5-11.0) fL Sodium (137-145) mmol/L Potassium (3.5-5.1) mmol/L Chloride (98-107) mmol/L Carbon Dioxide (22-30) mmol/L Anion Gap (5-15) MEQ/L BUN (7-17) mg/dL Creatinine (0.52-1.04) mg/dL Estimated GFR ML/MIN Glucose (74-106) mg/dL POC Glucometer 246 H (74 to 106) mg/dL Calcium (8.4-10.2) mg/dL Total Bilirubin (0.2-1.3) mg/dL AST (14-36) U/L ALT (0-35) U/L Alkaline Phosphatase (38-126) U/L Serum Total Protein (6.3-8.2) g/dL Albumin (3.5-5.0) g/dL Urine Opiates Level (NEGATIVE) Ur Methadone (NEGATIVE) Urine Barbiturates (NEGATIVE) Ur Phencyclidine (PCP) (NEGATIVE) Urine Amphetamine (NEGATIVE) U Benzodiazepine Level (NEGATIVE) Urine Cocaine (NEGATIVE) Urine Marijuana (THC) (NEGATIVE) Radiology Exams: Radiology Procedures Category Date Time Status ABDOMEN AND PELVIS W/0 CONTRAS [CT] Stat Exams 01/03/23 10:27 Completed BARIUM SWALLOW ESOPHOGRAM Routine Exams 01/05/23 09:58 Ordered CHEST 1 VIEW (PORTABLE) Stat Exams 01/03/23 12:42 Completed ECHO W/2D AND DOPPLER [US] Routine Exams 01/05/23 09:40 Ordered Assessment/Plan (1) Sepsis Current Visit: Yes Status: Acute Qualifiers: Sepsis acute organ dysfunction status: without acute organ dysfunction Assessment & Plan: -Most likely secondary to UTI vs pyelonephritis -Sepsis criteria identified 01/03/23 -Patient has received 3L for fluid resuscitation -IVF at 100ml/hr, monitor for fluid overload -Blood cultures x2 - negative -CXR -Procal -Antibiotics started: Merrem/vanc in ER, will continue with merrem/zosyn -Lactate drawn and wnl -Supplemental oxyen as needed to maintain SpO2 -Consider CT head if AMS does not improve -CT ab/pelvis as stated in HPI 01/04: -may be multifocal secondary to UTI vs pyelonephritis/ pneumonia -on 2L oxygen -Continue Merrem and Vanc for now, U-cult with gram - rods, follow culture 01/05: - UC + e- coli - Continue Merrem (2) UTI (urinary tract infection) Current Visit: Yes Status: Acute Assessment & Plan: 01/05 -Continue Merrem/zosyn - BC X2 negative - UC + e-coli- continue antibiotics - Continue IVF - Espinoza Code(s): N39.0 - URINARY TRACT INFECTION, SITE NOT SPECIFIED (3) Pyelonephritis Current Visit: Yes Status: Acute Assessment & Plan: -see uti/sepsis Code(s): N12 - TUBULO-INTERSTITIAL NEPHRITIS, NOT SPCF ACUTE OR CHRONIC (4) Atrial fibrillation with rapid ventricular response Current Visit: Yes Status: Acute Assessment & Plan: - New onset 109 - Cardizem bolus, then Gtt started - pt moved to ICU - Cardiology consult - Echo, TSH, Trop x3, Mg+ - Keep K+ > 4 and Mg+ >2 - Therapeutic Lovenox Code(s): I48.91 - UNSPECIFIED ATRIAL FIBRILLATION (5) AMS (altered mental status) Current Visit: Yes Status: Acute Assessment & Plan: -most likely metabolic encephalopathy secondary to infection, will continue to monitor, - mentation has improved overnight, will consider CT head if improvement does not continue Code(s): R41.82 - ALTERED MENTAL STATUS, UNSPECIFIED (6) Acute on chronic renal failure Current Visit: Yes Status: Acute Assessment & Plan: - Cr: compared to baseline 3.3; BUN 92, baseline creat at 1.1-1.2 - Pre-renal most likely secondary to hypovolemia and UTI - IVF -D/c nephrotoxic agents ACEI's/ARBs/NSAIDS/Diurectics -Monitor renal/lytes daily with strict I&O, renal dosing medications 01/04/23: -Creat improving 1.84<2.5<3.36, will continue gentle hydration 01/05 - labs improving- near baseline- continue to monitor. Code(s): N17.9 - ACUTE KIDNEY FAILURE, UNSPECIFIED; N18.9 - CHRONIC KIDNEY DISEASE, UNSPECIFIED (7) Diabetes mellitus type 2 in obese Current Visit: Yes Status: Acute Assessment & Plan: -Most recent a1c on 12/17 at 7.16 - Uncontrolled -Moderate dose SSI/ Accuchecks -Low carb diet Code(s): E11.69 - TYPE 2 DIABETES MELLITUS WITH OTHER SPECIFIED COMPLICATION; E66.9 - OBESITY, UNSPECIFIED (8) Schizophrenia Current Visit: No Status: Acute Qualifiers: Schizophrenia type: unspecified Qualified Code(s): F20.9 - Schizophrenia, unspecified Assessment & Plan: -Continue home meds, pharm consult for renal dosing 01/04: -Pharmacy has renal dosed all medications, however patient currently NPO due to concern for aspiration, swallow eval pending Code(s): F20.9 - SCHIZOPHRENIA, UNSPECIFIED (9) Weakness Current Visit: No Status: Acute Assessment & Plan: -PT/OT -patient resides at the [facility] and plan is to go back at d/c Code(s): R53.1 - WEAKNESS (10) Acute adjustment disorder with depressed mood Current Visit: No Status: Chronic Assessment & Plan: Pharmacy has renal dosed all medications, however patient currently NPO due to concern for aspiration, swallow eval pending Code(s): F43.21 - ADJUSTMENT DISORDER WITH DEPRESSED MOOD (11) Infiltrate of lower lobe of right lung present on imaging study Current Visit: Yes Status: Acute Assessment & Plan: - As seen on chest XR 01/03 IMPRESSION: 1. Probable infiltrates in the right lower lobe. Clinical correlation and follow-up are suggested. 2. Blurred right costophrenic angle probably representing mild pleural effusion. 3. Faint nodular opacity in the right mid zone. CT chest may be recommended for further evaluation. - May be aspiration related, pt coughs with swallowing meds, drinks or food. - ST eval- swallow eval - Mod barium swallow ordered - Continue Merrem and Vancomycin - Chest CT without contrast - WBC WNL Code(s): R91.8 - OTHER NONSPECIFIC ABNORMAL FINDING OF LUNG FIELD (12) Obesity, morbid, BMI 40.0-49.9 Current Visit: Yes Status: Acute Assessment & Plan: - recommend diet control VTE: Lovenox PPI: Famotidine Code status: FUll Next of kin: Eliana Snyder [phone] D/C plan: 2-3 days Code(s): E66.01 - MORBID (SEVERE) OBESITY DUE TO EXCESS CALORIES
[2023-01-05] MEDS: FEVERALL 650 MG PR PRN ×2 (10:29→17:56)
[2023-01-05] MEDS: VANCOMYCIN 1 GRAM/200 ML BAG 1 GM/200 ML PIGGYBACK IV SCH ×2 (10:53→21:00)
[2023-01-05] MEDS: ENOXAPARIN SODIUM SQ SCH ×2 (11:35→22:01)
[2023-01-05] MEDS ORDERED: Lanoxin 0.5 MG/2 ML INJECTION IV ONE ×2 (13:03→19:00)
[2023-01-05] MEDS ORDERED: Sodium Chloride 0.9% 1000 ML 1,000 ML IV STA (16:02)
[2023-01-05] MEDS ORDERED: Cordarone 150 MG/3 ML Injection*** 150 MG in D5w 100ML Mini Bag 100 ML 100 ML IV ONE (16:18)
[2023-01-05] MEDS ORDERED: Sodium Chloride 0.9% 500 ML 500 ML IV ONE (16:20)
[2023-01-05] MEDS: NEXTERONE 360 MG/200 ML BAG 360 MG/200 ML PLAST..BAG IV SCH ×2 (17:11→22:57)
[2023-01-05] MEDS: ZOCOR 20MG PO SCH (21:00)
[2023-01-06 04:53] LABS: Hematocrit 34.1 % (35-47); Hemoglobin 10.7 g/dL (12.0-16.0); Mean Cell Volume 93.4 fL (78-100); Mean Corpuscular Hemoglobin 29.3 pg (26-32); Mean Corpuscular Hgb Concent. 31.4 g/dL (32-36); Mean Platelet Volume 10.7 fL (7.5-11.0); Platelet Count 119 x10^3/uL (150-450); Red Blood Count 3.65 x10^6/uL (4.1-5.4); White Blood Count 12.6 x10^3/uL (4.0-10.5)
[2023-01-06 05:08] LABS: ALBUMIN 2.9 g/dL (3.5-5.0); ALKALINE PHOSPHATASE 97 U/L (38-126); ANION GAP 11.8 MEQ/L (5-15); BLOOD UREA NITROGEN 39 mg/dL (7-17); CHLORIDE 110 mmol/L (98-107); Carbon Dioxide 27 mmol/L (22-30); Creatinine 1 0.87 mg/dL (0.52-1.04); EST GLOMERULAR FILTRATION RATE > 60.0 ML/MIN; Glucose 250 mg/dL (74-106); Potassium 3.5 mmol/L (3.5-5.1); SGOT/AST 29 U/L (14-36); SGPT/ALT 14 U/L (0-35); SODIUM 146 mmol/L (137-145); Total Protein 6.3 g/dL (6.3-8.2)
[2023-01-06] MEDS: Merrem 1 GM in Sodium Chloride 100ML MINI-BAG PLUS 100 ML IV SCH (06:05)
[2023-01-06] MEDS: HUMALOG SQ PRN ×4 (08:43→22:41)
--- NOTE | 2023-01-06 08:55 | XRAY ---
Indication: Abnormal chest x-ray. Multiple contiguous axial images obtained through the chest without contrast. Comparison: None Mild diffuse respiration artifact limits exam. Also beam artifact from patient's arms. Right lung demonstrates mild diffuse interstitial alveolar opacities without consolidation/large effusion. Medial right lower lobe demonstrates subsegmental atelectasis/scarring. Left lung grossly clear. Heart not enlarged. Aorta minimally arteriosclerotic without aneurysm. No pathologic mediastinal lymphadenopathy. Bony thorax intact with osteopenia, mild/moderate degenerative changes throughout the visualized spine, and C6-C7 fusion hardware. Limited upper abdomen demonstrate cholecystectomy clips. Impression: 1. Respiration and beam artifact. 2. Mild diffuse right lung interstitial alveolar opacities. Rule out pneumonitis. 3. Chronic findings including arteriosclerotic disease and chronic bony findings.
--- NOTE | 2023-01-06 09:57 | CONS ---
CONSULT DATE: 01/06/2023 REASON FOR CONSULTATION: New onset atrial fibrillation with rapid ventricular response. HISTORY OF PRESENT ILLNESS: Ms. Dixon is a 57 year-old woman with history of type 2 diabetes, hypertension, dyslipidemia, anxiety, depression, and schizophrenia. Presented to the Emergency Department on [facility]/20[facility] from [facility] with progressive altered mental status for a week. She was subsequently found to have a urinary tract infection and became septic consistent with urosepsis as well as a possible pneumonia on CT scan. She was initiated on broad spectrum antibiotics and subsequently developed atrial fibrillation with rapid ventricular response with heart rate up to the 140's with systolic BP dropping into the 90's. She had initially been on diltiazem drip and yesterday I was contacted and advised switching from Cardizem to an amiodarone bolus and drip. Since then, her heart rate has overall improved and her BP is improved after fluid bolus. An echocardiogram was performed and I personally reviewed. Demonstrated preserved ejection fraction with no significant valvular abnormalities. Today, she is afebrile. Her temperature on presentation was up to 102 Fahrenheit. She continues to have emotional lability and some confusion. However, overall, mental status has significantly improved per discussion with her bedside nurse. She denies any chest pain or shortness of breath and systolic BP is now in the 120's and heart rate is in the 110's. She is still NPO and a swallow evaluation is pending. REVIEW OF SYSTEMS: 14 systems review performed pertinent for positives noted in the HPI, otherwise negative. PHYSICAL EXAMINATION: VITAL SIGNS: GENERAL: No acute distress. She is tearful. She is obese. EYES: Anicteric sclerae. Conjunctivae normal. ENT: Hearing grossly intact. No nasal discharge. CVS: Irregularly irregular. Tachycardic to the 110's. No murmurs, rubs, or gallops. Jugular venous pressure is difficult to assess due to body habitus. There is no peripheral edema. RESPIRATORY: Clear to auscultation bilaterally. No accessory muscle use. GASTROINTESTINAL: Abdomen is soft, nontender, nondistended. No rebound or guarding. MUSCULOSKELETAL: Normal muscle bulk and tone. SKIN: Warm, well perfused. No rashes. NEURO: She is awake. She is tearful. She is somewhat confused, but moving all 4 extremities with no focal neurologic deficits. LABORATORY DATA: Reviewed. WBC 12.6, Hgb 10.7, platelet count 119,000. Creatinine 0.87. Troponin yesterday was 0.050 which is marginally positive. EKG demonstrates atrial fibrillation with rapid ventricular response. Telemetry currently demonstrates atrial fibrillation with heart rate in the 110's to 120's. IMPRESSION: 1. NEW ONSET ATRIAL FIBRILLATION WITH RAPID VENTRICULAR RESPONSE LIKELY TRIGGERED BY UROSEPSIS. 2. E. COLI URINARY TRACT INFECTION WITH ASSOCIATED UROSEPSIS IMPROVING WITH FLUID HYDRATION AND BROAD SPECTRUM ANTIBIOTICS. 3. MILDLY ELEVATED TROPONIN CONSISTENT WITH TYPE 2 MYOCARDIAL INFARCTION IN THE SETTING OF UROSEPSIS AND ATRIAL FIBRILLATION WITH RAPID VENTRICULAR RESPONSE. 4. ACUTE KIDNEY INJURY WHICH HAS IMPROVED WITH FLUID HYDRATION. 5. ALTERED MENTAL STATUS IMPROVED WITH SOME BASELINE PSYCHIATRIC ISSUES. OVERALL MENTAL STATUS ACUTE DELIRIUM IMPROVED WITH TREATMENT OF URINARY TRACT INFECTION. RECOMMENDATIONS: Continue gentle hydration as she is currently NPO. Follow-up on swallow study and once able to, will transition off of IV amiodarone drip which I have advised bedside nurse to discontinue once current bag is completed. I have also ordered metoprolol 5 mg IV q 6 h scheduled for now until she can take oral therapy and then transition to Toprol XL 25 mg PO bid. In addition, would continue Lovenox 1 mg/kg subcutaneous q 12 h therapeutic dose for new onset atrial fibrillation as she does have increased thromboembolic risk and once medically more stable and able to take PO, can transition to Xarelto 20 mg PO daily. I anticipate her heart rate will improve with addition of oral beta-christine and further treatment of urinary tract infection. If necessary, if BP tolerates, can up titrate oral beta-christine therapy for better heart rate control with resting heart rate below 100, but I would avoid titrating this too aggressively until urinary tract infection is fully treated. Thank you for allowing me to participate in the care of this patient.
[2023-01-06] MEDS ORDERED: LOPRESSOR INJECTION IV SCH (10:00)
--- NOTE | 2023-01-06 10:05 | ECHO ---
DATE OF STUDY: 01/05/2023 INDICATION: New onset atrial fibrillation. STUDY PERFORMED: Complete 2D echo with color Doppler and spectral analysis. DESCRIPTION OF FINDINGS: The left ventricle is normal size with moderate concentric hypertrophy. Normal left ventricular systolic function with ejection fraction of approximately 55%. The right ventricle is normal size with normal systolic function. The left atrium is normal size. The right atrium is normal size. Inferior vena cava is dilated with greater than 50% respiratory variation. Aortic valve is not well visualized. There is no aortic stenosis or aortic regurgitation. There is mild mitral annular calcification. There is trace mitral regurgitation. Tricuspid valve leaflets are thin and pliable. There is no tricuspid regurgitation. Unable to estimate right ventricular systolic pressure due to inadequate DC signal. Pulmonic valve is not well visualized. Aortic root is not well visualized. No pericardial effusion. The patient is in atrial fibrillation with rapid ventricular response. IMPRESSION: 1. NORMAL LEFT VENTRICULAR SIZE WITH MODERATE LEFT VENTRICULAR HYPERTROPHY. 2. NORMAL LEFT VENTRICULAR SYSTOLIC FUNCTION WITH EJECTION FRACTION OF APPROXIMATELY 55%. 3. NORMAL RIGHT VENTRICULAR SIZE AND SYSTOLIC FUNCTION. 4. TRACE MITRAL REGURGITATION. 5. UNABLE TO ESTIMATE RIGHT VENTRICULAR SYSTOLIC PRESSURE. 6. NO PERICARDIAL EFFUSION. 7. PATIENT IS IN ATRIAL FIBRILLATION WITH RAPID VENTRICULAR RESPONSE DURING THIS STUDY.
[2023-01-06] MEDS: Depakote EXTENDED RELEASE 250 MG PO SCH (10:19)
[2023-01-06] MEDS: Risperdal 1 MG PO SCH ×2 (10:24→22:37)
[2023-01-06] MEDS: MYSOLINE 50MG PO SCH ×3 (10:26→22:37)
[2023-01-06] MEDS: SYNTHROID 25 MCG PO SCH (10:26)
[2023-01-06] MEDS: Effexor XR 75 MG PO SCH (10:27)
[2023-01-06] MEDS: Lexapro PO SCH (10:27)
[2023-01-06] MEDS: Pepcid 20 MG PO SCH (10:33)
[2023-01-06] MEDS: Singulair 10 MG PO SCH (10:33)
[2023-01-06] MEDS: Ditropan XL 5 MG PO SCH (10:35)
[2023-01-06] MEDS: Neurontin PO SCH ×3 (10:36→22:37)
[2023-01-06] MEDS: VITAMIN D PO SCH (10:37)
[2023-01-06] MEDS: VANCOMYCIN 1 GRAM/200 ML BAG 1 GM/200 ML PIGGYBACK IV SCH (10:43)
[2023-01-06] MEDS: ENOXAPARIN SODIUM SQ SCH ×2 (10:48→22:38)
--- NOTE | 2023-01-06 11:37 | XRAY ---
Indication: Pain following fall. Comparison: December 19, 2021 3 view right knee demonstrate new tiny nonspecific effusion. Remaining knee unchanged again demonstrating osteopenia, moderate/advanced tricompartmental degenerative changes, posterior fabella, and scattered vascular calcifications.
--- NOTE | 2023-01-06 11:41 | PCM.NOTE ---
Date and Time: 01/06/23 1135 Subjective Assessment: is a 57 year old female with pmhx of HLD, HTN, Asthma, DM type II, anxiety, depression, IBS, GERD, and schizophrenia that presented to ER 01/03/23 via EMS from the [facility] with altered mentation for the past week. Poor historian. On admission patient was very lethargic and only able state her name and where she is. She also endorsed back pain but unable to elaborate.CT findings limited due to non-contrast imaging in the setting of JEFFREY, noting no evidence of renal stones or hydronephrosis, right renal focal bulge which could be a cyst. A new finding.Left renal focal bulge which has increased since the last study could be complex cyst versus mass and requires further evaluation by post contrast CT. Left renal cyst. The previously seen right hepatic focal lesion is not visualized in this study likely due to lack of intravenous contrast administration. Viral respiratory panel negative. Admitted for sepsis secondary to pyeolonephrilitis, and acute on chronic kidney failure. Currently being treated with vancomycin/merrem. Urine culture positive for e-coli. Sensitive to Merrem. BC x2 negative. This is concern of aspiration with CXR findings with infiltrates to right middle/lower lobe. Patient is currently NPO with swallow eval and barium swallow pending. F/C is placed and urine is clear. This morning pt's HR became elevated, EKG obtained and pt in new on set A-fib RVR. Cardiology consulted, additional labs and echo ordered. Cardizem bolus gave then gtt started. Pt has a temp of 102 today. She is emotionally liable, this is her norm per previous visits. She denies CP or SOB. - Review of Systems Constitutional: No Fever, No Chills Eyes: No Symptoms Ears, Nose, & Throat: No Symptoms Respiratory: No Cough, No Short Of Breath Cardiac: No Chest Pain, No Edema, No Syncope Abdominal/Gastrointestinal: No Abdominal Pain, No Nausea, No Vomiting, No Diarrhea Genitourinary Symptoms: No Dysuria Musculoskeletal: Joint Pain (R knee), No Back Pain, No Neck Pain Skin: No Rash Neurological: No Dizziness, No Focal Weakness, No Sensory Changes Psychological: No Symptoms, Anxiety, Depression, Emotional Lability, Mood Changes Endocrine: No Symptoms Hematologic/Lymphatic: No Symptoms Immunological/Allergic: No Symptoms Objective Exam General Appearance: no apparent distress, alert Neurologic Exam: alert, oriented x 3, cooperative, normal mood/affect, nml cerebellar function, sensation nml, No motor deficits Skin Exam: normal color, warm, dry Eye Exam: PERRL, EOMI, eyes nml inspection Ears, Nose, Throat Exam: normal ENT inspection, pharynx normal, moist mucous membranes Neck Exam: normal inspection, non-tender, supple, full range of motion Respiratory Exam: normal breath sounds, lungs clear, No respiratory distress Cardiovascular Exam: normal heart sounds, irregular (A-fib RVR) Gastrointestinal/Abdomen Exam: soft, No tenderness, No mass Extremity Exam: normal inspection, normal range of motion Back Exam: normal inspection, normal range of motion, No CVA tenderness, No vertebral tenderness Pelvic Exam: deferred Rectal Exam: deferred OBJECTIVE DATA Vital Signs: Vital Signs - 24 hr Temp Pulse Resp BP BP Pulse Ox 01/06/23 10:01 119 H 21 127/73 01/06/23 09:00 96 H 10 L 127/76 98 01/06/23 08:00 104 H 14 98 01/06/23 07:59 120 H 14 134/76 01/06/23 07:54 113 H 01/06/23 07:39 124 H 12 01/06/23 07:12 120 H 23 96 01/06/23 07:10 98.6 F 127 H 15 111/87 99 01/06/23 06:05 99.0 F 121 H 26 H 121/83 93 L 01/06/23 05:02 98.8 F 132 H 13 119/74 93 L 01/06/23 04:00 98.6 F 102 H 18 100/75 94 L 01/06/23 03:01 98.4 F 115 H 15 97/77 96 01/06/23 02:06 98.8 F 121 H 14 107/77 96 01/06/23 01:01 98.8 F 115 H 15 127/85 93 L 01/06/23 00:01 98.8 F 110 H 16 123/89 96 01/06/23 00:00 95 H 01/05/23 23:01 98.8 F 95 H 12 121/88 95 01/05/23 22:01 98.8 F 134 H 19 133/87 93 L 01/05/23 21:10 99.0 F 129 H 19 130/92 96 01/05/23 21:02 99.0 F 130 H 25 H 144/104 01/05/23 20:01 99.1 F 88 13 110/76 96 01/05/23 20:00 88 01/05/23 19:10 87 16 93 L 01/05/23 19:00 99.1 F 91 H 20 115/62 99 01/05/23 18:00 99.1 F 106 H 16 114/75 96 01/05/23 17:00 99.1 F 120 H 16 105/57 97 01/05/23 15:56 99.5 F 145 H 16 83/34 97 01/05/23 15:00 99.7 F 119 H 16 94/64 97 01/05/23 14:00 99.7 F 121 H 20 77/65 97 01/05/23 13:51 99.9 F 111 H 18 77/63 98 01/05/23 13:50 111 H 18 77/63 01/05/23 13:00 99.9 F 114 H 12 85/42 99 01/05/23 11:48 127 H 01/05/23 11:46 100.4 F 127 H 14 113/27 98 Pain Assessment - Last Documented Pain Intensity 10 Pain Scale Used 0-10 Pain Scale Intake and Output: Intake & Output 01/03/23 01/04/23 01/05/23 01/06/23 11:59 11:59 11:59 11:59 Intake Total 815 1468 3406 Output Total 100 1725 1725 1400 Balance -100 -978 -962 2005 Weight 117.5 kg 116.9 kg Lab Results: Lab Results-Last 24 Hours 01/05/23 01/05/23 01/05/23 Range/Units 13:14 16:10 16:29 WBC (4.0-10.5) x10^3/uL RBC (4.1-5.4) x10^6/uL Hgb (12.0-16.0) g/dL Hct (35-47) % MCV (78-100) fL MCH (26-32) pg MCHC (32-36) g/dL RDW (11.5-14.0) % Plt Count (150-450) x10^3/uL MPV (7.5-11.0) fL Sodium (137-145) mmol/L Potassium (3.5-5.1) mmol/L Chloride (98-107) mmol/L Carbon Dioxide (22-30) mmol/L Anion Gap (5-15) MEQ/L BUN (7-17) mg/dL Creatinine (0.52-1.04) mg/dL Estimated GFR ML/MIN Glucose (74-106) mg/dL POC Glucometer 255 H (74 to 106) mg/dL Calcium (8.4-10.2) mg/dL Total Bilirubin (0.2-1.3) mg/dL AST (14-36) U/L ALT (0-35) U/L Alkaline Phosphatase (38-126) U/L Troponin I 0.030 0.050 H* (0.000-0.034) ng/mL Serum Total Protein (6.3-8.2) g/dL Albumin (3.5-5.0) g/dL 01/05/23 01/06/23 01/06/23 Range/Units 21:12 04:43 04:43 WBC 12.6 H (4.0-10.5) x10^3/uL RBC 3.65 L (4.1-5.4) x10^6/uL Hgb 10.7 L (12.0-16.0) g/dL Hct 34.1 L (35-47) % MCV 93.4 (78-100) fL MCH 29.3 (26-32) pg MCHC 31.4 L (32-36) g/dL RDW 19.0 H (11.5-14.0) % Plt Count 119 L (150-450) x10^3/uL MPV 10.7 (7.5-11.0) fL Sodium 146 H (137-145) mmol/L Potassium 3.5 (3.5-5.1) mmol/L Chloride 110 H (98-107) mmol/L Carbon Dioxide 27 (22-30) mmol/L Anion Gap 11.8 (5-15) MEQ/L BUN 39 H (7-17) mg/dL Creatinine 0.87 (0.52-1.04) mg/dL Estimated GFR > 60.0 ML/MIN Glucose 250 H (74-106) mg/dL POC Glucometer 231 H (74 to 106) mg/dL Calcium 9.0 (8.4-10.2) mg/dL Total Bilirubin 0.30 (0.2-1.3) mg/dL AST 29 (14-36) U/L ALT 14 (0-35) U/L Alkaline Phosphatase 97 (38-126) U/L Troponin I (0.000-0.034) ng/mL Serum Total Protein 6.3 (6.3-8.2) g/dL Albumin 2.9 L (3.5-5.0) g/dL 01/06/23 Range/Units 07:36 WBC (4.0-10.5) x10^3/uL RBC (4.1-5.4) x10^6/uL Hgb (12.0-16.0) g/dL Hct (35-47) % MCV (78-100) fL MCH (26-32) pg MCHC (32-36) g/dL RDW (11.5-14.0) % Plt Count (150-450) x10^3/uL MPV (7.5-11.0) fL Sodium (137-145) mmol/L Potassium (3.5-5.1) mmol/L Chloride (98-107) mmol/L Carbon Dioxide (22-30) mmol/L Anion Gap (5-15) MEQ/L BUN (7-17) mg/dL Creatinine (0.52-1.04) mg/dL Estimated GFR ML/MIN Glucose (74-106) mg/dL POC Glucometer 256 H (74 to 106) mg/dL Calcium (8.4-10.2) mg/dL Total Bilirubin (0.2-1.3) mg/dL AST (14-36) U/L ALT (0-35) U/L Alkaline Phosphatase (38-126) U/L Troponin I (0.000-0.034) ng/mL Serum Total Protein (6.3-8.2) g/dL Albumin (3.5-5.0) g/dL Radiology Exams: Radiology Procedures Category Date Time Status CHEST WITHOUT CONTRAST [CT] Routine Exams 01/06/23 10:48 Completed ECHO W/2D AND DOPPLER [US] Routine Exams 01/05/23 09:40 Draft KNEE (3 VIEWS) Routine Exams 01/06/23 09:56 Taken Multi-Disciplinary Progress Notes: Multi-Disciplinary Progress Notes 01/06/23 10:09 Case Management Note by Viktoria Mcmahon PLAN IS STILL FOR PATIENT TO RETURN TO THE [facility] WHEN MEDICALLY STABLE. Initialized on 01/06/23 10:09 - END OF NOTE 01/05/23 13:46 Physical Therapy Note by Ahsan(L#[id number]),Jacey EDGE HELD THIS DATE D/T DECLINE IN MEDICAL STATUS AND A FIB. WILL ATTEMPT TOMORROW 01/06/23. Initialized on 01/05/23 13:46 - END OF NOTE Assessment/Plan (1) Sepsis Current Visit: Yes Status: Acute Qualifiers: Sepsis acute organ dysfunction status: without acute organ dysfunction Assessment & Plan: Most likely secondary to UTI vs pyelonephritis -Sepsis criteria identified 01/03/23 -Patient has received 3L for fluid resuscitation -IVF at 100ml/hr, monitor for fluid overload -Blood cultures x2 - negative -CXR -Procal -Antibiotics started: Merrem/vanc in ER, will continue with merrem/zosyn -Lactate drawn and wnl -Supplemental oxyen as needed to maintain SpO2 -Consider CT head if AMS does not improve -CT ab/pelvis as stated in HPI 01/04: -may be multifocal secondary to UTI vs pyelonephritis/ pneumonia -on 2L oxygen -Continue Merrem and Vanc for now, U-cult with gram - rods, follow culture 01/05: - UC + e- coli - Continue Merrem 01/06 - Stop Merrem and Vancomycin - Start Rocephin (2) UTI (urinary tract infection) Current Visit: Yes Status: Acute Assessment & Plan: 01/05 -Continue Merrem - BC X2 negative - UC + e-coli- continue antibiotics - Continue IVF - Espinoza 01/06 - All antibiotics stopped, rocephin started Code(s): N39.0 - URINARY TRACT INFECTION, SITE NOT SPECIFIED (3) Pyelonephritis Current Visit: Yes Status: Acute Assessment & Plan: -see uti/sepsis Code(s): N12 - TUBULO-INTERSTITIAL NEPHRITIS, NOT SPCF ACUTE OR CHRONIC (4) Atrial fibrillation with rapid ventricular response Current Visit: Yes Status: Acute Assessment & Plan: Assessment & Plan: - New onset @:00 AM - Cardizem bolus, then Gtt started - pt moved to ICU - Cardiology consult - Echo, TSH, Trop x3, Mg+ - Keep K+ > 4 and Mg+ >2 - Therapeutic Lovenox - amiodarone ordered in the evening by cardiology - cardizem stopped 01/06 - Cardiology saw pt this AM - per cardiology recs continue amiodarone gtt until complete then transition to metoprolol - K+ 3.5 replaced Code(s): I48.91 - UNSPECIFIED ATRIAL FIBRILLATION (5) AMS (altered mental status) Current Visit: Yes Status: Acute Assessment & Plan: -most likely metabolic encephalopathy secondary to infection, will continue to monitor, - mentation has improved overnight, will consider CT head if improvement does not continue 01/06 - at baseline Code(s): R41.82 - ALTERED MENTAL STATUS, UNSPECIFIED (6) Acute on chronic renal failure Current Visit: Yes Status: Acute Assessment & Plan: - Cr: compared to baseline 3.3; BUN 92, baseline creat at 1.1-1.2 - Pre-renal most likely secondary to hypovolemia and UTI - IVF -D/c nephrotoxic agents ACEI's/ARBs/NSAIDS/Diurectics -Monitor renal/lytes daily with strict I&O, renal dosing medications 01/04/23: -Creat improving 1.84<2.5<3.36, will continue gentle hydration 01/05 - labs improving- near baseline- continue to monitor. 01/06 - resolved Code(s): N17.9 - ACUTE KIDNEY FAILURE, UNSPECIFIED; N18.9 - CHRONIC KIDNEY D ISEASE, UNSPECIFIED (7) Diabetes mellitus type 2 in obese Current Visit: Yes Status: Acute Assessment & Plan: -Most recent a1c on 12/17 at 7.16 - Uncontrolled -Moderate dose SSI/ Accuchecks -carb controlled diet Code(s): E11.69 - TYPE 2 DIABETES MELLITUS WITH OTHER SPECIFIED COMPLICATION; E66.9 - OBESITY, UNSPECIFIED (8) Schizophrenia Current Visit: No Status: Acute Qualifiers: Schizophrenia type: unspecified Qualified Code(s): F20.9 - Schizophrenia, unspecified Assessment & Plan: -Continue home meds, pharm consult for renal dosing 01/04: -Pharmacy has renal dosed all medications 01/06 - continue home meds Code(s): F20.9 - SCHIZOPHRENIA, UNSPECIFIED (9) Weakness Current Visit: No Status: Acute Assessment & Plan: -PT/OT -patient resides at the [facility] and plan is to go back at d/c Code(s): R53.1 - WEAKNESS (10) Acute adjustment disorder with depressed mood Current Visit: No Status: Chronic Assessment & Plan: -Pharmacy has renal dosed all medications, - Continue home meds Code(s): F43.21 - ADJUSTMENT DISORDER WITH DEPRESSED MOOD (11) Infiltrate of lower lobe of right lung present on imaging study Current Visit: Yes Status: Acute Assessment & Plan: - As seen on chest XR 01/03 IMPRESSION: 1. Probable infiltrates in the right lower lobe. Clinical correlation and follow-up are suggested. 2. Blurred right costophrenic angle probably representing mild pleural effusion. 3. Faint nodular opacity in the right mid zone. CT chest may be recommended for further evaluation. - May be aspiration related, pt coughs with swallowing meds, drinks or food. - ST eval- swallow eval - Mod barium swallow ordered - Continue Merrem and Vancomycin - Chest CT without contrast - WBC WNL 01/06 - Chest CT 01/06: 1. Respiration and beam artifact. 2. Mild diffuse right lung interstitial alveolar opacities. Rule out pneumonitis. 3. Chronic findings including arteriosclerotic disease and chronic bony findings. - Antibiotics changed to Rocephin - WBC 12.6 increased from yesterday Code(s): R91.8 - OTHER NONSPECIFIC ABNORMAL FINDING OF LUNG FIELD (12) Swallowing dysfunction Current Visit: Yes Status: Acute Assessment & Plan: - Swallow eval by ST - Pt did pass swallow eval per PT and she explained pt needs to be reminded to swallow at times. - Agree with ST plan of care - Pt able to swallow all meds today - Carb consistent diet Code(s): R13.10 - DYSPHAGIA, UNSPECIFIED (13) Right knee pain Current Visit: Yes Status: Acute Assessment & Plan: - XR right knee 01/06 3 view right knee demonstrate new tiny nonspecific effusion. Remaining knee unchanged again demonstrating osteopenia, moderate/advanced tricompartmental degenerative changes, posterior fabella, and scattered vascular calcifications. Code(s): M25.561 - PAIN IN RIGHT KNEE (14) Obesity, morbid, BMI 40.0-49.9 Current Visit: Yes Status: Acute Assessment & Plan: - recommend diet control VTE: Lovenox PPI: Famotidine Code status: FUll Next of kin: Eliana Snyder [phone] D/C plan: 2-3 days Code(s): E66.01 - MORBID (SEVERE) OBESITY DUE TO EXCESS CALORIES
[2023-01-06] MEDS ORDERED: Klor Con PO ONE (12:10)
[2023-01-06] MEDS ORDERED: LOPRESSOR INJECTION IV ONE (16:47)
[2023-01-06] MEDS: Dextrose 5%/Water IV Soln. 1000 ML 1,000 ML IV SCH ×2 (16:57→22:36)
[2023-01-06] MEDS: NEXTERONE 360 MG/200 ML BAG 360 MG/200 ML PLAST..BAG IV SCH (19:09)
[2023-01-06] MEDS ORDERED: TROUGH DRUG LEVELS IJ ONE (21:30)
[2023-01-06] MEDS ORDERED: Sodium Chloride 0.9% 1000 ML 1,000 ML IV STA (22:16)
[2023-01-06] MEDS: ZOCOR 20MG PO SCH (22:38)
[2023-01-06] MEDS: Toprol-Xl 25MG Tablets PO SCH (22:38)
[2023-01-06 23:52] LABS: A-aADO2 22; ABG HEMOGLOBIN 10.7; ABG POTASSIUM 3.5 (3.5-5.1); ABG SITE RIGHT BRACHIAL; ARTERIAL BLD GAS O2 SATURATION 96.5 % (95-100); ARTERIAL BLOOD GAS BASE EXCESS 2.4 (-2.0-2.0); ARTERIAL BLOOD GAS FIO2 21 %; ARTERIAL BLOOD GAS PCO2 46 mmHg (35-45); ARTERIAL BLOOD GAS PO2 70 mmHg (75-100); ARTERIAL BLOOD GAS pH 7.39 (7.35-7.45); CARBOXYHEMOGLOBIN 1.5 % THgb (0.0-6.9); HCO3- 27.8 (22-28); Methhemoglobin 1.2 % (1.4-1.5); paO2 pAO1 0.76
[2023-01-07] MEDS ORDERED: Sodium Chloride 0.9% 1000 ML 1,000 ML ONE (04:04)
[2023-01-07 04:55] LABS: Hematocrit 33.4 % (35-47); Hemoglobin 10.5 g/dL (12.0-16.0); Mean Corpuscular Hemoglobin 29.2 pg (26-32); Mean Corpuscular Hgb Concent. 31.4 g/dL (32-36); Mean Platelet Volume 11.9 fL (7.5-11.0); Platelet Count 126 x10^3/uL (150-450); Red Blood Count 3.59 x10^6/uL (4.1-5.4); Red Cell Distribution Width 18.9 % (11.5-14.0); White Blood Count 8.6 x10^3/uL (4.0-10.5)
[2023-01-07 05:05] LABS: ALBUMIN 2.5 g/dL (3.5-5.0); ALKALINE PHOSPHATASE 93 U/L (38-126); ANION GAP 9.9 MEQ/L (5-15); BLOOD UREA NITROGEN 33 mg/dL (7-17); CHLORIDE 111 mmol/L (98-107); Calcium 8.4 mg/dL (8.4-10.2); Carbon Dioxide 25 mmol/L (22-30); Creatinine 1 0.75 mg/dL (0.52-1.04); EST GLOMERULAR FILTRATION RATE > 60.0 ML/MIN; Glucose 238 mg/dL (74-106); Potassium 3.6 mmol/L (3.5-5.1); SGOT/AST 27 U/L (14-36); SGPT/ALT 15 U/L (0-35); SODIUM 142 mmol/L (137-145); Total Protein 5.6 g/dL (6.3-8.2)
[2023-01-07] MEDS: HUMALOG SQ PRN ×4 (07:35→22:16)
[2023-01-07] MEDS ORDERED: Klor Con PO ONE (07:44)
[2023-01-07] MEDS: Toprol-Xl 25MG Tablets PO SCH ×2 (08:10→22:17)
[2023-01-07] MEDS: ROCEPHIN 1 Gm-D5w 50 ml Bag** 1 G/50 ML IVPB IV SCH (08:16)
[2023-01-07] MEDS: MYSOLINE 50MG PO SCH ×3 (09:08→22:16)
[2023-01-07] MEDS: Singulair 10 MG PO SCH (09:09)
[2023-01-07] MEDS: Pepcid 20 MG PO SCH (09:09)
[2023-01-07] MEDS: Lexapro PO SCH (09:09)
[2023-01-07] MEDS: Neurontin PO SCH ×3 (09:09→22:16)
[2023-01-07] MEDS: Effexor XR 75 MG PO SCH (09:09)
[2023-01-07] MEDS: Ditropan XL 5 MG PO SCH (09:09)
[2023-01-07] MEDS: SYNTHROID 25 MCG PO SCH (09:09)
[2023-01-07] MEDS: VITAMIN D PO SCH (09:09)
[2023-01-07] MEDS: Risperdal 1 MG PO SCH ×2 (09:09→22:16)
[2023-01-07] MEDS: Depakote EXTENDED RELEASE 250 MG PO SCH (09:10)
[2023-01-07] MEDS: Dextrose 5%/Water IV Soln. 1000 ML 1,000 ML IV SCH (09:18)
[2023-01-07] MEDS: MAG-OX 400 PO SCH (09:23)
--- NOTE | 2023-01-07 10:20 | PCM.NOTE ---
Date and Time: 01/07/23 1013 Subjective Assessment: 01/06 is a 57 year old female with pmhx of HLD, HTN, Asthma, DM type II, anx iety, depression, IBS, GERD, and schizophrenia that presented to ER 01/03/23 via EMS from the [facility] with altered mentation for the past week. Poor historian. On admission patient was very lethargic and only able state her name and where she is. She also endorsed back pain but unable to elaborate.CT findings limited due to non-contrast imaging in the setting of JEFFREY, noting no evidence of renal stones or hydronephrosis, right renal focal bulge which could be a cyst. A new finding.Left renal focal bulge which has increased since the last study could be complex cyst versus mass and requires further evaluation by post contrast CT. Left renal cyst. The previously seen right hepatic focal lesion is not visualized in this study likely due to lack of intravenous contrast administration. Viral respiratory panel negative. Admitted for sepsis secondary to pyeolonephrilitis, and acute on chronic kidney failure. Currently being treated with vancomycin/merrem. Urine culture positive for e-coli. Sensitive to Merrem. BC x2 negative. This is concern of aspiration with CXR findings with infiltrates to right middle/lower lobe. Patient is currently NPO with swallow eval and barium swallow pending. F/C is placed and urine is clear. This morning pt's HR became elevated, EKG obtained and pt in new on set A-fib RVR. Cardiology consulted, additional labs and echo ordered. Cardizem bolus gave then gtt started. Pt has a temp of 102 today. She is emotionally liable, this is her norm per previous visits. She denies CP or SOB. 01/07 Pt resting in bed. She is calm compared to previous days. Mood is stable. She explained she is relaxing today. She continues to be in A-fib RVR with HR ranging from 130-150. She was changed to amiodarone gtt then PO metoprolol after she passed her swallow eval yesterday. BP did drop last night per nursing and 2 fluid blouses were given. BP is stable today. Mg+ and K+ replaced this morning. Asked nursing to reach out to cardiology this morning and explain overnight events and current HR. Awaiting cardiology recommendations. WBC is withing normal range. JEFFREY resolved. Antibiotics deescalated yesterday and she is now on ceftriaxone. She denies any further concerns at this time. - Review of Systems Constitutional: No Fever, No Chills Eyes: No Symptoms Ears, Nose, & Throat: No Symptoms Respiratory: No Cough, No Short Of Breath Cardiac: No Chest Pain, No Edema, No Syncope Abdominal/Gastrointestinal: No Abdominal Pain, No Nausea, No Vomiting, No Diarrhea Genitourinary Symptoms: No Dysuria Musculoskeletal: No Back Pain, No Neck Pain Skin: No Rash Neurological: No Dizziness, No Focal Weakness, No Sensory Changes Psychological: No Symptoms Endocrine: No Symptoms Hematologic/Lymphatic: No Symptoms Immunological/Allergic: No Symptoms Objective Exam General Appearance: no apparent distress, alert, obese Neurologic Exam: alert, oriented x 3, cooperative, normal mood/affect, nml cerebellar function, sensation nml, No motor deficits Skin Exam: normal color, warm, dry Eye Exam: PERRL, EOMI, eyes nml inspection Ears, Nose, Throat Exam: normal ENT inspection, pharynx normal, moist mucous membranes Neck Exam: normal inspection, non-tender, supple, full range of motion Respiratory Exam: normal breath sounds, lungs clear, No respiratory distress Cardiovascular Exam: normal heart sounds, irregular Gastrointestinal/Abdomen Exam: soft, No tenderness, No mass Extremity Exam: normal inspection, normal range of motion Back Exam: normal inspection, normal range of motion, No CVA tenderness, No vertebral tenderness Pelvic Exam: deferred Rectal Exam: deferred OBJECTIVE DATA Vital Signs: Vital Signs - 24 hr Temp Pulse Resp BP Pulse Ox 01/07/23 10:05 98.6 F 116 H 18 95/82 97 01/07/23 09:00 98.6 F 112 H 18 117/92 95 01/07/23 08:02 98.8 F 158 H 26 H 133/83 94 L 01/07/23 08:00 158 H 01/07/23 07:59 98.8 F 157 H 25 H 100/74 91 L 01/07/23 07:45 154 H 21 99/82 93 L 01/07/23 07:30 155 H 19 94/58 93 L 01/07/23 07:15 135 H 20 112/96 93 L 01/07/23 07:00 98.8 F 134 H 19 107/66 95 01/07/23 06:30 135 H 20 92/77 94 L 01/07/23 06:15 141 H 14 106/77 94 L 01/07/23 06:00 133 H 19 111/73 95 01/07/23 05:45 149 H 19 105/77 94 L 01/07/23 05:30 133 H 18 101/87 95 01/07/23 05:15 132 H 17 88/67 95 01/07/23 05:00 122 H 18 106/87 96 01/07/23 04:45 117 H 18 123/72 97 01/07/23 04:30 120 H 16 94/62 96 01/07/23 04:15 129 H 17 100/66 94 L 01/07/23 04:00 151 H 19 80/57 95 01/07/23 03:32 140 H 20 94/50 95 01/07/23 03:00 106 H 18 86/62 97 01/07/23 02:30 104 H 19 98/60 96 01/07/23 02:10 96 H 18 107/61 96 01/07/23 02:00 95 H 16 96/59 97 01/07/23 01:50 105 H 19 107/65 96 01/07/23 01:40 100 H 19 95/62 99 01/07/23 01:30 95 H 20 98/63 98 01/07/23 01:20 92 H 16 96/61 97 01/07/23 01:10 79 16 97/67 96 01/07/23 01:00 85 15 109/62 97 01/07/23 00:50 87 17 100/66 97 01/07/23 00:40 89 17 108/70 97 01/07/23 00:30 96 H 15 99/58 95 01/07/23 00:20 117 H 17 97/62 96 01/07/23 00:10 106 H 18 97/62 96 01/07/23 00:00 98.1 F 101 H 18 98/67 96 01/06/23 23:50 113 H 17 102/60 01/06/23 23:40 92 H 19 103/60 95 01/06/23 23:30 96 H 19 98/69 95 01/06/23 23:20 111 H 18 110/66 95 01/06/23 23:10 112 H 18 92/67 94 L 01/06/23 23:00 117 H 17 86/63 93 L 01/06/23 22:50 98.2 F 101 H 18 83/65 94 L 01/06/23 22:40 91 H 19 86/60 94 L 01/06/23 22:30 90 19 80/56 94 L 01/06/23 22:20 88 18 83/53 95 01/06/23 22:18 88 20 63/53 93 L 01/06/23 22:16 93 H 21 62/47 93 L 01/06/23 22:10 97 H 22 90/47 94 L 01/06/23 22:03 97 H 19 93/57 94 L 01/06/23 22:00 96 H 21 67/44 94 L 01/06/23 21:06 89 21 86/56 95 01/06/23 20:11 99.1 F 97 H 15 96/42 99 01/06/23 20:09 96 H 18 88/69 98 01/06/23 20:00 97 H 01/06/23 19:05 141 H 18 93 L 01/06/23 19:00 99.5 F 97 H 15 102/68 98 01/06/23 18:01 134 H 22 90/66 01/06/23 17:01 115 H 119/78 01/06/23 16:47 137 H 118/75 01/06/23 16:00 143 H 91/66 01/06/23 15:01 115 H 9 L 118/99 01/06/23 14:02 109 H 20 90/60 01/06/23 13:01 135 H 17 92/56 01/06/23 12:01 127 H 21 104/87 01/06/23 12:00 135 H 01/06/23 11:01 126 H 16 122/83 95 Pain Assessment - Last Documented Pain Intensity 2 Pain Scale Used 0-10 Pain Scale Intake and Output: Intake & Output 01/04/23 01/05/23 01/06/23 01/07/23 11:59 11:59 11:59 11:59 Intake Total 815 1468 3406 1630 Output Total 1725 1725 1400 450 Balance -910 -257 2005 1180 Weight 116.9 kg Lab Results: Lab Results-Last 24 Hours 01/06/23 01/06/23 01/06/23 Range/Units 11:41 16:32 21:43 WBC (4.0-10.5) x10^3/uL RBC (4.1-5.4) x10^6/uL Hgb (12.0-16.0) g/dL Hct (35-47) % MCV (78-100) fL MCH (26-32) pg MCHC (32-36) g/dL RDW (11.5-14.0) % Plt Count (150-450) x10^3/uL MPV (7.5-11.0) fL Puncture Site pCO2 (35-45) mmHg pO2 (75-100) mmHg Base Excess (-2.0-2.0) O2 Saturation (94-100) g/dF ABG pH (7.35-7.45) ABG HCO3 (22-28) ABG O2 Sat (Measured) (95-100) % Yuval Test A-a Gradient a/A Ratio Hemoglobin Carboxyhemoglobin (0.0-6.9) % THgb Methemoglobin (1.4-1.5) % Potassium (3.5-5.1) Temperature C POC O2 Flow Rate % Sodium (137-145) mmol/L Chloride (98-107) mmol/L Carbon Dioxide (22-30) mmol/L Anion Gap (5-15) MEQ/L BUN (7-17) mg/dL Creatinine (0.52-1.04) mg/dL Estimated GFR ML/MIN Glucose (74-106) mg/dL POC Glucometer 284 H 298 H (74 to 106) mg/dL Calcium (8.4-10.2) mg/dL Magnesium (1.6-2.3) mg/dL Total Bilirubin (0.2-1.3) mg/dL AST (14-36) U/L ALT (0-35) U/L Alkaline Phosphatase (38-126) U/L Serum Total Protein (6.3-8.2) g/dL Albumin (3.5-5.0) g/dL Vancomycin Trough 26.84 H (10-20) ug/mL 01/06/23 01/06/23 01/07/23 Range/Units 21:46 22:25 04:25 WBC (4.0-10.5) x10^3/uL RBC (4.1-5.4) x10^6/uL Hgb (12.0-16.0) g/dL Hct (35-47) % MCV (78-100) fL MCH (26-32) pg MCHC (32-36) g/dL RDW (11.5-14.0) % Plt Count (150-450) x10^3/uL MPV (7.5-11.0) fL Puncture Site RIGHT BRACHIAL pCO2 46 H (35-45) mmHg pO2 70 L (75-100) mmHg Base Excess 2.4 H (-2.0-2.0) O2 Saturation 94.0 (94-100) g/dF ABG pH 7.39 (7.35-7.45) ABG HCO3 27.8 (22-28) ABG O2 Sat (Measured) 96.5 (95-100) % Yuval Test NOT APPLICABLE A-a Gradient 22 a/A Ratio 0.76 Hemoglobin 10.7 Carboxyhemoglobin 1.5 (0.0-6.9) % THgb Methemoglobin 1.2 L (1.4-1.5) % Potassium 3.5 (3.5-5.1) Temperature 37.0 C POC O2 Flow Rate 21 % Sodium (137-145) mmol/L Chloride (98-107) mmol/L Carbon Dioxide (22-30) mmol/L Anion Gap (5-15) MEQ/L BUN (7-17) mg/dL Creatinine (0.52-1.04) mg/dL Estimated GFR ML/MIN Glucose (74-106) mg/dL POC Glucometer 284 H (74 to 106) mg/dL Calcium (8.4-10.2) mg/dL Magnesium 1.4 L (1.6-2.3) mg/dL Total Bilirubin (0.2-1.3) mg/dL AST (14-36) U/L ALT (0-35) U/L Alkaline Phosphatase (38-126) U/L Serum Total Protein (6.3-8.2) g/dL Albumin (3.5-5.0) g/dL Vancomycin Trough (10-20) ug/mL 01/07/23 01/07/23 01/07/23 Range/Units 04:43 04:43 07:27 WBC 8.6 (4.0-10.5) x10^3/uL RBC 3.59 L (4.1-5.4) x10^6/uL Hgb 10.5 L (12.0-16.0) g/dL Hct 33.4 L (35-47) % MCV 93.0 (78-100) fL MCH 29.2 (26-32) pg MCHC 31.4 L (32-36) g/dL RDW 18.9 H (11.5-14.0) % Plt Count 126 L (150-450) x10^3/uL MPV 11.9 H (7.5-11.0) fL Puncture Site pCO2 (35-45) mmHg pO2 (75-100) mmHg Base Excess (-2.0-2.0) O2 Saturation (94-100) g/dF ABG pH (7.35-7.45) ABG HCO3 (22-28) ABG O2 Sat (Measured) (95-100) % Yuval Test A-a Gradient a/A Ratio Hemoglobin Carboxyhemoglobin (0.0-6.9) % THgb Methemoglobin (1.4-1.5) % Potassium 3.6 (3.5-5.1) Temperature C POC O2 Flow Rate % Sodium 142 (137-145) mmol/L Chloride 111 H (98-107) mmol/L Carbon Dioxide 25 (22-30) mmol/L Anion Gap 9.9 (5-15) MEQ/L BUN 33 H (7-17) mg/dL Creatinine 0.75 (0.52-1.04) mg/dL Estimated GFR > 60.0 ML/MIN Glucose 238 H (74-106) mg/dL POC Glucometer 244 H (74 to 106) mg/dL Calcium 8.4 (8.4-10.2) mg/dL Magnesium (1.6-2.3) mg/dL Total Bilirubin 0.20 (0.2-1.3) mg/dL AST 27 (14-36) U/L ALT 15 (0-35) U/L Alkaline Phosphatase 93 (38-126) U/L Serum Total Protein 5.6 L (6.3-8.2) g/dL Albumin 2.5 L (3.5-5.0) g/dL Vancomycin Trough (10-20) ug/mL Radiology Exams: Radiology Procedures Category Date Time Status CHEST WITHOUT CONTRAST [CT] Routine Exams 01/06/23 10:48 Completed ECHO W/2D AND DOPPLER [US] Routine Exams 01/05/23 09:40 Draft KNEE (3 VIEWS) Routine Exams 01/06/23 09:56 Completed Multi-Disciplinary Progress Notes: Multi-Disciplinary Progress Notes 01/06/23 17:41 Speech Therapy Note by Joey(Marci#[id number] [phone] SWALLOW TREATMENT: ARRIVED AT PATIENT ROOM WITH NURSE STATING THAT PATIENT HAD TAKEN MEDS WITH LUNCH. BITES ONLY. MEDICATION SWALLOWED WITHOUT DIFFICULTY; HOWEVER, WATER DRINK FOLLOWING RESULTED IN COUGH/CHOKE OCCURRING APPROX. [address] AGAIN HELPED PATIENT WITH ORAL INTAKE BY HOLDING CUP AND STRAW TO LIPS. VERBAL CUES GIVEN TO SWALLOW. PATIENT DEMONSTRATED NO COUGH/CHOKE WITH NECTAR THICK LIQUID WATER VIA STRAW. WHEN GIVEN THIN LIQUID WATER VIA STRAW, PATIENT ALSO DEMONSTRATED NO COUGH/CHOKE. ST AND NURSE WERE IN ROOM FOLLOWING INTAKE TRIALS APPROX. 5 MINUTES WITHOUT PATIENT DEMONSTRATING CLINICAL S/S OF ASPIRATION/DYSPHAGIA. HOWEVER, SHE DID BURP AFTER EACH SWALLOW, INDICATING POSSIBLE REFLUX. ST TO CONTINUE WITH SWALLOW TX DAILY DURING HOSPITALIZATION. MS CHARO, CCC/BEEF SELECTOR Initialized on 01/06/23 17:41 - END OF NOTE 01/06/23 17:40 ST Plan of Care Note by Sunitha#[id number] Speech Therapy Plan of Care ST Plan of Care Start: 01/06/23 12:12 Freq: Status: Active Protocol: Document 01/06/23 12:12 (Rec: 01/06/23 12:16 [id number]) E-Sign 01/06/23 12:12 Speech Therapy Plan of Care Problem List R13.11 ORAL DYSPHAGIA Treatments Swallow Treatment Interventions SWALLOW TX TO INCLUDE: MODEL REPETITION THERAPEUTIC FEED/ORAL INTAKE TRIAL DIET TEXTURE ANALYSIS Functional Goals of Treatment PATIENT WILL DEMONSTRATE TOLERANCE & SAFETY FOR THE LEAST RESTRICTIVE DIET/LIQUID CONSISTENCY WITHOUT S/S OF ASPIRATION. Goal #1 PATIENT WILL DEMONSTRATE TOLERANCE & SAFETY FOR ORAL INTAKE OF PUREED CONSISTENCY DIET WITHOUT CLINICAL S/S OF ASPIRATION/DYSPHAGIA, 90% OF TRIALS. Status Initial Goal #2 PATIENT WILL DEMONSTRATE TOLERANCE & SAFETY FOR ORAL INTAKE OF THIN LIQUIDS WITHOUT CLINICAL S/S OF ASPIRATION/ DYSPHAGIA, 90% OF TRIALS. Status Initial Frequency of Treatment: 5x/week Duration of Treatment: Hospital Stay Goals & POC discussed with patient/ Yes family Identified Barriers to Goal Achievement COGNITIVE STATUS LABILITY Patient is aware of diagnosis and Yes prognosis Patient is receptive to plan of care Yes Rehabilitation Potential Fair Patient Discharge Plan Description Care Home Facility Patient Discharge Plan Comment DISCHARGE TO LTC FACILITY WHEN MEDICALLY ABLE. Initialized on 01/06/23 17:40 - END OF NOTE 01/06/23 14:45 Occupational Therapy Note by Antonina(L#[id number])Jacey OT EVAL CANCELLED THIS DATE. PER NURSING, HER HEART RATE IS STILL HIGH ALONG WITH ANXIETY, ETC AND THERAPY IS CONTRAINDICATED AT THIS TIME. PHYSICAL THERAPIST SPOKE WITH [facility] WHERE SHE WAS DISCHARGED FROM WHEN ADMITTED TO THIS FACILITY. SHE HAD BEEN DISCHARGED D/T ANXIETY AND INABILITY TO SAFELY PARTICIPATE IN THERAPY AT [facility] PRIOR TO THIS ADMISSION. PLEASE ADVISE WITH NEW OT ORDER IF AND WHEN PATIENT WOULD BENEFIT FROM ACUTE CARE SERVICES ONCE MEDICAL CONDITION MORE STABILIZED. Initialized on 01/06/23 14:45 - END OF NOTE 01/06/23 13:23 Physical Therapy Note by Ahsan(L#[id number])Jacey SPOKE W/ THERAPY STAFF AT THE [facility] THIS AFTERNOON. THEY HAVE D/C'ED PT FROM P.T. ON 01/01/23 D/T HER INABILITY TO PARTICIPATE IN SKILLED CARE D/T MENTAL HEALTH ISSUES. ALSO SPOKE W/ MARIA FERNANDA MARTINEZ, THIS A.M. AND HE NOTED THAT PT'S HE IS STILL ELEVATED AT TIMES. SKILLED INTERVENTION NOT APPROPRIATE AT THIS TIME D/T MEDICAL STATUS AND PT'S PLOF WAS DETENTION CARE IN SNF. P.T. ORDER CANCELLED. Initialized on 01/06/23 13:23 - END OF NOTE Assessment/Plan (1) Sepsis Current Visit: Yes Status: Acute Qualifiers: Sepsis acute organ dysfunction status: without acute organ dysfunction Assessment & Plan: Most likely secondary to UTI vs pyelonephritis -Sepsis criteria identified 01/03/23 -Patient has received 3L for fluid resuscitation -IVF at 100ml/hr, monitor for fluid overload -Blood cultures x2 - negative -CXR -Procal -Antibiotics started: Merrem/vanc in ER, will continue with merrem/zosyn -Lactate drawn and wnl -Supplemental oxyen as needed to maintain SpO2 -Consider CT head if AMS does not improve -CT ab/pelvis as stated in HPI 01/04: -may be multifocal secondary to UTI vs pyelonephritis/ pneumonia -on 2L oxygen -Continue Merrem and Vanc for now, U-cult with gram - rods, follow culture 01/05: - UC + e- coli - Continue Merrem 01/06 - Stop Merrem and Vancomycin - Start Rocephin - resolved (2) UTI (urinary tract infection) Current Visit: Yes Status: Acute Assessment & Plan: 01/05 -Continue Merrem - BC X2 negative - UC + e-coli- continue antibiotics - Continue IVF - Espinoza 01/06 - previous antibiotics stopped, Rocephin started Code(s): N39.0 - URINARY TRACT INFECTION, SITE NOT SPECIFIED (3) Pyelonephritis Current Visit: Yes Status: Acute Assessment & Plan: -see uti/sepsis Code(s): N12 - TUBULO-INTERSTITIAL NEPHRITIS, NOT SPCF ACUTE OR CHRONIC (4) Atrial fibrillation with rapid ventricular response Current Visit: Yes Status: Acute Assessment & Plan: - New onset @9:00 AM - Cardizem bolus, then Gtt started - pt moved to ICU - Cardiology consult - Echo, TSH, Trop x3, Mg+ - Keep K+ > 4 and Mg+ >2 - Therapeutic Lovenox - amiodarone ordered in the evening by cardiology - cardizem stopped 01/06 - Cardiology saw pt this AM - per cardiology recs continue amiodarone gtt until complete then transition to metoprolol - K+ 3.5 replaced 01/07 - awaiting cardiology recs today- pt continues to be in A-fib RVR - Pt transitioned to metoprolol PO last night and BP dropped 2 times and fluid boluses required. - K+ and Mg+ replaced this AM - Echo 01/05 1. NORMAL LEFT VENTRICULAR SIZE WITH MODERATE LEFT VENTRICULAR HYPERTROPHY. 2. NORMAL LEFT VENTRICULAR SYSTOLIC FUNCTION WITH EJECTION FRACTION OF APPROXIMATELY 55%. 3. NORMAL RIGHT VENTRICULAR SIZE AND SYSTOLIC FUNCTION. 4. TRACE MITRAL REGURGITATION. 5. UNABLE TO ESTIMATE RIGHT VENTRICULAR SYSTOLIC PRESSURE. 6. NO PERICARDIAL EFFUSION. 7. PATIENT IS IN ATRIAL FIBRILLATION WITH RAPID VENTRICULAR RESPONSE DURING THIS STUDY. Code(s): I48.91 - UNSPECIFIED ATRIAL FIBRILLATION (5) AMS (altered mental status) Current Visit: Yes Status: Acute Assessment & Plan: -most likely metabolic encephalopathy secondary to infection, will continue to monitor, - mentation has improved overnight, will consider CT head if improvement does not continue 01/06 - at baseline Code(s): R41.82 - ALTERED MENTAL STATUS, UNSPECIFIED (6) Acute on chronic renal failure Current Visit: Yes Status: Acute Assessment & Plan: - Cr: compared to baseline 3.3; BUN 92, baseline creat at 1.1-1.2 - Pre-renal most likely secondary to hypovolemia and UTI - IVF -D/c nephrotoxic agents ACEI's/ARBs/NSAIDS/Diurectics -Monitor renal/lytes daily with strict I&O, renal dosing medications 01/04/23: -Creat improving 1.84<2.5<3.36, will continue gentle hydration 01/05 - labs improving- near baseline- continue to monitor. 01/06 - resolved Code(s): N17.9 - ACUTE KIDNEY FAILURE, UNSPECIFIED; N18.9 - CHRONIC KIDNEY DISEASE, UNSPECIFIED (7) Diabetes mellitus type 2 in obese Current Visit: Yes Status: Acute Assessment & Plan: -Most recent a1c on 12/17 at 7.16 - Uncontrolled -Moderate dose SSI/ Accuchecks -carb controlled diet Code(s): E11.69 - TYPE 2 DIABETES MELLITUS WITH OTHER SPECIFIED COMPLICATION; E66.9 - OBESITY, UNSPECIFIED (8) Schizophrenia Current Visit: No Status: Acute Qualifiers: Schizophrenia type: unspecified Qualified Code(s): F20.9 - Schizophrenia, unspecified Assessment & Plan: -Continue home meds, pharm consult for renal dosing 01/04: -Pharmacy has renal dosed all medications 01/06 - continue home meds Code(s): F20.9 - SCHIZOPHRENIA, UNSPECIFIED (9) Weakness Current Visit: No Status: Acute Assessment & Plan: -PT/OT -patient resides at the [facility] and plan is to go back at d/c Code(s): R53.1 - WEAKNESS (10) Acute adjustment disorder with depressed mood Current Visit: No Status: Chronic Assessment & Plan: -Pharmacy has renal dosed all medications, - Continue home meds Code(s): F43.21 - ADJUSTMENT DISORDER WITH DEPRESSED MOOD (11) Infiltrate of lower lobe of right lung present on imaging study Current Visit: Yes Status: Acute Assessment & Plan: - As seen on chest XR 01/03 IMPRESSION: 1. Probable infiltrates in the right lower lobe. Clinical correlation and follow-up are suggested. 2. Blurred right costophrenic angle probably representing mild pleural effusion. 3. Faint nodular opacity in the right mid zone. CT chest may be recommended for further evaluation. - May be aspiration related, pt coughs with swallowing meds, drinks or food. - ST eval- swallow eval - Mod barium swallow ordered - Continue Merrem and Vancomycin - Chest CT without contrast - WBC WNL 01/06 - Chest CT 01/06: 1. Respiration and beam artifact. 2. Mild diffuse right lung interstitial alveolar opacities. Rule out pneumonitis. 3. Chronic findings including arteriosclerotic disease and chronic bony findings. - Antibiotics changed to Rocephin - WBC 12.6 increased from yesterday 01/07 - WBC 8.6 - lung sounds clear Code(s): R91.8 - OTHER NONSPECIFIC ABNORMAL FINDING OF LUNG FIELD (12) Swallowing dysfunction Current Visit: Yes Status: Acute Assessment & Plan: - Swallow eval by ST - Pt did pass swallow eval per PT and she explained pt needs to be reminded to swallow at times. - Agree with ST plan of care - Pt able to swallow all meds today - Carb consistent diet Code(s): R13.10 - DYSPHAGIA, UNSPECIFIED (13) Right knee pain Current Visit: Yes Status: Acute Assessment & Plan: - XR right knee 01/06 3 view right knee demonstrate new tiny nonspecific effusion. Remaining knee unchanged again demonstrating osteopenia, moderate/advanced tricompartmental degenerative changes, posterior fabella, and scattered vascular calcifications. Code(s): M25.561 - PAIN IN RIGHT KNEE (14) Hypomagnesemia Current Visit: Yes Status: Acute Assessment & Plan: 01/07 - Mg+ 1.4- replaced Code(s): E83.42 - HYPOMAGNESEMIA (15) Obesity, morbid, BMI 40.0-49.9 Current Visit: Yes Status: Acute Assessment & Plan: - recommend diet control VTE: Lovenox PPI: Famotidine Code status: FUll Next of kin: Eliana Snyder [phone] D/C plan: 2-3 days Code(s): E66.01 - MORBID (SEVERE) OBESITY DUE TO EXCESS CALORIES
[2023-01-07] MEDS: ENOXAPARIN SODIUM SQ SCH ×2 (10:54→22:15)
[2023-01-07] MEDS: ZOCOR 20MG PO SCH (22:17)
[2023-01-08 05:02] LABS: Hematocrit 34.2 % (35-47); Mean Cell Volume 93.7 fL (78-100); Mean Corpuscular Hemoglobin 30.1 pg (26-32); Mean Corpuscular Hgb Concent. 32.2 g/dL (32-36); Mean Platelet Volume 12.3 fL (7.5-11.0); Platelet Count 143 x10^3/uL (150-450); Red Blood Count 3.65 x10^6/uL (4.1-5.4); Red Cell Distribution Width 18.6 % (11.5-14.0); White Blood Count 8.3 x10^3/uL (4.0-10.5)
[2023-01-08 05:17] VITALS: TEMP 97.5
[2023-01-08 05:19] LABS: ALBUMIN 2.4 g/dL (3.5-5.0); ALKALINE PHOSPHATASE 98 U/L (38-126); ANION GAP 10.6 MEQ/L (5-15); BLOOD UREA NITROGEN 26 mg/dL (7-17); CHLORIDE 108 mmol/L (98-107); Calcium 8.1 mg/dL (8.4-10.2); Carbon Dioxide 24 mmol/L (22-30); Creatinine 1 0.65 mg/dL (0.52-1.04); EST GLOMERULAR FILTRATION RATE > 60.0 ML/MIN; Glucose 245 mg/dL (74-106); Potassium 3.8 mmol/L (3.5-5.1); SGOT/AST 28 U/L (14-36); SGPT/ALT 14 U/L (0-35); SODIUM 138 mmol/L (137-145); Total Protein 5.5 g/dL (6.3-8.2)
[2023-01-08] MEDS ORDERED: Cardizem IV 50 MG/10 ML IV ONE (05:50)
[2023-01-08] MEDS ORDERED: TYLENOL 325 MG PO PRN (08:37)
[2023-01-08] MEDS: Toprol-Xl 25MG Tablets PO SCH (09:26)
[2023-01-08] MEDS: Risperdal 1 MG PO SCH (09:26)
[2023-01-08] MEDS: Depakote EXTENDED RELEASE 250 MG PO SCH (09:26)
[2023-01-08] MEDS: Neurontin PO SCH ×2 (09:27→16:17)
[2023-01-08] MEDS: MYSOLINE 50MG PO SCH ×2 (09:27→16:17)
[2023-01-08] MEDS ORDERED: Toprol-Xl 25MG Tablets PO ONE (09:39)
[2023-01-08] MEDS: Effexor XR 75 MG PO SCH (09:41)
[2023-01-08] MEDS: Lexapro PO SCH (09:41)
[2023-01-08] MEDS: VITAMIN D PO SCH (09:42)
[2023-01-08] MEDS: Ditropan XL 5 MG PO SCH (09:42)
[2023-01-08] MEDS: SYNTHROID 25 MCG PO SCH (09:42)
[2023-01-08] MEDS: MAG-OX 400 PO SCH (09:42)
[2023-01-08] MEDS: Singulair 10 MG PO SCH (09:42)
[2023-01-08] MEDS: HUMALOG SQ PRN ×2 (09:45→12:26)
[2023-01-08] MEDS ORDERED: Lanoxin 0.5 MG/2 ML INJECTION IV SCH ×2 (10:00→16:00)
[2023-01-08] MEDS ORDERED: Pepcid 20 MG PO SCH (10:00)
[2023-01-08] MEDS: ENOXAPARIN SODIUM SQ SCH (10:01)
[2023-01-08] MEDS: ROCEPHIN 1 Gm-D5w 50 ml Bag** 1 G/50 ML IVPB IV SCH (10:01)
[2023-01-08] MEDS ORDERED: Sodium Chloride 0.9% 500 ML 500 ML IV ONE (11:31)
[2023-01-08] MEDS ORDERED: NOREPINEPHRINE 8 MG/250 ML-D5W 8 MG/250 ML PLAST..BAG IV PRN (12:10)
[2023-01-08 13:08] VITALS: O2SAT 100
--- NOTE | 2023-01-08 13:09 | PCM.DS ---
Discharge Summary Date of Admission: 01/05/23 09:33 Date of Discharge: 01/08/23 Admitting Physician: KYARA GROSS MD Consults: Consults on Case 01/05/23 09:39 Consult Cardiology ROUTINE Primary Care Provider: [facility] SUSAN ALVARADO Allergies Allergies hydrocodone [From Vicodin] Allergy (Intermediate, Verified 01/03/23 09:42) Rash lurasidone [From Latuda] Allergy (Intermediate, Verified 01/03/23 09:42) Rash Hospital Summary - Hospital Course Hospital Course: 01/06 is a 57 year old female with pmhx of HLD, HTN, Asthma, DM type II, anxiety, depression, IBS, GERD, and schizophrenia that presented to ER 01/03/23 via EMS from the [facility] with altered mentation for the past week. Poor historian. On admission patient was very lethargic and only able state her name and where she is. She also endorsed back pain but unable to elaborate.CT findings limited due to non-contrast imaging in the setting of JEFFREY, noting no evidence of renal stones or hydronephrosis, right renal focal bulge which could be a cyst. A new finding.Left renal focal bulge which has increased since the last study could be complex cyst versus mass and requires further evaluation by post contrast CT. Left renal cyst. The previously seen right hepatic focal lesion is not visualized in this study likely due to lack of intravenous contrast administration. Viral respiratory panel negative. Admitted for sepsis secondary to pyeolonephrilitis, and acute on chronic kidney failure. Currently being treated with vancomycin/merrem. Urine culture positive for e-coli. Sensitive to Merrem. BC x2 negative. This is concern of aspiration with CXR findings with infiltrates to right middle/lower lobe. Patient is currently NPO with swallow eval and barium swallow pending. F/C is placed and urine is clear. This morning pt's HR became elevated, EKG obtained and pt in new on set A-fib RVR. Cardiology consulted, additional labs and echo ordered. Cardizem bolus gave then gtt started. Pt has a temp of 102 today. She is emotionally liable, this is her norm per previous visits. She denies CP or SOB. 01/07 Pt resting in bed. She is calm compared to previous days. Mood is stable. She explained she is relaxing today. She continues to be in A-fib RVR with HR ranging from 130-150. She was changed to amiodarone gtt then PO metoprolol after she passed her swallow eval yesterday. BP did drop last night per nursing and 2 fluid blouses were given. BP is stable today. Mg+ and K+ replaced this morning. Asked nursing to reach out to cardiology this morning and explain overnight events and current HR. Awaiting cardiology recommendations. WBC is withing normal range. JEFFREY resolved. Antibiotics deescalated yesterday and she is now on ceftriaxone. She denies any further concerns at this time. 01/08 Pt resting in bed. She explained she has pain all over. Tylenol ordered for pain. She continues to be in A-fib RVR. HR ranges from 120- 160. Will increase metoprolol to 50mg BID per cardiology recommendations. Added Digoxin. BP dropped after morning meds. Advised to try to get pt up and sit in a recliner today as this is what she does at [facility]. When sitting up on the side of the bed she was unable to tolerate and HR increased to 160's. Around noon BP dropped again. 500ml fluid bouls and levophed gtt ordered. Unable to reach cardiology yesterday or today. Nurse at office explained cardiology is busy seeing pt's. Request for tx for higher level of care where pt's wealth management consultant is was made. Pt accepted at [place]. She denies CP, SOB, abd. pain, n/v/d. - Vitals & Intake/Output Vital Signs: Vital Signs Temperature 97.5 F 01/08/23 04:17 Pulse Rate 109 H 01/08/23 10:10 Respiratory Rate 20 01/08/23 10:10 Blood Pressure 101/64 01/08/23 10:10 O2 Sat by Pulse Oximetry 99 01/08/23 10:10 Intake & Output: Intake & Output 01/06/23 01/07/23 01/08/23 01/09/23 11:59 11:59 11:59 11:59 Intake Total 3406 1630 240 Output Total 1400 450 700 Balance 2005 1180 -460 Weight 116.9 kg - Lab Result Diagrams: 01/08/23 04:57 01/08/23 04:57 Lab Results-Last 24 Hrs: Lab Results-Last 24 Hours 10/02/1901/07/23 01/08/23 Range/Units 16:25 21:30 04:57 WBC 8.3 (4.0-10.5) x10^3/uL RBC 3.65 L (4.1-5.4) x10^6/uL Hgb 11.0 L (12.0-16.0) g/dL Hct 34.2 L (35-47) % MCV 93.7 (78-100) fL MCH 30.1 (26-32) pg MCHC 32.2 (32-36) g/dL RDW 18.6 H (11.5-14.0) % Plt Count 143 L (150-450) x10^3/uL MPV 12.3 H (7.5-11.0) fL Sodium (137-145) mmol/L Potassium (3.5-5.1) mmol/L Chloride (98-107) mmol/L Carbon Dioxide (22-30) mmol/L Anion Gap (5-15) MEQ/L BUN (7-17) mg/dL Creatinine (0.52-1.04) mg/dL Estimated GFR ML/MIN Glucose (74-106) mg/dL POC Glucometer 312 H 269 H (74 to 106) mg/dL Lactic Acid (0.4-2.0) Calcium (8.4-10.2) mg/dL Total Bilirubin (0.2-1.3) mg/dL AST (14-36) U/L ALT (0-35) U/L Alkaline Phosphatase (38-126) U/L Serum Total Protein (6.3-8.2) g/dL Albumin (3.5-5.0) g/dL 01/08/23 01/08/23 01/08/23 Range/Units 04:57 07:12 11:32 WBC (4.0-10.5) x10^3/uL RBC (4.1-5.4) x10^6/uL Hgb (12.0-16.0) g/dL Hct (35-47) % MCV (78-100) fL MCH (26-32) pg MCHC (32-36) g/dL RDW (11.5-14.0) % Plt Count (150-450) x10^3/uL MPV (7.5-11.0) fL Sodium 138 (137-145) mmol/L Potassium 3.8 (3.5-5.1) mmol/L Chloride 108 H (98-107) mmol/L Carbon Dioxide 24 (22-30) mmol/L Anion Gap 10.6 (5-15) MEQ/L BUN 26 H (7-17) mg/dL Creatinine 0.65 (0.52-1.04) mg/dL Estimated GFR > 60.0 ML/MIN Glucose 245 H (74-106) mg/dL POC Glucometer 275 H 321 H (74 to 106) mg/dL Lactic Acid (0.4-2.0) Calcium 8.1 L (8.4-10.2) mg/dL Total Bilirubin 0.30 (0.2-1.3) mg/dL AST 28 (14-36) U/L ALT 14 (0-35) U/L Alkaline Phosphatase 98 (38-126) U/L Serum Total Protein 5.5 L (6.3-8.2) g/dL Albumin 2.4 L (3.5-5.0) g/dL 01/08/23 Range/Units 12:28 WBC (4.0-10.5) x10^3/uL RBC (4.1-5.4) x10^6/uL Hgb (12.0-16.0) g/dL Hct (35-47) % MCV (78-100) fL MCH (26-32) pg MCHC (32-36) g/dL RDW (11.5-14.0) % Plt Count (150-450) x10^3/uL MPV (7.5-11.0) fL Sodium (137-145) mmol/L Potassium (3.5-5.1) mmol/L Chloride (98-107) mmol/L Carbon Dioxide (22-30) mmol/L Anion Gap (5-15) MEQ/L BUN (7-17) mg/dL Creatinine (0.52-1.04) mg/dL Estimated GFR ML/MIN Glucose (74-106) mg/dL POC Glucometer (74 to 106) mg/dL Lactic Acid 2.1 H (0.4-2.0) Calcium (8.4-10.2) mg/dL Total Bilirubin (0.2-1.3) mg/dL AST (14-36) U/L ALT (0-35) U/L Alkaline Phosphatase (38-126) U/L Serum Total Protein (6.3-8.2) g/dL Albumin (3.5-5.0) g/dL Micro Results-Entire Visit: Microbiology 01/03/23 09:15 Blood Culture - Final Blood 01/03/23 09:07 Blood Culture - Final Blood 01/03/23 08:52 Urine Culture - Final Urine, Void Escherichia Coli#2 Escherichia Coli Accuchecks Date 01/08/23 Date 01/08/23 Date 01/07/23 Date 01/07/23 Time 21:30 Time 16:32 - Procedures and Test Procedures and Tests throughout Hospitalization: Therapy Orders & Screens 01/03/23 12:42 Respiratory Therapy Consult ONCE Comment: Reason For Exam: Diagnosis: pyelonephritis 01/03/23 13:01 ST Eval & Treat ( Order) .as ordered Comment: Physician Instructions: Reason For Exam: AMS Evaluate: Yes Treat: Yes Reason for Eval: AMS Diagnosis: pyelonephritis 01/03/23 13:48 ST Screen per Nursing Assess ONCE Comment: Protocol Order Physician Instructions: Greater than [address] Admission Screening Reason For Exam: Triggered on Admission Diagnosis: pyelonephritis CVA/Dyshpagia/Aphasia: No Cognitive Deficits: Yes Dehydration/Nutrition Deficit: Yes Reflux: No Oral-Motor Difficulties: No Pneumonia: No Custodial Resident: Yes Total Points: 13 01/03/23 20:32 Respiratory Therapy Assessment DAILY Comment: Diagnosis: pyelonephritis 01/03/23 23:29 Oxygen Nasal Cannula 2 lpm Comment: Diagnosis: pyelonephritis 01/04/23 08:34 FLUTTER [Flutter Therapy] UD Comment: Diagnosis: pyelonephritis 01/05/23 08:59 EKG STAT Comment: Diagnosis: pyelonephritis 01/07/23 10:30 PT Eval & Treat ( Order) ONCE Reason for Eval:: weakness Diagnosis: NEW ONSET AFIB W/RVR, SEPSIS 01/07/23 10:31 OT Eval and Treat ( Order) ROUTINE Comment: Physician Instructions: Reason For Exam: Diagnosis: NEW ONSET AFIB W/RVR, SEPSIS Discharge Exam General Appearance: no apparent distress, alert, obese Neurologic Exam: alert, oriented x 3, cooperative, normal mood/affect, nml cerebellar function, sensation nml, No motor deficits Eye Exam: PERRL, EOMI, eyes nml inspection Ears, Nose, Throat Exam: normal ENT inspection, pharynx normal, moist mucous membranes Neck Exam: normal inspection, non-tender, supple, full range of motion Respiratory Exam: normal breath sounds, lungs clear, No respiratory distress Cardiovascular Exam: normal heart sounds, irregular Gastrointestinal/Abdomen Exam: soft, No tenderness, No mass Pelvic Exam: deferred Rectal Exam: deferred Back Exam: normal inspection, normal range of motion, No CVA tenderness, No vertebral tenderness Extremity Exam: normal inspection, normal range of motion Skin Exam: normal color, warm, dry Final Diagnosis/Problem List - Final Discharge Diagnosis/Problem (1) Sepsis Current Visit: Yes Status: Acute (2) UTI (urinary tract infection) Current Visit: Yes Status: Acute Code(s): N39.0 - URINARY TRACT INFECTION, SITE NOT SPECIFIED (3) Pyelonephritis Current Visit: Yes Status: Acute Code(s): N12 - TUBULO-INTERSTITIAL NEPHRITIS, NOT SPCF ACUTE OR CHRONIC (4) Atrial fibrillation with rapid ventricular response Current Visit: Yes Status: Acute Code(s): I48.91 - UNSPECIFIED ATRIAL FIBRILLATION (5) AMS (altered mental status) Current Visit: Yes Status: Acute Code(s): R41.82 - ALTERED MENTAL STATUS, UNSPECIFIED (6) Acute on chronic renal failure Current Visit: Yes Status: Acute Code(s): N17.9 - ACUTE KIDNEY FAILURE, UNSPECIFIED; N18.9 - CHRONIC KIDNEY DISEASE, UNSPECIFIED (7) Diabetes mellitus type 2 in obese Current Visit: Yes Status: Acute Code(s): E11.69 - TYPE 2 DIABETES MELLITUS WITH OTHER SPECIFIED COMPLICATION; E66.9 - OBESITY, UNSPECIFIED (8) Schizophrenia Current Visit: No Status: Acute Code(s): F20.9 - SCHIZOPHRENIA, UNSPECIFIED (9) Weakness Current Visit: No Status: Acute Code(s): R53.1 - WEAKNESS (10) Acute adjustment disorder with depressed mood Current Visit: No Status: Chronic Code(s): F43.21 - ADJUSTMENT DISORDER WITH DEPRESSED MOOD (11) Infiltrate of lower lobe of right lung present on imaging study Current Visit: Yes Status: Acute Code(s): R91.8 - OTHER NONSPECIFIC ABNORMAL FINDING OF LUNG FIELD (12) Swallowing dysfunction Current Visit: Yes Status: Acute Code(s): R13.10 - DYSPHAGIA, UNSPECIFIED (13) Right knee pain Current Visit: Yes Status: Acute Code(s): M25.561 - PAIN IN RIGHT KNEE (14) Hypomagnesemia Current Visit: Yes Status: Acute Code(s): E83.42 - HYPOMAGNESEMIA (15) Obesity, morbid, BMI 40.0-49.9 Current Visit: Yes Status: Acute Assessment & Plan: (1) Sepsis Current Visit: Yes Status: Acute Qualifiers: Sepsis acute organ dysfunction status: without acute organ dysfunction Assessment & Plan: Most likely secondary to UTI vs pyelonephritis -Sepsis criteria identified 01/03/23 -Patient has received 3L for fluid resuscitation -IVF at 100ml/hr, monitor for fluid overload -Blood cultures x2 - negative -CXR -Procal -Antibiotics started: Merrem/vanc in ER, will continue with merrem/zosyn -Lactate drawn and wnl -Supplemental oxyen as needed to maintain SpO2 -Consider CT head if AMS does not improve -CT ab/pelvis as stated in HPI 01/04: -may be multifocal secondary to UTI vs pyelonephritis/ pneumonia -on 2L oxygen -Continue Merrem and Vanc for now, U-cult with gram - rods, follow culture 01/05: - UC + e- coli - Continue Merrem 01/06 - Stop Merrem and Vancomycin - Start Rocephin - resolved (2) UTI (urinary tract infection) Current Visit: Yes Status: Acute Assessment & Plan: 01/05 -Continue Merrem - BC X2 negative - UC + e-coli- continue antibiotics - Continue IVF - Espinoza 01/06 - previous antibiotics stopped, Rocephin started Code(s): N39.0 - URINARY TRACT INFECTION, SITE NOT SPECIFIED (3) Pyelonephritis Current Visit: Yes Status: Acute Assessment & Plan: -see uti/sepsis Code(s): N12 - TUBULO-INTERSTITIAL NEPHRITIS, NOT SPCF ACUTE OR CHRONIC (4) Atrial fibrillation with rapid ventricular response Current Visit: Yes Status: Acute Assessment & Plan: - New onset @9:00 AM - Cardizem bolus, then Gtt started - pt moved to ICU - Cardiology consult - Echo, TSH, Trop x3, Mg+ - Keep K+ > 4 and Mg+ >2 - Therapeutic Lovenox - amiodarone ordered in the evening by cardiology - cardizem stopped 01/06 - Cardiology saw pt this AM - per cardiology recs continue amiodarone gtt until complete then transition to metoprolol - K+ 3.5 replaced 01/07 - awaiting cardiology recs today- pt continues to be in A-fib RVR - Pt transitioned to metoprolol PO last night and BP dropped 2 times and fluid boluses required. - K+ and Mg+ replaced this AM - Echo 01/05 1. NORMAL LEFT VENTRICULAR SIZE WITH MODERATE LEFT VENTRICULAR HYPERTROPHY. 2. NORMAL LEFT VENTRICULAR SYSTOLIC FUNCTION WITH EJECTION FRACTION OF APPROXIMATELY 55%. 3. NORMAL RIGHT VENTRICULAR SIZE AND SYSTOLIC FUNCTION. 4. TRACE MITRAL REGURGITATION. 5. UNABLE TO ESTIMATE RIGHT VENTRICULAR SYSTOLIC PRESSURE. 6. NO PERICARDIAL EFFUSION. 7. PATIENT IS IN ATRIAL FIBRILLATION WITH RAPID VENTRICULAR RESPONSE DURING THIS STUDY. 01/08 - Unable to reach cardioogy yesterday for recs - unable to reach again this morning. - BP worse with increase of toprol per cardiology recommendation - digoxin started - continued a-fib RVR with HR 120-160- worse with any activity. - Levophd gtt and 500ml fluid bolus started Code(s): I48.91 - UNSPECIFIED ATRIAL FIBRILLATION (5) AMS (altered mental status) Current Visit: Yes Status: Acute Assessment & Plan: -most likely metabolic encephalopathy secondary to infection, will continue to monitor, - mentation has improved overnight, will consider CT head if improvement does not continue 01/06 - at baseline Code(s): R41.82 - ALTERED MENTAL STATUS, UNSPECIFIED (6) Acute on chronic renal failure Current Visit: Yes Status: Acute Assessment & Plan: - Cr: compared to baseline 3.3; BUN 92, baseline creat at 1.1-1.2 - Pre-renal most likely secondary to hypovolemia and UTI - IVF -D/c nephrotoxic agents ACEI's/ARBs/NSAIDS/Diurectics -Monitor renal/lytes daily with strict I&O, renal dosing medications 01/04/23: -Creat improving 1.84<2.5<3.36, will continue gentle hydration 01/05 - labs improving- near baseline- continue to monitor. 01/06 - resolved Code(s): N17.9 - ACUTE KIDNEY FAILURE, UNSPECIFIED; N18.9 - CHRONIC KIDNEY DISEASE, UNSPECIFIED (7) Diabetes mellitus type 2 in obese Current Visit: Yes Status: Acute Assessment & Plan: -Most recent a1c on 12/17 at 7.16 - Uncontrolled -Moderate dose SSI/ Accuchecks -carb controlled diet Code(s): E11.69 - TYPE 2 DIABETES MELLITUS WITH OTHER SPECIFIED COMPLICATION; E66.9 - OBESITY, UNSPECIFIED (8) Schizophrenia Current Visit: No Status: Acute Qualifiers: Schizophrenia type: unspecified Qualified Code(s): F20.9 - Schizophrenia, unspecified Assessment & Plan: -Continue home meds, pharm consult for renal dosing 01/04: -Pharmacy has renal dosed all medications 01/06 - continue home meds Code(s): F20.9 - SCHIZOPHRENIA, UNSPECIFIED (9) Weakness Current Visit: No Status: Acute Assessment & Plan: -PT/OT -patient resides at the [facility] and plan is to go back at d/c 01/08 - continued weakness, unable to tolerate any activity as HR increases Code(s): R53.1 - WEAKNESS (10) Acute adjustment disorder with depressed mood Current Visit: No Status: Chronic Assessment & Plan: -Pharmacy has renal dosed all medications, - Continue home meds Code(s): F43.21 - ADJUSTMENT DISORDER WITH DEPRESSED MOOD (11) Infiltrate of lower lobe of right lung present on imaging study Current Visit: Yes Status: Acute Assessment & Plan: - As seen on chest XR 01/03 IMPRESSION: 1. Probable infiltrates in the right lower lobe. Clinical correlation and follow-up are suggested. 2. Blurred right costophrenic angle probably representing mild pleural effusion. 3. Faint nodular opacity in the right mid zone. CT chest may be recommended for further evaluation. - May be aspiration related, pt coughs with swallowing meds, drinks or food. - ST eval- swallow eval - Mod barium swallow ordered - Continue Merrem and Vancomycin - Chest CT without contrast - WBC WNL 01/06 - Chest CT 01/06: 1. Respiration and beam artifact. 2. Mild diffuse right lung interstitial alveolar opacities. Rule out pneumonitis. 3. Chronic findings including arteriosclerotic disease and chronic bony findings. - Antibiotics changed to Rocephin - WBC 12.6 increased from yesterday 01/07 - WBC 8.6- leukocytosis resolved - lung sounds clear Code(s): R91.8 - OTHER NONSPECIFIC ABNORMAL FINDING OF LUNG FIELD (12) Swallowing dysfunction Current Visit: Yes Status: Acute Assessment & Plan: - Swallow eval by ST - Pt did pass swallow eval per PT and she explained pt needs to be reminded to swallow at times. - Agree with ST plan of care - Pt able to swallow all meds today - Carb consistent diet Code(s): R13.10 - DYSPHAGIA, UNSPECIFIED (13) Right knee pain Current Visit: Yes Status: Acute Assessment & Plan: - XR right knee 01/06 3 view right knee demonstrate new tiny nonspecific effusion. Remaining knee unchanged again demonstrating osteopenia, moderate/advanced tricompartmental degenerative changes, posterior fabella, and scattered vascular calcifications. Code(s): M25.561 - PAIN IN RIGHT KNEE (14) Hypomagnesemia Current Visit: Yes Status: Acute Assessment & Plan: 01/07 - Mg+ 1.4- replaced 01/08 - Mg+ pending Code(s): E83.42 - HYPOMAGNESEMIA (15) Obesity, morbid, BMI 40.0-49.9 Current Visit: Yes Status: Acute Assessment & Plan: - recommend diet control Code(s): E66.01 - MORBID (SEVERE) OBESITY DUE TO EXCESS CALORIES - Discharge Discharge Date: 01/08/23 Disposition: DC TO [facility] Condition: Fair Prescriptions: Continue Gabapentin 300 mg PO TID Metoprolol Succinate 12.5 mg PO DAILY Divalproex Sodium [Divalproex Sodium ER] 500 mg PO DAILY Ergocalciferol (Vitamin D2) [Vitamin D2] 50,000 unit PO WEEKLY Famotidine 40 mg PO DAILY Levothyroxine Sodium 25 Mcg [Synthroid 25 Mcg] 25 mcg PO DAILY Oxybutynin Chloride [Oxybutynin Chloride ER] 15 mg PO DAILY Primidone [Mysoline] 250 mg PO TID Venlafaxine HCl ER 75 mg [Effexor XR 75 MG] 75 mg PO DAILY Cholecalciferol (Vitamin D3) [Vitamin D] 1,000 unit PO DAILY Montelukast Sodium 10 mg [Singulair 10 MG] 10 mg PO DAILY risperiDONE [Risperdal] 0.5 mg PO BID Escitalopram Oxalate [Lexapro] 10 mg PO DAILY Paliperidone Palmitate [Invega Sustenna] 117 mg IM UD Ibuprofen [IBUPROFEN 400 MG TABLET] 400 mg PO TID Atorvastatin Calcium 20 mg PO HS Alogliptin Benzoate [Alogliptin] 25 mg PO DAILY Petrolatum,White [Aquaphor] 1 applic TOP DAILY Carboxymethylcellulose Sodium [Refresh Plus] 1 each OP TID Follow up with: FLIP ALVARADO OF [Primary Care Provider] -
[2023-01-08 16:29] VITALS: BP 117/66
[2023-01-08 17:23] VITALS: PULSE 82; RESP 11
[2023-01-08] MEDS ORDERED: Toprol Xl 50 MG PO SCH (22:00)
== END 2023-01-08 17:21 | disposition home or self-care (01) | DRG 872 ==
LOC: ED 08:36 → UNDOADMOB 12:07 → MED SURG 12:07 → OBSVTOIN 01-05 09:33 → ICU 01-05 09:46 → MED SURG 01-05 09:46
PROVIDERS: ADMIT Internal Medicine; ATTEND Internal Medicine
DX: A41.9 Sepsis, unspecified organism (principal); N39.0 Urinary tract infection, site not specified; N12 Tubulo-interstitial nephritis, not specified as acute or chronic; I48.20 Chronic atrial fibrillation, unspecified; N17.9 Acute kidney failure, unspecified; A49.8 Other bacterial infections of unspecified site; R41.82 Altered mental status, unspecified; E11.22 Type 2 diabetes mellitus with diabetic chronic kidney disease; I12.9 Hypertensive chronic kidney disease with stage 1 through stage 4 chronic kidney disease, or unspecified chronic kidney disease; N18.9 Chronic kidney disease, unspecified; E66.9 Obesity, unspecified; F20.9 Schizophrenia, unspecified; R53.1 Weakness; F43.21 Adjustment disorder with depressed mood; R91.8 Other nonspecific abnormal finding of lung field; R13.10 Dysphagia, unspecified; M25.561 Pain in right knee; E83.42 Hypomagnesemia; E78.5 Hyperlipidemia, unspecified; Z79.899 Other long term (current) drug therapy; Z20.828 Contact with and (suspected) exposure to other viral communicable diseases
CPT/HCPCS: 36000; 36415; 36600; 51702; 71045; 71250; 73562; 74176; 80048; 80053; 80202; 80307; 81001; 82150; 82375; 82803; 82947; 83605; 83690; 83735; 84134; 84443; 84484; 85025; 85027; 87040; 87077; 87086; 87186; 92526; 92610; 93005; 93268; 93306; 94667; 94760; 96360; 96361; 96365; 97161; 99284; 99291; G0378; Q3014; J0282; J0696; J1160; J1170; J1650; J1817; J3370; A9270-GY

== ENCOUNTER 2023-02-02 13:16 | Observation (INO) | payer MEDICARE ==
[2023-02-02] MEDS ORDERED: Sodium Chloride 0.9% 1000 ML 1,000 ML IV STA ×3 (13:38→15:29)
[2023-02-02] MEDS ORDERED: PIPERACILLIN/TAZOBACTAM 3.375 GM in Sodium Chloride 100ML MINI-BAG PLUS 100 ML IV ONE (13:47)
[2023-02-02] MEDS ORDERED: Sodium Chloride 0.9% 1000 ML 1,000 ML ONE ×4 (13:51→17:07)
[2023-02-02] MEDS ORDERED: PIPERACILLIN/TAZOBACTAM IV ONE (13:52)
[2023-02-02] MEDS ORDERED: Sodium Chloride 100ML MINI-BAG PLUS 100 ML IV ONE (13:53)
[2023-02-02 14:00] LABS: Absolute Neutrophil Ct (ANC) 5.24 x10^3/uL (1.4-6.9); BASOPHIL % 0.3 % (0.0-0.4); Basophil (Absolute #) 0.02 x10^3/uL (0-0.4); Eosinophil % 2.5 % (0.00-5.0); Eosinophil (Absolute #) 0.18 x10^3/uL (0-0.5); Hematocrit 27.7 % (35-47); Hemoglobin 8.8 g/dL (12.0-16.0); IMMATURE GRAN # 0.11 x10^3u/L (0.00-0.03); IMMATURE GRAN % 1.5 % (0.00-0.4); Lymphocyte (Absolute #) 1.35 x10^3/uL (1.0-4.6); Lymphocytes % 18.5 % (24.0-44.0); Mean Cell Volume 94.9 fL (78-100); Mean Corpuscular Hemoglobin 30.1 pg (26-32); Mean Corpuscular Hgb Concent. 31.8 g/dL (32-36); Mean Platelet Volume 12.6 fL (7.5-11.0); Monocyte (Absolute #) 0.39 x10^3/uL (0.0-1.3); Monocytes % 5.3 % (0.0-12.0); Neutrophil % 71.9 % (36.0-66.0); Platelet Count 153 x10^3/uL (150-450); Red Blood Count 2.92 x10^6/uL (4.1-5.4); Red Cell Distribution Width 19.5 % (11.5-14.0); White Blood Count 7.3 x10^3/uL (4.0-10.5)
[2023-02-02 14:12] LABS: ALBUMIN 2.2 g/dL (3.5-5.0); ALKALINE PHOSPHATASE 125 U/L (38-126); ANION GAP 11.1 MEQ/L (5-15); BILIRUBIN,TOTAL < 0.10 mg/dL (0.2-1.3); BLOOD UREA NITROGEN 19 mg/dL (7-17); CHLORIDE 98 mmol/L (98-107); Calcium 7.9 mg/dL (8.4-10.2); Carbon Dioxide 28 mmol/L (22-30); Creatinine 1 1.35 mg/dL (0.52-1.04); EST GLOMERULAR FILTRATION RATE 45.3 ML/MIN; Glucose 139 mg/dL (74-106); Potassium 5.2 mmol/L (3.5-5.1); SGOT/AST 33 U/L (14-36); SGPT/ALT 20 U/L (0-35); SODIUM 132 mmol/L (137-145)
--- NOTE | 2023-02-02 14:18 | XRAY ---
Indication: Sepsis. Comparison: January 03, 2023 Portable chest better inflated and is now clear. Heart not enlarged. No new/acute findings.
[2023-02-02 14:35] LABS: ADD URINE CULTURE? ORDERED SEPARATELY (NO); Appearance Turbid (Clear); Bacteria Moderate /HPF (None Seen); Bilirubin Negative (Negative); Blood Moderate (Negative); Budding Yeast Rare /HPF (None Seen); Epithelial Cells Rare /HPF (None Seen); Glucose, Urine Negative (Negative); Hyaline Casts None Seen /LPF (0-2); Ketones Negative (Negative); Leukocyte Esterase Large (Negative); Nitrite Negative (Negative); Protein,Urine Dip 300 (Negative); Urobilinogen 0.2 mg/dL (0.2); WBC >100 /HPF (0-5)
[2023-02-02 14:40] LABS: INFLUENZA A NEGATIVE (NEGATIVE); INFLUENZA B NEGATIVE (NEGATIVE); RESPIRATORY SYNCTIAL VIRUS NEGATIVE (NEGATIVE); SARS-CoV-2 Xpert Express NEGATIVE (NEGATIVE)
[2023-02-02] MEDS ORDERED: NOREPINEPHRINE 8 MG/250 ML-D5W 8 MG/250 ML PLAST..BAG IV PRN (15:52)
[2023-02-02] MEDS: Sodium Chloride 0.9% 1000 ML 1,000 ML IV SCH ×2 (17:08→23:33)
--- NOTE | 2023-02-02 17:21 | PCM.HP ---
<JESSICA BROWN - Last Filed: 02/02/23 17:48> History of Present Illness - Chief Complaint Chief Complaint: urosepsis Date: 02/02/23 History of Present Illness: is a 57 year old female with pmhx of HLD, HTN, Asthma, DM type II, anxiety, depression, IBS, GERD, and schizophrenia that presented to ER 02/02/23 via EMS from the [facility] with altered mentation. On admission patient was unresponsive. She is now awake and confused which is her baseline. She has repeat admissions for UTI in the past. Admitted this time for urosepsis and acute on chronic kidney failure. She has a low temp and jovanny hugger placed on pt. She has a Levophed gtt running. Zosyn started in the ER and IV fluids. Will continue antibiotics, fluids, levophed. - Review of Systems Constitutional: No Fever, No Chills Eyes: No Symptoms Ears, Nose, & Throat: No Symptoms Respiratory: No Cough, No Short Of Breath Cardiac: No Chest Pain, No Edema, No Syncope Abdominal/Gastrointestinal: No Abdominal Pain, No Nausea, No Vomiting, No Diarrhea Genitourinary Symptoms: No Dysuria Musculoskeletal: No Back Pain, No Neck Pain Skin: No Rash Neurological: No Dizziness, No Focal Weakness, No Sensory Changes Psychological: No Symptoms Endocrine: No Symptoms Hematologic/Lymphatic: No Symptoms Immunological/Allergic: No Symptoms Medications & Allergies Home Medications: Home Medication List Gabapentin 300 mg PO TID 06/14/19 [History Confirmed 02/02/23] Metoprolol Succinate 12.5 mg PO DAILY 02/08/20 [History Confirmed 02/02/23] Divalproex Sodium [Divalproex Sodium ER] 500 mg PO DAILY 11/06/22 [History Confirmed 02/02/23] Ergocalciferol (Vitamin D2) [Vitamin D2] 50,000 unit PO WEEKLY 11/06/22 [History Confirmed 02/02/23] Famotidine 40 mg PO DAILY 11/06/22 [History Confirmed 02/02/23] Levothyroxine Sodium 25 Mcg [Synthroid 25 Mcg] 50 mcg PO DAILY 11/06/22 [History Confirmed 02/02/23] Oxybutynin Chloride [Oxybutynin Chloride ER] 15 mg PO DAILY 11/06/22 [History Confirmed 02/02/23] Primidone [Mysoline] 250 mg PO TID 11/06/22 [History Confirmed 02/02/23] Venlafaxine HCl ER 75 mg [Effexor XR 75 MG] 75 mg PO DAILY 11/06/22 [History Confirmed 02/02/23] Alogliptin Benzoate [Alogliptin] 25 mg PO DAILY 01/03/23 [History Confirmed 02/02/23] Atorvastatin Calcium 20 mg PO HS 01/03/23 [History Confirmed 02/02/23] Carboxymethylcellulose Sodium [Refresh Plus] 1 each OP TID 01/03/23 [History Confirmed 02/02/23] Cholecalciferol (Vitamin D3) [Vitamin D] 25 mcg PO DAILY 01/03/23 [History Confirmed 02/02/23] Ibuprofen [IBUPROFEN 400 MG TABLET] 400 mg PO TID 01/03/23 [History Confirmed 02/02/23] Montelukast Sodium 10 mg [Singulair 10 MG] 10 mg PO DAILY 01/03/23 [History Confirmed 02/02/23] Paliperidone Palmitate [Invega Sustenna] 117 mg IM UD 01/03/23 [History Confirmed 02/02/23] Petrolatum,White [Aquaphor] 1 applic TOP DAILY 01/03/23 [History Confirmed 02/02/23] risperiDONE [Risperdal] 0.5 mg PO BID 01/03/23 [History Confirmed 02/02/23] Fluticasone Propion/Salmeterol [Fluticasone-Salmeterol 250-50] 1 puff IH BID 02/02/23 [History Confirmed 02/02/23] Midodrine HCl 5 mg PO TID 02/02/23 [History Confirmed 02/02/23] Allergies/Adverse Reactions: Allergies Allergy/AdvReac Type Severity Reaction Status Date / Time hydrocodone [From Vicodin] Allergy Intermediate Rash Verified 02/02/23 13:35 lurasidone [From Latuda] Allergy Intermediate Rash Verified 02/02/23 13:35 - Past Medical History Past Medical History: Yes Neurological History: Other ENT History: No Pertinent History Cardiac History: High Cholesterol, Hypertension, Other Respiratory History: Asthma Endocrine Medical History: Diabetes Type II Musculoskelatal History: Arthritis GI Medical History: GERD History: Other Pyscho-Social History: Anxiety, Depression Reproductive Disorders: No Pertinent History Comment: SCHIZOPHRENIA, MITRAL VALVE REGURGITATION, TACHYCARDIA, OBESITY, HYPOMAGNESIUM, ACID REFLUX, IRRITABLE BOWEL SYNDROME, RESTING TREMORS (PER PATIENT RELATED TO PSYCHIATRIC MEDS - -CHANGED MEDS BUT NO CHANGE IN TREMORS). SX HX: CERVICAL FUSION 2 LEVELS, CHOLECYSTECTOMY, APPENDECTOMY, - Past Surgical History Past Surgical History: Yes Neuro Surgical History: No Pertinent History Cardiac History: Cardiac Catheterization Respiratory Surgery: No Pertinent History GI Surgical History: Appendectomy, Cholecystectomy Genitourinary Surgical Hx: No Pertinent History Musculskeletal Surgical Hx: Other Female Surgical History: Section, Tubal Ligation Other Surgical History: NECK SURGERY WITH DISC REPAIR. C- Section x 2 - Social History Smoking Status: Unknown if ever smoked Exposure to second hand smoke: No Alcohol: None Drug Use: none - Physical Exam Vital Signs: Vital Signs - 24 hr Temp Pulse Resp BP BP Pulse Ox 02/02/23 17:10 91.2 F 86 13 154/68 97 02/02/23 17:00 91 F 86 12 158/81 98 02/02/23 16:50 81 14 163/65 97 02/02/23 16:40 77 13 168/66 97 02/02/23 16:30 90.6 F 73 13 176/68 98 02/02/23 16:20 68 14 178/84 98 02/02/23 16:10 90.3 F 61 13 164/82 100 02/02/23 16:00 89.9 F 55 L 11 L 82/51 100 02/02/23 15:51 89.8 F 60 11 L 79/44 100 02/02/23 15:50 59 L 9 L 75/44 100 02/02/23 15:40 60 10 L 78/44 100 02/02/23 15:38 60 10 L 77/46 100 02/02/23 15:35 59 L 13 76/49 100 02/02/23 15:17 89.5 F 02/02/23 15:16 58 L 13 95/33 100 02/02/23 15:00 59 L 13 83/50 02/02/23 14:50 89.2 F 53 L 11 L 79/46 97 02/02/23 14:01 89.2 F 53 L 14 94/53 02/02/23 13:35 89.4 F 59 L 20 89/51 95 02/02/23 13:24 89.4 F 89/51 97 General Appearance: no apparent distress, alert Neurologic Exam: alert, oriented x 3, cooperative, normal mood/affect, nml cerebellar function, nml station & gait, sensation nml, confusion, motor weakness, No motor deficits Eye Exam: PERRL/EOMI, eyes nml inspection Ears, Nose, Throat Exam: normal ENT inspection, TMs normal, pharynx normal, moist mucous membranes Neck Exam: normal inspection, non-tender, supple, full range of motion Respiratory Exam: normal breath sounds, lungs clear, No respiratory distress Cardiovascular Exam: regular rate/rhythm, normal heart sounds, normal peripheral pulses Gastrointestinal/Abdomen Exam: soft, normal bowel sounds, No tenderness, No mass Back Exam: normal inspection, normal range of motion, No CVA tenderness, No vertebral tenderness Extremity Exam: normal inspection, normal range of motion, pelvis stable Skin Exam: normal color, warm, dry, No rash Lymphatic Exam: No adenopathy Results - Labs Lab/Micro Results: Lab Results-Last 24 Hours 02/02/23 02/02/23 02/02/23 Range/Units 13:38 13:38 13:38 WBC 7.3 (4.0-10.5) x10^3/uL RBC 2.92 L (4.1-5.4) x10^6/uL Hgb 8.8 L (12.0-16.0) g/dL Hct 27.7 L (35-47) % MCV 94.9 (78-100) fL MCH 30.1 (26-32) pg MCHC 31.8 L (32-36) g/dL RDW 19.5 H (11.5-14.0) % Plt Count 153 (150-450) x10^3/uL MPV 12.6 H (7.5-11.0) fL Gran % 71.9 H (36.0-66.0) % Immature Gran % (Auto) 1.5 H (0.00-0.4) % Nucleat RBC Rel Count 0.0 (0.00-0.1) % Eos # (Auto) 0.18 (0-0.5) x10^3/uL Immature Gran # (Auto) 0.11 H (0.00-0.03) x10^3u/L Absolute Lymphs (auto) 1.35 (1.0-4.6) x10^3/uL Absolute Monos (auto) 0.39 (0.0-1.3) x10^3/uL Absolute Nucleated RBC 0.00 (0.00-0.01) x10^3u/L Lymphocytes % 18.5 L (24.0-44.0) % Monocytes % 5.3 (0.0-12.0) % Eosinophils % 2.5 (0.00-5.0) % Basophils % 0.3 (0.0-0.4) % Absolute Granulocytes 5.24 (1.4-6.9) x10^3/uL Basophils # 0.02 (0-0.4) x10^3/uL ESR (0-20) mm/hr Sodium 132 L (137-145) mmol/L Potassium 5.2 H (3.5-5.1) mmol/L Chloride 98 (98-107) mmol/L Carbon Dioxide 28 (22-30) mmol/L Anion Gap 11.1 (5-15) MEQ/L BUN 19 H (7-17) mg/dL Creatinine 1.35 H (0.52-1.04) mg/dL Estimated GFR 45.3 ML/MIN Glucose 139 H (74-106) mg/dL Lactic Acid 1.6 (0.4-2.0) Calcium 7.9 L (8.4-10.2) mg/dL Total Bilirubin < 0.10 L (0.2-1.3) mg/dL AST 33 (14-36) U/L ALT 20 (0-35) U/L Alkaline Phosphatase 125 (38-126) U/L Serum Total Protein 5.0 L (6.3-8.2) g/dL Albumin 2.2 L (3.5-5.0) g/dL Urine Color (Yellow) Urine Appearance (Clear) Urine pH (4.6-8.0) Ur Specific [place] (1.005-1.030) Urine Protein (Negative) Urine Glucose (UA) (Negative) mg/dL Urine Ketones (Negative) Urine Blood (Negative) Urine Nitrite (Negative) Urine Bilirubin (Negative) Urine Urobilinogen (0.2) mg/dL Ur Leukocyte Esterase (Negative) U Hyaline Cast (Auto) (0-2) /LPF Urine Microscopic RBC (0-5) /HPF Urine Microscopic WBC (0-5) /HPF Ur Epithelial Cells (None Seen) /HPF Urine Bacteria (None Seen) /HPF Urine Yeast (Budding) (None Seen) /HPF Urine Culture Reflexed (NO) Influenza Type A Ag (NEGATIVE) Influenza Type B Ag (NEGATIVE) RSV (PCR) (NEGATIVE) SARS-CoV-2 (PCR) (NEGATIVE) 02/02/23 02/02/23 02/02/23 Range/Units 13:50 13:50 13:51 WBC (4.0-10.5) x10^3/uL RBC (4.1-5.4) x10^6/uL Hgb (12.0-16.0) g/dL Hct (35-47) % MCV (78-100) fL MCH (26-32) pg MCHC (32-36) g/dL RDW (11.5-14.0) % Plt Count (150-450) x10^3/uL MPV (7.5-11.0) fL Gran % (36.0-66.0) % Immature Gran % (Auto) (0.00-0.4) % Nucleat RBC Rel Count (0.00-0.1) % Eos # (Auto) (0-0.5) x10^3/uL Immature Gran # (Auto) (0.00-0.03) x10^3u/L Absolute Lymphs (auto) (1.0-4.6) x10^3/uL Absolute Monos (auto) (0.0-1.3) x10^3/uL Absolute Nucleated RBC (0.00-0.01) x10^3u/L Lymphocytes % (24.0-44.0) % Monocytes % (0.0-12.0) % Eosinophils % (0.00-5.0) % Basophils % (0.0-0.4) % Absolute Granulocytes (1.4-6.9) x10^3/uL Basophils # (0-0.4) x10^3/uL ESR 10 (0-20) mm/hr Sodium (137-145) mmol/L Potassium (3.5-5.1) mmol/L Chloride (98-107) mmol/L Carbon Dioxide (22-30) mmol/L Anion Gap (5-15) MEQ/L BUN (7-17) mg/dL Creatinine (0.52-1.04) mg/dL Estimated GFR ML/MIN Glucose (74-106) mg/dL Lactic Acid (0.4-2.0) Calcium (8.4-10.2) mg/dL Total Bilirubin (0.2-1.3) mg/dL AST (14-36) U/L ALT (0-35) U/L Alkaline Phosphatase (38-126) U/L Serum Total Protein (6.3-8.2) g/dL Albumin (3.5-5.0) g/dL Urine Color Yellow (Yellow) Urine Appearance Turbid A (Clear) Urine pH 6.0 (4.6-8.0) Ur Specific [place] 1.010 (1.005-1.030) Urine Protein 300 A (Negative) Urine Glucose (UA) Negative (Negative) mg/dL Urine Ketones Negative (Negative) Urine Blood Moderate A (Negative) Urine Nitrite Negative (Negative) Urine Bilirubin Negative (Negative) Urine Urobilinogen 0.2 (0.2) mg/dL Ur Leukocyte Esterase Large A (Negative) U Hyaline Cast (Auto) None Seen (0-2) /LPF Urine Microscopic RBC 3-5 (0-5) /HPF Urine Microscopic WBC >100 A (0-5) /HPF Ur Epithelial Cells Rare (None Seen) /HPF Urine Bacteria Moderate A (None Seen) /HPF Urine Yeast (Budding) Rare A (None Seen) /HPF Urine Culture Reflexed ORDERED SEPARATELY (NO) Influenza Type A Ag NEGATIVE (NEGATIVE) Influenza Type B Ag NEGATIVE (NEGATIVE) RSV (PCR) NEGATIVE (NEGATIVE) SARS-CoV-2 (PCR) NEGATIVE (NEGATIVE) - Radiology Impressions Radiology Exams & Impressions: Radiology Procedures Category Date Time Status CHEST 1 VIEW (PORTABLE) Stat Exams 02/02/23 13:40 Completed Assessment/Plan (1) Sepsis Current Visit: Yes Status: Acute Assessment & Plan: - 2:2 UTI - antibiotics, IVF, Jovanny hugger - Lactic acid 1.6 - Low BP in ER - Unresponsive in ER- resolved Ip (2) UTI (urinary tract infection) Current Visit: Yes Status: Acute Assessment & Plan: -rocephin, IVF - Espinoza - UC pending Code(s): N39.0 - URINARY TRACT INFECTION, SITE NOT SPECIFIED (3) AMS (altered mental status) Current Visit: No Status: Acute Assessment & Plan: - improved on admission Code(s): R41.82 - ALTERED MENTAL STATUS, UNSPECIFIED (4) Acute on chronic renal failure Current Visit: No Status: Acute Assessment & Plan: - Monitor labs Code(s): N17.9 - ACUTE KIDNEY FAILURE, UNSPECIFIED; N18.9 - CHRONIC KIDNEY DISEASE, UNSPECIFIED (5) Obesity, morbid, BMI 40.0-49.9 Current Visit: Yes Status: Acute Assessment & Plan: -advised Diet control Code(s): E66.01 - MORBID (SEVERE) OBESITY DUE TO EXCESS CALORIES <DORIS SYLVESTER - Last Filed: 02/03/23 08:47> History of Present Illness - Chief Complaint History of Present Illness: is a 57 year old female. - Physical Exam Vital Signs: Vital Signs - 24 hr Temp Pulse Resp BP BP Pulse Ox 02/03/23 07:01 98.6 F 106 H 18 106/36 97 02/03/23 06:55 98.6 F 106 H 26 H 92/70 96 02/03/23 06:01 98.6 F 105 H 27 H 107/47 94 L 02/03/23 05:02 98.8 F 108 H 22 90/56 96 02/03/23 04:00 98.8 F 106 H 21 111/45 98 02/03/23 03:56 108 H 02/03/23 03:07 98.8 F 103 H 22 94/43 98 02/03/23 03:05 98.8 F 104 H 21 85/30 98 02/03/23 02:05 98.8 F 102 H 28 H 94/40 100 02/03/23 01:01 98.8 F 106 H 20 106/48 02/03/23 00:31 98.8 F 105 H 19 133/86 02/03/23 00:02 98.8 F 106 H 8 L 108/56 73 L 02/03/23 00:01 98.6 F 106 H 13 76/59 90 L 02/02/23 23:57 107 H 02/02/23 23:31 98.8 F 107 H 15 87/41 100 02/02/23 23:23 98.8 F 107 H 18 103/63 100 02/02/23 23:00 98.6 F 107 H 24 115/50 99 02/02/23 22:30 98.4 F 109 H 16 96/50 98 02/02/23 22:01 98.2 F 108 H 14 87/65 99 02/02/23 21:45 97.9 F 107 H 20 105/50 98 02/02/23 21:31 97.5 F 106 H 22 78/59 99 02/02/23 21:01 96.8 F 105 H 19 91/58 98 02/02/23 20:31 96.3 F 104 H 22 101/58 02/02/23 20:01 95.9 F 104 H 19 137/94 99 02/02/23 20:00 101 H 02/02/23 19:30 95.0 F 104 H 19 131/62 99 02/02/23 18:40 93.9 F 101 H 18 127/79 02/02/23 18:19 92.2 F 98 H 97/76 02/02/23 17:55 91.8 F 99 H 19 154/99 98 02/02/23 17:10 91.2 F 86 13 154/68 97 02/02/23 17:00 91 F 86 12 158/81 98 02/02/23 16:50 81 14 163/65 97 02/02/23 16:40 77 13 168/66 97 02/02/23 16:30 90.6 F 73 13 176/68 98 02/02/23 16:20 68 14 178/84 98 02/02/23 16:10 90.3 F 61 13 164/82 100 02/02/23 16:00 89.9 F 55 L 11 L 82/51 100 02/02/23 15:51 89.8 F 60 11 L 79/44 100 02/02/23 15:50 59 L 9 L 75/44 100 02/02/23 15:40 60 10 L 78/44 100 02/02/23 15:38 60 10 L 77/46 100 02/02/23 15:35 59 L 13 76/49 100 02/02/23 15:17 89.5 F 02/02/23 15:16 58 L 13 95/33 100 02/02/23 15:00 59 L 13 83/50 02/02/23 14:50 89.2 F 53 L 11 L 79/46 97 02/02/23 14:01 89.2 F 53 L 14 94/53 02/02/23 13:35 89.4 F 59 L 20 89/51 95 02/02/23 13:24 89.4 F 89/51 97 Results - Labs Lab/Micro Results: Lab Results-Last 24 Hours 02/02/23 02/02/23 02/02/23 Range/Units 13:38 13:38 13:38 WBC 7.3 (4.0-10.5) x10^3/uL RBC 2.92 L (4.1-5.4) x10^6/uL Hgb 8.8 L (12.0-16.0) g/dL Hct 27.7 L (35-47) % MCV 94.9 (78-100) fL MCH 30.1 (26-32) pg MCHC 31.8 L (32-36) g/dL RDW 19.5 H (11.5-14.0) % Plt Count 153 (150-450) x10^3/uL MPV 12.6 H (7.5-11.0) fL Gran % 71.9 H (36.0-66.0) % Immature Gran % (Auto) 1.5 H (0.00-0.4) % Nucleat RBC Rel Count 0.0 (0.00-0.1) % Eos # (Auto) 0.18 (0-0.5) x10^3/uL Immature Gran # (Auto) 0.11 H (0.00-0.03) x10^3u/L Absolute Lymphs (auto) 1.35 (1.0-4.6) x10^3/uL Absolute Monos (auto) 0.39 (0.0-1.3) x10^3/uL Absolute Nucleated RBC 0.00 (0.00-0.01) x10^3u/L Lymphocytes % 18.5 L (24.0-44.0) % Monocytes % 5.3 (0.0-12.0) % Eosinophils % 2.5 (0.00-5.0) % Basophils % 0.3 (0.0-0.4) % Absolute Granulocytes 5.24 (1.4-6.9) x10^3/uL Basophils # 0.02 (0-0.4) x10^3/uL ESR (0-20) mm/hr Sodium 132 L (137-145) mmol/L Potassium 5.2 H (3.5-5.1) mmol/L Chloride 98 (98-107) mmol/L Carbon Dioxide 28 (22-30) mmol/L Anion Gap 11.1 (5-15) MEQ/L BUN 19 H (7-17) mg/dL Creatinine 1.35 H (0.52-1.04) mg/dL Estimated GFR 45.3 ML/MIN Glucose 139 H (74-106) mg/dL POC Glucometer (74 to 106) mg/dL Lactic Acid 1.6 (0.4-2.0) Calcium 7.9 L (8.4-10.2) mg/dL Total Bilirubin < 0.10 L (0.2-1.3) mg/dL AST 33 (14-36) U/L ALT 20 (0-35) U/L Alkaline Phosphatase 125 (38-126) U/L Serum Total Protein 5.0 L (6.3-8.2) g/dL Albumin 2.2 L (3.5-5.0) g/dL Urine Color (Yellow) Urine Appearance (Clear) Urine pH (4.6-8.0) Ur Specific [place] (1.005-1.030) Urine Protein (Negative) Urine Glucose (UA) (Negative) mg/dL Urine Ketones (Negative) Urine Blood (Negative) Urine Nitrite (Negative) Urine Bilirubin (Negative) Urine Urobilinogen (0.2) mg/dL Ur Leukocyte Esterase (Negative) U Hyaline Cast (Auto) (0-2) /LPF Urine Microscopic RBC (0-5) /HPF Urine Microscopic WBC (0-5) /HPF Ur Epithelial Cells (None Seen) /HPF Urine Bacteria (None Seen) /HPF Urine Yeast (Budding) (None Seen) /HPF Urine Culture Reflexed (NO) Influenza Type A Ag (NEGATIVE) Influenza Type B Ag (NEGATIVE) RSV (PCR) (NEGATIVE) SARS-CoV-2 (PCR) (NEGATIVE) 02/02/23 02/02/2323 Range/Units 13:50 13:50 13:51 WBC (4.0-10.5) x10^3/uL RBC (4.1-5.4) x10^6/uL Hgb (12.0-16.0) g/dL Hct (35-47) % MCV (78-100) fL MCH (26-32) pg MCHC (32-36) g/dL RDW (11.5-14.0) % Plt Count (150-450) x10^3/uL MPV (7.5-11.0) fL Gran % (36.0-66.0) % Immature Gran % (Auto) (0.00-0.4) % Nucleat RBC Rel Count (0.00-0.1) % Eos # (Auto) (0-0.5) x10^3/uL Immature Gran # (Auto) (0.00-0.03) x10^3u/L Absolute Lymphs (auto) (1.0-4.6) x10^3/uL Absolute Monos (auto) (0.0-1.3) x10^3/uL Absolute Nucleated RBC (0.00-0.01) x10^3u/L Lymphocytes % (24.0-44.0) % Monocytes % (0.0-12.0) % Eosinophils % (0.00-5.0) % Basophils % (0.0-0.4) % Absolute Granulocytes (1.4-6.9) x10^3/uL Basophils # (0-0.4) x10^3/uL ESR 10 (0-20) mm/hr Sodium (137-145) mmol/L Potassium (3.5-5.1) mmol/L Chloride (98-107) mmol/L Carbon Dioxide (22-30) mmol/L Anion Gap (5-15) MEQ/L BUN (7-17) mg/dL Creatinine (0.52-1.04) mg/dL Estimated GFR ML/MIN Glucose (74-106) mg/dL POC Glucometer (74 to 106) mg/dL Lactic Acid (0.4-2.0) Calcium (8.4-10.2) mg/dL Total Bilirubin (0.2-1.3) mg/dL AST (14-36) U/L ALT (0-35) U/L Alkaline Phosphatase (38-126) U/L Serum Total Protein (6.3-8.2) g/dL Albumin (3.5-5.0) g/dL Urine Color Yellow (Yellow) Urine Appearance Turbid A (Clear) Urine pH 6.0 (4.6-8.0) Ur Specific [place] 1.010 (1.005-1.030) Urine Protein 300 A (Negative) Urine Glucose (UA) Negative (Negative) mg/dL Urine Ketones Negative (Negative) Urine Blood Moderate A (Negative) Urine Nitrite Negative (Negative) Urine Bilirubin Negative (Negative) Urine Urobilinogen 0.2 (0.2) mg/dL Ur Leukocyte Esterase Large A (Negative) U Hyaline Cast (Auto) None Seen (0-2) /LPF Urine Microscopic RBC 3-5 (0-5) /HPF Urine Microscopic WBC >100 A (0-5) /HPF Ur Epithelial Cells Rare (None Seen) /HPF Urine Bacteria Moderate A (None Seen) /HPF Urine Yeast (Budding) Rare A (None Seen) /HPF Urine Culture Reflexed ORDERED SEPARATELY (NO) Influenza Type A Ag NEGATIVE (NEGATIVE) Influenza Type B Ag NEGATIVE (NEGATIVE) RSV (PCR) NEGATIVE (NEGATIVE) SARS-CoV-2 (PCR) NEGATIVE (NEGATIVE) 02/02/23 02/03/23 02/03/23 Range/Units 21:30 04:45 04:45 WBC 16.8 H (4.0-10.5) x10^3/uL RBC 3.09 L (4.1-5.4) x10^6/uL Hgb 9.5 L (12.0-16.0) g/dL Hct 29.5 L (35-47) % MCV 95.5 (78-100) fL MCH 30.7 (26-32) pg MCHC 32.2 (32-36) g/dL RDW 19.3 H (11.5-14.0) % Plt Count 188 (150-450) x10^3/uL MPV 12.5 H (7.5-11.0) fL Gran % (36.0-66.0) % Immature Gran % (Auto) (0.00-0.4) % Nucleat RBC Rel Count (0.00-0.1) % Eos # (Auto) (0-0.5) x10^3/uL Immature Gran # (Auto) (0.00-0.03) x10^3u/L Absolute Lymphs (auto) (1.0-4.6) x10^3/uL Absolute Monos (auto) (0.0-1.3) x10^3/uL Absolute Nucleated RBC (0.00-0.01) x10^3u/L Lymphocytes % (24.0-44.0) % Monocytes % (0.0-12.0) % Eosinophils % (0.00-5.0) % Basophils % (0.0-0.4) % Absolute Granulocytes (1.4-6.9) x10^3/uL Basophils # (0-0.4) x10^3/uL ESR (0-20) mm/hr Sodium 134 L (137-145) mmol/L Potassium 5.4 H (3.5-5.1) mmol/L Chloride 103 (98-107) mmol/L Carbon Dioxide 25 (22-30) mmol/L Anion Gap 11.2 (5-15) MEQ/L BUN 16 (7-17) mg/dL Creatinine 1.14 H (0.52-1.04) mg/dL Estimated GFR 55.5 ML/MIN Glucose 157 H (74-106) mg/dL POC Glucometer 169 H (74 to 106) mg/dL Lactic Acid (0.4-2.0) Calcium 7.5 L (8.4-10.2) mg/dL Total Bilirubin 0.10 L (0.2-1.3) mg/dL AST 35 (14-36) U/L ALT 23 (0-35) U/L Alkaline Phosphatase 135 H (38-126) U/L Serum Total Protein 5.7 L (6.3-8.2) g/dL Albumin 2.6 L (3.5-5.0) g/dL Urine Color (Yellow) Urine Appearance (Clear) Urine pH (4.6-8.0) Ur Specific [place] (1.005-1.030) Urine Protein (Negative) Urine Glucose (UA) (Negative) mg/dL Urine Ketones (Negative) Urine Blood (Negative) Urine Nitrite (Negative) Urine Bilirubin (Negative) Urine Urobilinogen (0.2) mg/dL Ur Leukocyte Esterase (Negative) U Hyaline Cast (Auto) (0-2) /LPF Urine Microscopic RBC (0-5) /HPF Urine Microscopic WBC (0-5) /HPF Ur Epithelial Cells (None Seen) /HPF Urine Bacteria (None Seen) /HPF Urine Yeast (Budding) (None Seen) /HPF Urine Culture Reflexed (NO) Influenza Type A Ag (NEGATIVE) Influenza Type B Ag (NEGATIVE) RSV (PCR) (NEGATIVE) SARS-CoV-2 (PCR) (NEGATIVE) 02/03/23 Range/Units 06:57 WBC (4.0-10.5) x10^3/uL RBC (4.1-5.4) x10^6/uL Hgb (12.0-16.0) g/dL Hct (35-47) % MCV (78-100) fL MCH (26-32) pg MCHC (32-36) g/dL RDW (11.5-14.0) % Plt Count (150-450) x10^3/uL MPV (7.5-11.0) fL Gran % (36.0-66.0) % Immature Gran % (Auto) (0.00-0.4) % Nucleat RBC Rel Count (0.00-0.1) % Eos # (Auto) (0-0.5) x10^3/uL Immature Gran # (Auto) (0.00-0.03) x10^3u/L Absolute Lymphs (auto) (1.0-4.6) x10^3/uL Absolute Monos (auto) (0.0-1.3) x10^3/uL Absolute Nucleated RBC (0.00-0.01) x10^3u/L Lymphocytes % (24.0-44.0) % Monocytes % (0.0-12.0) % Eosinophils % (0.00-5.0) % Basophils % (0.0-0.4) % Absolute Granulocytes (1.4-6.9) x10^3/uL Basophils # (0-0.4) x10^3/uL ESR (0-20) mm/hr Sodium (137-145) mmol/L Potassium (3.5-5.1) mmol/L Chloride (98-107) mmol/L Carbon Dioxide (22-30) mmol/L Anion Gap (5-15) MEQ/L BUN (7-17) mg/dL Creatinine (0.52-1.04) mg/dL Estimated GFR ML/MIN Glucose (74-106) mg/dL POC Glucometer 152 H (74 to 106) mg/dL Lactic Acid (0.4-2.0) Calcium (8.4-10.2) mg/dL Total Bilirubin (0.2-1.3) mg/dL AST (14-36) U/L ALT (0-35) U/L Alkaline Phosphatase (38-126) U/L Serum Total Protein (6.3-8.2) g/dL Albumin (3.5-5.0) g/dL Urine Color (Yellow) Urine Appearance (Clear) Urine pH (4.6-8.0) Ur Specific [place] (1.005-1.030) Urine Protein (Negative) Urine Glucose (UA) (Negative) mg/dL Urine Ketones (Negative) Urine Blood (Negative) Urine Nitrite (Negative) Urine Bilirubin (Negative) Urine Urobilinogen (0.2) mg/dL Ur Leukocyte Esterase (Negative) U Hyaline Cast (Auto) (0-2) /LPF Urine Microscopic RBC (0-5) /HPF Urine Microscopic WBC (0-5) /HPF Ur Epithelial Cells (None Seen) /HPF Urine Bacteria (None Seen) /HPF Urine Yeast (Budding) (None Seen) /HPF Urine Culture Reflexed (NO) Influenza Type A Ag (NEGATIVE) Influenza Type B Ag (NEGATIVE) RSV (PCR) (NEGATIVE) SARS-CoV-2 (PCR) (NEGATIVE) Microbiology 02/02/23 13:51 Urine Culture - Preliminary Catherized GRAM NEGATIVE ID AND SENSITIVITY PENDING Accuchecks Date 02/03/23 Date 02/02/23 Time 07:19 - Radiology Impressions Radiology Exams & Impressions: Radiology Procedures Category Date Time Status CHEST 1 VIEW (PORTABLE) Stat Exams 02/02/23 13:40 Completed - Other Procedures and Tests Respiratory Therapy 02/02/23 17:28 Oxygen Nasal Cannula 3 lpm GINA Encounter - GINA Encounter Attestation GINA Encounter Attestation: "SholysdavidandexCHRIS Isbell on 02/02/2023 andhavediscussed pertinent aspects of their care with Jessica Bui agree with the history, physical exam (any modifications based on my personal exam will be noted below), assessment, and plan as outlined in original note. Please see immediately below for my summary of findings and additional assessment and plan along with any meaningful corrections/explanations to the Subjective/Objective portions of the GINA note will be noted." My portion of the encounter took place via telemedicine. -Patient with septic shock secondary to UTI. Needed to be started on levophed after fluid resuscitation. Wean off as tolerated per protocol. Continue IV antibiotics pending cultures.
[2023-02-03 04:49] LABS: Hematocrit 29.5 % (35-47); Hemoglobin 9.5 g/dL (12.0-16.0); Mean Cell Volume 95.5 fL (78-100); Mean Corpuscular Hemoglobin 30.7 pg (26-32); Mean Corpuscular Hgb Concent. 32.2 g/dL (32-36); Mean Platelet Volume 12.5 fL (7.5-11.0); Platelet Count 188 x10^3/uL (150-450); Red Blood Count 3.09 x10^6/uL (4.1-5.4); Red Cell Distribution Width 19.3 % (11.5-14.0); White Blood Count 16.8 x10^3/uL (4.0-10.5)
[2023-02-03 05:06] LABS: ALBUMIN 2.6 g/dL (3.5-5.0); ANION GAP 11.2 MEQ/L (5-15); BILIRUBIN,TOTAL 0.1 mg/dL (0.2-1.3); Calcium 7.5 mg/dL (8.4-10.2); Creatinine 1 1.14 mg/dL (0.52-1.04); EST GLOMERULAR FILTRATION RATE 55.5 ML/MIN; Potassium 5.4 mmol/L (3.5-5.1); Total Protein 5.7 g/dL (6.3-8.2)
[2023-02-03] MEDS ORDERED: Sodium Chloride 0.9% 1000 ML 1,000 ML ONE (05:23)
[2023-02-03] MEDS: Sodium Chloride 0.9% 1000 ML 1,000 ML IV SCH ×3 (06:02→19:57)
[2023-02-03] MEDS ORDERED: Lasix 20 MG/2 ML IV ONE (08:15)
[2023-02-03] MEDS ORDERED: ROCEPHIN 1 Gm-D5w 50 ml Bag** 1 G/50 ML IVPB IV SCH (10:00)
[2023-02-03] MEDS: ENOXAPARIN SODIUM SQ SCH (10:23)
--- NOTE | 2023-02-03 11:22 | PCM.NOTE ---
Date and Time: 02/03/231116 Subjective Assessment: 02/02/23 is a 57 year old female with pmhx of HLD, HTN, Asthma, DM type II, an xiety, depression, IBS, GERD, and schizophrenia that presented to ER 02/02/23 via EMS from the [facility] with altered mentation. On admission patient was unresponsive. She is now awake and confused which is her baseline. She has repeat admissions for UTI in the past. Admitted this time for urosepsis and acute on chronic kidney failure. She has a low temp and jovanny hugger placed on pt. She has a Levophed gtt running. Zosyn started in the ER and IV fluids. Will continue antibiotics, fluids, levophed. 02/03/23 Pt resting in bed. She is more awake and alert. She is able to state her name and where she is. Urine has cleared up and now clear yellow. She remains on a levophed gtt and this is being weaned. BP has improved. She continues to be tachycardic. Potassium 5.4 and lasix given. Continue antibiotics and IV fluids. JEFFREY improving. Pt denies CP, SOB, abd. pain, N/V/D. - Review of Systems Constitutional: Weakness, No Fever, No Chills Eyes: No Symptoms Ears, Nose, & Throat: No Symptoms Respiratory: No Cough, No Short Of Breath Cardiac: No Chest Pain, No Edema, No Syncope Abdominal/Gastrointestinal: No Abdominal Pain, No Nausea, No Vomiting, No Diarrhea Genitourinary Symptoms: No Dysuria Musculoskeletal: No Back Pain, No Neck Pain Skin: No Rash Neurological: No Dizziness, No Focal Weakness, No Sensory Changes Psychological: No Symptoms Endocrine: No Symptoms Hematologic/Lymphatic: No Symptoms Immunological/Allergic: No Symptoms Objective Exam General Appearance: no apparent distress, alert (to person and place) Neurologic Exam: alert, oriented x 3, cooperative, normal mood/affect, nml cerebellar function, sensation nml, No motor deficits Skin Exam: normal color, warm, dry Eye Exam: PERRL, EOMI, eyes nml inspection Ears, Nose, Throat Exam: normal ENT inspection, pharynx normal, moist mucous membranes Neck Exam: normal inspection, non-tender, supple, full range of motion Respiratory Exam: normal breath sounds, lungs clear, No respiratory distress Cardiovascular Exam: regular rate/rhythm, normal heart sounds, tachycardia Gastrointestinal/Abdomen Exam: soft, No tenderness, No mass Extremity Exam: normal inspection, normal range of motion Back Exam: normal inspection, normal range of motion, No CVA tenderness, No vertebral tenderness Pelvic Exam: deferred Rectal Exam: deferred OBJECTIVE DATA Vital Signs: Vital Signs - 24 hr Temp Pulse Resp BP BP Pulse Ox 02/03/23 11:00 98.4 F 100 H 17 129/57 02/03/23 10:59 98.4 F 100 H 17 112/60 02/03/23 10:27 98.4 F 101 H 21 116/54 02/03/23 10:00 98.6 F 101 H 26 H 111/68 02/03/23 09:07 98.6 F 107 H 16 116/52 02/03/23 09:02 98.6 F 108 H 13 02/03/23 08:34 98.6 F 108 H 17 118/57 02/03/23 08:01 98.6 F 106 H 17 115/69 02/03/23 08:00 106 H 02/03/23 07:33 98.6 F 106 H 20 114/50 02/03/23 07:01 98.6 F 106 H 18 106/36 97 02/03/23 06:55 98.6 F 106 H 26 H 92/70 96 02/03/23 06:01 98.6 F 105 H 27 H 107/47 94 L 02/03/23 05:02 98.8 F 108 H 22 90/56 96 02/03/23 04:00 98.8 F 106 H 21 111/45 98 02/03/23 03:56 108 H 02/03/23 03:07 98.8 F 103 H 22 94/43 98 02/03/23 03:05 98.8 F 104 H 21 85/30 98 02/03/23 02:05 98.8 F 102 H 28 H 94/40 100 02/03/23 01:01 98.8 F 106 H 20 106/48 02/03/23 00:31 98.8 F 105 H 19 133/86 02/03/23 00:02 98.8 F 106 H 8 L 108/56 73 L 02/03/23 00:01 98.6 F 106 H 13 76/59 90 L 02/02/23 23:57 107 H 02/02/23 23:31 98.8 F 107 H 15 87/41 100 02/02/23 23:23 98.8 F 107 H 18 103/63 100 02/02/23 23:00 98.6 F 107 H 24 115/50 99 02/02/23 22:30 98.4 F 109 H 16 96/50 98 02/02/23 22:01 98.2 F 108 H 14 87/65 99 02/02/23 21:45 97.9 F 107 H 20 105/50 98 02/02/23 21:31 97.5 F 106 H 22 78/59 99 02/02/23 21:01 96.8 F 105 H 19 91/58 98 02/02/23 20:31 96.3 F 104 H 22 101/58 02/02/23 20:01 95.9 F 104 H 19 137/94 99 02/02/23 20:00 101 H 02/02/23 19:30 95.0 F 104 H 19 131/62 99 02/02/23 18:40 93.9 F 101 H 18 127/79 02/02/23 18:19 92.2 F 98 H 97/76 02/02/23 17:55 91.8 F 99 H 19 154/99 98 02/02/23 17:10 91.2 F 86 13 154/68 97 02/02/23 17:00 91 F 86 12 158/81 98 02/02/23 16:50 81 14 163/65 97 02/02/23 16:40 77 13 168/66 97 02/02/23 16:30 90.6 F 73 13 176/68 98 02/02/23 16:20 68 14 178/84 98 02/02/23 16:10 90.3 F 61 13 164/82 100 02/02/23 16:00 89.9 F 55 L 11 L 82/51 100 02/02/23 15:51 89.8 F 60 11 L 79/44 100 02/02/23 15:50 59 L 9 L 75/44 100 02/02/23 15:40 60 10 L 78/44 100 02/02/23 15:38 60 10 L 77/46 100 02/02/23 15:35 59 L 13 76/49 100 02/02/23 15:17 89.5 F 02/02/23 15:16 58 L 13 95/33 100 02/02/23 15:00 59 L 13 83/50 02/02/23 14:50 89.2 F 53 L 11 L 79/46 97 02/02/23 14:01 89.2 F 53 L 14 94/53 02/02/23 13:35 89.4 F 59 L 20 89/51 95 02/02/23 13:24 89.4 F 89/51 97 Pain Assessment - Last Documented Pain Intensity 0 Intake and Output: Intake & Output 01/31/23 02/01/23 02/02/23 02/03/23 12:59 11:59 11:59 11:59 Intake Total 3304 Output Total 3000 Balance 304 Weight 126 kg Lab Results: Lab Results-Last 24 Hours 02/02/23 02/02/23 02/02/23 Range/Units 13:38 13:38 13:38 WBC 7.3 (4.0-10.5) x10^3/uL RBC 2.92 L (4.1-5.4) x10^6/uL Hgb 8.8 L (12.0-16.0) g/dL Hct 27.7 L (35-47) % MCV 94.9 (78-100) fL MCH 30.1 (26-32) pg MCHC 31.8 L (32-36) g/dL RDW 19.5 H (11.5-14.0) % Plt Count 153 (150-450) x10^3/uL MPV 12.6 H (7.5-11.0) fL Gran % 71.9 H (36.0-66.0) % Immature Gran % (Auto) 1.5 H (0.00-0.4) % Nucleat RBC Rel Count 0.0 (0.00-0.1) % Eos # (Auto) 0.18 (0-0.5) x10^3/uL Immature Gran # (Auto) 0.11 H (0.00-0.03) x10^3u/L Absolute Lymphs (auto) 1.35 (1.0-4.6) x10^3/uL Absolute Monos (auto) 0.39 (0.0-1.3) x10^3/uL Absolute Nucleated RBC 0.00 (0.00-0.01) x10^3u/L Lymphocytes % 18.5 L (24.0-44.0) % Monocytes % 5.3 (0.0-12.0) % Eosinophils % 2.5 (0.00-5.0) % Basophils % 0.3 (0.0-0.4) % Absolute Granulocytes 5.24 (1.4-6.9) x10^3/uL Basophils # 0.02 (0-0.4) x10^3/uL ESR (0-20) mm/hr Sodium 132 L (137-145) mmol/L Potassium 5.2 H (3.5-5.1) mmol/L Chloride 98 (98-107) mmol/L Carbon Dioxide 28 (22-30) mmol/L Anion Gap 11.1 (5-15) MEQ/L BUN 19 H (7-17) mg/dL Creatinine 1.35 H (0.52-1.04) mg/dL Estimated GFR 45.3 ML/MIN Glucose 139 H (74-106) mg/dL POC Glucometer (74 to 106) mg/dL Lactic Acid 1.6 (0.4-2.0) Calcium 7.9 L (8.4-10.2) mg/dL Total Bilirubin < 0.10 L (0.2-1.3) mg/dL AST 33 (14-36) U/L ALT 20 (0-35) U/L Alkaline Phosphatase 125 (38-126) U/L Serum Total Protein 5.0 L (6.3-8.2) g/dL Albumin 2.2 L (3.5-5.0) g/dL Urine Color (Yellow) Urine Appearance (Clear) Urine pH (4.6-8.0) Ur Specific [place] (1.005-1.030) Urine Protein (Negative) Urine Glucose (UA) (Negative) mg/dL Urine Ketones (Negative) Urine Blood (Negative) Urine Nitrite (Negative) Urine Bilirubin (Negative) Urine Urobilinogen (0.2) mg/dL Ur Leukocyte Esterase (Negative) U Hyaline Cast (Auto) (0-2) /LPF Urine Microscopic RBC (0-5) /HPF Urine Microscopic WBC (0-5) /HPF Ur Epithelial Cells (None Seen) /HPF Urine Bacteria (None Seen) /HPF Urine Yeast (Budding) (None Seen) /HPF Urine Culture Reflexed (NO) Influenza Type A Ag (NEGATIVE) Influenza Type B Ag (NEGATIVE) RSV (PCR) (NEGATIVE) SARS-CoV-2 (PCR) (NEGATIVE) 02/02/23 02/02/23 02/02/23 Range/Units 13:50 13:50 13:51 WBC (4.0-10.5) x10^3/uL RBC (4.1-5.4) x10^6/uL Hgb (12.0-16.0) g/dL Hct (35-47) % MCV (78-100) fL MCH (26-32) pg MCHC (32-36) g/dL RDW (11.5-14.0) % Plt Count (150-450) x10^3/uL MPV (7.5-11.0) fL Gran % (36.0-66.0) % Immature Gran % (Auto) (0.00-0.4) % Nucleat RBC Rel Count (0.00-0.1) % Eos # (Auto) (0-0.5) x10^3/uL Immature Gran # (Auto) (0.00-0.03) x10^3u/L Absolute Lymphs (auto) (1.0-4.6) x10^3/uL Absolute Monos (auto) (0.0-1.3) x10^3/uL Absolute Nucleated RBC (0.00-0.01) x10^3u/L Lymphocytes % (24.0-44.0) % Monocytes % (0.0-12.0) % Eosinophils % (0.00-5.0) % Basophils % (0.0-0.4) % Absolute Granulocytes (1.4-6.9) x10^3/uL Basophils # (0-0.4) x10^3/uL ESR 10 (0-20) mm/hr Sodium (137-145) mmol/L Potassium (3.5-5.1) mmol/L Chloride (98-107) mmol/L Carbon Dioxide (22-30) mmol/L Anion Gap (5-15) MEQ/L BUN (7-17) mg/dL Creatinine (0.52-1.04) mg/dL Estimated GFR ML/MIN Glucose (74-106) mg/dL POC Glucometer (74 to 106) mg/dL Lactic Acid (0.4-2.0) Calcium (8.4-10.2) mg/dL Total Bilirubin (0.2-1.3) mg/dL AST (14-36) U/L ALT (0-35) U/L Alkaline Phosphatase (38-126) U/L Serum Total Protein (6.3-8.2) g/dL Albumin (3.5-5.0) g/dL Urine Color Yellow (Yellow) Urine Appearance Turbid A (Clear) Urine pH 6.0 (4.6-8.0) Ur Specific [place] 1.010 (1.005-1.030) Urine Protein 300 A (Negative) Urine Glucose (UA) Negative (Negative) mg/dL Urine Ketones Negative (Negative) Urine Blood Moderate A (Negative) Urine Nitrite Negative (Negative) Urine Bilirubin Negative (Negative) Urine Urobilinogen 0.2 (0.2) mg/dL Ur Leukocyte Esterase Large A (Negative) U Hyaline Cast (Auto) None Seen (0-2) /LPF Urine Microscopic RBC 3-5 (0-5) /HPF Urine Microscopic WBC >100 A (0-5) /HPF Ur Epithelial Cells Rare (None Seen) /HPF Urine Bacteria Moderate A (None Seen) /HPF Urine Yeast (Budding) Rare A (None Seen) /HPF Urine Culture Reflexed ORDERED SEPARATELY (NO) Influenza Type A Ag NEGATIVE (NEGATIVE) Influenza Type B Ag NEGATIVE (NEGATIVE) RSV (PCR) NEGATIVE (NEGATIVE) SARS-CoV-2 (PCR) NEGATIVE (NEGATIVE) 02/02/23 02/03/23 02/03/23 Range/Units 21:30 04:45 04:45 WBC 16.8 H (4.0-10.5) x10^3/uL RBC 3.09 L (4.1-5.4) x10^6/uL Hgb 9.5 L (12.0-16.0) g/dL Hct 29.5 L (35-47) % MCV 95.5 (78-100) fL MCH 30.7 (26-32) pg MCHC 32.2 (32-36) g/dL RDW 19.3 H (11.5-14.0) % Plt Count 188 (150-450) x10^3/uL MPV 12.5 H (7.5-11.0) fL Gran % (36.0-66.0) % Immature Gran % (Auto) (0.00-0.4) % Nucleat RBC Rel Count (0.00-0.1) % Eos # (Auto) (0-0.5) x10^3/uL Immature Gran # (Auto) (0.00-0.03) x10^3u/L Absolute Lymphs (auto) (1.0-4.6) x10^3/uL Absolute Monos (auto) (0.0-1.3) x10^3/uL Absolute Nucleated RBC (0.00-0.01) x10^3u/L Lymphocytes % (24.0-44.0) % Monocytes % (0.0-12.0) % Eosinophils % (0.00-5.0) % Basophils % (0.0-0.4) % Absolute Granulocytes (1.4-6.9) x10^3/uL Basophils # (0-0.4) x10^3/uL ESR (0-20) mm/hr Sodium 134 L (137-145) mmol/L Potassium 5.4 H (3.5-5.1) mmol/L Chloride 103 (98-107) mmol/L Carbon Dioxide 25 (22-30) mmol/L Anion Gap 11.2 (5-15) MEQ/L BUN 16 (7-17) mg/dL Creatinine 1.14 H (0.52-1.04) mg/dL Estimated GFR 55.5 ML/MIN Glucose 157 H (74-106) mg/dL POC Glucometer 169 H (74 to 106) mg/dL Lactic Acid (0.4-2.0) Calcium 7.5 L (8.4-10.2) mg/dL Total Bilirubin 0.10 L (0.2-1.3) mg/dL AST 35 (14-36) U/L ALT 23 (0-35) U/L Alkaline Phosphatase 135 H (38-126) U/L Serum Total Protein 5.7 L (6.3-8.2) g/dL Albumin 2.6 L (3.5-5.0) g/dL Urine Color (Yellow) Urine Appearance (Clear) Urine pH (4.6-8.0) Ur Specific [place] (1.005-1.030) Urine Protein (Negative) Urine Glucose (UA) (Negative) mg/dL Urine Ketones (Negative) Urine Blood (Negative) Urine Nitrite (Negative) Urine Bilirubin (Negative) Urine Urobilinogen (0.2) mg/dL Ur Leukocyte Esterase (Negative) U Hyaline Cast (Auto) (0-2) /LPF Urine Microscopic RBC (0-5) /HPF Urine Microscopic WBC (0-5) /HPF Ur Epithelial Cells (None Seen) /HPF Urine Bacteria (None Seen) /HPF Urine Yeast (Budding) (None Seen) /HPF Urine Culture Reflexed (NO) Influenza Type A Ag (NEGATIVE) Influenza Type B Ag (NEGATIVE) RSV (PCR) (NEGATIVE) SARS-CoV-2 (PCR) (NEGATIVE) 02/03/23 Range/Units 06:57 WBC (4.0-10.5) x10^3/uL RBC (4.1-5.4) x10^6/uL Hgb (12.0-16.0) g/dL Hct (35-47) % MCV (78-100) fL MCH (26-32) pg MCHC (32-36) g/dL RDW (11.5-14.0) % Plt Count (150-450) x10^3/uL MPV (7.5-11.0) fL Gran % (36.0-66.0) % Immature Gran % (Auto) (0.00-0.4) % Nucleat RBC Rel Count (0.00-0.1) % Eos # (Auto) (0-0.5) x10^3/uL Immature Gran # (Auto) (0.00-0.03) x10^3u/L Absolute Lymphs (auto) (1.0-4.6) x10^3/uL Absolute Monos (auto) (0.0-1.3) x10^3/uL Absolute Nucleated RBC (0.00-0.01) x10^3u/L Lymphocytes % (24.0-44.0) % Monocytes % (0.0-12.0) % Eosinophils % (0.00-5.0) % Basophils % (0.0-0.4) % Absolute Granulocytes (1.4-6.9) x10^3/uL Basophils # (0-0.4) x10^3/uL ESR (0-20) mm/hr Sodium (137-145) mmol/L Potassium (3.5-5.1) mmol/L Chloride (98-107) mmol/L Carbon Dioxide (22-30) mmol/L Anion Gap (5-15) MEQ/L BUN (7-17) mg/dL Creatinine (0.52-1.04) mg/dL Estimated GFR ML/MIN Glucose (74-106) mg/dL POC Glucometer 152 H (74 to 106) mg/dL Lactic Acid (0.4-2.0) Calcium (8.4-10.2) mg/dL Total Bilirubin (0.2-1.3) mg/dL AST (14-36) U/L ALT (0-35) U/L Alkaline Phosphatase (38-126) U/L Serum Total Protein (6.3-8.2) g/dL Albumin (3.5-5.0) g/dL Urine Color (Yellow) Urine Appearance (Clear) Urine pH (4.6-8.0) Ur Specific [place] (1.005-1.030) Urine Protein (Negative) Urine Glucose (UA) (Negative) mg/dL Urine Ketones (Negative) Urine Blood (Negative) Urine Nitrite (Negative) Urine Bilirubin (Negative) Urine Urobilinogen (0.2) mg/dL Ur Leukocyte Esterase (Negative) U Hyaline Cast (Auto) (0-2) /LPF Urine Microscopic RBC (0-5) /HPF Urine Microscopic WBC (0-5) /HPF Ur Epithelial Cells (None Seen) /HPF Urine Bacteria (None Seen) /HPF Urine Yeast (Budding) (None Seen) /HPF Urine Culture Reflexed (NO) Influenza Type A Ag (NEGATIVE) Influenza Type B Ag (NEGATIVE) RSV (PCR) (NEGATIVE) SARS-CoV-2 (PCR) (NEGATIVE) Radiology Exams: Radiology Procedures Category Date Time Status CHEST 1 VIEW (PORTABLE) Stat Exams 02/02/23 13:40 Completed Assessment/Plan (1) Sepsis Current Visit: Yes Status: Acute (2) UTI (urinary tract infection) Current Visit: Yes Status: Acute Code(s): N39.0 - URINARY TRACT INFECTION, SITE NOT SPECIFIED (3) AMS (altered mental status) Current Visit: No Status: Acute Code(s): R41.82 - ALTERED MENTAL STATUS, UNSPECIFIED (4) Acute on chronic renal failure Current Visit: No Status: Acute Code(s): N17.9 - ACUTE KIDNEY FAILURE, UNSPECIFIED; N18.9 - CHRONIC KIDNEY DISEASE, UNSPECIFIED (5) Obesity, morbid, BMI 40.0-49.9 Current Visit: Yes Status: Acute Code(s): E66.01 - MORBID (SEVERE) OBESITY DUE TO EXCESS CALORIES (6) Hyperkalemia Current Visit: Yes Status: Acute Assessment & Plan: (1) Sepsis Current Visit: Yes Status: Acute Assessment & Plan: - 2:2 UTI - antibiotics, IVF, Jovanny hugger - Lactic acid 1.6 - Low BP in ER - Unresponsive in ER- resolved Ip 02/03 - improving, awake and alert - Bp improved - weaning off Levophed - Jovanny hugger off, normal temp (2) UTI (urinary tract infection) Current Visit: Yes Status: Acute Assessment & Plan: -zosyn - Espinoza - UC sensitivity pending- gram negative Code(s): N39.0 - URINARY TRACT INFECTION, SITE NOT SPECIFIED (3) AMS (altered mental status) Current Visit: No Status: Acute Assessment & Plan: - improved on admission Code(s): R41.82 - ALTERED MENTAL STATUS, UNSPECIFIED (4) Acute on chronic renal failure Current Visit: No Status: Acute Assessment & Plan: - Monitor labs 02/03 - improving - NS@ 150ML/HR Code(s): N17.9 - ACUTE KIDNEY FAILURE, UNSPECIFIED; N18.9 - CHRONIC KIDNEY DISEASE, UNSPECIFIED (5) Obesity, morbid, BMI 40.0-49.9 Current Visit: Yes Status: Acute Assessment & Plan: -advised Diet control Code(s): E66.01 - MORBID (SEVERE) OBESITY DUE TO EXCESS CALORIES 6. Hyperkalemia - K+ 5.4- trend - Lasix 20mg IV x1 Code(s): E87.5 - HYPERKALEMIA
[2023-02-03] MEDS ORDERED: PIPERACILLIN/TAZOBACTAM 3.375 GM in Sodium Chloride 100ML MINI-BAG PLUS 100 ML IV ONE (11:30)
[2023-02-03] MEDS: PIPERACILLIN/TAZOBACTAM 3.375 GM in Sodium Chloride 100ML MINI-BAG PLUS 100 ML IV SCH ×2 (18:44→23:30)
[2023-02-04] MEDS: Sodium Chloride 0.9% 1000 ML 1,000 ML IV SCH (02:30)
[2023-02-04] MEDS: PIPERACILLIN/TAZOBACTAM 3.375 GM in Sodium Chloride 100ML MINI-BAG PLUS 100 ML IV SCH ×3 (05:19→17:55)
[2023-02-04 05:42] LABS: Hematocrit 25.5 % (35-47); Hemoglobin 8.4 g/dL (12.0-16.0); Mean Cell Volume 92.7 fL (78-100); Mean Corpuscular Hemoglobin 30.5 pg (26-32); Mean Corpuscular Hgb Concent. 32.9 g/dL (32-36); Mean Platelet Volume 12.1 fL (7.5-11.0); Platelet Count 144 x10^3/uL (150-450); Red Blood Count 2.75 x10^6/uL (4.1-5.4); Red Cell Distribution Width 19.9 % (11.5-14.0); White Blood Count 8.7 x10^3/uL (4.0-10.5)
[2023-02-04 06:12] LABS: ALBUMIN 2.3 g/dL (3.5-5.0); ANION GAP 8.9 MEQ/L (5-15); BILIRUBIN,TOTAL 0.1 mg/dL (0.2-1.3); Calcium 7.5 mg/dL (8.4-10.2); Creatinine 1 0.81 mg/dL (0.52-1.04); EST GLOMERULAR FILTRATION RATE 83.6 ML/MIN; Potassium 4.4 mmol/L (3.5-5.1); Total Protein 5.2 g/dL (6.3-8.2)
[2023-02-04] MEDS ORDERED: PALIPERIDONE PALMITATE 117 MG/0.75 ML IM SCH (08:15)
[2023-02-04] MEDS ORDERED: MEDICATION INTERVENTION MC SCH (08:30)
[2023-02-04] MEDS ORDERED: Lasix 40 MG/4 ML IV ONE (09:07)
[2023-02-04] MEDS: ENOXAPARIN SODIUM SQ SCH (09:27)
[2023-02-04] MEDS: Toprol-Xl 25MG Tablets PO SCH (09:27)
[2023-02-04] MEDS: Pepcid 20 MG PO SCH (09:28)
[2023-02-04] MEDS: Ditropan XL 5 MG PO SCH (09:28)
[2023-02-04] MEDS: MYSOLINE 50MG PO SCH ×3 (09:28→22:44)
[2023-02-04] MEDS: Effexor XR 75 MG PO SCH (09:29)
[2023-02-04] MEDS: NEURONTIN PO SCH ×3 (09:29→22:47)
[2023-02-04] MEDS: Risperdal 1 MG PO SCH ×2 (09:29→22:47)
[2023-02-04] MEDS: PROAMATINE PO SCH ×3 (09:29→17:12)
[2023-02-04] MEDS: Januvia 50 MG PO SCH (09:29)
[2023-02-04] MEDS: SYNTHROID 50 MCG PO SCH (09:29)
[2023-02-04] MEDS: VITAMIN D PO SCH (09:29)
[2023-02-04] MEDS: Singulair 10 MG PO SCH (09:29)
[2023-02-04] MEDS: MOTRIN 400 MG PO SCH ×3 (09:29→22:45)
[2023-02-04] MEDS: Depakote EXTENDED RELEASE 250 MG PO SCH (09:30)
[2023-02-04] MEDS: AQUAPHOR OINTMENT 50 GM TP SCH (09:31)
[2023-02-04] MEDS: Artificial Tears 15 ML OP SCH ×3 (09:32→22:53)
[2023-02-04] MEDS: Advair Hfa 115/21 Common canister IH SCH ×2 (11:25→18:36)
[2023-02-04] MEDS ORDERED: TYLENOL 325 MG PO PRN (11:50)
--- NOTE | 2023-02-04 13:20 | PCM.NOTE ---
Date and Time: 02/04/23 1314 Subjective Assessment: 02/02/23 is a 57 year old female with pmhx of HLD, HTN, Asthma, DM type II, an xiety, depression, IBS, GERD, and schizophrenia that presented to ER 02/02/23 via EMS from the [facility] with altered mentation. On admission patient was unresponsive. She is now awake and confused which is her baseline. She has repeat admissions for UTI in the past. Admitted this time for urosepsis and acute on chronic kidney failure. She has a low temp and jovanny hugger placed on pt. She has a Levophed gtt running. Zosyn started in the ER and IV fluids. Will continue antibiotics, fluids, levophed. 02/03/23 Pt resting in bed. She is more awake and alert. She is able to state her name and where she is. Urine has cleared up and now clear yellow. She remains on a levophed gtt and this is being weaned. BP has improved. She continues to be tachycardic. Potassium 5.4 and lasix given. Continue antibiotics and IV fluids. JEFFREY improving. Pt denies CP, SOB, abd. pain, N/V/D. 02/04/23 Pt resting in bed. She has been off the levophed gtt since 14: 30 yesterday. She has some pitting edema of upper and lower extremities today. Arms elevated on pillows. IVF stopped. Lasix BID added. Goal is for pt to get up and work with PT/ OT today. Labs have improved and she is more awake and alert. Continue antibiotics for UTI. UC + for e-coli. She denies CP, SOB, abd. pain, N/V/D. <JESSICA BROWN - Last Filed: 02/04/23 14:01> Date and Time: 02/04/23 1850 <DORIS SYLVESTER - Last Filed: 02/04/23 18:52> - Review of Systems Constitutional: No Fever, No Chills Eyes: No Symptoms Ears, Nose, & Throat: No Symptoms Respiratory: No Cough, No Short Of Breath Cardiac: Edema, No Chest Pain, No Syncope Abdominal/Gastrointestinal: No Abdominal Pain, No Nausea, No Vomiting, No Diarrhea Genitourinary Symptoms: No Dysuria Musculoskeletal: No Back Pain, No Neck Pain Skin: No Rash Neurological: No Dizziness, No Focal Weakness, No Sensory Changes Psychological: No Symptoms Endocrine: No Symptoms Hematologic/Lymphatic: No Symptoms Immunological/Allergic: No Symptoms <JESSICA BROWN - Last Filed: 02/04/23 14:01> Objective Exam General Appearance: no apparent distress, alert, obese Neurologic Exam: alert, cooperative, normal mood/affect, nml cerebellar function, sensation nml, confusion (oriented to person), other, No motor deficits Skin Exam: normal color, warm, dry Eye Exam: PERRL, EOMI, eyes nml inspection Ears, Nose, Throat Exam: normal ENT inspection, pharynx normal, moist mucous membranes Neck Exam: normal inspection, non-tender, supple, full range of motion Respiratory Exam: normal breath sounds, lungs clear, No respiratory distress Cardiovascular Exam: regular rate/rhythm, normal heart sounds, edema (+3 pitting - all extremities) Gastrointestinal/Abdomen Exam: soft, No tenderness, No mass Extremity Exam: normal inspection, normal range of motion Back Exam: normal inspection, normal range of motion, No CVA tenderness, No vertebral tenderness Pelvic Exam: deferred Rectal Exam: deferred <JESSICA BROWN - Last Filed: 02/04/23 14:01> OBJECTIVE DATA Vital Signs: Vital Signs - 24 hr Temp Pulse Resp BP Pulse Ox 02/04/23 11:45 88 18 95 02/04/23 11:34 95 02/04/23 11:32 97.5 F 88 13 112/48 94 L 02/04/23 07:53 87 02/04/23 07:30 98.1 F 86 12 134/61 95 02/04/23 06:00 98.4 F 88 24 126/67 91 L 02/04/23 05:30 98.4 F 90 20 117/67 95 02/04/23 05:00 98.4 F 92 H 21 110/59 87 L 02/04/23 04:30 98.1 F 86 28 H 127/67 94 L 02/04/23 04:00 97.5 F 85 35 H 120/58 93 L 02/04/23 03:30 97.0 F 82 27 H 120/65 95 02/04/23 03:00 97.0 F 84 27 H 117/60 91 L 02/04/23 02:30 96.4 F 79 29 H 133/66 96 02/04/23 02:00 96.3 F 82 27 H 107/78 91 L 02/04/23 01:30 96.1 F 80 19 105/59 95 02/04/23 01:00 96.3 F 78 29 H 126/61 95 02/04/23 00:30 96.3 F 79 30 H 131/63 94 L 02/04/23 00:01 79 02/04/23 00:00 96.1 F 79 29 H 115/61 94 L 02/03/23 23:30 96.3 F 80 21 116/65 95 02/03/23 23:00 96.3 F 81 30 H 97/65 94 L 02/03/23 22:30 96.3 F 81 16 114/60 91 L 02/03/23 22:00 96.4 F 81 26 H 130/67 94 L 02/03/23 21:30 96.4 F 79 20 124/63 95 02/03/23 21:00 96.4 F 78 19 125/65 96 02/03/23 20:50 96.3 F 81 14 97 02/03/23 20:40 96.1 F 87 22 94 L 02/03/23 20:31 96.1 F 85 16 95 02/03/23 20:00 96.4 F 85 18 109/59 97 02/03/23 19:30 96.6 F 78 29 H 123/60 96 02/03/23 19:00 96.8 F 84 15 124/56 97 02/03/23 18:30 96.8 F 82 18 116/72 02/03/23 18:01 96.8 F 84 15 99/67 02/03/23 18:00 96.8 F 83 24 02/03/23 17:50 97.0 F 84 22 02/03/23 17:40 97.0 F 93 H 12 02/03/23 17:32 97.0 F 83 23 02/03/23 17:05 97.0 F 82 21 108/64 02/03/23 16:31 97.0 F 84 29 H 93/42 02/03/23 16:00 97.2 F 86 19 108/55 96 02/03/23 15:30 97.2 F 87 17 121/53 95 02/03/23 15:28 97.3 F 91 H 19 113/53 02/03/23 15:00 97.5 F 84 21 90/45 02/03/23 14:30 97.5 F 83 25 H 117/51 02/03/23 14:00 97.5 F 88 26 H 120/52 02/03/23 13:30 97.7 F 90 23 120/56 Pain Assessment - Last Documented Pain Intensity 4 Pain Scale Used 0-10 Pain Scale Intake and Output: Intake & Output 02/02/23 02/03/23 02/04/23 02/05/23 11:59 11:59 11:59 11:59 Intake Total 3304 3912 Output Total 3000 1900 Balance 304 2011 Weight 126 kg Lab Results: Lab Results-Last 24 Hours 02/03/23 02/03/23 02/04/23 Range/Units 16:29 22:02 05:27 WBC 8.7 (4.0-10.5) x10^3/uL RBC 2.75 L (4.1-5.4) x10^6/uL Hgb 8.4 L (12.0-16.0) g/dL Hct 25.5 L (35-47) % MCV 92.7 (78-100) fL MCH 30.5 (26-32) pg MCHC 32.9 (32-36) g/dL RDW 19.9 H (11.5-14.0) % Plt Count 144 L (150-450) x10^3/uL MPV 12.1 H (7.5-11.0) fL Sodium (137-145) mmol/L Potassium (3.5-5.1) mmol/L Chloride (98-107) mmol/L Carbon Dioxide (22-30) mmol/L Anion Gap (5-15) MEQ/L BUN (7-17) mg/dL Creatinine (0.52-1.04) mg/dL Estimated GFR ML/MIN Glucose (74-106) mg/dL POC Glucometer 130 H 129 H (74 to 106) mg/dL Calcium (8.4-10.2) mg/dL Total Bilirubin (0.2-1.3) mg/dL AST (14-36) U/L ALT (0-35) U/L Alkaline Phosphatase (38-126) U/L Serum Total Protein (6.3-8.2) g/dL Albumin (3.5-5.0) g/dL 02/04/23 02/04/23 02/04/23 Range/Units 05:27 07:21 11:35 WBC (4.0-10.5) x10^3/uL RBC (4.1-5.4) x10^6/uL Hgb (12.0-16.0) g/dL Hct (35-47) % MCV (78-100) fL MCH (26-32) pg MCHC (32-36) g/dL RDW (11.5-14.0) % Plt Count (150-450) x10^3/uL MPV (7.5-11.0) fL Sodium 139 (137-145) mmol/L Potassium 4.4 (3.5-5.1) mmol/L Chloride 108 H (98-107) mmol/L Carbon Dioxide 27 (22-30) mmol/L Anion Gap 8.9 (5-15) MEQ/L BUN 13 (7-17) mg/dL Creatinine 0.81 (0.52-1.04) mg/dL Estimated GFR 83.6 ML/MIN Glucose 99 (74-106) mg/dL POC Glucometer 108 H 142 H (74 to 106) mg/dL Calcium 7.5 L (8.4-10.2) mg/dL Total Bilirubin 0.10 L (0.2-1.3) mg/dL AST 39 H (14-36) U/L ALT 23 (0-35) U/L Alkaline Phosphatase 109 (38-126) U/L Serum Total Protein 5.2 L (6.3-8.2) g/dL Albumin 2.3 L (3.5-5.0) g/dL Radiology Exams: Radiology Procedures Category Date Time Status CHEST 1 VIEW (PORTABLE) Stat Exams 02/02/23 13:40 Completed Multi-Disciplinary Progress Notes: Multi-Disciplinary Progress Notes 02/04/23 12:35 Case Management Note by Mary Galaviz PATIENT STILL CONFUSED/TEARFUL. SHE REPORTS SHE JUST WANTS TO GO HOME, NOT TO A FACILITY. PATIENT UNABLE TO CARE FOR HERSELF. BROTHER IN PROCESS OF TRYING TO APPLY FOR GUARDIANSHIP. NO CHANGE IN DC PLAN- PATIENT AGREEABLE TO RETURN TO [facility] AT TIME OF DC. Initialized on 02/04/23 12:35 - END OF NOTE <JESSICA BROWN - Last Filed: 02/04/23 14:01> Vital Signs: Vital Signs - 24 hr Temp Pulse Resp BP BP Pulse Ox 02/04/23 18:37 86 18 97 02/04/23 16:00 98.1 F 87 22 99/56 94 L 02/04/23 11:45 88 18 95 02/04/23 11:34 95 02/04/23 11:32 97.5 F 88 13 112/48 94 L 02/04/23 07:53 87 02/04/23 07:30 98.1 F 86 12 134/61 95 02/04/23 06:00 98.4 F 88 24 126/67 91 L 02/04/23 05:30 98.4 F 90 20 117/67 95 02/04/23 05:00 98.4 F 92 H 21 110/59 87 L 02/04/23 04:30 98.1 F 86 28 H 127/67 94 L 02/04/23 04:00 97.5 F 85 35 H 120/58 93 L 02/04/23 03:30 97.0 F 82 27 H 120/65 95 02/04/23 03:00 97.0 F 84 27 H 117/60 91 L 02/04/23 02:30 96.4 F 79 29 H 133/66 96 02/04/23 02:00 96.3 F 82 27 H 107/78 91 L 02/04/23 01:30 96.1 F 80 19 105/59 95 02/04/23 01:00 96.3 F 78 29 H 126/61 95 02/04/23 00:30 96.3 F 79 30 H 131/63 94 L 02/04/23 00:01 79 02/04/23 00:00 96.1 F 79 29 H 115/61 94 L 02/03/23 23:30 96.3 F 80 21 116/65 95 02/03/23 23:00 96.3 F 81 30 H 97/65 94 L 02/03/23 22:30 96.3 F 81 16 114/60 91 L 02/03/23 22:00 96.4 F 81 26 H 130/67 94 L 02/03/23 21:30 96.4 F 79 20 124/63 95 02/03/23 21:00 96.4 F 78 19 125/65 96 02/03/23 20:50 96.3 F 81 14 97 02/03/23 20:40 96.1 F 87 22 94 L 02/03/23 20:31 96.1 F 85 16 95 02/03/23 20:00 96.4 F 85 18 109/59 97 02/03/23 19:30 96.6 F 78 29 H 123/60 96 02/03/23 19:00 96.8 F 84 15 124/56 97 Pain Assessment - Last Documented Pain Intensity 0 Pain Scale Used 0-10 Pain Scale Intake and Output: Intake & Output 02/02/23 02/03/23 02/04/23 02/05/23 11:59 11:59 11:59 11:59 Intake Total 3304 3912 240 Output Total 3000 1900 3000 Balance 304 2011 -2759 Weight 126 kg Lab Results: Lab Results-Last 24 Hours 02/03/23 02/04/23 02/04/23 Range/Units 22:02 05:27 05:27 WBC 8.7 (4.0-10.5) x10^3/uL RBC 2.75 L (4.1-5.4) x10^6/uL Hgb 8.4 L (12.0-16.0) g/dL Hct 25.5 L (35-47) % MCV 92.7 (78-100) fL MCH 30.5 (26-32) pg MCHC 32.9 (32-36) g/dL RDW 19.9 H (11.5-14.0) % Plt Count 144 L (150-450) x10^3/uL MPV 12.1 H (7.5-11.0) fL Sodium 139 (137-145) mmol/L Potassium 4.4 (3.5-5.1) mmol/L Chloride 108 H (98-107) mmol/L Carbon Dioxide 27 (22-30) mmol/L Anion Gap 8.9 (5-15) MEQ/L BUN 13 (7-17) mg/dL Creatinine 0.81 (0.52-1.04) mg/dL Estimated GFR 83.6 ML/MIN Glucose 99 (74-106) mg/dL POC Glucometer 129 H (74 to 106) mg/dL Calcium 7.5 L (8.4-10.2) mg/dL Total Bilirubin 0.10 L (0.2-1.3) mg/dL AST 39 H (14-36) U/L ALT 23 (0-35) U/L Alkaline Phosphatase 109 (38-126) U/L Serum Total Protein 5.2 L (6.3-8.2) g/dL Albumin 2.3 L (3.5-5.0) g/dL 02/04/23 02/04/23 02/04/23 Range/Units 07:21 11:35 17:09 WBC (4.0-10.5) x10^3/uL RBC (4.1-5.4) x10^6/uL Hgb (12.0-16.0) g/dL Hct (35-47) % MCV (78-100) fL MCH (26-32) pg MCHC (32-36) g/dL RDW (11.5-14.0) % Plt Count (150-450) x10^3/uL MPV (7.5-11.0) fL Sodium (137-145) mmol/L Potassium (3.5-5.1) mmol/L Chloride (98-107) mmol/L Carbon Dioxide (22-30) mmol/L Anion Gap (5-15) MEQ/L BUN (7-17) mg/dL Creatinine (0.52-1.04) mg/dL Estimated GFR ML/MIN Glucose (74-106) mg/dL POC Glucometer 108 H 142 H 135 H (74 to 106) mg/dL Calcium (8.4-10.2) mg/dL Total Bilirubin (0.2-1.3) mg/dL AST (14-36) U/L ALT (0-35) U/L Alkaline Phosphatase (38-126) U/L Serum Total Protein (6.3-8.2) g/dL Albumin (3.5-5.0) g/dL Multi-Disciplinary Progress Notes: Multi-Disciplinary Progress Notes 02/04/23 12:35 Case Management Note by Mary Galaviz PATIENT STILL CONFUSED/TEARFUL. SHE REPORTS SHE JUST WANTS TO GO HOME, NOT TO A FACILITY. PATIENT UNABLE TO CARE FOR HERSELF. BROTHER IN PROCESS OF TRYING TO APPLY FOR GUARDIANSHIP. NO CHANGE IN DC PLAN- PATIENT AGREEABLE TO RETURN TO [facility] AT TIME OF DC. Initialized on 02/04/23 12:35 - END OF NOTE <HAMRAFADORIS Burgess - Last Filed: 02/04/23 18:52> Assessment/Plan (1) Sepsis Current Visit: Yes Status: Acute (2) UTI (urinary tract infection) Current Visit: Yes Status: Acute Code(s): N39.0 - URINARY TRACT INFECTION, SITE NOT SPECIFIED (3) AMS (altered mental status) Current Visit: No Status: Acute Code(s): R41.82 - ALTERED MENTAL STATUS, UNSPECIFIED (4) Acute on chronic renal failure Current Visit: No Status: Acute Code(s): N17.9 - ACUTE KIDNEY FAILURE, UNSPECIFIED; N18.9 - CHRONIC KIDNEY DISEASE, UNSPECIFIED (5) Obesity, morbid, BMI 40.0-49.9 Current Visit: Yes Status: Acute Code(s): E66.01 - MORBID (SEVERE) OBESITY DUE TO EXCESS CALORIES (6) Hyperkalemia Current Visit: Yes Status: Acute Code(s): E87.5 - HYPERKALEMIA (7) Edema Current Visit: Yes Status: Acute Assessment & Plan: (1) Sepsis Current Visit: Yes Status: Acute Assessment & Plan: - 2:2 UTI - antibiotics, IVF, Jovanny hugger - Lactic acid 1.6 - Low BP in ER - Unresponsive in ER- resolved Ip 02/03 - improving, awake and alert - Bp improved - weaning off Levophed - Jovanny hugger off, normal temp 02/04 - resolved - (2) UTI (urinary tract infection) Current Visit: Yes Status: Acute Assessment & Plan: -zosyn - Espinoza - UC sensitivity pending- gram negative 02/04 - UC + e-coli - cont antibiotics -levaquin at d/c Code(s): N39.0 - URINARY TRACT INFECTION, SITE NOT SPECIFIED (3) AMS (altered mental status) Current Visit: No Status: Acute Assessment & Plan: - improved on admission Code(s): R41.82 - ALTERED MENTAL STATUS, UNSPECIFIED (4) Acute on chronic renal failure Current Visit: No Status: Acute Assessment & Plan: - Monitor labs 02/03 - improving - NS@ 150ML/HR 02/04 - IVF stopped Code(s): N17.9 - ACUTE KIDNEY FAILURE, UNSPECIFIED; N18.9 - CHRONIC KIDNEY DISEASE, UNSPECIFIED (5) Obesity, morbid, BMI 40.0-49.9 Current Visit: Yes Status: Acute Assessment & Plan: -advised Diet control Code(s): E66.01 - MORBID (SEVERE) OBESITY DUE TO EXCESS CALORIES 6. Hyperkalemia - K+ 5.4- trend - Lasix 20mg IV x1 Code(s): E87.5 - HYPERKALEMIA 7. Edema - Lasix BID - Elevate extremities. Code(s): R60.9 - EDEMA, UNSPECIFIED <JESSICA BROWN - Last Filed: 02/04/23 14:01> GINA Encounter - GINA Encounter Attestation GINA Encounter Attestation: "IhavepersonallyseenandexaminedBMICHELLE,CHRIS NICOLE andhavediscussed pertinent aspects of their care with Jessica Jackson agree with the history, physical exam (any modifications based on my personal exam will be noted below), assessment, and plan as outlined in original note. Please see immediately below for my summary of findings and additional assessment and plan along with any meaningful corrections/explanations to the Subjective/Objective portions of the GINA note will be noted." My portion of the encounter took place via telemedicine. -Patient more alert and oriented today. Off levophed since yesterday, WBC trending down. Urine culture with E Coli. Can change zosyn to ceftriaxone. Add lasix 40 mg IV BID for anasarca, which resulted from fluid resuscitation during septic shock. <DORIS SYLVESTER - Last Filed: 02/04/23 18:52>
[2023-02-04] MEDS: Lasix 40 MG/4 ML IV SCH (17:12)
[2023-02-04] MEDS ORDERED: MYSOLINE 50MG ONE (22:42)
[2023-02-04] MEDS: ZOCOR 20MG PO SCH (22:45)
[2023-02-05 05:17] LABS: Hemoglobin 8.6 g/dL (12.0-16.0); Mean Cell Volume 92.5 fL (78-100); Mean Corpuscular Hemoglobin 30.6 pg (26-32); Mean Corpuscular Hgb Concent. 33.1 g/dL (32-36); Mean Platelet Volume 11.8 fL (7.5-11.0); Platelet Count 125 x10^3/uL (150-450); Red Blood Count 2.81 x10^6/uL (4.1-5.4); Red Cell Distribution Width 19.3 % (11.5-14.0)
[2023-02-05 05:31] LABS: ALBUMIN 2.4 g/dL (3.5-5.0); ANION GAP 10.7 MEQ/L (5-15); BILIRUBIN,TOTAL 0.1 mg/dL (0.2-1.3); Calcium 7.8 mg/dL (8.4-10.2); Creatinine 1 0.84 mg/dL (0.52-1.04); Potassium 4.4 mmol/L (3.5-5.1); Total Protein 5.6 g/dL (6.3-8.2)
--- NOTE | 2023-02-05 07:04 | PCM.NOTE ---
Date and Time: 02/05/2370302/02/23 is a 57 year old female with pmhx of HLD, HTN, Asthma, DM type II, anxiety, depression, IBS, GERD, and schizophrenia that presented to ER 02/02/23 via EMS from the [facility] with altered mentation. On admission patient was unresponsive. She is now awake and confused which is her baseline. She has repeat admissions for UTI in the past. Admitted this time for urosepsis and acute on chronic kidney failure. She has a low temp and jovanny hugger placed on pt. She has a Levophed gtt running. Zosyn started in the ER and IV fluids. Will continue antibiotics, fluids, levophed. 02/03/23 Pt resting in bed. She is more awake and alert. She is able to state her name and where she is. Urine has cleared up and now clear yellow. She remains on a levophed gtt and this is being weaned. BP has improved. She continues to be tachycardic. Potassium 5.4 and lasix given. Continue antibiotics and IV fluids. JEFFREY improving. Pt denies CP, SOB, abd. pain, N/V/D. 02/04/23 Pt resting in bed. She has been off the levophed gtt since 14: 30 yesterday. She has some pitting edema of upper and lower extremities today. Arms elevated on pillows. IVF stopped. Lasix BID added. Goal is for pt to get up and work with PT/ OT today. Labs have improved and she is more awake and alert. Continue antibiotics for UTI. UC + for e-coli. She denies CP, SOB, abd. pain, N/V/D. 02/05/2023 Patient was alert, at her baseline mental status, denied any complaints. Upper extremity swelling has decreased but she still has considerable lower extremity edema. - Review of Systems Constitutional: No Fever, No Chills Eyes: No Symptoms Ears, Nose, & Throat: No Symptoms Respiratory: No Cough, No Short Of Breath Cardiac: Edema, No Chest Pain, No Syncope Abdominal/Gastrointestinal: No Abdominal Pain, No Nausea, No Vomiting, No Diarrhea Genitourinary Symptoms: No Dysuria Musculoskeletal: No Back Pain, No Neck Pain Skin: No Rash Neurological: No Dizziness, No Focal Weakness, No Sensory Changes Psychological: No Symptoms Endocrine: No Symptoms Objective Exam General Appearance: no apparent distress, alert Neurologic Exam: alert, oriented x 3, cooperative, normal mood/affect, nml cerebellar function, sensation nml, No motor deficits Skin Exam: normal color Eye Exam: PERRL, EOMI, eyes nml inspection Ears, Nose, Throat Exam: normal ENT inspection Neck Exam: normal inspection, non-tender, supple, full range of motion Respiratory Exam: normal breath sounds, lungs clear, No respiratory distress Cardiovascular Exam: regular rate/rhythm, normal heart sounds Gastrointestinal/Abdomen Exam: soft, No tenderness, No mass Extremity Exam: pedal edema, swelling Back Exam: normal inspection, normal range of motion, No CVA tenderness, No vertebral tenderness Pelvic Exam: deferred Rectal Exam: deferred OBJECTIVE DATA Vital Signs: Vital Signs - 24 hr Temp Pulse Resp BP BP Pulse Ox 02/05/23 04:00 98.2 F 68 17 106/46 93 L 02/04/23 23:56 98.4 F 88 16 121/67 93 L 02/04/23 20:00 98.2 F 77 15 102/44 92 L 02/04/23 18:37 86 18 97 02/04/23 16:00 98.1 F 87 22 99/56 94 L 02/04/23 11:45 88 18 95 02/04/23 11:34 95 02/04/23 11:32 97.5 F 88 13 112/48 94 L 02/04/23 07:53 87 02/04/23 07:30 98.1 F 86 12 134/61 95 Pain Assessment - Last Documented Pain Intensity 0 Pain Scale Used 0-10 Pain Scale Intake and Output: Intake & Output 02/02/23 02/03/23 02/04/23 02/05/23 11:59 11:59 11:59 11:59 Intake Total 3304 3912 340 Output Total 3000 1900 5340 Balance 304 2012 -5000 Weight 126 kg Lab Results: Lab Results-Last 24 Hours 02/04/23 02/04/23 02/04/23 Range/Units 07:21 11:35 17:09 WBC (4.0-10.5) x10^3/uL RBC (4.1-5.4) x10^6/uL Hgb (12.0-16.0) g/dL Hct (35-47) % MCV (78-100) fL MCH (26-32) pg MCHC (32-36) g/dL RDW (11.5-14.0) % Plt Count (150-450) x10^3/uL MPV (7.5-11.0) fL Sodium (137-145) mmol/L Potassium (3.5-5.1) mmol/L Chloride (98-107) mmol/L Carbon Dioxide (22-30) mmol/L Anion Gap (5-15) MEQ/L BUN (7-17) mg/dL Creatinine (0.52-1.04) mg/dL Estimated GFR ML/MIN Glucose (74-106) mg/dL POC Glucometer 108 H 142 H 135 H (74 to 106) mg/dL Calcium (8.4-10.2) mg/dL Total Bilirubin (0.2-1.3) mg/dL AST (14-36) U/L ALT (0-35) U/L Alkaline Phosphatase (38-126) U/L Serum Total Protein (6.3-8.2) g/dL Albumin (3.5-5.0) g/dL 02/04/23 02/05/23 02/05/23 Range/Units 21:08 05:00 05:00 WBC 7.0 (4.0-10.5) x10^3/uL RBC 2.81 L (4.1-5.4) x10^6/uL Hgb 8.6 L (12.0-16.0) g/dL Hct 26.0 L (35-47) % MCV 92.5 (78-100) fL MCH 30.6 (26-32) pg MCHC 33.1 (32-36) g/dL RDW 19.3 H (11.5-14.0) % Plt Count 125 L (150-450) x10^3/uL MPV 11.8 H (7.5-11.0) fL Sodium 135 L (137-145) mmol/L Potassium 4.4 (3.5-5.1) mmol/L Chloride 99 (98-107) mmol/L Carbon Dioxide 30 (22-30) mmol/L Anion Gap 10.7 (5-15) MEQ/L BUN 13 (7-17) mg/dL Creatinine 0.84 (0.52-1.04) mg/dL Estimated GFR 80.0 ML/MIN Glucose 129 H (74-106) mg/dL POC Glucometer 147 H (74 to 106) mg/dL Calcium 7.8 L (8.4-10.2) mg/dL Total Bilirubin 0.10 L (0.2-1.3) mg/dL AST 41 H (14-36) U/L ALT 25 (0-35) U/L Alkaline Phosphatase 107 (38-126) U/L Serum Total Protein 5.6 L (6.3-8.2) g/dL Albumin 2.4 L (3.5-5.0) g/dL Multi-Disciplinary Progress Notes: Multi-Disciplinary Progress Notes 02/04/23 12:35 Case Management Note by Mary Galaviz PATIENT STILL CONFUSED/TEARFUL. SHE REPORTS SHE JUST WANTS TO GO HOME, NOT TO A FACILITY. PATIENT UNABLE TO CARE FOR HERSELF. BROTHER IN PROCESS OF TRYING TO APPLY FOR GUARDIANSHIP. NO CHANGE IN DC PLAN- PATIENT AGREEABLE TO RETURN TO [facility] AT TIME OF DC. Initialized on 02/04/23 12:35 - END OF NOTE Assessment/Plan (1) Septic shock Current Visit: Yes Status: Acute Assessment & Plan: -presented with hypothermia, septic shock secondary to UTI -Now improved s/p IVF resuscitation and levophed Code(s): A41.9 - SEPSIS, UNSPECIFIED ORGANISM; R65.21 - SEVERE SEPSIS WITH SEPTIC SHOCK (2) UTI (urinary tract infection) Current Visit: Yes Status: Acute Qualifiers: Urinary tract infection type: acute pyelonephritis Qualified Code(s): N10 - Acute pyelonephritis Assessment & Plan: -urine culture with pansensitive E Coli. -zosyn switched to ceftriaxone -continue hays catheter while patient is on IV diuresis Code(s): N39.0 - URINARY TRACT INFECTION, SITE NOT SPECIFIED (3) AMS (altered mental status) Current Visit: No Status: Acute Assessment & Plan: -likely metabolic encephalopathy from sepsis, now improved. Code(s): R41.82 - ALTERED MENTAL STATUS, UNSPECIFIED (4) Acute on chronic renal failure Current Visit: No Status: Acute Assessment & Plan: -secondary to septic shock, improved from 1.3 to 0.8 with IVF Code(s): N17.9 - ACUTE KIDNEY FAILURE, UNSPECIFIED; N18.9 - CHRONIC KIDNEY DISEASE, UNSPECIFIED (5) Edema due to hypervolemia Current Visit: Yes Status: Acute Assessment & Plan: -patient edematous after resuscitation for septic shock. Started on lasix 40 mg IV BID on 02/04. Continue for now, patient still has significant lower extremity edema. Code(s): E87.70 - FLUID OVERLOAD, UNSPECIFIED Telemedicine Encounter - Telemedicine Encounter Telemedicine Encounter: The entirety of this encounter was performed via Telemedicine"
[2023-02-05] MEDS: Advair Hfa 115/21 Common canister IH SCH ×2 (07:37→21:07)
[2023-02-05] MEDS: PROAMATINE PO SCH ×3 (08:28→16:46)
[2023-02-05] MEDS: ENOXAPARIN SODIUM SQ SCH (11:15)
[2023-02-05] MEDS: Januvia 50 MG PO SCH (11:15)
[2023-02-05] MEDS: Toprol-Xl 25MG Tablets PO SCH (11:16)
[2023-02-05] MEDS: SYNTHROID 50 MCG PO SCH (11:16)
[2023-02-05] MEDS: Pepcid 20 MG PO SCH (11:16)
[2023-02-05] MEDS: Singulair 10 MG PO SCH (11:16)
[2023-02-05] MEDS: Effexor XR 75 MG PO SCH (11:17)
[2023-02-05] MEDS: MOTRIN 400 MG PO SCH ×3 (11:17→22:35)
[2023-02-05] MEDS: Ditropan XL 5 MG PO SCH (11:17)
[2023-02-05] MEDS: NEURONTIN PO SCH ×3 (11:17→23:16)
[2023-02-05] MEDS: VITAMIN D PO SCH (11:17)
[2023-02-05] MEDS: Risperdal 1 MG PO SCH ×2 (11:18→23:16)
[2023-02-05] MEDS: Lasix 40 MG/4 ML IV SCH ×2 (11:19→16:46)
[2023-02-05] MEDS: AQUAPHOR OINTMENT 50 GM TP SCH (11:20)
[2023-02-05] MEDS: Depakote EXTENDED RELEASE 250 MG PO SCH (11:20)
[2023-02-05] MEDS: ROCEPHIN 1 Gm-D5w 50 ml Bag** 1 G/50 ML IVPB IV SCH (11:22)
[2023-02-05] MEDS: MYSOLINE 50MG PO SCH ×3 (11:23→22:35)
[2023-02-05] MEDS: Artificial Tears 15 ML OP SCH ×3 (12:43→22:35)
[2023-02-05] MEDS: ZOCOR 20MG PO SCH (23:17)
[2023-02-06 04:40] LABS: Hematocrit 28.7 % (35-47); Hemoglobin 9.6 g/dL (12.0-16.0); Mean Corpuscular Hemoglobin 30.8 pg (26-32); Mean Corpuscular Hgb Concent. 33.4 g/dL (32-36); Platelet Count 105 x10^3/uL (150-450); Red Blood Count 3.12 x10^6/uL (4.1-5.4); Red Cell Distribution Width 19.2 % (11.5-14.0); White Blood Count 5.9 x10^3/uL (4.0-10.5)
[2023-02-06 04:54] LABS: ALBUMIN 2.5 g/dL (3.5-5.0); ANION GAP 8.9 MEQ/L (5-15); BILIRUBIN,TOTAL 0.2 mg/dL (0.2-1.3); Calcium 8.2 mg/dL (8.4-10.2); Creatinine 1 0.91 mg/dL (0.52-1.04); EST GLOMERULAR FILTRATION RATE 72.7 ML/MIN; Potassium 4.2 mmol/L (3.5-5.1); Total Protein 5.8 g/dL (6.3-8.2)
[2023-02-06] MEDS: Advair Hfa 115/21 Common canister IH SCH (06:57)
[2023-02-06 06:59] VITALS: RESP 16
[2023-02-06] MEDS: PROAMATINE PO SCH ×2 (08:15→11:14)
--- NOTE | 2023-02-06 10:21 | PCM.NOTE ---
Date and Time: 02/06/23 1021 Subjective Assessment: 02/02/23 is a 57 year old female with pmhx of HLD, HTN, Asthma, DM type II, a nxiety, depression, IBS, GERD, and schizophrenia that presented to ER 02/02/23 via EMS from the [facility] with altered mentation. On admission patient was unresponsive. She is now awake and confused which is her baseline. She has repeat admissions for UTI in the past. Admitted this time for urosepsis and acute on chronic kidney failure. She has a low temp and jovanny hugger placed on pt. She has a Levophed gtt running. Zosyn started in the ER and IV fluids. Will continue antibiotics, fluids, levophed. 02/03/23 Pt resting in bed. She is more awake and alert. She is able to state her name and where she is. Urine has cleared up and now clear yellow. She remains on a levophed gtt and this is being weaned. BP has improved. She continues to be tachycardic. Potassium 5.4 and lasix given. Continue antibiotics and IV fluids. JEFFREY improving. Pt denies CP, SOB, abd. pain, N/V/D. 02/04/23 Pt resting in bed. She has been off the levophed gtt since 14: 30 yesterday. She has some pitting edema of upper and lower extremities today. Arms elevated on pillows. IVF stopped. Lasix BID added. Goal is for pt to get up and work with PT/ OT today. Labs have improved and she is more awake and alert. Continue antibiotics for UTI. UC + for e-coli. She denies CP, SOB, abd. pain, N/V/D. 02/05/2023 Patient was alert, at her baseline mental status, denied any complaints. Upper extremity swelling has decreased but she still has considerable lower extremity edema. 02/06/2023 Patient alert, no complaints. Lower extremity swelling is decreasing. Anticipate discharge thursday as patient required precertification for her snf. - Review of Systems Constitutional: No Fever, No Chills Eyes: No Symptoms Ears, Nose, & Throat: No Symptoms Respiratory: No Cough, No Short Of Breath Cardiac: Edema, No Chest Pain, No Syncope Abdominal/Gastrointestinal: No Abdominal Pain, No Nausea, No Vomiting, No Diarrhea Genitourinary Symptoms: No Dysuria Musculoskeletal: No Back Pain, No Neck Pain Skin: No Rash Neurological: No Dizziness, No Focal Weakness, No Sensory Changes Psychological: No Symptoms Endocrine: No Symptoms Hematologic/Lymphatic: No Symptoms Immunological/Allergic: No Symptoms Objective Exam General Appearance: no apparent distress, alert Neurologic Exam: alert, oriented x 3, cooperative, normal mood/affect, nml cerebellar function, sensation nml, No motor deficits Skin Exam: normal color, warm, dry Eye Exam: PERRL, EOMI, eyes nml inspection Ears, Nose, Throat Exam: normal ENT inspection, pharynx normal, moist mucous membranes Neck Exam: normal inspection, non-tender, supple, full range of motion Respiratory Exam: normal breath sounds, lungs clear, No respiratory distress Cardiovascular Exam: regular rate/rhythm, normal heart sounds, edema Gastrointestinal/Abdomen Exam: soft, No tenderness, No mass Extremity Exam: pedal edema Back Exam: normal inspection, normal range of motion, No CVA tenderness, No vertebral tenderness Pelvic Exam: deferred Rectal Exam: deferred OBJECTIVE DATA Vital Signs: Vital Signs - 24 hr Temp Pulse Resp BP Pulse Ox 02/06/23 08:00 97.2 F 97 H 16 122/59 96 02/06/23 06:58 66 16 96 02/06/23 04:00 98.0 F 66 18 99/67 92 L 02/05/23 23:00 96.9 F 62 16 101/50 93 L 02/05/23 19:10 95.9 F 55 L 17 109/56 95 02/05/23 19:05 61 16 94 L 02/05/23 18:24 96.5 F 65 11 L 122/57 95 02/05/23 16:00 98.0 F 67 16 125/77 97 02/05/23 12:00 98.7 F 89 20 120/68 96 Pain Assessment - Last Documented Pain Intensity 0 Pain Scale Used 0-10 Pain Scale Intake and Output: Intake & Output 02/03/23 02/04/23 02/05/23 02/06/23 11:59 11:59 11:59 11:59 Intake Total 3304 3912 1060 100 Output Total 3000 1900 6340 4250 Balance 304 9522 -5280 -4410 Weight 126 kg Lab Results: Lab Results-Last 24 Hours 02/05/23 02/05/23 02/05/23 Range/Units 11:18 16:18 22:14 WBC (4.0-10.5) x10^3/uL RBC (4.1-5.4) x10^6/uL Hgb (12.0-16.0) g/dL Hct (35-47) % MCV (78-100) fL MCH (26-32) pg MCHC (32-36) g/dL RDW (11.5-14.0) % Plt Count (150-450) x10^3/uL MPV (7.5-11.0) fL Sodium (137-145) mmol/L Potassium (3.5-5.1) mmol/L Chloride (98-107) mmol/L Carbon Dioxide (22-30) mmol/L Anion Gap (5-15) MEQ/L BUN (7-17) mg/dL Creatinine (0.52-1.04) mg/dL Estimated GFR ML/MIN Glucose (74-106) mg/dL POC Glucometer 143 H 144 H 129 H (74 to 106) mg/dL Calcium (8.4-10.2) mg/dL Total Bilirubin (0.2-1.3) mg/dL AST (14-36) U/L ALT (0-35) U/L Alkaline Phosphatase (38-126) U/L Serum Total Protein (6.3-8.2) g/dL Albumin (3.5-5.0) g/dL 02/06/23 02/06/23 02/06/23 Range/Units 04:24 04:24 06:40 WBC 5.9 (4.0-10.5) x10^3/uL RBC 3.12 L (4.1-5.4) x10^6/uL Hgb 9.6 L (12.0-16.0) g/dL Hct 28.7 L (35-47) % MCV 92.0 (78-100) fL MCH 30.8 (26-32) pg MCHC 33.4 (32-36) g/dL RDW 19.2 H (11.5-14.0) % Plt Count 105 L (150-450) x10^3/uL MPV 12.0 H (7.5-11.0) fL Sodium 133 L (137-145) mmol/L Potassium 4.2 (3.5-5.1) mmol/L Chloride 95 L (98-107) mmol/L Carbon Dioxide 33 H (22-30) mmol/L Anion Gap 8.9 (5-15) MEQ/L BUN 14 (7-17) mg/dL Creatinine 0.91 (0.52-1.04) mg/dL Estimated GFR 72.7 ML/MIN Glucose 126 H (74-106) mg/dL POC Glucometer 117 H (74 to 106) mg/dL Calcium 8.2 L (8.4-10.2) mg/dL Total Bilirubin 0.20 (0.2-1.3) mg/dL AST 30 (14-36) U/L ALT 22 (0-35) U/L Alkaline Phosphatase 112 (38-126) U/L Serum Total Protein 5.8 L (6.3-8.2) g/dL Albumin 2.5 L (3.5-5.0) g/dL Multi-Disciplinary Progress Notes: Multi-Disciplinary Progress Notes 02/06/23 09:09 Case Management Note by Mary Galaviz S/Jaciel PATIENT'S BROTHER- HE REPORTS HE CONTINUES TO PLAN FOR PATIENT TO RETURN TO [facility] [place]. HE WAS NOTIFIED THAT PATIENT C/O NOT LIKING IT AT [facility]. HE STATED "SHE DOESN'T LIKE IT ANYWHERE, SHE WANT'S TO LIVE WITH ME AND THATS NOT POSSIBLE". HE WAS NOTIFIED WE ARE HOPEFUL FOR PATIENT TO TRANSITION BACK TO [facility] TODAY. HE IS AGREEABLE WITH PLAN Initialized on 02/06/23 09:09 - END OF NOTE 02/06/23 08:40 Case Management Note by Mary Galaviz/Jaciel [facility]DS[facility] AT [facility]- PRECERT STILL PENDING AT THIS TIME Initialized on 02/06/23 08:40 - END OF NOTE 02/05/23 14:55 Case Management Note by Mary Galaviz OF [facility] NOW STATING PATIENT WILL REQUIRE A PRECERT TO RETURN TO THEIR FACILITY. PATIENT WAS NOT SKILLED AT THEIR FACILITY PRIOR TO ARRIVAL. THEY WERE NOTIFIED PATIENT HAS NOT BEEN GETTING PT/OT HERE. CLINICALS FAXED AT THIS TIME ASKING THEM TO PLEASE EXPEDITE PROCESS PATIENT WILL DC TO THEIR FACILITY TOMORROW ON PO ANTIBIOTICS Initialized on 02/05/23 14:55 - END OF NOTE Assessment/Plan (1) Septic shock Current Visit: Yes Status: Resolved Assessment & Plan: -presented with hypothermia, septic shock secondary to UTI -Now improved s/p IVF resuscitation and levophed Code(s): A41.9 - SEPSIS, UNSPECIFIED ORGANISM; R65.21 - SEVERE SEPSIS WITH SEPTIC SHOCK (2) UTI (urinary tract infection) Current Visit: Yes Status: Acute Qualifiers: Urinary tract infection type: acute pyelonephritis Qualified Code(s): N10 - Acute pyelonephritis Assessment & Plan: -urine culture with pansensitive E Coli. -zosyn switched to ceftriaxone -continue hays catheter while patient is on IV diuresis Code(s): N39.0 - URINARY TRACT INFECTION, SITE NOT SPECIFIED (3) AMS (altered mental status) Current Visit: No Status: Resolved Assessment & Plan: -likely metabolic encephalopathy from sepsis, now improved. Code(s): R41.82 - ALTERED MENTAL STATUS, UNSPECIFIED (4) Acute on chronic renal failure Current Visit: No Status: Acute Assessment & Plan: -secondary to septic shock, improved from 1.3 to 0.8 with IVF Code(s): N17.9 - ACUTE KIDNEY FAILURE, UNSPECIFIED; N18.9 - CHRONIC KIDNEY DISEASE, UNSPECIFIED (5) Edema due to hypervolemia Current Visit: Yes Status: Acute Assessment & Plan: -patient edematous after resuscitation for septic shock. Started on lasix 40 mg IV BID on 02/04. Improving, continue IV diuresis for another 1-2 days. Code(s): E87.70 - FLUID OVERLOAD, UNSPECIFIED Telemedicine Encounter - Telemedicine Encounter Telemedicine Encounter: The entirety of this encounter was performed via Telemedicine"
[2023-02-06] MEDS: ROCEPHIN 1 Gm-D5w 50 ml Bag** 1 G/50 ML IVPB IV SCH (11:11)
[2023-02-06] MEDS: Lasix 40 MG/4 ML IV SCH (11:11)
[2023-02-06] MEDS: SYNTHROID 50 MCG PO SCH (11:12)
[2023-02-06] MEDS: MYSOLINE 50MG PO SCH ×2 (11:12→16:26)
[2023-02-06] MEDS: NEURONTIN PO SCH ×2 (11:12→16:26)
[2023-02-06] MEDS: Ditropan XL 5 MG PO SCH (11:12)
[2023-02-06] MEDS: Pepcid 20 MG PO SCH (11:12)
[2023-02-06] MEDS: Januvia 50 MG PO SCH (11:12)
[2023-02-06] MEDS: ENOXAPARIN SODIUM SQ SCH (11:12)
[2023-02-06] MEDS: VITAMIN D PO SCH (11:12)
[2023-02-06] MEDS: Singulair 10 MG PO SCH (11:13)
[2023-02-06] MEDS: MOTRIN 400 MG PO SCH ×2 (11:13→16:25)
[2023-02-06] MEDS: Effexor XR 75 MG PO SCH (11:13)
[2023-02-06] MEDS: Toprol-Xl 25MG Tablets PO SCH (11:13)
[2023-02-06] MEDS: Depakote EXTENDED RELEASE 250 MG PO SCH (11:14)
[2023-02-06] MEDS: Artificial Tears 15 ML OP SCH ×2 (11:17→16:25)
[2023-02-06] MEDS: Risperdal 1 MG PO SCH (11:36)
[2023-02-06 16:11] VITALS: BP 106/65; PULSE 55; TEMP 97.6; O2SAT 95
--- NOTE | 2023-02-06 16:30 | PCM.DS ---
Discharge Summary Date of Admission: 02/02/23 17:20 Admitting Physician: DORIS SYLVESTER MD Primary Care Provider: [facility] Allergies Allergies hydrocodone [From Vicodin] Allergy (Intermediate, Verified 02/02/23 13:35) Rash lurasidone [From Latuda] Allergy (Intermediate, Verified 02/02/23 13:35) Rash Hospital Summary - Hospital Course Hospital Course: Admission Information: is a 57 year old female with pmhx of HLD, HTN, Asthma, DM type II, anxiety, depression, IBS, GERD, and schizophrenia that presented to ER 02/02/23 via EMS from the [facility] with altered mentation. On admission patient was unresponsive. She is now awake and confused which is her baseline. She has repeat admissions for UTI in the past. Admitted this time for urosepsis and acute on chronic kidney failure. She has a low temp and jovanny hugger placed on pt. She has a Levophed gtt running. Zosyn started in the ER and IV fluids. Will continue antibiotics, fluids, levophed. Hospital course: Patient was admitted with septic shock, JEFFREY, metabolic encephalopathy secondary to UTI. She was resuscitated with fluids and also required levophed support in the ICU. She was started on broad spectrum antibiotics. She was ultimately weaned off of pressor support. JEFFREY and mental status improved with treatment of sepsis. She grew E coli in her urine (blood cultures negative) and will be discharged on oral Levofloxacin for another 3 days. She did require IV diuresis with lasix due to swelling from hypervolemia (due to fluid resuscitation done for sepsis). Her swelling has improved. She is now at her baseline mental status. She has stable vital signs and labs. She is stable for discharge to [facility]. - Vitals & Intake/Output Vital Signs: Vital Signs Temperature 97.6 F 02/06/23 16:00 Pulse Rate 55 L 02/06/23 16:00 Respiratory Rate 16 02/06/23 16:00 Blood Pressure 106/65 02/06/23 16:00 O2 Sat by Pulse Oximetry 95 02/06/23 16:00 Intake & Output: Intake & Output 02/04/23 02/05/23 02/06/23 02/07/23 11:59 11:59 11:59 11:59 Intake Total 3912 1060 100 Output Total 1900 6340 4254 Balance 2011 -8480 -4150 - Lab Result Diagrams: 02/06/23 04:24 02/06/23 04:24 Lab Results-Last 24 Hrs: Lab Results-Last 24 Hours 02/05/23 02/06/23 02/06/23 Range/Units 22:14 04:24 04:24 WBC 5.9 (4.0-10.5) x10^3/uL RBC 3.12 L (4.1-5.4) x10^6/uL Hgb 9.6 L (12.0-16.0) g/dL Hct 28.7 L (35-47) % MCV 92.0 (78-100) fL MCH 30.8 (26-32) pg MCHC 33.4 (32-36) g/dL RDW 19.2 H (11.5-14.0) % Plt Count 105 L (150-450) x10^3/uL MPV 12.0 H (7.5-11.0) fL Sodium 133 L (137-145) mmol/L Potassium 4.2 (3.5-5.1) mmol/L Chloride 95 L (98-107) mmol/L Carbon Dioxide 33 H (22-30) mmol/L Anion Gap 8.9 (5-15) MEQ/L BUN 14 (7-17) mg/dL Creatinine 0.91 (0.52-1.04) mg/dL Estimated GFR 72.7 ML/MIN Glucose 126 H (74-106) mg/dL POC Glucometer 129 H (74 to 106) mg/dL Calcium 8.2 L (8.4-10.2) mg/dL Total Bilirubin 0.20 (0.2-1.3) mg/dL AST 30 (14-36) U/L ALT 22 (0-35) U/L Alkaline Phosphatase 112 (38-126) U/L Serum Total Protein 5.8 L (6.3-8.2) g/dL Albumin 2.5 L (3.5-5.0) g/dL 02/06/23 02/06/23 02/06/23 Range/Units 06:40 10:52 16:05 WBC (4.0-10.5) x10^3/uL RBC (4.1-5.4) x10^6/uL Hgb (12.0-16.0) g/dL Hct (35-47) % MCV (78-100) fL MCH (26-32) pg MCHC (32-36) g/dL RDW (11.5-14.0) % Plt Count (150-450) x10^3/uL MPV (7.5-11.0) fL Sodium (137-145) mmol/L Potassium (3.5-5.1) mmol/L Chloride (98-107) mmol/L Carbon Dioxide (22-30) mmol/L Anion Gap (5-15) MEQ/L BUN (7-17) mg/dL Creatinine (0.52-1.04) mg/dL Estimated GFR ML/MIN Glucose (74-106) mg/dL POC Glucometer 117 H 117 H 140 H (74 to 106) mg/dL Calcium (8.4-10.2) mg/dL Total Bilirubin (0.2-1.3) mg/dL AST (14-36) U/L ALT (0-35) U/L Alkaline Phosphatase (38-126) U/L Serum Total Protein (6.3-8.2) g/dL Albumin (3.5-5.0) g/dL Micro Results-Entire Visit: Microbiology 02/02/23 13:51 Urine Culture - Final Catherized Escherichia Coli 02/02/23 13:43 Blood Culture - Preliminary Blood 02/02/23 13:51 Blood Culture - Preliminary Blood Accuchecks Date 02/06/23 Date 02/06/23 Time 13:26 Time 08:02 - Procedures and Test Procedures and Tests throughout Hospitalization: Therapy Orders & Screens 02/02/23 17:28 Oxygen Nasal Cannula 3 lpm Comment: Diagnosis: urosepsis 02/02/23 18:17 OT Screen per Nursing Assess ONCE Comment: Protocol Order Physician Instructions: Greater than 3 points order OT Admission Screening Reason For Exam: Triggered on Admission Diagnosis: urosepsis Open Wound/Cellutlitis/Pressure Ulcers: No Acute Fx/ORIF/Change in wt bearing status: No Severe MUSCULOSKELETAL pain: No ADL Dysfunction: Yes Acute CVA w/Hemiparesis/Hemiplegia: No Decreased Functional Mobility/Strength: Yes Sprain/Strain: No Acute Post-op Mobility Dysfunction: No Total Points: 4 PT Screen per Nursing Assess ONCE Comment: Protocol Order Physician Instructions: Greater than 3 points order PT Admission Screenin Reason For Exam: Triggered on Admission Diagnosis: urosepsis Open Wound/Cellutlitis/Pressure Ulcers: No Acute Fx/ORIF/Change in wt bearing status: No Severe MUSCULOSKELETAL pain: No ADL Dysfunction: Yes Acute CVA w/Hemiparesis/Hemiplegia: No Decreased Functional Mobility/Strength: Yes Sprain/Strain: No Acute Post-op Mobility Dysfunction: No Total Points: 4 RT Screen per Nursing Assess ONCE Comment: Protocol Order Physician Instructions: Greater than 3 points order RT Admission Screen Reason For Exam: Triggered on Admission Diagnosis: urosepsis Diagnosis: urosepsis Pneumonia: Yes Home O2: No Asthma: No CHF: Yes Home CPAP/BIPAP: No Home Nebs/MDI: No Total Points: 6 ST Screen per Nursing Assess ONCE Comment: Protocol Order Physician Instructions: Greater than [address] Admission Screening Reason For Exam: Triggered on Admission Diagnosis: urosepsis CVA/Dyshpagia/Aphasia: No Cognitive Deficits: Yes Dehydration/Nutrition Deficit: Yes Reflux: No Oral-Motor Difficulties: No Pneumonia: No Alf Resident: Yes Total Points: 13 02/05/23 07:00 Respiratory Therapy Assessment DAILY Comment: Diagnosis: urosepsis Discharge Exam General Appearance: no apparent distress, alert Neurologic Exam: alert, oriented x 3, cooperative, normal mood/affect, nml cerebellar function, sensation nml, No motor deficits Eye Exam: PERRL, EOMI, eyes nml inspection Ears, Nose, Throat Exam: normal ENT inspection, pharynx normal, moist mucous membranes Neck Exam: normal inspection, non-tender, supple, full range of motion Respiratory Exam: normal breath sounds, lungs clear, No respiratory distress Cardiovascular Exam: regular rate/rhythm, normal heart sounds Gastrointestinal/Abdomen Exam: soft, No tenderness, No mass Pelvic Exam: deferred Rectal Exam: deferred Back Exam: normal inspection Extremity Exam: normal inspection, normal range of motion, pedal edema Skin Exam: normal color, warm, dry Final Diagnosis/Problem List - Final Discharge Diagnosis/Problem (1) Septic shock Current Visit: Yes Status: Resolved Code(s): A41.9 - SEPSIS, UNSPECIFIED ORGANISM; R65.21 - SEVERE SEPSIS WITH SEPTIC SHOCK (2) UTI (urinary tract infection) Current Visit: Yes Status: Acute Code(s): N39.0 - URINARY TRACT INFECTION, SITE NOT SPECIFIED (3) AMS (altered mental status) Current Visit: No Status: Resolved Code(s): R41.82 - ALTERED MENTAL STATUS, UNSPECIFIED (4) Acute on chronic renal failure Current Visit: No Status: Acute Code(s): N17.9 - ACUTE KIDNEY FAILURE, UNSPECIFIED; N18.9 - CHRONIC KIDNEY DISEASE, UNSPECIFIED (5) Edema due to hypervolemia Current Visit: Yes Status: Acute Code(s): E87.70 - FLUID OVERLOAD, UNSPECIFIED Telemedicine Encounter - Telemedicine Encounter Telemedicine Encounter: The entirety of this encounter was performed via Telemedicine" - Discharge Disposition: DC TO ANY "OTHER" HALF-WAY Condition: Stable Prescriptions: New levoFLOXacin [Levofloxacin] 750 mg PO DAILY 3 Days #3 tablet Continue Gabapentin 300 mg PO TID Metoprolol Succinate 12.5 mg PO DAILY Divalproex Sodium [Divalproex Sodium ER] 500 mg PO DAILY Ergocalciferol (Vitamin D2) [Vitamin D2] 50,000 unit PO WEEKLY Famotidine 40 mg PO DAILY Levothyroxine Sodium 25 Mcg [Synthroid 25 Mcg] 50 mcg PO DAILY Oxybutynin Chloride [Oxybutynin Chloride ER] 15 mg PO DAILY Primidone [Mysoline] 250 mg PO TID Venlafaxine HCl ER 75 mg [Effexor XR 75 MG] 75 mg PO DAILY Cholecalciferol (Vitamin D3) [Vitamin D] 25 mcg PO DAILY Montelukast Sodium 10 mg [Singulair 10 MG] 10 mg PO DAILY risperiDONE [Risperdal] 0.5 mg PO BID Paliperidone Palmitate [Invega Sustenna] 117 mg IM UD Ibuprofen [IBUPROFEN 400 MG TABLET] 400 mg PO TID Atorvastatin Calcium 20 mg PO HS Alogliptin Benzoate [Alogliptin] 25 mg PO DAILY Petrolatum,White [Aquaphor] 1 applic TOP DAILY Carboxymethylcellulose Sodium [Refresh Plus] 1 each OP TID Fluticasone Propion/Salmeterol [Fluticasone-Salmeterol 250-50] 1 puff IH BID Midodrine HCl 5 mg PO TID Additional Instructions: THE [facility] ORDERS: -MECHANICAL SOFT DIET, GROUND MEAT, THIN LIQUIDS -ROUTINE [facility] CARE -PT/OT EVAL AND TREAT -ACCU CHECKS AC/HS -SEE ATTACHED MED LIST FOR CURRENT MED ORDERS Follow up with: FLIP ALVARADO OF [Primary Care Provider] - Forms: Ambulance Transport Record, Transfer Record Alf
[2023-02-10] MEDS ORDERED: VITAMIN D2 PO SCH (10:00)
== END 2023-02-06 17:15 ==
LOC: ED 13:16 → INTOOBSV 17:20 → ICU 17:20 → OBSVTOIN 17:20 → MED SURG 02-05 12:26
PROVIDERS: ADMIT Internal Medicine; ATTEND Internal Medicine
DX: A41.9 Sepsis, unspecified organism (principal); R65.21 Severe sepsis with septic shock; N39.0 Urinary tract infection, site not specified; R41.82 Altered mental status, unspecified; I12.9 Hypertensive chronic kidney disease with stage 1 through stage 4 chronic kidney disease, or unspecified chronic kidney disease; E11.22 Type 2 diabetes mellitus with diabetic chronic kidney disease; N17.9 Acute kidney failure, unspecified; N18.9 Chronic kidney disease, unspecified; E87.70 Fluid overload, unspecified; A49.8 Other bacterial infections of unspecified site; E66.01 Morbid (severe) obesity due to excess calories; E78.5 Hyperlipidemia, unspecified; E87.5 Hyperkalemia; R60.0 Localized edema; Z79.899 Other long term (current) drug therapy; Z20.828 Contact with and (suspected) exposure to other viral communicable diseases
CPT/HCPCS: 0241U; 36000; 36415; 51702; 71045; 80053; 81001; 82947; 83605; 85025; 85027; 85652; 87040; 87077; 87086; 87186; 93005; 94640; 94762; 96360; 96361; 96365; 96367; 99284; Q3014; 93268; J0696; J1650; J1940; A9270-GY; G0378

== ENCOUNTER 2023-04-25 05:10 | Emergency (ER) | payer MEDICARE ==
[2023-04-25 06:38] LABS: Absolute Neutrophil Ct (ANC) 3.38 x10^3/uL (1.4-6.9); BASOPHIL % 0.4 % (0.0-0.4); Basophil (Absolute #) 0.03 x10^3/uL (0-0.4); Eosinophil (Absolute #) 0.36 x10^3/uL (0-0.5); Hematocrit 26.5 % (35-47); Hemoglobin 8.5 g/dL (12.0-16.0); IMMATURE GRAN % 1.4 % (0.00-0.4); Lymphocyte (Absolute #) 2.65 x10^3/uL (1.0-4.6); Lymphocytes % 36.9 % (24.0-44.0); Mean Cell Volume 103.5 fL (78-100); Mean Corpuscular Hemoglobin 33.2 pg (26-32); Mean Corpuscular Hgb Concent. 32.1 g/dL (32-36); Mean Platelet Volume 10.3 fL (7.5-11.0); Monocyte (Absolute #) 0.67 x10^3/uL (0.0-1.3); Monocytes % 9.3 % (0.0-12.0); Platelet Count 281 x10^3/uL (150-450); Red Blood Count 2.56 x10^6/uL (4.1-5.4); Red Cell Distribution Width 18.2 % (11.5-14.0); White Blood Count 7.2 x10^3/uL (4.0-10.5)
[2023-04-25 06:43] LABS: Appearance Turbid (Clear); Bilirubin Negative (Negative); Glucose, Urine Negative (Negative); Ketones 15 (Negative); Leukocyte Esterase Large (Negative); Nitrite Positive (Negative); Ph 5.5 (4.6-8.0); Specific Gravity 1.025 (1.005-1.030); Urobilinogen 0.2 mg/dL (0.2)
--- NOTE | 2023-04-25 06:46 | ERPHSYRPT ---
- History of Present Illness Source: patient, EMS, group home records Patient Subjective Stated Complaint: nurse from nursing states that pt has had a fever since 04/24/23. nurse states that pt is currently being treated for a UTI Triage Nursing Assessment: pt arrived to er via ambulance; pt was transferred to bed per ems staff and er staff; pt is axo x1; c/o fever; skin PDW; coarse expiratory lung sounds in all lobes; moist wet cough present; 3+ pitting edema to BUE; urine is yellow, cloudy, foul odor; active bowel sounds in all quads; no respiratory distress present; vital wnl Hx Tetanus, Diphtheria Vaccination/Date Given: Yes Hx Influenza Vaccination/Date Given: No Hx Pneumococcal Vaccination/Date Given: No <ROLANDO BARTLETT - Last Filed: 04/25/23 06:57> <NORRIS HOLCOMB - Last Filed: 04/25/23 08:02> - History of Present Illness Time Seen by Provider: 04/25/23 06:00 Physician History: The patient is a 58-year-old who was sent from the group home. She had a fever for several days. She is being treated with Rocephin for UTI. The patient's baseline is alert and oriented x 1. She usually moans and cries. (ROLANDO BARTLETT) Allergies/Adverse Reactions: hydrocodone [From Vicodin] Allergy (Intermediate, Verified 04/25/23 05:14) Rash lurasidone [From Latuda] Allergy (Intermediate, Verified 04/25/23 05:14) Rash Home Medications: Gabapentin 300 mg PO TID 06/14/19 [History] Divalproex Sodium [Divalproex Sodium ER] 500 mg PO DAILY 11/06/22 [History] Ergocalciferol (Vitamin D2) [Vitamin D2] 50,000 unit PO WEEKLY 11/06/22 [History] Famotidine 40 mg PO DAILY 11/06/22 [History] Oxybutynin Chloride [Oxybutynin Chloride ER] 15 mg PO DAILY 11/06/22 [History] Primidone [Mysoline] 250 mg PO TID 11/06/22 [History] Atorvastatin Calcium 20 mg PO HS 01/03/23 [History] Carboxymethylcellulose Sodium [Refresh Plus] 1 each OP TID 01/03/23 [History] Ibuprofen [IBUPROFEN 400 MG TABLET] 400 mg PO TID 01/03/23 [History] Montelukast Sodium 10 mg [Singulair 10 MG] 10 mg PO DAILY 01/03/23 [History] Paliperidone Palmitate [Invega Sustenna] 117 mg IM UD 01/03/23 [History] risperiDONE [Risperdal] 0.5 mg PO BID 01/03/23 [History] Midodrine HCl 10 mg PO TID 02/02/23 [History] Acetaminophen 325 mg [Tylenol 325 mg] 650 mg PO Q4HPRN PRN 04/25/23 [History] Albuterol 2.5 mg/3 ml Neb [Proventil 2.5 mg/3 ml Neb] 2.5 mg IH QID PRN 04/25/23 [History] Bisacodyl [Laxative Suppository] 10 mg RC DAILY PRN 04/25/23 [History] Carbidopa/Levodopa [Sinemet 10-100 mg Tablet] 2 each PO TID 04/25/23 [History] Cranberry Fruit [Cranberry] 400 mg PO BID 04/25/23 [History] Glimepiride 2 mg [Amaryl 2 MG] 2 mg PO DAILY 04/25/23 [History] Insulin Lispro [Humalog Kwikpen] 100 unit SQ ACHS 04/25/23 [History] Levothyroxine Sodium 50 Mcg [Synthroid 50 Mcg] 50 mcg PO DAILY 04/25/23 [History] Methylprednisolone Packet [Medrol Dosepack] 4 mg PO UD 04/25/23 [History] Sertraline HCl [Zoloft] 100 mg PO HS 04/25/23 [History] Tramadol HCl 50 mg [Ultram 50 mg] 50 mg PO Q6HPRN PRN 04/25/23 [History] buPROPion HCL [Bupropion HCl] 75 mg PO HS 04/25/23 [History] Travel Risk - International Travel Have you traveled outside of the country in past 3 weeks: No - Coronavirus Screening Are you exhibiting any of the following symptoms?: Yes Symptoms: Fever - Vaccine Status Have you recieved a Covid-19 vaccination: Yes Health Equipment Servicer: Moderna - Vaccination Dates Date of 2cond Vaccination (if applicable): unknown <KONSTANTIN BARTLETTD - Last Filed: 04/25/23 06:57> - Review of Systems All Other Systems: Unable due to condition, Unable due to dementia <ROLANDO BARTLETT - Last Filed: 04/25/23 06:57> - Past Medical History Pertinent Past Medical History: Yes Neurological History: Other ENT History: No Pertinent History Cardiac History: High Cholesterol, Hypertension, Other Respiratory History: Asthma Endocrine Medical History: Diabetes Type II Musculoskeletal History: Arthritis GI Medical History: GERD History: Other Psycho-Social History: Anxiety, Depression Female Reproductive Disorders: No Pertinent History Other Medical History: SCHIZOPHRENIA, MITRAL VALVE REGURGITATION, TACHYCARDIA, OBESITY, HYPOMAGNESIUM, ACID REFLUX, IRRITABLE BOWEL SYNDROME, RESTING TREMORS (PER PATIENT RELATED TO PSYCHIATRIC MEDS - -CHANGED MEDS BUT NO CHANGE IN TREMORS). SX HX: CERVICAL FUSION 2 LEVELS, CHOLECYSTECTOMY, APPENDECTOMY, - Past Surgical History Past Surgical History: Yes Neuro Surgical History: No Pertinent History Cardiac: Cardiac Catheterization Respiratory: No Pertinent History Gastrointestinal: Appendectomy, Cholecystectomy Genitourinary: No Pertinent History Musculoskeletal: Other Female Surgical History: Section, Tubal Ligation Other Surgical History: NECK SURGERY WITH DISC REPAIR. C- Section x 2 - Social History Smoking Status: Unknown if ever smoked Exposure to second hand smoke: No Drug Use: none Patient Lives Alone: No ([facility]) <ROLANDO BARTLETT - Last Filed: 04/25/23 06:57> - Physical Exam General Appearance: no apparent distress Eye Exam: PERRL/EOMI ENT Exam: normal ENT inspection, No pharyngeal erythema, No tonsillar exudate Neck Exam: supple, full range of motion, No meningismus Respiratory Exam: lungs clear, no respiratory distress, no accessory muscle use, rhonchi, No respiratory distress Cardiovascular/Chest Exam: normal heart sounds, regular rate/rhythm, No murmur, No edema Gastrointestinal/Abdominal Exam: soft, non tender, no distention Extremity Exam: non-tender, normal range of motion, normal inspection, normal capillary refill Neurologic Exam: alert, cooperative, transitional care manager II-XII nml as tested, normal mood/affect, sensation nml, No oriented x 3 (Says some words but does not fully answer questions), No motor deficits Skin Exam: normal color, warm, dry, No rash SpO2 Interpretation: normal SpO2: 99 O2 Delivery: Nasal Cannula <ROLANDO BARTLETT - Last Filed: 04/25/23 06:57> - Nursing Vital Signs Nursing Vital Signs: Initial Vital Signs Temperature 98 F 04/25/23 05:11 Pulse Rate 88 04/25/23 05:11 Respiratory Rate 14 04/25/23 05:11 Blood Pressure 109/63 04/25/23 05:11 O2 Sat by Pulse Oximetry 98 04/25/23 05:11 - Course Nursing assessment & vital signs reviewed: Yes <ROLANDO BARTLETT - Last Filed: 04/25/23 06:57> Ordered Tests: Active Orders 24 hr Category Date Time Status IV Insertion STAT Care 04/25/23 05:55 Active CHEST 1 VIEW (PORTABLE) Stat Exams 04/25/23 05:55 Taken BLOOD CULTURE Stat Lab 04/25/23 07:50 Received CBC W DIFF Stat Lab 04/25/23 06:35 Completed CMP Stat Lab 04/25/23 06:35 Completed CULTURE,URINE Stat Lab 04/25/23 05:57 Ordered UA W/RFX UR CULTURE Stat Lab 04/25/23 06:39 Completed Medication Summary Generic Name Dose Route Start Last Admin Trade Name Freq PRN Reason Stop Dose Admin Meropenem 1 gm/ Sodium 100 mls @ 200 mls/hr 04/25/23 07:37 04/25/23 07:42 Chloride IV 04/25/23 08:06 200 mls/hr STAT ONE Administration Discontinued Medications Generic Name Dose Route Start Last Admin Trade Name Freq PRN Reason Stop Dose Admin Sodium Chloride Confirm 04/25/23 07:40 Sodium Chloride 100ml Mini-Bag Plus Administered 04/25/23 07:41 Dose 100 mls @ ud IV .STK-MED ONE Meropenem Confirm 04/25/23 07:39 Meropenem 1 Gm Vial Administered 04/25/23 07:40 Dose 1 gm IV .STK-MED ONE Lab/Rad Data: Laboratory Result Diagrams 04/25/23 06:35 04/25/23 06:35 Laboratory Results 04/25/23 04/25/23 04/25/23 Range/Units Unknown 06:39 06:35 WBC (4.0-10.5) x10^3/uL RBC (4.1-5.4) x10^6/uL Hgb (12.0-16.0) g/dL Hct (35-47) % MCV (78-100) fL MCH (26-32) pg MCHC (32-36) g/dL RDW (11.5-14.0) % Plt Count (150-450) x10^3/uL MPV (7.5-11.0) fL Gran % (36.0-66.0) % Immature Gran % (Auto) (0.00-0.4) % Nucleat RBC Rel Count (0.00-0.1) % Eos # (Auto) (0-0.5) x10^3/uL Immature Gran # (Auto) (0.00-0.03) x10^3u/L Absolute Lymphs (auto) (1.0-4.6) x10^3/uL Absolute Monos (auto) (0.0-1.3) x10^3/uL Absolute Nucleated RBC (0.00-0.01) x10^3u/L Lymphocytes % (24.0-44.0) % Monocytes % (0.0-12.0) % Eosinophils % (0.00-5.0) % Basophils % (0.0-0.4) % Absolute Granulocytes (1.4-6.9) x10^3/uL Basophils # (0-0.4) x10^3/uL Sodium 138 (137-145) mmol/L Potassium 4.6 (3.5-5.1) mmol/L Chloride 102 (98-107) mmol/L Carbon Dioxide 33 H (22-30) mmol/L Anion Gap 7.2 (5-15) MEQ/L BUN 23 H (7-17) mg/dL Creatinine 0.96 (0.52-1.04) mg/dL Estimated GFR 67.7 ML/MIN Glucose 138 H (74-106) mg/dL Calcium 9.3 (8.4-10.2) mg/dL Total Bilirubin 0.40 (0.2-1.3) mg/dL AST 18 (14-36) U/L ALT 9 (0-35) U/L Alkaline Phosphatase 88 (38-126) U/L Serum Total Protein 6.7 (6.3-8.2) g/dL Albumin 3.4 L (3.5-5.0) g/dL Urine Color Yellow (Yellow) Urine Appearance Turbid A (Clear) Urine pH 5.5 (4.6-8.0) Ur Specific [place] 1.025 (1.005-1.030) Urine Protein 100 A (Negative) Urine Glucose (UA) Negative (Negative) mg/dL Urine Ketones 15 A (Negative) Urine Blood Moderate A (Negative) Urine Nitrite Positive A (Negative) Urine Bilirubin Negative (Negative) Urine Urobilinogen 0.2 (0.2) mg/dL Ur Leukocyte Esterase Large A (Negative) U Hyaline Cast (Auto) 3-5 A (0-2) /LPF Urine Microscopic RBC 3-5 (0-5) /HPF Urine Microscopic WBC >100 A (0-5) /HPF Ur Epithelial Cells Few (None Seen) /HPF Urine Bacteria Few A (None Seen) /HPF Urine Culture Reflexed ORDERED SEPARATELY (NO) Influenza Type A Ag NEGATIVE (NEGATIVE) Influenza Type B Ag NEGATIVE (NEGATIVE) RSV (PCR) NEGATIVE (NEGATIVE) SARS-CoV-2 (PCR) NEGATIVE (NEGATIVE) 04/25/23 Range/Units 06:35 WBC 7.2 (4.0-10.5) x10^3/uL RBC 2.56 L (4.1-5.4) x10^6/uL Hgb 8.5 L (12.0-16.0) g/dL Hct 26.5 L (35-47) % MCV 103.5 H (78-100) fL MCH 33.2 H (26-32) pg MCHC 32.1 (32-36) g/dL RDW 18.2 H (11.5-14.0) % Plt Count 281 (150-450) x10^3/uL MPV 10.3 (7.5-11.0) fL Gran % 47.0 (36.0-66.0) % Immature Gran % (Auto) 1.4 H (0.00-0.4) % Nucleat RBC Rel Count 0.0 (0.00-0.1) % Eos # (Auto) 0.36 (0-0.5) x10^3/uL Immature Gran # (Auto) 0.10 H (0.00-0.03) x10^3u/L Absolute Lymphs (auto) 2.65 (1.0-4.6) x10^3/uL Absolute Monos (auto) 0.67 (0.0-1.3) x10^3/uL Absolute Nucleated RBC 0.00 (0.00-0.01) x10^3u/L Lymphocytes % 36.9 (24.0-44.0) % Monocytes % 9.3 (0.0-12.0) % Eosinophils % 5.0 (0.00-5.0) % Basophils % 0.4 (0.0-0.4) % Absolute Granulocytes 3.38 (1.4-6.9) x10^3/uL Basophils # 0.03 (0-0.4) x10^3/uL Sodium (137-145) mmol/L Potassium (3.5-5.1) mmol/L Chloride (98-107) mmol/L Carbon Dioxide (22-30) mmol/L Anion Gap (5-15) MEQ/L BUN (7-17) mg/dL Creatinine (0.52-1.04) mg/dL Estimated GFR ML/MIN Glucose (74-106) mg/dL Calcium (8.4-10.2) mg/dL Total Bilirubin (0.2-1.3) mg/dL AST (14-36) U/L ALT (0-35) U/L Alkaline Phosphatase (38-126) U/L Serum Total Protein (6.3-8.2) g/dL Albumin (3.5-5.0) g/dL Urine Color (Yellow) Urine Appearance (Clear) Urine pH (4.6-8.0) Ur Specific [place] (1.005-1.030) Urine Protein (Negative) Urine Glucose (UA) (Negative) mg/dL Urine Ketones (Negative) Urine Blood (Negative) Urine Nitrite (Negative) Urine Bilirubin (Negative) Urine Urobilinogen (0.2) mg/dL Ur Leukocyte Esterase (Negative) U Hyaline Cast (Auto) (0-2) /LPF Urine Microscopic RBC (0-5) /HPF Urine Microscopic WBC (0-5) /HPF Ur Epithelial Cells (None Seen) /HPF Urine Bacteria (None Seen) /HPF Urine Culture Reflexed (NO) Influenza Type A Ag (NEGATIVE) Influenza Type B Ag (NEGATIVE) RSV (PCR) (NEGATIVE) SARS-CoV-2 (PCR) (NEGATIVE) <ROLANDO BARTLETT - Last Filed: 04/25/23 06:57> - Progress Progress Note: 04/25/23 06:43 Fever Weakness Schizophrenia Multiple medical issues care home patient The patient a Espinoza placed for urinalysis sampling as well as monitoring of temperature. The patient's temperature was normal. The patient had been given ibuprofen earlier in the morning. The patient's urine does appear to be infected The patient is already on Rocephin The patient will get full workup including chest x-ray and blood work Blood work is still pending. Chest x-ray shows perihilar infiltrates but no lobar infiltrate once again there is no hypoxia. The patient had flu COVID flu and RSV sent. The patient will get blood work. The patient get a urine analysis. sign out Dr Holcomb (ROLANDO BARTLETT) Medical Desision Making - Independent Historian Additional History obtained from: Custodial nurse - External Record(s) Reviewed Records reviewed as a part of evaluation & management: care home - Discussion of managment Reviewed:: Test results - Diagnostic Testing Diagnostic test were ordered, analyzed, and reviewed by me: Yes Radiological Interpretation: Interpreted by me, Reviewed by me - Risk of complications The pt has a mod risk of morbidity or mortality based on: Need for prescription drug management <NORRIS HOLCOMB - Last Filed: 04/25/23 08:02> <ROLANDO BARTLETT - Last Filed: 04/25/23 06:57> - Departure Critical Care Time: No <NORRIS HOLCOMB - Last Filed: 04/25/23 08:02> - Departure Clinical Impression: Morbid obesity with BMI of 40.0-44.9, adult UTI (urinary tract infection) Qualifiers: Urinary tract infection type: acute pyelonephritis Qualified Code(s): N10 - Acute pyelonephritis Schizophrenia Qualifiers: Schizophrenia type: undifferentiated schizophrenia Qualified Code(s): F20.3 - Undifferentiated schizophrenia Fever Qualifiers: Fever type: unspecified Qualified Code(s): R50.9 - Fever, unspecified Condition: Stable Referrals: [facility] [Primary Care Provider] - Follow up/PCP as directed Instructions: Urinary Tract Infection, Child (DC), Urinary Tract Infection, Adult ED Additional Instructions: Discharge/Care Plan CHRIS BOONE was seen on 04/25/23 in the Emergency Room. The patient was counseled regarding Diagnosis,Lab results, Imaging studies, need for follow up and when to return to the Emergency Room. Prescriptions given: Discharge Note I have spoken with the patient and/or caregivers. I have explained the patient's condition, diagnosis and treatment plan based on the information available to me at this time. I have answered the patient's and/or caregiver's questions and addressed any concerns. The patient and/or caregivers have as good understanding of the patient's diagnosis, condition and treatment plan as can be expected at this point. The vital signs have been stable. The patient's condition is stable and appropriate for discharge from the emergency department. The patient will pursue further outpatient evaluation with the primary care physician or other designated or consulting physician as outlined in the discharge instructions. The patient and/or caregivers are agreeable to this plan of care and follow-up instructions have been explained in detail. The patient and/or caregivers have received these instruction. The patient/and or caregivers are aware that any significant change in condition or worsening of symptoms should prompt an immediate return to this or the closest emergency department or call 911. CHRIS BOONE was seen on 04/25/23 n the Emergency Room. At that time you were treated for an emergent condition, during your visit Laboratory, Radiology and/or other procedures may have been ordered. It is very important that you fo llow-up with your Primary Care Physician DILLON within the next 24-48 hours to review your Emergency Room visit and the final results of testing that was ordered. Some test results such as Urine Cultures, Blood Cultures, and other cultures if ordered will not be finalized for 24-48 hours. If you do not have a Primary Care Provider please call the medical records department at [phone] to obtain a copy of your results or you may sign into our patient portal to obtain these results by visiting us @ [email or web address] and completing the following steps: 1. Click on the Patient Portal link 2. Click the Patient Self Enrollment Link to complete the enrollment form and entering your 3. Once the enrollment form is completed you will receive an email with a temporary ID and password at the email address you provided. 4. Next choose a user name and password. Your user name must be at least 4 characters long and your password must be at least 4 characters long. 5. Choose a security question from the list and provide your answer to the question. If you already have signed into the Health Portal you may access your Health Care Information 20/10 by the following steps: 1. Login to our website @ [email or web address] 2. Enter your original user name and password. FAQS The [facility] Health Portal is an online tool that contains your Lab Results, Radiology Reports, Visit History, Discharge Instructions and Health Summary Lab and Radiology Results will not be available for 72 hours on the portal. The Portal is a secure site, passwords are encryted and URLs are re-written so they cannot be copied and pasted. You and authorized family members are the only ones who can access your Portal. Also there is a timeout feature that protects your information if you leave the Portal page open. If you have technical difficulty please use the Contact Us link on the page this will allow you to submit any questions you have regarding the Portal or you may contact the Medical Record Department at [phone]. Prescriptions: Levofloxacin [Levofloxacin 500 MG Tablet] 500 mg PO DAILY #10 tablet
[2023-04-25 06:52] LABS: ALBUMIN 3.4 g/dL (3.5-5.0); ANION GAP 7.2 MEQ/L (5-15); BILIRUBIN,TOTAL 0.4 mg/dL (0.2-1.3); Calcium 9.3 mg/dL (8.4-10.2); Creatinine 1 0.96 mg/dL (0.52-1.04); EST GLOMERULAR FILTRATION RATE 67.7 ML/MIN; Potassium 4.6 mmol/L (3.5-5.1); Total Protein 6.7 g/dL (6.3-8.2)
[2023-04-25 07:00] LABS: Bacteria Few /HPF (None Seen); Blood Moderate (Negative); Epithelial Cells Few /HPF (None Seen); Protein,Urine Dip 100 (Negative); WBC >100 /HPF (0-5)
[2023-04-25 07:14] LABS: ADD URINE CULTURE? ORDERED SEPARATELY (NO)
[2023-04-25 07:24] LABS: INFLUENZA A NEGATIVE (NEGATIVE); INFLUENZA B NEGATIVE (NEGATIVE); RESPIRATORY SYNCTIAL VIRUS NEGATIVE (NEGATIVE); SARS-CoV-2 Xpert Express NEGATIVE (NEGATIVE)
[2023-04-25] MEDS ORDERED: Merrem 1 GM in Sodium Chloride 100ML MINI-BAG PLUS 100 ML IV ONE (07:37)
[2023-04-25] MEDS ORDERED: Merrem IV ONE (07:39)
[2023-04-25] MEDS ORDERED: Sodium Chloride 100ML MINI-BAG PLUS 100 ML IV ONE (07:40)
[2023-04-25 08:03] VITALS: PULSE 80; O2SAT 100
--- NOTE | 2023-04-25 08:50 | XRAY ---
Indication: Fever. Comparison: February 02, 2023 Portable chest again demonstrates minimal right perihilar interstitial alveolar opacities. No consolidation/large effusion. Heart not enlarged. Bony thorax intact again with mild degenerative changes and cervical fusion.
[2023-04-25 09:08] VITALS: BP 120/68; RESP 19; TEMP 97.2
== END 2023-04-25 09:06 | disposition home or self-care (01) ==
LOC: ED 05:10
DX: N10 Acute pyelonephritis (principal); E66.01 Morbid (severe) obesity due to excess calories; Z68.41 Body mass index [BMI] 40.0-44.9, adult; F20.3 Undifferentiated schizophrenia; R50.9 Fever, unspecified; E78.5 Hyperlipidemia, unspecified; I10 Essential (primary) hypertension; E11.9 Type 2 diabetes mellitus without complications; Z79.84 Long term (current) use of oral hypoglycemic drugs; Z79.4 Long term (current) use of insulin; Z79.52 Long term (current) use of systemic steroids; Z79.891 Long term (current) use of opiate analgesic; Z79.899 Other long term (current) drug therapy
CPT/HCPCS: 0241U; 36000; 36415; 71045; 80053; 81001; 85025; 87040; 87077; 87086; 87186; 99284